=== PATIENT | male | born 1950 | race Caucasian/White ===

== ENCOUNTER → 2019-11-11 | Outpatient (CLI) | payer MEDICARE, OTHER ==
--- NOTE | 2019-11-11 09:53 | Diagnostic Imaging Report ---
INDICATION: Tobaccoism. EXAMINATION: PA and lateral chest. FINDINGS: The heart size and pulmonary vascularity are normal. There is a 2 cm ill-defined opacity in the left infrahilar area, suspicious for a mass. There are no infiltrates, effusions, or pneumothoraces. IMPRESSION: There is a 2 cm mass in the region of the lingular segment of the left upper lobe. This should be considered neoplasm until proven otherwise. Dictated by: Dictated on workstation # [id number]
== END ==
LOC: RAD 09:16
PROVIDERS: ATTEND Nurse Practitioner Family
DX: J98.4 Other disorders of lung (principal); R91.8 Other nonspecific abnormal finding of lung field; Z87.891 Personal history of nicotine dependence
CPT/HCPCS: 71046

== ENCOUNTER → 2019-11-12 | Outpatient (CLI) | payer MEDICARE, OTHER ==
--- NOTE | 2019-11-13 08:46 | Diagnostic Imaging Report ---
EXAMINATION: PET/CT. TECHNIQUE: PET/CT imaging was obtained from the base of the skull through the pelvis after the administration of 13.62 mCi of F-18 fluorodeoxyglucose injected into the left antecubital fossa. Limited CT imaging was utilized for localization and attenuation correction purposes. The low energy CT utilized for attenuation correction is not considered to be of high enough spatial resolution to allow in and of itself a separate anatomical analysis. Height: 6' 1" Weight: 206 Blood Glucose Level: 154 COMPARISON: There are no prior PET/CT examinations available for comparison. HISTORY: The CT chest exam performed at [facility] on 11/04/2019 did note a roughly 2 cm mass along the anterior aspect of the left upper lung. There was an adjacent linear density measuring approximately 1.7 cm as well. There also appeared to be lytic lesions involving the ribs and the thoracic vertebral bodies. In addition, there were areas of diminished density throughout the liver including a 5 cm area of diminished density in the inferior portion of the right lobe of the liver. FINDINGS: On this study, the mass involving the left lung is hypermetabolic with a maximum SUV of 6.5. The linear area adjacent to this mass is also somewhat hypermetabolic with a maximum SUV of 3.6. Furthermore, there is hypermetabolic activity in the left hilum with nodes reaching a maximum SUV of 5.0. There are also innumerable osseous metastatic lesions identified. There are areas of hypermetabolic activity involving the humeri (particularly the right humerus); ribs; cervical, thoracic, and lumbar vertebra; bony pelvis; and both femurs. This includes a sizable area of hypermetabolic activity in the left sacrum. The maximum SUV in this area is 5.7. The CT images through this area do show significant bony destruction of the left sacrum. The area of diminished density in the right lobe of the liver seen on the previous exam is also intensely hypermetabolic with a maximum SUV of 8.2. There are at least two other areas of hypermetabolic activity within the liver. These have maximum SUVs in the 4.[address] images failed to show any sign of an acute abnormality. IMPRESSION: 1. The mass in the left upper lung seen on the previous study is hypermetabolic and should be considered neoplastic until proven otherwise. There is also extensive osseous metastatic disease and there are several lesions involving the liver including a 5 cm mass in the inferior portion of the right lobe. 2. There is no acute abnormality identified. Dictated by: Dictated on workstation # [id number]
== END ==
LOC: RAD 11:38 → EDUNIT# 12:00
PROVIDERS: ATTEND Nurse Practitioner Family
DX: J98.4 Other disorders of lung (principal); M54.9 Dorsalgia, unspecified; R91.8 Other nonspecific abnormal finding of lung field; Z87.891 Personal history of nicotine dependence

== ENCOUNTER → 2019-11-15 | Outpatient (CLI) | payer MEDICARE, OTHER ==
[~2019-11-15] MED LIST: RT-ALBUTEROL SULF 2.5 MG/3 ML PRE-MIX VIAL INH ONE
== END ==
LOC: RT 13:21 → EDUNIT# 13:40
PROVIDERS: ATTEND Nurse Practitioner Family
DX: J98.4 Other disorders of lung (principal); J98.8 Other specified respiratory disorders; R06.00 Dyspnea, unspecified; F17.210 Nicotine dependence, cigarettes, uncomplicated
CPT/HCPCS: 94060; 94726; 94729

== ENCOUNTER 2019-11-21 08:00 | Outpatient (CLI) | payer MEDICARE, OTHER ==
[~2019-11-21] VITALS: Ht 185.4 cm; Wt 93.2 kg
[2019-11-21] VITALS (14 sets, daily range): BP systolic 165–189; BP diastolic 71–95
[2019-11-21 08:32] LABS: HEMOGLOBIN 10.5 G/DL (13.3-17.7); MEAN PLATELET VOLUME 9.9 FL (7.4-10.4); RED CELL DISTRIBUTION WIDTH 13.9 % (10.0-14.5); WHITE BLOOD COUNT 11.5 10^3/uL (4.3-11.0)
[2019-11-21] MEDS ORDERED: NS IV 1000 ML 1,000 ML IV STA (08:33)
[2019-11-21] MEDS ORDERED: LIDOCAINE 1% INJ 20 ML 20 ML VIAL INJ ONE (08:45)
[2019-11-21] MEDS ORDERED: fentaNYL INJECTION 100 MCG/2 ML AMP IVP ONE ×2 (08:45→11:15)
[2019-11-21] MEDS ORDERED: MIDAZOLAM 2 MG/2 ML (VERSED) VIAL IVP ONE (08:45)
[2019-11-21 08:52] LABS: PROTHROMBIN TIME PATIENT 13.9 SEC (12.2-14.7)
--- NOTE | 2019-11-21 10:55 | NUR ---
DR HANNAH NOTIFIED THAT PT CONT HYPERTENSIVE. NEW SOA. BREATH SOUNDS DIMINISHED WITH UPPER LOBE WHEEZES BILATERALLY. PT C/O DIFFICULTY BREATHING. ORDERS REC'D
[2019-11-21] MEDS ORDERED: HYDROcodone/APAP 5 MG/325 MG (LORTAB) TAB PO PRN (11:00)
--- NOTE | 2019-11-21 11:11 | Diagnostic Imaging Report ---
INDICATION: Liver mass. Patient presents for CT-guided biopsy. TECHNIQUE: All CT scans use one or more of the following dose optimizing techniques: automated exposure control, MA and/or KvP adjustment based on a patient size and exam type, or iterative reconstruction. DETAILS OF PROCEDURE: Patient was brought to the CT suite, placed on the table in the left side down decubitus position. Axial imaging through abdomen was performed to evaluate appropriate entry site. Procedure was performed utilizing conscious sedation with radiology nursing and constant patient monitoring. Patient was administered 50 mcg of fentanyl intravenously and 1 mg of Versed intravenously. Total procedure time is 9 minutes. The right abdomen was prepped and draped in usual sterile fashion. Small amount of 1% lidocaine was utilized for local anesthesia. A coaxial 18-gauge Temno needle was advanced and placed with its tip in the dominant mass in the inferior right lobe of the liver. Multiple core biopsies were obtained. Needle was then repositioned and additional cores were obtained. Needle was withdrawn during injection of a blood patch. Follow-up imaging shows no complicating features. IMPRESSION: Successful CT-guided core biopsy of the dominant mass in the inferior right lobe of the liver, utilizing conscious sedation. Pathology results are currently pending. Dictated by: Dictated on workstation # [id number]
[2019-11-21] MEDS ORDERED: RT-ALBUTEROL/IPRATROPIUM 3 ML (DUONEB) VIAL INH ONE (11:15)
--- NOTE | 2019-11-21 11:17 | NUR ---
RT TO ROOM. BREATHING TREATMENT GIVEN. PT REPORTS HE FEELS MUCH LESS SOA AFTER TREATMENT. FENTANYL GIVEN FOR C/O PAIN AT PROCEDURE SITE. DRESSING D/I. NO SX/SX BLEEDING NOTED. PT VERY COMPLIANT WITH LAYING FLAT ON RIGHT SIDE.
--- NOTE | 2019-11-21 12:20 | NUR ---
PT RESTING QUIETLY. RESPS EVEN ET UNLAB. FAMILY AT BEDSIDE. NO C/O OR REQUESTS.
--- NOTE | 2019-11-21 15:48 | Pre-Op Note & Conscious Sedat ---
Pre-Operative Progress Note H&P Reviewed The H&P was reviewed, patient examined and no changes noted. Date H&P Reviewed: Nov 21, 2019 Time H&P Reviewed: 09:00 Pre-Op Diagnosis: Liver mass Conscious Sedation Pre-Proced Time 09:00 ASA Score 2 For ASA 3 and 4: Consider anesthesia and medical clearance. Also, for patients with a history of failed moderate sedation consider anesthesia. Airway Lungs Heart ASA score ASA 1: a normal healthy patient ASA 2: a patient with a mild systemic disease (mid diabetes, controlled hypertension, obesity ASA 3: a patient with a severe systemic disease that limits activity (angina, COPD, prior Myocardial infarction) ASA 4: a patient with an incapacitating disease that is a constant threat to life (CHF, renal failure) ASA 5: a moribund patient not expected to survive 24 hrs. (ruptured aneurysm) ASA 6: a declared brain- patient whose organs are being harvested. For emergent operations, add the letter E after the classification Mallampati Classification Grade 2 Sedation Plan Analgesia, Amnesia, Plan communicated to team members, Discussed options with patient/fam, Discussed risks with patient/fam The patient is an appropriate candidate to undergo the planned procedure, sedation, and anesthesia. The patient immediately re-assessed prior to indication. ILEANA OTT MD Nov 21, 2019 15:48
== END 2019-11-21 13:30 | disposition home or self-care (01) ==
LOC: SDC 08:00
PROVIDERS: ATTEND Nurse Practitioner Family
DX: J98.4 Other disorders of lung (principal); M89.9 Disorder of bone, unspecified; K76.9 Liver disease, unspecified; J44.9 Chronic obstructive pulmonary disease, unspecified; C80.1 Malignant (primary) neoplasm, unspecified; Z79.51 Long term (current) use of inhaled steroids; R91.8 Other nonspecific abnormal finding of lung field; Z87.891 Personal history of nicotine dependence; Z72.0 Tobacco use
CPT/HCPCS: 36415; 77012; 85027; 85610; 85730; 94640; 99156

== ENCOUNTER 2019-12-01 06:48 | Inpatient (IN) | payer MEDICARE, OTHER ==
[~2019-12-01] VITALS: Ht 184.5 cm; Wt 92.5 kg
--- NOTE | 2019-12-01 08:53 | NUR ---
REPORT RECEIVED FROM CHEYANNE DUGAN ED NURSE. PT TO ARRIVE TO FLOOR SHORTLY
--- NOTE | 2019-12-01 09:20 | NUR ---
PT DIRECT ADMIT FROM [place] [facility] TO ROOM 416 VIA [facility]. A/O X4. DENIES ANY PAIN AT THIS TIME. PT ORIENTED TO ROOM, CALL LIGHT IN REACH. PLAN OF CARE DISCUSSED WITH PT.
--- OUTSIDE RECORDS SUMMARY | 2019-12-01 09:25 | XMS REPORT | Continuity of Care Document ---
Author Organization Unknown Address Unknown Phone Unavailable Allergies Active Description Code Type Severity Reaction Onset Reported/Identified Relationship to Patient Clinical Status Yes NO KNOWN DRUG ALLERGIES UNKNOWN UNKNOWN Yes No Known Drug Allergies [id number] Drug Allergy Unknown N/A 11/15/2019 Medications Medication Packaging Start Date St op Date Route Dosage Sig NORMAL SALINE 1000CC IV BAG INJ 0.9 % (NS 1000CC IV BAG) ml 04/30/2019 04/30/2019 ONCE&1154 INSULIN REGULAR HUMAN INJ 10 0 UNITS/CC (HUMULIN R / NOVOLIN R INSULIN) UNITS 11/28/2019 11/28/2019 ONCE&121 8 NORMAL SALINE 1000CC IV BAG INJ 0.9 % (NS 1000CC IV BAG) ml 11/28/2019 11/28/2019 ONCE&1225 INSULIN REGULAR HUMAN INJ 10 0 UNITS/CC (HUMULIN R / NOVOLIN R INSULIN) UNITS 12/01/2019 12/01/2019 ONCE&060 8 NORMAL SALINE 1000CC IV BAG INJ 0.9 % (NS 1000CC IV BAG) ml 12/01/2019 12/16/2019 CONTINUOUSEVERY 0 Hour CEFTRIAXONE PREMIX IV BAG IV 1 GM/50CC (ROCEPHIN PREMIX IV BAG) GM 12/01/2019 12/01/2019 ONCE&0705 ASPIRIN TAB 325 MG (ROMERO) M G 12/01/2019 12/07/2019 Daily&0900 Problems Date Dx Coded Attending Type Code Diagnosis Diagnosed By 04/30/2019 W 433.10 OCC LUSION AND STENOSIS OF CAROTID ARTERY, WITHOUT MENTION OF CEREBRAL INFARCTION 04/30/2019 W I65.21 OCC LUSION AND STENOSIS OF RIGHT CAROTID ARTERY 04/30/2019 W R20.2 PARE STHESIA OF SKIN 04/30/2019 W R53.1 WEAKNESS 05/15/2019 UNLISTED, UNLISTED W 780. 79 OTHER MALAISE AND FATIGUE 05/15/2019 UNLISTED, UNLISTED W 782. 0 DISTURBANCE OF SKIN SENSATION 05/15/2019 UNLISTED, UNLISTED W R20. 2 PARESTHESIA OF SKIN 05/15/2019 UNLISTED, UNLISTED W R53. 1 WEAKNESS 05/15/2019 UNLISTED, UNLISTED W 780. 79 OTHER MALAISE AND FATIGUE 05/15/2019 UNLISTED, UNLISTED W 782. 0 DISTURBANCE OF SKIN SENSATION 05/15/2019 UNLISTED, UNLISTED W R20. 2 PARESTHESIA OF SKIN 05/15/2019 UNLISTED, UNLISTED W R53. 1 WEAKNESS 05/24/2019 UNLISTED, UNLISTED W 780. 79 OTHER MALAISE AND FATIGUE 05/24/2019 UNLISTED, UNLISTED W 782. 0 DISTURBANCE OF SKIN SENSATION 05/24/2019 UNLISTED, UNLISTED W I65. 21 OCCLUSION AND STENOSIS OF RIGHT CAROTID ARTERY 05/24/2019 UNLISTED, UNLISTED W R20. 2 PARESTHESIA OF SKIN 05/24/2019 UNLISTED, UNLISTED W R53. 1 WEAKNESS 08/02/2019 Nando York W 781.0 ABNORMAL INVOLUNTARY MOVEMENTS 08/02/2019 Nando York W I65.21 OCCLUSION AND STENOSIS OF RIGHT CAROTID ARTERY 08/02/2019 Nando York W M62.838 OTHER MUSCLE SPASM 08/02/2019 Nando York W R20.2 PARESTHESIA OF SKIN 08/02/2019 Nando York W R53.1 WEAKNESS 11/05/2019 W 724.1 PAIN IN THORACIC SPINE 11/05/2019 W M54.6 PAIN IN THORACIC SPINE 11/13/2019 CHELSEA ROMAN MANAGER OF FINANCIAL Ot 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 11/13/2019 CHELSEA ROMAN MANAGER OF FINANCIAL Ot R91.8 OTHER NONSPECIFIC ABNORMAL FINDING OF OSITO 11/13/2019 CHELSEA ROMAN E MANAGER OF FINANCIAL Ot Z87.891 PERSONAL HISTORY OF NICOTINE DEPENDENCE 11/13/2019 CHELSEA ROMAN MANAGER OF FINANCIAL Ot 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 11/13/2019 CHELSEA ROMAN MANAGER OF FINANCIAL Ot R91.8 OTHER NONSPECIFIC ABNORMAL FINDING OF OSITO 11/13/2019 CHELSEA ROMAN MANAGER OF FINANCIAL Ot Z87.891 PERSONAL HISTORY OF NICOTINE DEPENDENCE 11/14/2019 CHELSEA ROMAN MANAGER OF FINANCIAL Ot 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 11/14/2019 CHELSEA ROMAN E MANAGER OF FINANCIAL Ot M54.9 DORSALGIA, UNSPECIFIED 11/14/2019 JESSIE, CHELSEA E MANAGER OF FINANCIAL Ot R91.8 OTHER NONSPECIFIC ABNORMAL FINDING OF OSITO 11/14/2019 JESSIESHELLY BLANKINE E MANAGER OF FINANCIAL Ot Z87.891 PERSONAL HISTORY OF NICOTINE DEPENDENCE 11/14/2019 JESSIE, CHELSEA E MANAGER OF FINANCIAL Ot 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 11/14/2019 JESSIE, CHELSEA E MANAGER OF FINANCIAL Ot R91.8 OTHER NONSPECIFIC ABNORMAL FINDING OF OSITO 11/14/2019 JESSIE, CHELSEA E MANAGER OF FINANCIAL Ot Z87.891 PERSONAL HISTORY OF NICOTINE DEPENDENCE 11/15/2019 JESSIE, CHELSEA E MANAGER OF FINANCIAL Ot 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 11/15/2019 JESSIE, CHELSEA E MANAGER OF FINANCIAL Ot M54.9 DORSALGIA, UNSPECIFIED 11/15/2019 JESSIE, CHELSEA E MANAGER OF FINANCIAL Ot R91.8 OTHER NONSPECIFIC ABNORMAL FINDING OF OSITO 11/15/2019 JESSIESHELLY BLANKINE E MANAGER OF FINANCIAL Ot Z87.891 PERSONAL HISTORY OF NICOTINE DEPENDENCE 11/15/2019 JESSIE, CHELSEA E MANAGER OF FINANCIAL Ot 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 11/15/2019 JESSIE, CHELSEA E MANAGER OF FINANCIAL Ot R91.8 OTHER NONSPECIFIC ABNORMAL FINDING OF OSITO 11/15/2019 SHELLY ROMANINE E MANAGER OF FINANCIAL Ot Z87.891 PERSONAL HISTORY OF NICOTINE DEPENDENCE 11/18/2019 JESSIE, CHELSEA E MANAGER OF FINANCIAL Ot 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 11/18/2019 JESSIE, CHELSEA E MANAGER OF FINANCIAL Ot M54.9 DORSALGIA, UNSPECIFIED 11/18/2019 JESSIE, CHELSEA E MANAGER OF FINANCIAL Ot R91.8 OTHER NONSPECIFIC ABNORMAL FINDING OF OSITO 11/18/2019 JESSIESHELLY BLANKINE E MANAGER OF FINANCIAL Ot Z87.891 PERSONAL HISTORY OF NICOTINE DEPENDENCE 11/18/2019 JESSIE, CHELSEA E MANAGER OF FINANCIAL Ot 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 11/18/2019 JESSIE, CHELSEA E MANAGER OF FINANCIAL Ot R91.8 OTHER NONSPECIFIC ABNORMAL FINDING OF OSITO 11/18/2019 JESSIE CHELSEA E MANAGER OF FINANCIAL Ot Z87.891 PERSONAL HISTORY OF NICOTINE DEPENDENCE 11/20/2019 JESSIE, CHELSEA E MANAGER OF FINANCIAL Ot F17.210 NICOTINE DEPENDENCE, CIGARETTES, UNCOMPL 11/20/2019 JESSIE, CHELSEA E MANAGER OF FINANCIAL Ot 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 11/20/2019 JESSIE, CHELSEA E MANAGER OF FINANCIAL Ot J98.8 OTHER SPECIFIED RESPIRATORY DISORDERS 11/20/2019 JESSIE, CHELSEA E MANAGER OF FINANCIAL Ot R06.00 DYSPNEA, UNSPECIFIED 11/20/2019 JESSIE, CHELSEA E MANAGER OF FINANCIAL Ot 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 11/20/2019 JESSIE, CHELSEA E MANAGER OF FINANCIAL Ot M54.9 DORSALGIA, UNSPECIFIED 11/20/2019 JESSIE, CHELSEA E MANAGER OF FINANCIAL Ot R91.8 OTHER NONSPECIFIC ABNORMAL FINDING OF OSITO 11/20/2019 JESSIE, CHELSEA E MANAGER OF FINANCIAL Ot Z87.891 PERSONAL HISTORY OF NICOTINE DEPENDENCE 11/20/2019 JESSIE, CHELSEA E MANAGER OF FINANCIAL Ot F17.210 NICOTINE DEPENDENCE, CIGARETTES, UNCOMPL 11/20/2019 JESSIE, CHELSEA E MANAGER OF FINANCIAL Ot 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 11/20/2019 JESSIE, CHELSEA E MANAGER OF FINANCIAL Ot J98.8 OTHER SPECIFIED RESPIRATORY DISORDERS 11/20/2019 JESSIE, CHELSEA E MANAGER OF FINANCIAL Ot R06.00 DYSPNEA, UNSPECIFIED 11/20/2019 JESSIE, CHELSEA E MANAGER OF FINANCIAL Ot 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 11/20/2019 JESSIE, CHELSEA E MANAGER OF FINANCIAL Ot R91.8 OTHER NONSPECIFIC ABNORMAL FINDING OF OSITO 11/20/2019 JESSIE, CHELSEA E MANAGER OF FINANCIAL Ot Z87.891 PERSONAL HISTORY OF NICOTINE DEPENDENCE 11/21/2019 JESSIE, CHELSEA E MANAGER OF FINANCIAL Ot 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 11/21/2019 JESSIE, CHELSEA E MANAGER OF FINANCIAL Ot M54.9 DORSALGIA, UNSPECIFIED 11/21/2019 JESSIE, CHELSEA E MANAGER OF FINANCIAL Ot R91.8 OTHER NONSPECIFIC ABNORMAL FINDING OF OSITO 11/21/2019 JESSIE, CHELSEA E MANAGER OF FINANCIAL Ot Z87.891 PERSONAL HISTORY OF NICOTINE DEPENDENCE 11/21/2019 JESSIE, CHELSEA E MANAGER OF FINANCIAL Ot F17.210 NICOTINE DEPENDENCE, CIGARETTES, UNCOMPL 11/21/2019 JESSIE, CHELSEA E MANAGER OF FINANCIAL Ot 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 11/21/2019 JESSIE, CHELSEA E MANAGER OF FINANCIAL Ot J98.8 OTHER SPECIFIED RESPIRATORY DISORDERS 11/21/2019 JESSIE, CHELSEA E MANAGER OF FINANCIAL Ot R06.00 DYSPNEA, UNSPECIFIED 11/21/2019 JESSIE, CHELSEA E MANAGER OF FINANCIAL Ot 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 11/21/2019 JESSIE, CHELSEA E MANAGER OF FINANCIAL Ot R91.8 OTHER NONSPECIFIC ABNORMAL FINDING OF OSITO 11/21/2019 JESSIESHELLY BLANKEMELIA Wei MANAGER OF FINANCIAL Ot Z87.891 PERSONAL HISTORY OF NICOTINE DEPENDENCE 11/21/2019 CHELSEA ROMAN MANAGER OF FINANCIAL Ot R79.1 ABNORMAL COAGULATION PROFILE 11/21/2019 CHELSEA ROMAN MANAGER OF FINANCIAL Ot C80.1 MALIGNANT (PRIMARY) NEOPLASM, UNSPECIFIE 11/21/2019 CHELSEA ROMAN MANAGER OF FINANCIAL Ot J44.9 CHRONIC OBSTRUCTIVE PULMONARY DISEASE, U 11/21/2019 SHELLY ROMANINE Eriberto MANAGER OF FINANCIAL Ot 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 11/21/2019 CHELSEA ROMAN MANAGER OF FINANCIAL Ot K76.9 LIVER DISEASE, UNSPECIFIED 11/21/2019 CHELSEA ROMAN MANAGER OF FINANCIAL Ot M89.9 DISORDER OF BONE, UNSPECIFIED 11/21/2019 CHELSEA ROMAN MANAGER OF FINANCIAL Ot R91.8 OTHER NONSPECIFIC ABNORMAL FINDING OF OSITO 11/21/2019 CHELSAE ROMAN MANAGER OF FINANCIAL Ot Z72.0 TOBACCO USE 11/21/2019 CHELSEA ROMAN MANAGER OF FINANCIAL Ot Z79.51 FDC (CURRENT) USE OF 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 11/21/2019 CHELSEA ROMAN MANAGER OF FINANCIAL Ot Z87.891 PERSONAL HISTORY OF NICOTINE DEPENDENCE 11/21/2019 CHELSEA ROMAN MANAGER OF FINANCIAL Ot R79.1 ABNORMAL COAGULATION PROFILE 11/27/2019 CHELSEA ROMAN MANAGER OF FINANCIAL Ot 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 11/27/2019 CHELSEA ROMAN MANAGER OF FINANCIAL Ot M54.9 DORSALGIA, UNSPECIFIED 11/27/2019 CHELSEA ROMAN MANAGER OF FINANCIAL Ot R91.8 OTHER NONSPECIFIC ABNORMAL FINDING OF OSITO 11/27/2019 CHELSEA ROMAN MANAGER OF FINANCIAL Ot Z87.891 PERSONAL HISTORY OF NICOTINE DEPENDENCE 11/27/2019 SHELLY ROMANINE Eriberto MANAGER OF FINANCIAL Ot F17.210 NICOTINE DEPENDENCE, CIGARETTES, UNCOMPL 11/27/2019 CHELSEA ROMAN MANAGER OF FINANCIAL Ot 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 11/27/2019 CHELSEA ROMAN MANAGER OF FINANCIAL Ot J98.8 OTHER SPECIFIED RESPIRATORY DISORDERS 11/27/2019 CHELSEA ROMAN MANAGER OF FINANCIAL Ot R06.00 DYSPNEA, UNSPECIFIED 11/27/2019 SHELLY ROMANINE E MANAGER OF FINANCIAL Ot 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 11/27/2019 JESSIESHELLYCHELSEA E MANAGER OF FINANCIAL Ot R91.8 OTHER NONSPECIFIC ABNORMAL FINDING OF OSITO 11/27/2019 SHELLY ROMANINE E MANAGER OF FINANCIAL Ot Z87.891 PERSONAL HISTORY OF NICOTINE DEPENDENCE 11/27/2019 JESSIE, CHELSEA E MANAGER OF FINANCIAL Ot 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 11/27/2019 JESSIE, CHELSEA E MANAGER OF FINANCIAL Ot M54.9 DORSALGIA, UNSPECIFIED 11/27/2019 JESSIE, CHELSEA E MANAGER OF FINANCIAL Ot R91.8 OTHER NONSPECIFIC ABNORMAL FINDING OF OSITO 11/27/2019 SHELLY ROMANINE E MANAGER OF FINANCIAL Ot Z87.891 PERSONAL HISTORY OF NICOTINE DEPENDENCE 11/27/2019 JESSIE, CHELSEA E MANAGER OF FINANCIAL Ot F17.210 NICOTINE DEPENDENCE, CIGARETTES, UNCOMPL 11/27/2019 JESSIE, CHELSEA E MANAGER OF FINANCIAL Ot 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 11/27/2019 JESSIE, CHELSEA E MANAGER OF FINANCIAL Ot J98.8 OTHER SPECIFIED RESPIRATORY DISORDERS 11/27/2019 JESSIE, CHELSEA E MANAGER OF FINANCIAL Ot R06.00 DYSPNEA, UNSPECIFIED 11/27/2019 JESSIE, CHELSEA E MANAGER OF FINANCIAL Ot 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 11/27/2019 JESSIE, CHELSEA E MANAGER OF FINANCIAL Ot R91.8 OTHER NONSPECIFIC ABNORMAL FINDING OF OSITO 11/27/2019 SHELLY ROMANINE E MANAGER OF FINANCIAL Ot Z87.891 PERSONAL HISTORY OF NICOTINE DEPENDENCE 11/27/2019 JESSIE, CHELSEA E MANAGER OF FINANCIAL Ot 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 11/27/2019 JESSIE, CHELSEA E MANAGER OF FINANCIAL Ot M54.9 DORSALGIA, UNSPECIFIED 11/27/2019 JESSIE, CHELSEA E MANAGER OF FINANCIAL Ot R91.8 OTHER NONSPECIFIC ABNORMAL FINDING OF OSITO 11/27/2019 SHELLY ROMANINE E MANAGER OF FINANCIAL Ot Z87.891 PERSONAL HISTORY OF NICOTINE DEPENDENCE 11/27/2019 JESSIE, CHELSEA E MANAGER OF FINANCIAL Ot F17.210 NICOTINE DEPENDENCE, CIGARETTES, UNCOMPL 11/27/2019 JESSIE, CHELSEA E MANAGER OF FINANCIAL Ot 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 11/27/2019 JESSIE, CHELSEA E MANAGER OF FINANCIAL Ot J98.8 OTHER SPECIFIED RESPIRATORY DISORDERS 11/27/2019 JESSIE, CHELSEA E MANAGER OF FINANCIAL Ot R06.00 DYSPNEA, UNSPECIFIED 11/27/2019 JESSIE, CHELSEA E MANAGER OF FINANCIAL Ot 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 11/27/2019 JESSIESHELLY BLANKINE Eriberto MANAGER OF FINANCIAL Ot R91.8 OTHER NONSPECIFIC ABNORMAL FINDING OF OSITO 11/27/2019 JESSIESHELLY BLANKINE Eriberto MANAGER OF FINANCIAL Ot Z87.891 PERSONAL HISTORY OF NICOTINE DEPENDENCE 11/27/2019 JESSIESHELLY BLANKINE Eriberto MANAGER OF FINANCIAL Ot 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 11/27/2019 JESSIE, CHELSEA Eriberto MANAGER OF FINANCIAL Ot M54.9 DORSALGIA, UNSPECIFIED 11/27/2019 SHELLY ROMANINE E MANAGER OF FINANCIAL Ot R91.8 OTHER NONSPECIFIC ABNORMAL FINDING OF OSITO 11/27/2019 JESSIESHELLY BLANKINE Eriberto MANAGER OF FINANCIAL Ot Z87.891 PERSONAL HISTORY OF NICOTINE DEPENDENCE 11/27/2019 SHELLY ROMANINE Eriberto MANAGER OF FINANCIAL Ot F17.210 NICOTINE DEPENDENCE, CIGARETTES, UNCOMPL 11/27/2019 SHELLY ROMANINE E MANAGER OF FINANCIAL Ot 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 11/27/2019 SHELLY ROMANINE Eriberto MANAGER OF FINANCIAL Ot J98.8 OTHER SPECIFIED RESPIRATORY DISORDERS 11/27/2019 CHELSEA ROMAN MANAGER OF FINANCIAL Ot R06.00 DYSPNEA, UNSPECIFIED 11/27/2019 SHELLY ROMANINE Eriberto MANAGER OF FINANCIAL Ot 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 11/27/2019 JESSIE CHELSEA Wei MANAGER OF FINANCIAL Ot R91.8 OTHER NONSPECIFIC ABNORMAL FINDING OF OSITO 11/27/2019 JESSIESHELLY BLANKEMELIA Wei MANAGER OF FINANCIAL Ot Z87.891 PERSONAL HISTORY OF NICOTINE DEPENDENCE 11/28/2019 CHELSEA ROMAN MANAGER OF FINANCIAL Ot C80.1 MALIGNANT (PRIMARY) NEOPLASM, UNSPECIFIE 11/28/2019 SHELLY ROMANINE Eriberto MANAGER OF FINANCIAL Ot J44.9 CHRONIC OBSTRUCTIVE PULMONARY DISEASE, U 11/28/2019 SHELLY ROMANINE E MANAGER OF FINANCIAL Ot 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 11/28/2019 SHELLY ROMANINE Eriberto MANAGER OF FINANCIAL Ot K76.9 LIVER DISEASE, UNSPECIFIED 11/28/2019 SHELLY ROMANINE E MANAGER OF FINANCIAL Ot M89.9 DISORDER OF BONE, UNSPECIFIED 11/28/2019 SHELLY ROMANINE E MANAGER OF FINANCIAL Ot R91.8 OTHER NONSPECIFIC ABNORMAL FINDING OF OSITO 11/28/2019 CHELSEA ROMAN MANAGER OF FINANCIAL Ot Z72.0 TOBACCO USE 11/28/2019 CHELSEA ROMAN E MANAGER OF FINANCIAL Ot Z79.51 MASSAGE COORDINATOR (CURRENT) USE OF 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 11/28/2019 JESSIE CHELSEA E MANAGER OF FINANCIAL Ot Z87.891 PERSONAL HISTORY OF NICOTINE DEPENDENCE 11/28/2019 JESSIE, CHELSEA E MANAGER OF FINANCIAL Ot C80.1 MALIGNANT (PRIMARY) NEOPLASM, UNSPECIFIE 11/28/2019 JESSIE CHELSEA E MANAGER OF FINANCIAL Ot J44.9 CHRONIC OBSTRUCTIVE PULMONARY DISEASE, U 11/28/2019 JESSIE, CHELSEA E MANAGER OF FINANCIAL Ot 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 11/28/2019 JESSIE, CHELSEA E MANAGER OF FINANCIAL Ot K76.9 LIVER DISEASE, UNSPECIFIED 11/28/2019 JESSIE, CHELSEA E MANAGER OF FINANCIAL Ot M89.9 DISORDER OF BONE, UNSPECIFIED 11/28/2019 JESSIE, CHELSEA E MANAGER OF FINANCIAL Ot R91.8 OTHER NONSPECIFIC ABNORMAL FINDING OF OSITO 11/28/2019 JESSIE CHELSEA E MANAGER OF FINANCIAL Ot Z72.0 TOBACCO USE 11/28/2019 JESSIE, CHELSEA E MANAGER OF FINANCIAL Ot Z79.51 FDC (CURRENT) USE OF 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 11/28/2019 JESSIE, CHELSEA E MANAGER OF FINANCIAL Ot Z87.891 PERSONAL HISTORY OF NICOTINE DEPENDENCE 11/28/2019 JESSIE CHELSEA E MANAGER OF FINANCIAL Ot C80.1 MALIGNANT (PRIMARY) NEOPLASM, UNSPECIFIE 11/28/2019 JESSIE CHELSEA E MANAGER OF FINANCIAL Ot J44.9 CHRONIC OBSTRUCTIVE PULMONARY DISEASE, U 11/28/2019 JESSIE, CHELSEA E MANAGER OF FINANCIAL Ot 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 11/28/2019 JESSIE CHELSEA E MANAGER OF FINANCIAL Ot K76.9 LIVER DISEASE, UNSPECIFIED 11/28/2019 JESSIE CHELSEA E MANAGER OF FINANCIAL Ot M89.9 DISORDER OF BONE, UNSPECIFIED 11/28/2019 JESSIE, CHELSEA E MANAGER OF FINANCIAL Ot R91.8 OTHER NONSPECIFIC ABNORMAL FINDING OF OSITO 11/28/2019 JESSIE CHELSEA E MANAGER OF FINANCIAL Ot Z72.0 TOBACCO USE 11/28/2019 JESSIE, CHELSEA E MANAGER OF FINANCIAL Ot Z79.51 FDC (CURRENT) USE OF 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 11/28/2019 JESSIE, CHELSEA E MANAGER OF FINANCIAL Ot Z87.891 PERSONAL HISTORY OF NICOTINE DEPENDENCE Procedures There is no data. Results Test Result Range Urinalysis - 04/30/19 11:02 Icotest N/A Negative Urine Volume Urine Volume Sufficient (10mL) Urine-Appearance Clear Clear Urine-Bacteria Negative Urine-Bilirubin Negative Negative Urine-Blood Trace-lysed Negative Urine-Color Yellow Colorless-[place] ow Urine-Epithelial Cells 0-5/HPF Urine-Glucose Negative Negative Urine-Ketones Negative Negative Urine-Leukocytes Negative Negative Urine-Nitrite Negative Negative Urine-Other Urine Saved if Culture Need ed (48hrs from time of collection) Urine-pH 5.5 5-8.5 Urine-Protein 2+ Negative Urine-RBC Negative Urine-Specific [place] 1.025 1.000-1 .030 Urine-WBC Negative Urobilinogen 0.2 E.U./dL 0.2-1.0 Thyroid Stimulating Hormone - 06/27/19 1 4:57 TSH 1.70 mIU/mL 0.32-5.00 PSA Yearly Screen - 09/24/19 10:23 PSA TOTAL 1.2 ng/mL 0.0-4.0 Hemoglobin A1C - 10/28/19 10:27 Automated blood complete blood count (he mogram) panel - 11/21/19 08:20 Blood leukocytes automated count (number/volume) 11.5 10*3/uL 4.3-11.0 Blood erythrocytes automated count (number/volume) 3.64 10*6/uL 4.35-5.85 Venous blood hemoglobin measurement (mass/volume) 10.5 g/dL 13.3-17.7 Blood hematocrit (volume fraction) 32 % 40-54 Automated erythrocyte mean corpuscular volume 88 [ foz_us] 80-99 Automated erythrocyte mean corpuscular h emoglobin (mass per erythrocyte) 29 pg 25-34 Automated erythrocyte mean corpuscular h emoglobin concentration measurement (mass/volume) 33 g/dL 32-36 Automated erythrocyte distribution width ratio 13. 9 % 10.0- 14.5 Automated blood platelet count (count/volume) 193 10*3/uL 130-400 Automated blood platelet mean volume measurement 9.9 [foz_us] 7.4-10.4 PT panel in platelet poor plasma by coag ulation assay - 11/21/19 08:20 Prothrombin time (PT) in platelet poor plasma by coagu lation assay 13.9 s 12.2-14.7 INR in platelet poor plasma or blood by coagulation as say 1.0 0.8-1.4 Activated partial thromboplastin time (a PTT) in platelet poor plasma bycoagulation assay - 11/21/19 08:20 Activated partial thromboplastin time (a PTT) in platelet poor plasma bycoagulation assay 30 s 24-35 Hemoglobin A1C - 11/27/19 13:03 % A1C 9.10 % 5.40-6.60 AvGlu 247 mg/dL 70-110 Cardiac Panel - 11/28/19 11:22 CK 131 U/L 26-174 CK-MB 2.8 ng/ml 0.0-9.2 Myoglobin 116.8 ng/ml 1.6-154.9 Troponin 0.080 ng/mL 0.000-0.400 Sputum Culture - 11/28/19 11:22 PRELIM CULTURE RESULTS Abundant Normal Becca [id number] Group B Streptococci, ANN/Further ID to Follow Sensi - 11/28/19 11:22 FINAL CULTURE RESULTS Streptococcus dysgalac tiae group (Isolate 1) Ampicillin/Sulbactam N/R Ampicillin N/R Amoxicillin/K Clavulanate N/R Ceftriaxone N/R Clindamycin N/R Cefoxitin Screen N/R Ciprofloxacin N/R Daptomycin N/R Erythromycin N/R Nitrofurantoin N/R Gentamicin N/R Gentamicin Synergy Screen N/R Inducible Clindamycin N/R Levofloxacin N/R Linezolid N/R Moxifloxacin N/R Oxacillin N/R Penicillin N/R Rifampin N/R Streptomycin Synergy N/R Synercid N/R Trimethoprim/ Sulfamethoxazole N/R Tetracycline N/R Vancomycin N/R Cardiac Panel - 11/28/19 14:30 CK 133 U/L 26-174 CK-MB 2.7 ng/ml 0.0-9.2 Myoglobin 151.5 ng/ml 1.6-154.9 Troponin 0.083 ng/mL 0.000-0.400 BNP - 12/01/19 05:30 BNP 272.20 pg/ml 0.00-100.00 Lactic Acid - 12/01/19 07:06 Lactic Acid 15.6 mg/dL 4.5-19.8 Encounters ACCT No. Visit Date/Time Discharge Status Pt. Type Provider Facility Loc./Unit Complaint [id number] 11/28/2019 11:00:00 11/28/2019 17:15 :00 [facility] [id number] 11/27/2019 12:54:00 11/27/2019 23:59 :00 DIS Outpatient RIGO DUNCAN [id number] 11/04/2019 08:28:00 11/04/2019 23:59 :00 DIS Outpatient Paoni, Fernando [id number] 10/28/2019 10:23:00 10/28/2019 23:59 :00 DIS Outpatient WHITEDARRYN [id number] 10/25/2019 11:08:00 10/25/2019 23:59 :00 DIS Outpatient Brokob, Debbie [id number] 10/25/2019 10:00:00 10/25/2019 23:59 :00 DIS Outpatient Brokob, Debbie [id number] 09/24/2019 11:28:00 09/24/2019 23:59 :00 DIS Outpatient PaoniFernando [id number] 09/24/2019 10:09:00 09/24/2019 23:59 :00 DIS Outpatient PaFernando dukes [id number] 08/02/2019 13:42:00 08/02/2019 14:36: 00 DIS Outpatient Howbryson, [facility] ER [id number] 07/16/2019 09:36:00 07/16/2019 23:59: 00 DIS Outpatient RIGO DUNCAN [id number] 07/04/2019 13:24:00 07/04/2019 23:59: 00 DIS Outpatient PaFernando dukes [id number] 06/27/2019 14:47:00 06/27/2019 23:59: 00 DIS Outpatient PaoniFernando [id number] 06/27/2019 09:22:00 06/27/2019 23:59: 00 DIS Outpatient Paoni, Fernando [id number] 05/07/2019 08:55:00 05/24/2019 10:15: 00 DIS Outpatient UNLISTED, ANNALEE [id number] 05/21/2019 10:05:00 05/21/2019 23:59: 00 DIS Outpatient PaoniFernando [id number] 05/08/2019 09:30:00 05/08/2019 23:59: 00 DIS Outpatient PaFernando dukes [id number] 04/24/2019 10:16:00 04/24/2019 23:59: 00 DIS Outpatient Paoni, Fernando [id number] 12/01/2019 05:13:00 Document Registration [id number] 10/30/2019 08:44:14 Document Registration [id number] 04/30/2019 11:56:52 Document Registration [id number] 04/30/2019 10:17:00 Document Registration [id number] 11/27/2019 11:05:00 23:59:59 CLS Outpatient NICO ARAUJO MD [facility] ONC [id number] 11/21/2019 08:00:00 13:30:00 DIS Outpatient CHELSEA ROMAN APRN [facility] SDC DYSPNEA,HX OF SMOKING,DISORDERS OF LUNG [id number] 11/15/2019 13:21:00 23:59:59 CLS Outpatient CHELSEA ROMAN APRN [facility] RT DYSPNEA,HX OF SMOKING,DISORDERS OF LUNG [id number] 11/12/2019 11:38:00 23:59:59 CLS Outpatient CHELSEA ROMAN APRN [facility] RAD DYSPNEA,HX OF SMOKING,DISORDERS OF LUNG [id number] 11/11/2019 09:16:00 23:59:59 CLS Outpatient CHELSEA ROMAN APRN [facility] RAD R91.8,J98.4,Z87 .891,R06.00 [id number] 12/04/2019 09:30:00 P EN Preadmit NICO ARAUJO MD [facility] RAD LUNG CANCER METASTATIC TO MARIKA NE
--- NOTE | 2019-12-01 09:45 | NUR ---
FS BLOOD SUGAR 503. DR ALEJANDRA NOTIFIED.
[2019-12-01] MEDS ORDERED: polyethylene glycoL POWDER 17 GM (MIRALAX) PACK PO PRN (10:00)
[2019-12-01] MEDS ORDERED: diphenhydrAMINE 25 MG TAB (BENADRYL) PO PRN (10:00)
[2019-12-01] MEDS ORDERED: AZITHROMYCIN INJECTION 500 MG in NS (IVPB) 250 ML IV ONE (10:00)
[2019-12-01] MEDS ORDERED: ANTACID SUSP 30 ML UDC (MYLANTA) PO PRN (10:00)
[2019-12-01] MEDS ORDERED: ONDANSETRON 4 MG (ZOFRAN) ORAL DISSOLVE TAB PO PRN (10:00)
[2019-12-01] MEDS ORDERED: BISACODYL 10 MG SUPP (DULCOLAX) PR PRN (10:00)
[2019-12-01] MEDS ORDERED: ACETAMINOPHEN 325 MG TABLET PO PRN (10:00)
[2019-12-01] MEDS ORDERED: cefTRIAXone FOR IV USE 1,000 MG in WATER (STERILE) FOR INJECTION 10 ML IV SCH (10:00)
[2019-12-01] MEDS ORDERED: ENOXAPARIN 40 MG/0.4 ML (LOVENOX) SYR SC SCH (10:00)
[2019-12-01] MEDS ORDERED: ONDANSETRON 4 MG/2 ML (SDV) Z0FRAN IV PRN (10:00)
[2019-12-01] MEDS: DOCUSATE SODIUM 100 MG (COLACE) CAP PO SCH ×2 (10:43→20:59)
[2019-12-01 10:50] VITALS: BP 178/74
[2019-12-01] MEDS: SENNOSIDES 8.6 MG (SENOKOT) TAB PO SCH ×2 (10:58→20:59)
[2019-12-01] MEDS ORDERED: inSUlin ASPART (NovoLOG) 1 UNIT/0.01 ML (CHARGE PER UNIT) SC SCH (11:00)
[2019-12-01] MEDS ORDERED: FUROSEMIDE 40 MG/4 ML INJ (LASIX) IVP ONE (11:30)
[2019-12-01] MEDS ORDERED: ASPIRIN 81 MG CHEW (CHILDREN'S ASA) PO ONE (11:30)
[2019-12-01] MEDS ORDERED: ENOXAPARIN 100 MG/1 ML (LOVENOX) SYR SC SCH (11:30)
[2019-12-01] MEDS ORDERED: ENOXAPARIN 60 MG/0.6 ML (LOVENOX) SYR SC NR (11:35)
[2019-12-01 11:38] LABS: BASOPHILS % (AUTO) 0 % (0-10); EOSINOPHILS % (AUTO) 0 % (0-10); HEMATOCRIT 28 % (40-54); HEMOGLOBIN 8.9 G/DL (13.3-17.7); LYMPHOCYTES # (AUTO) 0.6 X 10^3 (1.0-4.0); LYMPHOCYTES % (AUTO) 8 % (12-44); MEAN CORPUSCULAR HEMOGLOBIN 28 PG (25-34); MEAN CORPUSCULAR HGB CONC 32 G/DL (32-36); MEAN CORPUSCULAR VOLUME 88 FL (80-99); MEAN PLATELET VOLUME 10.3 FL (7.4-10.4); MONOCYTES # (AUTO) 0.7 X 10^3 (0.0-1.0); MONOCYTES % (AUTO) 9 % (0-12); NEUTROPHILS # (AUTO) 6.7 X 10^3 (1.8-7.8); NEUTROPHILS % (AUTO) 83 % (42-75); PLATELET COUNT 140 10^3/uL (130-400); RED CELL DISTRIBUTION WIDTH 14.3 % (10.0-14.5); WHITE BLOOD COUNT 8.1 10^3/uL (4.3-11.0)
[2019-12-01 11:45] LABS: INR 1.1 (0.8-1.4); PROTHROMBIN TIME PATIENT 14.2 SEC (12.2-14.7)
[2019-12-01] MEDS ORDERED: hydrALAZINE (APESOLINE) 20 MG/ML VIAL IV PRN (11:45)
--- NOTE | 2019-12-01 11:45 | History & Physical-Hospitalist ---
History of Present Illness HPI/Chief Complaint Ab Soliman is a 69-year-old male with recently diagnosed metastatic lung cancer to the liver and bone not yet on chemotherapy who presented with shortness of breath. He reports that he became short of breath with minimal activity. He reports that he has had a cough with sputum production. He denies any fevers or chills. He reports chest pressure in the center of his chest. He denies any radiation to the neck, jaw, or arm. He denies any diaphoresis. He denies any nausea or vomiting. He denies any abdominal pain. He denies any diarrhea. He has been constipated but had a bowel movement this morning. He reports leg swelling. He is unsure of what medications he takes every day and what his other chronic medical conditions are. Source: patient Exam Limitations: no limitations Date Seen 12/01/19 Time Seen by a Provider: 09:50 Attending Physician Ramiro Alejandra MD PCP Fernando Lord DO Referring Physician Date of Admission Dec 01, 2019 at 09:22 Home Medications & Allergies Home Medications Reviewed patient Home Medication Reconciliation performed by pharmacy medication reconciliations cartography technician and/or nursing. Patients Allergies have been reviewed. Allergies Allergies Coded Allergies No Known Drug Allergies (Unverified11/15/19) Past Cxhdtfs-Wjyyhw-Odqewy Hx Past Med/Social Hx: Reviewed Nursing Past Med/Soc Hx Patient Social History Recent Foreign Travel: No Contact w/other who traveled: No Recent Infectious Disease Expo: No Review of Systems Constitutional: no symptoms reported EENTM: no symptoms reported Respiratory: cough, dyspnea on exertion, short of breath Cardiovascular: chest pain, edema Gastrointestinal: no symptoms reported Genitourinary: no symptoms reported Musculoskeletal: no symptoms reported Skin: no symptoms reported Psychiatric/Neurological: No Symptoms Reported Physical Exam Physical Exam Vital Signs Vital Signs - First Documented 12/01/19 10:50 Temp 37.2 Pulse 100 Resp 20 B/P (MAP) 178/74 Pulse Ox 93 O2 Delivery Nasal Cannula O2 Flow Rate 5.00 Capillary Refill : Height, Weight, BMI Height: '" Weight: lbs. oz. kg; 27.20 BMI Method: General Appearance: No Apparent Distress, WD/WN HEENT: PERRL/EOMI, Pharynx Normal, Other (poor dentition) Neck: Normal Inspection, Supple Respiratory: Lungs Clear, Normal Breath Sounds, No Respiratory Distress Cardiovascular: Regular Rate, Rhythm, No Murmur Gastrointestinal: Normal Bowel Sounds, Non Tender, Soft Extremity: Normal Inspection, Non Tender, Pedal Edema (2+, wearing compression stockings) Neurologic/Psychiatric: Alert, Oriented x3, No Motor/Sensory Deficits, Normal Mood/Affect Skin: Normal Color, Warm/Dry Results Results/Procedures Labs Patient resulted labs reviewed. Assessment/Plan Admission Diagnosis acute on chronic respiratory failure with hypoxia Admission Status: Inpatient Order (span 2 midnights) Reason for Inpatient Admission: respiratory failure requiring further evaluation and treatment Assessment and Plan acute on chronic respiratory failure with hypoxia community-acquired pneumonia NSTEMI wears 3 L at baseline Presented to [facility] Chest x-ray reportedly showed a left lower lobe pneumonia blood cultures obtained in [place] Started on Rocephin, add azithromycin Check procalcitonin level Repeat chest x-ray MAT protocol BNP elevated, check echocardiogram begin Lasix troponin reportedly elevated at 1 in [place], repeat on admission 2.39 Obtain EKG Consult cardiology, appreciate assistance give aspirin loading dose then continue low-dose aspirin daily Begin therapeutic Lovenox T2DM with hyperglycemia newly diagnosed diabetes Check hemoglobin A1c begin Levemir Sliding scale insulin metastatic lung cancer Follows with Dr. Ledesma Not yet started on treatment Scheduled to have port placement this week DVT prophylaxis: Already receiving therapeutic anticoagulation Diagnosis/Problems Diagnosis/Problems (1) Acute on chronic respiratory failure with hypoxia Status: Acute (2) NSTEMI (non-ST elevation myocardial infarction) Status: Acute (3) CAP (community acquired pneumonia) Status: Acute (4) T2DM (type 2 diabetes mellitus) Status: Acute Qualifiers: Diabetes mellitus nursing home insulin use: without regional intermodal truck driver use Diabetes mellitus complication status: with hyperglycemia Qualified Codes: E11.65 - Type 2 diabetes mellitus with hyperglycemia (5) Metastatic lung cancer (metastasis from lung to other site) Status: Chronic Qualifiers: Laterality: unspecified laterality Qualified Codes: C34.90 - Malignant neoplasm of unspecified part of unspecified bronchus or lung RAMIRO ALEJANDRA MD Dec 01, 2019 11:45
--- NOTE | 2019-12-01 11:45 | Diagnostic Imaging Report ---
INDICATION: Shortness of breath. Comparison made with prior examination of 11/11/2019. FINDINGS: The heart size is stable. There are some mild venous congestion. There is an unchanged mass in the left perihilar region. There are patchy bibasilar infiltrates. There is a left pleural effusion. No pneumothorax. Mediastinum is unremarkable. IMPRESSION: Unchanged mass in the left lung base. Patchy bibasilar infiltrates and small left pleural effusion. Mild central pulmonary venous congestion. Dictated by: Dictated on workstation # [id number]
[2019-12-01 11:52] LABS: CALCIUM 8.9 MG/DL (8.5-10.1); CREATININE SERUM 2.22 MG/DL (0.60-1.30); POTASSIUM 3.9 MMOL/L (3.6-5.0)
[2019-12-01 11:58] LABS: BAND NEUTROPHILS 11 %; LYMPHOCYTES % (MANUAL) 7 %; MONOCYTES % (MANUAL) 11 %; NEUTROPHILS % (MANUAL) 71 %; RBC MORPH NORMAL; TOXIC GRANULATION/VACUOLAZATIO 1+
[2019-12-01 12:00] VITALS: BP 140/79
--- NOTE | 2019-12-01 12:15 | NUR ---
FS BLOOD SUGAR 433. NOTIFIED DR ALEJANDRA, NEW ORDERS PLACED IN EMAR FOR Q4 ACCU CHECKS WITH SLIDING SCALE C. NO ORDERS TO GIVE INSULIN AT THIS TIME.
--- NOTE | 2019-12-01 12:40 | Consultation-Cardiology ---
HPI-Cardiology Cardiology Consultation: Date of Consultation 12/01/19 Time Seen by a Provider: 12:10 Date of Admission Attending Physician Norma Tabares MD Admitting Physician Fernando Lord DO Consulting Physician SILVANO HURLEY MD, MA, FACP, FACC, [facility] [place], [place], CCDS Physician requesting Cardiology consult: Dr Tabares HPI: Chief Complaint: Reason for consultation: Elevated troponin HPI 69-year-old male with recently diagnosed metastatic lung cancer who presents with shortness of breath that has been progressive for several days and was worst today. He reports that he became short of breath with minimal activity. He reports that he has had a cough with sputum production. He denies any fevers or chills. He reports chest pressure in the center of his chest, that has been persistent continuously for several day and is worse with coughing. He denies any radiation to the neck, jaw, or arm. He denies any diaphoresis. He note mild to mod, bilateral leg swelling. Review of Systems-Cardiology Review of Systems Constitutional: malaise, tiredness; No weight loss, No weight gain Eyes: No vision change Ears/Nose/Throat: No ear discharge, No nasal drainage, No recent hearing loss Respiratory: As described under HPI Cardiovascular: As described under HPI Gastrointestinal: No diarrhea, No nausea, No vomiting Genitourinary: No dysuria, No hematuria Musculoskeletal: No back pain Skin: No rash, No ulcerations Psychiatric/Neurological: No seizure, No focal weakness, No syncope Hematologic: No bleeding abnormalities KAD-Ssebln-Nkdngl Hx Patient Social History Recent Foreign Travel: No Recent Infectious Disease Expo: No Past Medical History PMH As described under Assessment. Family Medical History Family Medical History: Does not report fam h/o early CAD or SCD Allergies and Home Medications Allergies Coded Allergies: No Known Drug Allergies (Unverified , 11/15/19) Home Medications No Active Prescriptions or Reported Meds Patient Home Medication List Home Medication List Reviewed: Yes Physical Exam-Cardiology Physical Exam Vital Signs/I&O 12/01/19 12/01/19 12/01/19 10:50 12:00 12:23 Temp 37.2 36.4 Pulse 100 124 97 Resp 20 20 B/P (MAP) 178/74 140/79 (99) Pulse Ox 93 95 O2 Delivery Nasal Cannula Nasal Cannula O2 Flow Rate 5.00 Capillary Refill : Constitutional: AAO x 3, well-developed, well-nourished HEENT: PERRL, EOMI, hearing is well preserved; No xanthelasmas are seen Neck: carotid pulses are 2 + bilaterally, with good upstrokes Respiratory: No accessory muscle use; other (Scattered rhonchi and coarse crackles that are more prominent over L lung field) Cardiovascular: regular rate-rhythm, S1 and S2, systolic murmur (soft COLE at card base) Gastrointestinal: No tender; soft; No guarding, No rebound; audible bowel sounds Extremities: swelling (mild to mod, bilateral pitting edema of the legs); No clubbing, No cyanosis Neurologic/Psychiatric: oriented x 3, other (moves all limbs equally) Skin: No rash on exposed areas, No ulcerations on exposed areas Data Review Labs Laboratory Tests 12/01/19 09:44: Glucometer 503*H 12/01/19 10:36: White Blood Count 8.1, Red Blood Count 3.13L, Hemoglobin 8.9L, Hematocrit 28L, Mean Corpuscular Volume 88, Mean Corpuscular Hemoglobin 28, Mean Corpuscular Hemoglobin Concent 32, Red Cell Distribution Width 14.3, Platelet Count 140, Mean Platelet Volume 10.3, Neutrophils (%) (Auto) 83H, Lymphocytes (%) (Auto) 8L , Monocytes (%) (Auto) 9, Eosinophils (%) (Auto) 0, Basophils (%) (Auto) 0, Neutrophils # (Auto) 6.7, Lymphocytes # (Auto) 0.6L, Monocytes # (Auto) 0.7, Eosinophils # (Auto) 0.0, Basophils # (Auto) 0.0, Neutrophils % (Manual) 71, Lymphocytes % (Manual) 7, Monocytes % (Manual) 11, Band Neutrophils 11, Toxic Granulation 1+, Blood Morphology Comment NORMAL, Prothrombin Time 14.2, INR Comment 1.1, Sodium Level 137, Potassium Level 3.9, Chloride Level 101, Carbon Dioxide Level 22, Anion Gap 14, Blood Urea Nitrogen 39H, Creatinine 2.22H, Amanda mat Glomerular Filtration Rate 30, BUN/Creatinine Ratio 18, Glucose Level 462*H, Lactic Acid Level 1.41, Calcium Level 8.9, Troponin I 2.398*H, B-Type Natriuretic Peptide 589.0H, Procalcitonin 0.80H 12/01/19 12:02: Glucometer 433*H A/P-Cardiology Assessment/Admission Diagnosis Laboratory Tests 12/01/19 10:36 Ac resp failure and hypoxia, multifactorial (see below) Lung CA metastatic to liver and bone Comm acq pneumonia Moderate anemia of undetermined etiology Probable acute diastolic CHF (HFpEF) Echo of 12/01/19: LVEF 50-55%, no regional wall motion abnormality, mild MR, mild , RVSP 34 mmHg Elevated troponin, likely type-2 NE, likely due to hypoxia DM II, uncontrolled Discussion and Recomendations * NE is likely type-2, but cannot definitively exclude a small type-1 NE at this time. Therefore, treat with ASA and bb * Diuretics as needed and as tolerated for CHF * Tele * Monitor labs * Med Svce managing pneumonia and DM II and met CA and resp failure and anemia * I discussed his CV issues with Mr Soliman and answered his questions * I discussed his case with Dr Tabares on the phone earlier today SILVANO HURLEY MD FACP FAC CCDS Dec 01, 2019 12:40
--- NOTE | 2019-12-01 13:00 | NUR ---
PT TRANSFERRED TO CARDIAC STEP DOWN, REPORT GIVEN TO RYLIE GHOSH. ALL BELONGINGS SENT WITH PT. RT WAS NOTIFIED OF ROOM CHANGE.
[2019-12-01] MEDS ORDERED: meTOproloL SUCCINATE 50 MG (TOPROL XL) TAB PO NR (13:15)
--- NOTE | 2019-12-01 13:34 | Progress Note ---
Standard Progress Note Progress Notes/Assess & Plan Date Seen by a Provider: Dec 01, 2019 Time Seen by a Provider: 13:29 Progress/Assessment & Plan Saw the patient today in an unofficial capacity. PET scan on 11/12/19 does not show sufficient pulmonary tumor burden to contribute to his acute illness today. There could be some mild extrinsic compression of the distal left main stem, but it appears generally patent. No intervention from the oncology perspective. Thank you for assistance on the inpatient side. We will see him back in clinic when he is more stable. Focused Exam Lactate Level 12/01/19 10:36: Lactic Acid Level 1.41 Lactic Acid Level Laboratory Tests Test 12/01/19 10:36 Lactic Acid Level 1.41 MMOL/L (0.50-2.00) NICO ARAUJO MD Dec 01, 2019 13:34
[2019-12-01 13:36] VITALS: BP 140/79
[2019-12-01] MEDS ORDERED: RT-ALBUTEROL/IPRATROPIUM 3 ML (DUONEB) VIAL INH PRN (14:00)
[2019-12-01] MEDS: inSUlin ASPART (NovoLOG) 1 UNIT/0.01 ML (CHARGE PER UNIT) SC SCH ×2 (14:37→21:50)
[2019-12-01] MEDS: RT-ALBUTEROL/IPRATROPIUM 3 ML (DUONEB) VIAL INH SCH ×2 (14:49→18:39)
[2019-12-01] MEDS ORDERED: inSUlin (REGULAR) HUMAN 1 UNIT/0.01 ML (CHARGE PER UNIT) IV ONE (16:30)
[2019-12-01] MEDS ORDERED: inSUlin REGULAR TPN/DRIP ONLY 250 UNITS in NORMAL SALINE 250 ML IV SCH (16:30)
[2019-12-01] MEDS ORDERED: DEXTROSE 50% 50 ML (IMS) SYR IV PRN ×2 (16:30)
[2019-12-01 17:00] VITALS: BP 167/68
[2019-12-01] MEDS ORDERED: CLOPIDOGREL 75 MG (PLAVIX) TABLET PO ONE (17:15)
[2019-12-01] MEDS: NS IV 1000 ML 1,000 ML IV SCH (17:27)
[2019-12-01] MEDS: ENOXAPARIN 100 MG/1 ML (LOVENOX) SYR SC SCH (20:59)
[2019-12-01 21:58] VITALS: BP 160/64
[2019-12-02] MEDS: NS IV 1000 ML 1,000 ML IV SCH ×3 (00:36→16:26)
[2019-12-02 03:38] LABS: BASOPHILS % (AUTO) 0 % (0-10); EOSINOPHILS % (AUTO) 0 % (0-10); HEMATOCRIT 25 % (40-54); HEMOGLOBIN 7.9 G/DL (13.3-17.7); LYMPHOCYTES # (AUTO) 0.8 X 10^3 (1.0-4.0); LYMPHOCYTES % (AUTO) 11 % (12-44); MEAN CORPUSCULAR HEMOGLOBIN 28 PG (25-34); MEAN CORPUSCULAR HGB CONC 32 G/DL (32-36); MEAN CORPUSCULAR VOLUME 88 FL (80-99); MEAN PLATELET VOLUME 10.3 FL (7.4-10.4); MONOCYTES # (AUTO) 0.5 X 10^3 (0.0-1.0); MONOCYTES % (AUTO) 7 % (0-12); NEUTROPHILS # (AUTO) 5.8 X 10^3 (1.8-7.8); NEUTROPHILS % (AUTO) 82 % (42-75); PLATELET COUNT 126 10^3/uL (130-400); RED CELL DISTRIBUTION WIDTH 14.5 % (10.0-14.5); WHITE BLOOD COUNT 7.1 10^3/uL (4.3-11.0)
[2019-12-02 03:53] LABS: CALCIUM 8.9 MG/DL (8.5-10.1); CREATININE SERUM 2.1 MG/DL (0.60-1.30); POTASSIUM 3.1 MMOL/L (3.6-5.0)
[2019-12-02 04:00] VITALS: BP 161/82
[2019-12-02] MEDS ORDERED: inSUlin ASPART (NovoLOG) 1 UNIT/0.01 ML (CHARGE PER UNIT) SC SCH ×2 (06:00)
--- NOTE | 2019-12-02 06:59 | Occ Therapy Progress Note ---
Therapy Progress Note Due to change in medical status, discharge OT services. Will need new orders. JEFF NASSAR Dec 02, 2019 06:58
--- NOTE | 2019-12-02 07:02 | Diagnostic Imaging Report ---
INDICATION: Pneumonia COMPARISON: 12/01/2019 TECHNIQUE: Single radiograph chest dated 12/02/2019. FINDINGS: The cardiac silhouette is within normal limits in size. No significant pulmonary vascular congestion. Previously noted mass lesion within the left lung base is again identified, appearing similar. Small left basilar pleural-parenchymal opacity, slightly increased since the prior examination. The right lung is stable. No significant right pleural effusion. No pneumothorax. No acute osseous abnormality. IMPRESSION: Slightly worsening small left basilar pleural-parenchymal opacity, related to a combination of pleural fluid with adjacent atelectasis and/or infiltrate. Stable left basilar lung mass. Recommend correlation with recent biopsy. Additional stable findings as above. Dictated by: Dictated on workstation # [id number]
[2019-12-02 07:08] VITALS: BP 152/79
[2019-12-02] MEDS ORDERED: WATER (STERILE) FOR INJECTION 10 ML ONE (08:09)
[2019-12-02] MEDS ORDERED: cefTRIAXone 1,000 MG IV (ROCEPHIN) VIAL ONE (08:09)
[2019-12-02] MEDS: AZITHROMYCIN 250 MG TAB (ZITHROMAX) PO SCH (08:20)
[2019-12-02] MEDS: DOCUSATE SODIUM 100 MG (COLACE) CAP PO SCH ×2 (08:20→20:05)
[2019-12-02] MEDS: CLOPIDOGREL 75 MG (PLAVIX) TABLET PO SCH (08:20)
[2019-12-02] MEDS: cefTRIAXone FOR IV USE 1,000 MG in WATER (STERILE) FOR INJECTION 10 ML IV SCH (08:21)
[2019-12-02] MEDS: meTOproloL SUCCINATE 50 MG (TOPROL XL) TAB PO SCH (08:21)
[2019-12-02] MEDS: ASPIRIN 81 MG CHEW (CHILDREN'S ASA) PO SCH (08:21)
[2019-12-02] MEDS: SENNOSIDES 8.6 MG (SENOKOT) TAB PO SCH ×2 (08:21→20:05)
[2019-12-02] MEDS: ENOXAPARIN 100 MG/1 ML (LOVENOX) SYR SC SCH (08:46)
[2019-12-02] MEDS: POTASSIUM CL 10MEQ/50ML IVPB 50 ML IV SCH ×2 (08:46→09:53)
[2019-12-02] MEDS: RT-ALBUTEROL/IPRATROPIUM 3 ML (DUONEB) VIAL INH SCH ×5 (08:55→21:59)
--- NOTE | 2019-12-02 09:18 | Progress Note - Hospitalist ---
Subjective HPI/CC On Admission Date Seen by Provider: Dec 02, 2019 Time Seen by Provider: 09:11 Ab Soliman is a 69-year-old male with recently diagnosed metastatic lung cancer to the liver and bone not yet on chemotherapy who presented with shortness of breath. He reports that he became short of breath with minimal activity. He reports that he has had a cough with sputum production. He denies any fevers or chills. He reports chest pressure in the center of his chest. He denies any radiation to the neck, jaw, or arm. He denies any diaphoresis. He denies any nausea or vomiting. He denies any abdominal pain. He denies any diarrhea. He has been constipated but had a bowel movement this morning. He reports leg swelling. He is unsure of what medications he takes every day and what his other chronic medical conditions are. Subjective/Events-last exam Pt reports doing better today. No complaints. Breathing better. Focused Exam Lactate Level 12/01/19 10:36: Lactic Acid Level 1.41 Objective Exam Vital Signs Vital Signs Date Time Temp Pulse Resp B/P (MAP) Pulse Ox O2 Delivery O2 Flow Rate FiO2 12/02/19 08:59 92 Nasal Cannula 5.00 12/02/19 07:08 36.8 98 20 152/79 (103) Capillary Refill : Less Than 3 Seconds General Appearance: No Apparent Distress, WD/WN Respiratory: Lungs Clear Cardiovascular: Regular Rate, Rhythm, No Murmur Gastrointestinal: Normal Bowel Sounds, Non Tender, Soft Neurologic/Psychiatric: Alert, Oriented x3 Results/Procedures Lab Laboratory Tests 12/01/19 10:36 12/02/19 03:03 Patient resulted labs reviewed. Assessment/Plan Assessment and Plan Assess & Plan/Chief Complaint acute on chronic respiratory failure with hypoxia community-acquired pneumonia NSTEMI wears 3 L at baseline, attempt to wean to baseline Presented to [facility] Chest x-ray reportedly showed a left lower lobe pneumonia blood cultures pending from [facility] [place] Cont on Rocephin and azithromycin Repeat chest x-ray MAT protocol Echo with EF of 55% and grade 1 diastolic dysfunction Cont Lasix troponin trended up ,discussed with Dr Bond who recommended medical management Consult cardiology, appreciate assistance Continue ASA/Plavix T2DM with hyperglycemia newly diagnosed diabetes Pending hemoglobin A1c begin Levemir Sliding scale insulin metastatic lung cancer Follows with Dr. Ledesma Not yet started on treatment Scheduled to have port placement this week DVT prophylaxis: Already receiving therapeutic anticoagulation Clinical Quality Measures DVT/VTE Risk/Contraindication: Risk Factor Score Per Nursin RFS Level Per Nursing on Admit: 4+=Very High BREANN BERTRAND MD Dec 02, 2019 09:18
--- NOTE | 2019-12-02 10:26 | Physical Therapy Evaluation ---
PT Evaluation-General Medical Diagnosis Admission Date Dec 01, 2019 at 09:22 Medical Diagnosis: pneumonia Onset Date: Dec 02, 2019 Therapy Diagnosis Therapy Diagnosis: weakness; abn gait Precautions Precautions/Isolations: Fall Prevention, Standard Precautions Weight Bear Status Right Lower Extremity: Right Weight Bearing/Tolerated Left Lower Extremity: Left Weight Bearing/Tolerated Referral Physician: Raysa Reason for Referral: Evaluation/Treatment Medical History Pertinent Medical History: [place], Renal Insufficiency Additional Medical History Lung CA with mets to liver; pt reports mets to bone as well. Current History Pt admitted with pneumonia. Reviewed History: Yes Social History Home: Single Level Current Living Status: Significant Other Entry Into Home: Stairs With Railing Prior Prior Level of Function SCALE: Activities may be completed with or without assistive devices. 3-Ryjzlnvhfg-yvaygbw completes the activity by him/herself with no assistance from a helper. 5-Set-up or Clean-up Assistance-helper sets up or cleans up; patient completes activity. Lutz assists only prior to or following the activity. 4-Supervision or Touching Assistance-helper provides verbal cues and/or touching/steadying and/or contact guard assistance as patient completes activity. Assistance may be provided throughout the activity or intermittently. 3-Partial/Moderate Assistance-helper does LESS THAN HALF the effort. Lutz lifts, holds or supports trunk or limbs, but provides less than half the effort. 2-Substantial/Maximal Assistance-helper does MORE THAN HALF the effort. Lutz lifts or holds trunk or limbs and provides more than half the effort. 0-Rburdnlce-waesbv does ALL the effort. Patient does none of the effort to complete the activity. Or, the assistance of 2 or more helpers is required for the patient to complete the activity. If activity was not attempted, code reason: 7-Patient Refused. 9-Not Applicable-not attempted and the patient did not perform the activity before the current illness, exacerbation or injury. 10-Not Attempted due to Environmental Limitations-(lack of equipment, weather restraints, etc.). 88-Not Attempted due to Medical Conditions or Safety Concerns. Bed Mobility: 6 Transfers (B,C,W/C): 6 Gait: 6 Stairs: 6 Indoor Mobility (Ambulation): Independent Stairs: Independent Prior Devices Use: Walker Pt able to walk community distances with walker. Vision impairment due to glaucoma and CVA PT Evaluation-Current Subjective Pt agreeable to PT. Reports he is feeling much better. Tearful when talking about his dx and his SO also has breast CA. Wants to get up in the chair. Pain Numeric Pain Scale: 3 Location: Posterior Location Body Site: Back Pain Description: Ache Pt/Family Goals Return home when able. Objective Patient Orientation: Person, Place, Time, Situation Attachments: IV ROM/Strength ROM Lower Extremities WNL Strength Lower Extremities grossly 4/5 Integumentary/Posture Integumentary intact Posture normal and symmetrical Neuromuscular (Tone, Coordination, Reflexes) intact Sensory Vision: Blind Legally Hearing: Functional Hand Dominance: Right Sensation Right Lower Extremit: Intact Sensation Left Lower Extremity: Intact Transfers Lying to Sitting/Side of Bed(Q: 4 Sit to Stand (QC): 4 Chair/Erw-ge-Dqyuc Xfer(QC): 4 CGA with sit to stand to transfer to the chair. Pt up in chair post treatment with needs met. Gait Does the Patient Walk?: Yes Balance Sitting Static: Normal Sitting Dynamic: Normal Standing Static: Normal Standing Dynamic: Normal Treatment Pt out of bed to the chair. Legs elevated. Needs met. Assessment/Needs Admitted with pneumonia. Pt presents with funcitonal weakness and impaired activity tolerance. He will benefit from skilled PT to address functional mobility to allow him to return home as before. 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 Goals PT Residential Goals Time Frame: Dec 09, 2019 Sit to Lying (QC): 6 Lying-Sitting on Side/Bed(QC): 6 Sit to Stand (QC): 6 Walk 150 ft (QC): 6 PT Plan Problem List Problem List: Activity Tolerance, Functional Strength, Safety, Balance, Gait, Transfer, Bed Mobility Treatment/Plan Treatment Plan: Continue Plan of Care Treatment Plan: Bed Mobility, Education, Functional Activity Kathleen, Functional Strength, Gait, Safety, Therapeutic Exercise, Transfers Treatment Duration: Dec 09, 2019 Frequency: 6 times per week Estimated Hrs Per Day: .25 hour per day Patient and/or Family Agrees t: Yes Safety Risks/Education Patient Education: Safety Issues Teaching Recipient: Patient Teaching Methods: Demonstration, Discussion Response to Teaching: Reinforcement Needed Time/GCodes Time In: 910 Time Out: 930 Total Billed Treatment Time: 20 Total Billed Treatment visit EVM 20 JEFF SOLOMON PT Dec 02, 2019 10:26
[2019-12-02 11:29] VITALS: BP 159/72
[2019-12-02 12:00] VITALS: BP 171/74
[2019-12-02] MEDS ORDERED: RT-ALBUTEROL/IPRATROPIUM 3 ML (DUONEB) VIAL INH PRN (12:00)
[2019-12-02] MEDS ORDERED: CYCL10TA9 PO (14:34)
[2019-12-02] MEDS ORDERED: LATA2.5D5 OU (14:34)
[2019-12-02] MEDS ORDERED: EMPA10TA PO (14:34)
[2019-12-02] MEDS ORDERED: HYDR-4196 PO (14:34)
[2019-12-02] MEDS ORDERED: PRIM50TA33 PO (14:34)
--- NOTE | 2019-12-02 15:30 | NUR ---
PT TRANSFERRED TO ROOM 416 VIA W/C ACCOMPANIED BY THIS RN, ALL PERSONAL ITEMS TRANSFERRED WITH PT (CELL PHONE, CORD, AND T-SHIRT) REPORT GIVEN PRIOR TO TRANSFER TO Emy HOLLEY RN.
[2019-12-02] MEDS ORDERED: CLON-316 PO (15:35)
[2019-12-02] MEDS ORDERED: AMLO5TAB9 PO (15:35)
[2019-12-02] MEDS ORDERED: LISI-552 PO (15:35)
--- NOTE | 2019-12-02 15:35 | NUR ---
NEW ORDERS RECEIVED VIA TELEPHONE FROM DR HURLEY, ALL ORDERS READ BACK, SEE ORDER HX. Emy HOLLEY RN NOTIFIED OF NEW ORDERS.
--- NOTE | 2019-12-02 15:41 | Progress Note - Cardiology ---
Cardiology SOAP Progress Note Subjective: Feels better than yesterday, but not back to baseline Less short of breath No cp No palp or syncope Malaise and gen weakness present No focal weakness Objective: I&O/Vital Signs 12/02/19 12/02/19 12/02/19 12/02/19 04:00 06:56 07:08 08:15 Temp 37.0 36.8 Pulse 84 94 98 Resp 21 20 B/P (MAP) 161/82 (108) 152/79 (103) Pulse Ox 95 96 94 O2 Delivery Nasal Cannula Nasal Cannula Nasal Cannula O2 Flow Rate 5.00 5.00 12/02/19 12/02/19 12/02/19 12/02/19 08:58 08:59 11:10 11:29 Temp 36.8 Pulse 89 Pulse Ox 92 92 92 93 O2 Delivery Nasal Cannula Nasal Cannula Nasal Cannula O2 Flow Rate 5.00 5.00 5.00 FiO2 40 12/02/19 12/02/19 12:00 14:22 Temp 37.0 Pulse 94 Resp 19 B/P (MAP) 171/74 (106) Pulse Ox 99 92 O2 Delivery Nasal Cannula O2 Flow Rate 5.00 12/02/19 00:00 Intake Total 950 ml Output Total 2100 ml Balance -1150 ml Constitutional: AAO x 3, well-developed, well-nourished Respiratory: No accessory muscle use; other (Scattered rhonchi and coarse crackles that are more prominent over L lung field) Cardiovascular: regular rate-rhythm, S1 and S2, systolic murmur (soft COLE at card base) Gastrointestional: No tender; soft; No guarding, No rebound; audible bowel sounds Extremities: swelling (mild to mod, bilateral pitting edema of the legs); No clubbing, No cyanosis Neurologic/Psychiatric: oriented x 3, other (moves all limbs equally) Skin: No rash on exposed areas, No ulcerations on exposed areas Results/Procedures: Labs Laboratory Tests 12/01/19 16:13: Glucometer 357H 12/01/19 16:25: Troponin I 12.254*H 12/01/19 18:18: Glucometer 331H 12/01/19 18:58: Glucometer 323H 12/01/19 20:00: Glucometer 263H 12/01/19 20:55: Glucometer 221H 12/01/19 22:00: Glucometer 166H 12/01/19 23:05: Glucometer 148H 12/02/19 00:06: Glucometer 106 12/02/19 01:03: Glucometer 102 12/02/19 01:57: Glucometer 115H 12/02/19 02:52: Glucometer 131H 12/02/19 03:03: White Blood Count 7.1, Red Blood Count 2.83L, Hemoglobin 7.9L, Hematocrit 25L, Mean Corpuscular Volume 88, Mean Corpuscular Hemoglobin 28, Mean Corpuscular Hemoglobin Concent 32, Red Cell Distribution Width 14.5, Platelet Count 126L, Mean Platelet Volume 10.3, Neutrophils (%) (Auto) 82H, Lymphocytes (%) (Auto) 11L, Monocytes (%) (Auto) 7, Eosinophils (%) (Auto) 0, Basophils (%) (Auto) 0, Neutrophils # (Auto) 5.8, Lymphocytes # (Auto) 0.8L, Monocytes # (Auto) 0.5, E osinophils # (Auto) 0.0, Basophils # (Auto) 0.0, Sodium Level 143, Potassium Level 3.1L, Chloride Level 104, Carbon Dioxide Level 25, Anion Gap 14, Blood Urea Nitrogen 41H, Creatinine 2.10H, Estimat Glomerular Filtration Rate 31, BUN/Creatinine Ratio 20, Glucose Level 118H, Calcium Level 8.9 12/02/19 05:02: Glucometer 85 12/02/19 11:52: Glucometer 230H Laboratory Tests 12/01/19 10:36 12/02/19 03:03 Laboratory Tests 12/01/19 10:36 12/02/19 03:03 A/P: Assessment: Ac resp failure and hypoxia, multifactorial (see below) 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 Echo of 12/01/19: LVEF 50-55%, no regional wall motion abnormality, mild MR, mild , RVSP 34 mmHg Elevated troponin, likely type-2 [place], likely due to hypoxia, but cannot exclude Type I NSTEMI Renal failure/insufficiency of undetermined age DM II, uncontrolled Plan: * This is a complex management problem due to multiple comorbidities that are outlined above * Cannot exclude Type I NSTEMI. Definitive diagnosis would require card cath, but, given all of his concomitant medical issues, conservative therapy appears reasonable. I did discuss this issue and treatment options with him. He, too, wishes to pursue conservative therapy * Continue DAPT * Change enoxaparin to once daily, given eGFR of only 30 * Diuretics as needed and as tolerated for CHF * Monitor labs * Med Svce managing pneumonia and DM II and met CA and resp failure and anemia * I discussed his with Dr Mckinley of the Hospitalist Svce today SILVANO HURLEY MD FACP FAC CCDS Dec 02, 2019 15:41
--- NOTE | 2019-12-02 15:41 | NUR ---
SPOKE WITH THE PT, MARILOU CHAUHAN AND DR. GARCIA FAX A COPY OF MED LIST TO COMPLETE THE MED REC THE PT DOES NOT KNOW ABOUT HIS MEDICATIONS AND SAYS A FAMILY MEMBER HAS HELPED HIM IN THE PAST. I TRIED TO CALL HIS COUSINS [facility] TO GET SOME INFORMATION BUT THERE WAS AN ANSWER. THE MED LIST FROM THE DR HAS OUTDATED INFORMATION- HE WAS SEEN RECENTLY BY SANDRA BARON AND CHANGED SOME OF HIS MEDS. THE MEDS LIST FROM [facility] SHOWS LIPITOR 80MG- HOWEVER THE PHARMACY HAS NOT FILLED IT SINCE 09-18-2019 #30- DUE TO THE PAST DUE FILL I DID NOT INCLUDE IT IN THE MED REC THE FOLLOWING ARE FILL DATES: 11-20-2019 LATANOPROST #1/25DS 11-20-2019 PRIMIDONE 50MG #30/30DS 11-25-2019 NORCO 5/3285MG #60/10DS 11-25-2019 CYCLOBENZAPRINE 10MG #30/30DS 11-28-2019 AMLODIPINE 5MG #30/30DS 11-28-2019 LISINOPRIL 20MG #30/30DS 11-28-2019 JARDIANCE 10MG #30/30DS
[2019-12-02] MEDS ORDERED: KCL 20 MEQ TAB (K-DUR) PO ONE (15:45)
[2019-12-02 16:00] VITALS: BP 197/74
[2019-12-02] MEDS: FUROSEMIDE 40 MG/4 ML INJ (LASIX) IVP SCH (16:26)
[2019-12-02] MEDS: inSUlin ASPART (NovoLOG) 1 UNIT/0.01 ML (CHARGE PER UNIT) SC SCH ×2 (16:59→21:59)
[2019-12-02 19:09] VITALS: BP 138/70
[2019-12-02] MEDS: CYCLOBENZAPRINE 10 MG (FLEXERIL) TAB PO PRN (21:48)
[2019-12-02] MEDS: PRIMIDONE 50 MG TAB (MYSOLINE) PO SCH (21:48)
[2019-12-02] MEDS: MELATONIN 3 MG TABLET PO PRN (21:48)
[2019-12-02] MEDS: LATANOPROST 0.005% (XALATAN) OPHTH SOLN 2.5 ML OU SCH (21:48)
[2019-12-03] VITALS (9 sets, daily range): BP systolic 127–173; BP diastolic 61–75
[2019-12-03] MEDS: RT-ALBUTEROL/IPRATROPIUM 3 ML (DUONEB) VIAL INH SCH ×5 (01:52→21:17)
[2019-12-03] MEDS: inSUlin ASPART (NovoLOG) 1 UNIT/0.01 ML (CHARGE PER UNIT) SC SCH ×4 (05:46→20:38)
[2019-12-03] MEDS: KCL 10 MEQ TAB (MICRO K) PO SCH (06:19)
[2019-12-03 06:47] LABS: BASOPHILS % (AUTO) 0 % (0-10); EOSINOPHILS % (AUTO) 0 % (0-10); HEMATOCRIT 21 % (40-54); LYMPHOCYTES # (AUTO) 0.7 X 10^3 (1.0-4.0); LYMPHOCYTES % (AUTO) 12 % (12-44); MEAN CORPUSCULAR HEMOGLOBIN 28 PG (25-34); MEAN CORPUSCULAR HGB CONC 32 G/DL (32-36); MEAN CORPUSCULAR VOLUME 90 FL (80-99); MEAN PLATELET VOLUME 10.5 FL (7.4-10.4); MONOCYTES # (AUTO) 0.6 X 10^3 (0.0-1.0); MONOCYTES % (AUTO) 10 % (0-12); NEUTROPHILS # (AUTO) 4.8 X 10^3 (1.8-7.8); NEUTROPHILS % (AUTO) 78 % (42-75); PLATELET COUNT 118 10^3/uL (130-400); RED CELL DISTRIBUTION WIDTH 14.6 % (10.0-14.5); WHITE BLOOD COUNT 6.1 10^3/uL (4.3-11.0)
[2019-12-03 06:49] LABS: HEMOGLOBIN 6.7 G/DL (13.3-17.7)
[2019-12-03 06:54] LABS: CALCIUM 8.5 MG/DL (8.5-10.1); CREATININE SERUM 1.9 MG/DL (0.60-1.30); POTASSIUM 2.8 MMOL/L (3.6-5.0)
[2019-12-03] MEDS ORDERED: NS IV 500 ML 500 ML IV SCH ×2 (07:18→07:30)
--- NOTE | 2019-12-03 07:18 | NUR ---
DR. BERTRAND NOTIFIED OF CRITICAL HGB OF 6.7. NEW ORDERS RECEIVE TO GIVE 1 UNIT OF PACK RED BLOOD CELLS NOW.
[2019-12-03] MEDS ORDERED: KCL 20 MEQ TAB (K-DUR) PO NR (08:00)
[2019-12-03] MEDS ORDERED: cefTRIAXone 1,000 MG IV (ROCEPHIN) VIAL ONE (08:06)
[2019-12-03] MEDS ORDERED: WATER (STERILE) FOR INJECTION 10 ML ONE (08:06)
[2019-12-03] MEDS: FUROSEMIDE 40 MG/4 ML INJ (LASIX) IVP SCH (08:19)
[2019-12-03] MEDS: cefTRIAXone FOR IV USE 1,000 MG in WATER (STERILE) FOR INJECTION 10 ML IV SCH (08:19)
[2019-12-03] MEDS: DOCUSATE SODIUM 100 MG (COLACE) CAP PO SCH ×2 (08:20→20:37)
[2019-12-03] MEDS: ASPIRIN 81 MG CHEW (CHILDREN'S ASA) PO SCH (08:20)
[2019-12-03] MEDS: CLOPIDOGREL 75 MG (PLAVIX) TABLET PO SCH (08:20)
[2019-12-03] MEDS: AZITHROMYCIN 250 MG TAB (ZITHROMAX) PO SCH (08:20)
[2019-12-03] MEDS: amLODIPine 5 MG (NORVASC) TAB PO SCH (08:20)
[2019-12-03] MEDS: SENNOSIDES 8.6 MG (SENOKOT) TAB PO SCH ×2 (08:20→20:37)
[2019-12-03] MEDS: meTOproloL SUCCINATE 50 MG (TOPROL XL) TAB PO SCH (08:20)
[2019-12-03] MEDS ORDERED: ENOXAPARIN 40 MG/0.4 ML (LOVENOX) SYR SC SCH (09:00)
--- NOTE | 2019-12-03 10:04 | Progress Note - Hospitalist ---
Subjective HPI/CC On Admission Date Seen by Provider: Dec 03, 2019 Time Seen by Provider: 09:59 Ab Soliman is a 69-year-old male with recently diagnosed metastatic lung cancer to the liver and bone not yet on chemotherapy who presented with shortness of breath. He reports that he became short of breath with minimal activity. He reports that he has had a cough with sputum production. He denies any fevers or chills. He reports chest pressure in the center of his chest. He denies any radiation to the neck, jaw, or arm. He denies any diaphoresis. He denies any nausea or vomiting. He denies any abdominal pain. He denies any diarrhea. He has been constipated but had a bowel movement this morning. He reports leg swelling. He is unsure of what medications he takes every day and what his other chronic medical conditions are. Subjective/Events-last exam Pt reports feeling weaker today. No other complaints. Hgb dropped this AM. Denies any dark or bloody stool but is also unsure because he has poor vision. Focused Exam Lactate Level 12/01/19 10:36: Lactic Acid Level 1.41 Objective Exam Vital Signs Vital Signs Date Time Temp Pulse Resp B/P (MAP) Pulse Ox O2 Delivery O2 Flow Rate FiO2 12/03/19 11:00 37.0 89 163/72 12/03/19 10:56 96 Nasal Cannula 4.00 12/03/19 08:52 18 12/02/19 11:29 40 Capillary Refill : NONE General Appearance: No Apparent Distress, WD/WN Respiratory: Lungs Clear, No Respiratory Distress Cardiovascular: Regular Rate, Rhythm, No Murmur Gastrointestinal: Normal Bowel Sounds, Non Tender, Soft Neurologic/Psychiatric: Alert, Oriented x3 Results/Procedures Lab Laboratory Tests 12/03/19 05:25 Patient resulted labs reviewed. Assessment/Plan Assessment and Plan Assess & Plan/Chief Complaint acute on chronic respiratory failure with hypoxia community-acquired pneumonia NSTEMI wears 3 L at baseline, attempt to wean to baseline Presented to [facility] Chest x-ray reportedly showed a left lower lobe pneumonia blood cultures pending from [facility] Cont on Rocephin and azithromycin Repeat chest x-ray MAT protocol Echo with EF of 55% and grade 1 diastolic dysfunction Cont Lasix troponin trended up ,discussed with Dr Bond who recommended segundo castro Consult cardiology, appreciate assistance Hold ASA/Plavix for anemia Normocytic Anemia - Hgb 6.7 today - transfused 1 unit pRBCs - Trend - FOBT - Iron studies T2DM with hyperglycemia newly diagnosed diabetes hemoglobin A1c 8.9 Levemir Sliding scale insulin metastatic lung cancer Follows with Dr. Ledesma Not yet started on treatment Scheduled to have port placement this week DVT prophylaxis: held for anemia Diagnosis/Problems Diagnosis/Problems (1) Metastatic lung cancer (metastasis from lung to other site) Status: Chronic Qualifiers: Laterality: unspecified laterality Qualified Codes: C34.90 - Malignant neoplasm of unspecified part of unspecified bronchus or lung (2) NSTEMI (non-ST elevation myocardial infarction) Status: Acute (3) Pneumonia (4) T2DM (type 2 diabetes mellitus) Status: Acute Qualifiers: Diabetes mellitus fdc insulin use: without dedicated intermodal truck driver use Diabetes mellitus complication status: with hyperglycemia Qualified Codes: E11.65 - Type 2 diabetes mellitus with hyperglycemia (5) Acute on chronic respiratory failure with hypoxia Status: Acute Clinical Quality Measures DVT/VTE Risk/Contraindication: Risk Factor Score Per Nursin RFS Level Per Nursing on Admit: 4+=Very High RBEANN BERTRAND MD Dec 03, 2019 10:04
--- NOTE | 2019-12-03 10:10 | Physical Therapy Progress Note ---
Therapy Progress Note Pt. up in chair upon arrival, nursing states he is able to receive a blood transfusion. Will check patient status this PM. 0822 DENIS BEAL PT Dec 03, 2019 10:10
--- NOTE | 2019-12-03 12:26 | Consultation - Surgery ---
History of Present Illness History of Present Illness Patient Consulted On(jerri/time) 12/03/19 12:19 Time Seen by Provider: 11:58 History of Present Illness Surgery asked to consult regarding Metastatic Lung CA, Venous insufficiency and Anemia. HPI per IM: Ab Soliman is a 69-year-old male with recently diagnosed metastatic lung cancer to the liver and bone not yet on chemotherapy who presented with shortness of breath. He reports that he became short of breath with minimal activity. He reports that he has had a cough with sputum production. He denies any fevers or chills. He reports chest pressure in the center of his chest. He denies any radiation to the neck, jaw, or arm. He denies any diaphoresis. He denies any nausea or vomiting. He denies any abdominal pain. He denies any diarrhea. He has been constipated but had a bowel movement this morning. He reports leg swelling. He is unsure of what medications he takes every day and what his other chronic medical conditions are. When I spoke to pt today his main complaint was of feeling weak. He thinks he was scheduled to have Yanick-cath placed this week; possibly by me. He states he has never had low blood level before and also denies ever having a colonoscopy or EGD. He states he is having some abdominal pain but thinks it is due to the medications he is taking now. Pain is minimal and mostly lower abdomen, not radiating anywhere. Allergies and Home Medications Allergies Coded Allergies: No Known Drug Allergies (Unverified , 11/15/19) Home Medications Amlodipine Besylate 5 Mg Tablet, 5 MG PO DAILY, (Reported) Clonidine HCl 0.1 Mg Tab.er.12h, 0.1 MG PO TID, (Reported) Cyclobenzaprine HCl 10 Mg Tablet, 5-10 MG PO TID PRN for MUSCLE SPASMS, (Reported) Empagliflozin 10 Mg Tablet, 10 MG PO DAILY, (Reported) Hydrocodone/Acetaminophen 1 Each Tablet, 1 EA PO Q4 -6H PRN for PAIN-MODERATE (5-7), (Reported) Latanoprost 2.5 Ml Drops, 1 DROP OU HS, (Reported) Lisinopril 20 Mg Tablet, 20 MG PO DAILY, (Reported) Primidone 50 Mg Tablet, 50 MG PO HS, (Reported) Patient Home Medication List Home Medication List Reviewed: Yes Past Aedubyn-Lmpogh-Qjzecp Hx Patient Social History Alcohol Use: Denies Use Recreational Drug Use: No Recent Foreign Travel: No Contact w/Someone Who Travel: No Recent Infectious Disease Expo: No Physical Abuse Screen: No Sexual Abuse: No Immunizations Up To Date Date of Influenza Vaccine: Aug 02, 2019 Seasonal Allergies Seasonal Allergies: No Surgeries History of Surgeries: No Respiratory History of Respiratory Disorde: Yes (states breathing troubles started about 4 weeks ago and he is on home O2) Respiratory Disorders: COPD Cardiovascular History of Cardiac Disorders: Yes Cardiac Disorders: Heart Attack (NSTEMI on admission, prior to that never had any heart problems) Neurological History of Neurological Disord: Yes Neurological Disorders: TIA (no residual weakness) Reproductive System Hx Reproductive Disorders: No Sexually Transmitted Disease: No HIV/AIDS: No Genitourinary History of Genitourinary Disor: No Gastrointestinal History of Gastrointestinal Di: No Musculoskeletal History of Musculoskeletal Dis: Yes Musculoskeletal Disorders: Arthritis Endocrine History of Endocrine Disorders: Yes (diagnosed appx 4 weeks ago) Endocrine Disorders: Diabetes, Non-Insulin dep HEENT History of HEENT Disorders: Yes HEENT Disorders: Glaucoma Loss of Vision: Bilateral Hearing Impairment: Denies Cancer History of Cancer: Yes Cancer: Bone (metastatic), Lung Psychosocial History of Psychiatric Problem: No Integumentary History of Skin or Integumenta: No Blood Transfusions History of Blood Disorders: No Adverse Reaction to a Blood Tr: No Family Medical History Significant Family History: Stroke (mother) Review of Systems-General Constitutional: dizziness, malaise, weakness EENTM: blurred vision; No mouth pain, No mouth swelling, No epistaxis, No throat swelling Respiratory: dyspnea on exertion; No hemoptysis; short of breath Cardiovascular: chest pain, edema; No palpitations Gastrointestinal: abdominal pain; No nausea, No vomiting Genitourinary: No dysuria, No frequency, No hematuria Musculoskeletal: joint pain, joint swelling, muscle stiffness Skin: No change in color, No change in hair/nails Psychiatric/Neurological: Denies Anxiety, Denies Depressed, Denies Pre-Existing Deficit, Denies Seizure Other pt denies any hx of abnormal bleeding or bruising Physical Exam-General Problems Physical Exam Vital Signs Vital Signs - First Documented 12/01/19 12/01/19 12/02/19 09:45 10:50 11:29 Temp 37.2 Pulse 100 Resp 20 B/P (MAP) 178/74 Pulse Ox 95 O2 Delivery Nasal Cannula O2 Flow Rate 5.00 FiO2 40 Capillary Refill : NONE General Appearance: WD/WN, mild distress Eyes: Bilateral Eye PERRL, Bilateral Eye EOMI HEENT: pharynx normal; No scleral icterus (R), No scleral icterus (L) Neck: non-tender, full range of motion Respiratory: no respiratory distress, no accessory muscle use, decreased breath sounds, crackles Cardiovascular: regular rate, rhythm, no murmur Gastrointestinal: normal bowel sounds, soft, no organomegaly, no pulsatile mass Back: CVA tenderness (L), vertebral tenderness Extremities: no pedal edema, no calf tenderness Neurologic/Psychiatric: manager cleaning II-XII nml as tested, alert, normal mood/affect, oriented x 3 Skin: normal color, warm/dry Lymphatic: no adenopathy (supraclavicular or inguinal) Data Review Labs Laboratory Tests 12/02/19 16:39: Glucometer 377H 12/02/19 21:51: Glucometer 309H 12/03/19 05:25: White Blood Count 6.1, Red Blood Count 2.38L, Hemoglobin 6.7*L, Hematocrit 21L, Mean Corpuscular Volume 90, Mean Corpuscular Hemoglobin 28, Mean Corpuscular Hemoglobin Concent 32, Red Cell Distribution Width 14.6H, Platelet Count 118L, Mean Platelet Volume 10.5H, Neutrophils (%) (Auto) 78H, Lymphocytes (%) (Auto) 12, Monocytes (%) (Auto) 10, Eosinophils (%) (Auto) 0, Basophils (%) (Auto) 0, Neutrophils # (Auto) 4.8, Lymphocytes # (Auto) 0.7L, Monocytes # (Auto) 0.6, Eosinophils # (Auto) 0.0, Basophils # (Auto) 0.0, Sodium Level 143, Potassium Level 2.8L, Chloride Level 105, Carbon Dioxide Level 26, Anion Gap 12, Blood Urea Nitrogen 42H, Creatinine 1.90H, Estimat Glomerular Filtration Rate 35, BUN/Creatinine Ratio 22, Glucose Level 145H, Calcium Level 8.5 12/03/19 05:44: Glucometer 175H 12/03/19 11:16: Glucometer 274H Assessment/Plan Assessment/Plan Assessment/Plan Lung CA with Metastasis (Spine and bone) Venous Insufficiency DMII - uncontrolled NSTEMI Anemia Pt has multiple co-morbidities making treatments decisions more difficult. He needs a Yanick-cath placed so that he can start getting chemotherapy for his Lung CA; we discussed this procedure in detail and went over risks and complications not limited to pain, bleeding, infection, scar, damage to vessels and pneumothorax. He is weak secondary to Anemia and Pneumonia; I am having Anesthesiology assess his ability to undergo surgery. In addition, he will need an upper and lower endoscopy to determine cause of Anemia. The anemia may just be due to chronic disease; DM and Lung CA. I spoke with Cardiology and we will stop the Enoxaparin dose; which is exacerbating his anemia. Unfortunately, this may put him at risk of Cardiac complications and even DVT. We will monitor his H/H and may be able to get him on at least a VTE prophylaxis dose in the next couple of days. In the meantime, he is being treated for Pneumonia and needs to try and get his blood sugar under control. Clinical Quality Measures DVT/VTE Risk/Contraindication: Risk Factor Score Per Nursin RFS Level Per Nursing on Admit: 4+=Very High EDUARDA DUDLEY DO Dec 03, 2019 12:26
[2019-12-03] MEDS: NS IV 1000 ML 1,000 ML IV SCH (15:17)
--- NOTE | 2019-12-03 15:49 | Physical Therapy Progress Note ---
Therapy Progress Note Pt. asleep in chair but awakens easily. Pt. pleasantly declines PT states "I just haven't had any rest." We will check patient status 12/04/19. 1420 DENIS BEAL PT Dec 03, 2019 15:49
--- NOTE | 2019-12-03 15:54 | Progress Note - Cardiology ---
Cardiology SOAP Progress Note Subjective: Shortness of breath has improved No cp or palp or syncope Gen weakness and malaise are present No n/v/d Objective: I&O/Vital Signs 12/03/19 12/03/19 12/03/19 12/03/19 04:22 06:39 07:17 08:00 Temp 37.4 36.0 Pulse 84 89 96 Resp 20 20 B/P (MAP) 173/61 (98) 170/71 (104) Pulse Ox 96 91 96 O2 Delivery OxyMask Nasal Cannula OxyMask O2 Flow Rate 6.00 4.00 6.00 12/03/19 12/03/19 12/03/19 12/03/19 08:00 08:52 09:06 10:56 Temp 37.4 37.4 Pulse 95 104 Resp 18 B/P (MAP) 172/75 148/72 Pulse Ox 97 97 96 O2 Delivery Nasal Cannula Nasal Cannula Nasal Cannula O2 Flow Rate 4.00 4.00 4.00 12/03/19 12/03/19 12/03/19 12/03/19 11:00 12:00 12:41 15:27 Temp 37.0 36.9 37.1 Pulse 89 81 85 85 Resp 18 20 B/P (MAP) 163/72 127/75 (92) 163/67 (99) Pulse Ox 98 96 O2 Delivery OxyMask Nasal Cannula O2 Flow Rate 3.00 3.00 12/03/19 00:00 Intake Total 1610 ml Output Total 1800 ml Balance -190 ml Constitutional: AAO x 3, well-developed, well-nourished Respiratory: No accessory muscle use; other (Scattered rhonchi and coarse crackles that are more prominent over L lung field) Cardiovascular: regular rate-rhythm, S1 and S2, systolic murmur (soft COLE at card base) Gastrointestional: No tender; soft; No guarding, No rebound; audible bowel sounds Extremities: swelling (mild to mod, bilateral pitting edema of the legs); No clubbing, No cyanosis Neurologic/Psychiatric: oriented x 3, other (moves all limbs equally) Skin: No rash on exposed areas, No ulcerations on exposed areas Results/Procedures: Labs Laboratory Tests 12/02/19 16:39: Glucometer 377H 12/02/19 21:51: Glucometer 309H 12/03/19 05:25: White Blood Count 6.1, Red Blood Count 2.38L, Hemoglobin 6.7*L, Hematocrit 21L, Mean Corpuscular Volume 90, Mean Corpuscular Hemoglobin 28, Mean Corpuscular Hemoglobin Concent 32, Red Cell Distribution Width 14.6H, Platelet Count 118L, Mean Platelet Volume 10.5H, Neutrophils (%) (Auto) 78H, Lymphocytes (%) (Auto) 12, Monocytes (%) (Auto) 10, Eosinophils (%) (Auto) 0, Basophils (%) (Auto) 0, Neutrophils # (Auto) 4.8, Lymphocytes # (Auto) 0.7L, Monocytes # (Auto) 0.6, Eosinophils # (Auto) 0.0, Basophils # (Auto) 0.0, Sodium Level 143, Potassium Level 2.8L, Chloride Level 105, Carbon Dioxide Level 26, Anion Gap 12, Blood Urea Nitrogen 42H, Creatinine 1.90H, Estimat Glomerular Filtration Rate 35, BUN/Creatinine Ratio 22, Glucose Level 145H, Calcium Level 8.5, Iron Level 35L, Total Iron Binding Capacity 194L, Unsaturated Iron Binding Capacity 159, Transferrin % Saturation 18 12/03/19 05:44: Glucometer 175H 12/03/19 11:16: Glucometer 274H Laboratory Tests 12/02/19 03:03 12/03/19 05:25 A/P: Assessment: Ac resp failure and hypoxia, multifactorial (see below) 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 Echo of 12/01/19: LVEF 50-55%, no regional wall motion abnormality, mild MR, mild , RVSP 34 mmHg Elevated troponin, likely type-2 [place], likely due to hypoxia, but cannot exclude Type I NSTEMI. Conservative therapy Worsening anemia of undetermined etiology Renal failure/insufficiency of undetermined age Elec abn, likely due to diuretic therapy DM II, uncontrolled Plan: * This is a complex management problem due to multiple comorbidities that are outlined above * I discussed his case with Dr Bales on the phone today. Due to worsening anemia and suspected occult bleed, it appears reasonable to d/c enoxaparin * Continue DAPT * Diuretics as needed and as tolerated for CHF * Replenish K * Monitor labs SILVANO HURLEY MD FACP FAC CCDS Dec 03, 2019 15:54
[2019-12-03] MEDS: MELATONIN 3 MG TABLET PO PRN (20:37)
[2019-12-03] MEDS: PRIMIDONE 50 MG TAB (MYSOLINE) PO SCH (20:37)
[2019-12-03] MEDS: LATANOPROST 0.005% (XALATAN) OPHTH SOLN 2.5 ML OU SCH (20:38)
[2019-12-03] MEDS: CYCLOBENZAPRINE 10 MG (FLEXERIL) TAB PO PRN (20:40)
[2019-12-04] VITALS (13 sets, daily range): BP systolic 133–173; BP diastolic 59–78
[2019-12-04] MEDS: RT-ALBUTEROL/IPRATROPIUM 3 ML (DUONEB) VIAL INH SCH ×5 (01:50→21:31)
[2019-12-04 05:32] LABS: BASOPHILS % (AUTO) 0 % (0-10); EOSINOPHILS % (AUTO) 0 % (0-10); HEMATOCRIT 24 % (40-54); HEMOGLOBIN 7.6 G/DL (13.3-17.7); LYMPHOCYTES # (AUTO) 0.9 X 10^3 (1.0-4.0); LYMPHOCYTES % (AUTO) 12 % (12-44); MEAN CORPUSCULAR HEMOGLOBIN 27 PG (25-34); MEAN CORPUSCULAR HGB CONC 31 G/DL (32-36); MEAN CORPUSCULAR VOLUME 88 FL (80-99); MEAN PLATELET VOLUME 10.1 FL (7.4-10.4); MONOCYTES # (AUTO) 0.6 X 10^3 (0.0-1.0); MONOCYTES % (AUTO) 8 % (0-12); NEUTROPHILS # (AUTO) 5.5 X 10^3 (1.8-7.8); NEUTROPHILS % (AUTO) 79 % (42-75); PLATELET COUNT 124 10^3/uL (130-400); RED CELL DISTRIBUTION WIDTH 15.7 % (10.0-14.5)
[2019-12-04 05:51] LABS: CALCIUM 8.8 MG/DL (8.5-10.1); CREATININE SERUM 1.73 MG/DL (0.60-1.30); POTASSIUM 2.9 MMOL/L (3.6-5.0)
[2019-12-04] MEDS: inSUlin ASPART (NovoLOG) 1 UNIT/0.01 ML (CHARGE PER UNIT) SC SCH ×4 (05:53→20:53)
[2019-12-04] MEDS: KCL 10 MEQ TAB (MICRO K) PO SCH (06:12)
[2019-12-04] MEDS: cefTRIAXone FOR IV USE 1,000 MG in WATER (STERILE) FOR INJECTION 10 ML IV SCH (08:43)
[2019-12-04] MEDS: meTOproloL SUCCINATE 50 MG (TOPROL XL) TAB PO SCH (08:43)
[2019-12-04] MEDS: FUROSEMIDE 40 MG/4 ML INJ (LASIX) IVP SCH (08:43)
--- NOTE | 2019-12-04 08:59 | NUR ---
Pt lives alone in his own home in [place]. He states he has several cousins who live nearby who assist him on a regualr basis. Prior to hospitaliztion he states he was independent in all activities but does have home oxygen Will follow for any continued care needs.l
--- NOTE | 2019-12-04 09:21 | Physical Therapy Daily Note ---
PT Daily Note-Current Subjective Pt. up in chair, expecting to have surgical procedure at 9:30 AM today per nurse. Pt. agrees to therapy. Mental Status Patient Orientation: Person, Place, Time, Situation Attachments: Oxygen (3L), IV Transfers SCALE: Activities may be completed with or without assistive devices. 6-Jgcuvptqel-ouwonor completes the activity by him/herself with no assistance from a helper. 5-Set-up or Clean-up Assistance-helper sets up or cleans up; patient completes activity. [place] assists only prior to or following the activity. 4-Supervision or Touching Assistance-helper provides verbal cues and/or touching/steadying and/or contact guard assistance as patient completes activity. Assistance may be provided throughout the activity or intermittently. 3-Partial/Moderate Assistance-helper does LESS THAN HALF the effort. [place] lifts, holds or supports trunk or limbs, but provides less than half the effort. 2-Substantial/Maximal Assistance-helper does MORE THAN HALF the effort. [place] lifts or holds trunk or limbs and provides more than half the effort. 1-Jelrvgjtn-vcbmfq does ALL the effort. Patient does none of the effort to complete the activity. Or, the assistance of 2 or more helpers is required for the patient to complete the activity. If activity was not attempted, code reason: 7-Patient Refused. 9-Not Applicable-not attempted and the patient did not perform the activity before the current illness, exacerbation or injury. 10-Not Attempted due to Environmental Limitations-(lack of equipment, weather restraints, etc.). 88-Not Attempted due to Medical Conditions or Safety Concerns. Sit to Stand (QC): 6 Weight Bearing Right Lower Extremity: Right Weight Bearing/Tolerated Left Lower Extremity: Left Weight Bearing/Tolerated Gait Training Does the Patient Walk?: Yes Distance: 350 ft Walk 150 ft (QC): 4 Gait Persons Needed: 1 Gait Assistive Device: FWW pt. needed 1 brief standing rest period due to discomfort in LE's. Treatments gait Assessment Current Status: Good Progress Pt. did very well with ambulation. He was mildly SOB post ambulation and did report discomfort in LE's during ambulation. Pt. instructed in seated LE exercises: APs, LAQ to help reduce LE swelling and maintain flexibility. Pt. returned in bedside chair post session with call light and all needs met, O2 in situ. PT New Grad Rn Goals Usp Goals PT New Grad Rn Goals Time Frame: Dec 09, 2019 Sit to Lying (QC): 6 Lying-Sitting on Side/Bed(QC): 6 Sit to Stand (QC): 6 Walk 150 ft (QC): 6 PT Plan Treatment/Plan Treatment Plan: Continue Plan of Care Treatment Plan: Bed Mobility, Education, Functional Activity Kathleen, Functional Strength, Gait, Safety, Therapeutic Exercise, Transfers Treatment Duration: Dec 09, 2019 Frequency: 6 times per week Estimated Hrs Per Day: .25 hour per day Patient and/or Family Agrees t: Yes Time/GCodes Time In: 845 Time Out: 900 Total Billed Treatment Time: 15 Total Billed Treatment 1, GT 15' DENIS BEAL PT Dec 04, 2019 09:21
[2019-12-04] MEDS: CLOPIDOGREL 75 MG (PLAVIX) TABLET PO SCH (09:43)
[2019-12-04] MEDS: DOCUSATE SODIUM 100 MG (COLACE) CAP PO SCH ×3 (09:43→20:52)
[2019-12-04] MEDS: ASPIRIN 81 MG CHEW (CHILDREN'S ASA) PO SCH (09:44)
[2019-12-04] MEDS: amLODIPine 5 MG (NORVASC) TAB PO SCH (09:44)
[2019-12-04] MEDS: SENNOSIDES 8.6 MG (SENOKOT) TAB PO SCH ×3 (09:44→20:53)
[2019-12-04] MEDS: AZITHROMYCIN 250 MG TAB (ZITHROMAX) PO SCH ×2 (09:45→12:51)
[2019-12-04] MEDS ORDERED: BUP/EPI 0.5% 1:200,000 (SENSORCAINE) 30 ML VIAL ONE (09:48)
[2019-12-04] MEDS ORDERED: HEParin (CENTRAL IV FLUSH) 500 UNIT/5 ML SYR ONE ×2 (09:48→10:46)
[2019-12-04] MEDS ORDERED: 0.9% SODIUM CHLORIDE PF INJ 20 ML VIAL ONE (09:48)
[2019-12-04] MEDS ORDERED: KETAMINE/NaCl 50 MG/5 ML SYRINGE (ED ONLY) ONE (09:56)
[2019-12-04] MEDS ORDERED: proPOfol 200 MG/20 ML (DIPRIVAN) VIAL IV ONE (09:56)
[2019-12-04] MEDS ORDERED: MIDAZOLAM 2 MG/2 ML (VERSED) VIAL ONE (09:56)
[2019-12-04] MEDS ORDERED: LIDOCAINE PF 2% 5 ML (XYLOCAINE) VIAL ONE (09:56)
--- NOTE | 2019-12-04 10:05 | NUR ---
TO SURGERY PER BED, VERBALIZED UNDERSTANDING
[2019-12-04] MEDS ORDERED: LACTATED RINGERS 1,000 ML IV PRN (10:30)
[2019-12-04] MEDS ORDERED: ESMOLOL 100 MG/10 ML (BREVIBLOC) VIAL ONE (10:33)
--- NOTE | 2019-12-04 11:09 | Progress Note-Post Operative ---
Post-Operative Progess Note Surgeon (s)/Email Marketing Processor (s) Surgeon EDUARDA DUDLYE DO Email Marketing Processor: NONE Pre-Operative Diagnosis Lung CA with mets, Venous Insufficiency Post-Operative Diagnosis Same Procedure & Operative Findings Date of Procedure 12/04/19 Procedure Performed/Findings PROCEDURE: [Right] Subclavian port placement. COMPLICATIONS: None. INDICATIONS: The patient is a 69 year old male []. Patient understands the risks and benefits of port placement and wished to proceed with the procedure. Consent was signed on the chart. PROCEDURE: The patient was taken to the operating suite, was prepped and draped in the sterile fashion. A surgical pause was performed. Using negative inspiration with pt. [place] an 18gauge finder needle was advanced under the clavicle. Just priot to this had used located anesthetic to infiltrate towards the clavicle and over the right anterior chest wall where the port was to be placed. Dark nonpulsatile blood was withdrawn. The wire was inserted down the needle using the Seldinger technique and then fluoroscopy assured proper placement. The needle was removed. The wire was then secured. Local anesthetic had already been placed for tunneling down to the right chest. A [#11] blade scalpel was used to make a stab incision at guidewire and to make an incision over the [right anterior] chest. Cautery was used to dissect down to the pectoral fascia. A pocket was created with blunt dissection. The dilator sheath was then advanced over the wire under fluoroscopy and the dilator and wire were removed. The Groshong catheter was inserted through the sheath and the sheath was then removed. The Groshong wire was removed. The catheter was then tunneled to the right chest pocket. Fluoroscopy was used to cut to length and this was then attached to the port which was then placed within the pocket. The port was then accessed without difficulty. The port was tacked down to the chest wall with a 3-0 Prolene. The port was then flushed with saline and then heparin. The subcutaneous tissues were then reapproximated using 3-0 Vicryl. 4-0 Monocryl was then used to close the incision, 3 subcuticular simple stitches. The areas were then washed and dried. Skin Affix was placed over incision. The insertion point of the initial access point had Skin Affix placed over the incision. The patient tolerated the procedure well without complication and was taken to recovery room in stable condition. Anesthesia Type IV sedation by Anesthesia Estimated Blood Loss Estimated blood loss (mL): less than 5ml Specimens/Packing Specimens Removed none EDUARDA DUDLEY DO Dec 04, 2019 11:09
--- NOTE | 2019-12-04 11:21 | Anesthesia-General Post-Op ---
MAC Patient Condition Mental Status/LOC: Same as Preop Cardiovascular: Satisfactory Nausea/Vomiting: Absent Respiratory: Satisfactory Pain: Controlled Complications: Absent Post Op Complications Complications None Follow Up Care/Instructions Patient Instructions None needed. Anesthesiology Discharge Order Discharge Order Patient is doing well, no complaints, stable vital signs, no apparent adverse anesthesia problems. DACIA NEGRON DO Dec 04, 2019 11:21
--- NOTE | 2019-12-04 11:29 | Progress Note - Hospitalist ---
Subjective HPI/CC On Admission Date Seen by Provider: Dec 04, 2019 Time Seen by Provider: 09:00 Ab Soliman is a 69-year-old male with recently diagnosed metastatic lung cancer to the liver and bone not yet on chemotherapy who presented with shortness of breath. He reports that he became short of breath with minimal activity. He reports that he has had a cough with sputum production. He denies any fevers or chills. He reports chest pressure in the center of his chest. He denies any radiation to the neck, jaw, or arm. He denies any diaphoresis. He denies any nausea or vomiting. He denies any abdominal pain. He denies any diarrhea. He has been constipated but had a bowel movement this morning. He reports leg swelling. He is unsure of what medications he takes every day and what his other chronic medical conditions are. Subjective/Events-last exam Pt reports doing well. Feels better today. Plan is for port placement later today. Objective Exam Vital Signs Vital Signs Date Time Temp Pulse Resp B/P (MAP) Pulse Ox O2 Delivery O2 Flow Rate FiO2 12/04/19 08:00 Nasal Cannula 3.00 12/04/19 08:00 37.3 98 20 158/78 (104) 96 12/02/19 11:29 40 Capillary Refill : NONE General Appearance: No Apparent Distress, Chronically ill Respiratory: Lungs Clear, No Respiratory Distress Cardiovascular: Regular Rate, Rhythm, No Murmur Gastrointestinal: Normal Bowel Sounds, Soft Neurologic/Psychiatric: Alert, Oriented x3, Normal Mood/Affect Results/Procedures Lab Laboratory Tests 12/04/19 05:05 Patient resulted labs reviewed. Assessment/Plan Assessment and Plan Assess & Plan/Chief Complaint acute on chronic respiratory failure with hypoxia community-acquired pneumonia NSTEMI back to baseline oxygen requirement Cont on Rocephin and azithromycin MAT protocol Echo with EF of 55% and grade 1 diastolic dysfunction Cont Lasix troponin trended up ,discussed with Dr Bond who recommended medical management Consult cardiology, appreciate assistance Hold ASA/Plavix for port placement Normocytic Anemia - Hgb 7.6, up appropriately today - transfused 1 unit pRBCs 12/02 - FOBT pending - Iron studies- will mild iron deficiency T2DM with hyperglycemia newly diagnosed diabetes hemoglobin A1c 8.9 Levemir Sliding scale insulin metastatic lung cancer Follows with Dr. Ledesma Not yet started on treatment Port placement today DVT prophylaxis: held for anemia/port Diagnosis/Problems Diagnosis/Problems (1) Metastatic lung cancer (metastasis from lung to other site) Status: Chronic Qualifiers: Laterality: unspecified laterality Qualified Codes: C34.90 - Malignant neoplasm of unspecified part of unspecified bronchus or lung (2) NSTEMI (non-ST elevation myocardial infarction) Status: Acute (3) Pneumonia (4) T2DM (type 2 diabetes mellitus) Status: Acute Qualifiers: Diabetes mellitus ocean transportation intermediary insulin use: without retirement use Diabetes mellitus complication status: with hyperglycemia Qualified Codes: E11.65 - Type 2 diabetes mellitus with hyperglycemia (5) Acute on chronic respiratory failure with hypoxia Status: Acute Clinical Quality Measures DVT/VTE Risk/Contraindication: Risk Factor Score Per Nursin RFS Level Per Nursing on Admit: 4+=Very High BERANN BERTRAND MD Dec 04, 2019 11:29
[2019-12-04] MEDS ORDERED: morphine INJ 10 MG/ML 1ML (SYR OR VIAL) IVP ONE (11:30)
[2019-12-04] MEDS ORDERED: ONDANSETRON 4 MG/2 ML (SDV) Z0FRAN IVP PRN (11:30)
--- NOTE | 2019-12-04 11:31 | Diagnostic Imaging Report ---
INDICATION: Fluoroscopy during port placement. Fluoroscopy was provided in the OR during a port placement. 6 seconds of fluoroscopic time was utilized. A single image was obtained demonstrating a right-sided port. Tip appears to be overlying the SVC. IMPRESSION: Fluoroscopy for port placement. Dictated by: Dictated on workstation # [id number]
--- NOTE | 2019-12-04 11:35 | NUR ---
RETURNED FROM SURGERY, DRESSING DRY AND INTACT TO RIGHT SIDE OF CHEST, DENIES PAIN, O2 ON PER NC AT 3 LITERS, DENIES SOB. CALL LIGHT WITHIN REACH, ICE PACK TO CHEST.
--- NOTE | 2019-12-04 12:22 | Progress Note - Surgery ---
Subjective Time Seen by a Provider: 12:10 Subjective/Events-last exam Pt seen and examined, he is hungry and wants to eat. He still has not had a BM, so no hemoccult has been done. He feels a little bit stronger today and his Hg came up after the transfusion yesterday. Review of Systems General: No Night Sweats; Fatigue Pulmonary: Dyspnea, Cough Cardiovascular: No: Chest Pain, Palpitations Gastrointestinal: No: Nausea, Vomiting, Abdominal Pain Objective Exam Vital Signs Date Time Temp Pulse Resp B/P (MAP) Pulse Ox O2 Delivery O2 Flow Rate FiO2 12/04/19 11:35 36.8 18 152/68 (96) 96 Nasal Cannula 4 12/04/19 11:35 Nasal Cannula 4 12/04/19 11:30 18 148/65 (92) 93 Nasal Cannula 2 12/04/19 11:20 18 151/66 (94) 93 Nasal Cannula 4 12/04/19 11:20 Nasal Cannula 4 12/04/19 11:10 18 133/61 (85) 93 OxyMask 4 12/04/19 11:07 OxyMask 4 12/04/19 11:07 37.2 16 139/59 (85) 92 OxyMask 4 12/04/19 08:00 Nasal Cannula 3.00 12/04/19 08:00 37.3 98 20 158/78 (104) 96 Nasal Cannula 3.00 12/04/19 07:14 95 3.00 12/04/19 06:43 79 12/04/19 04:40 37.2 80 20 173/72 (105) 95 Nasal Cannula 3.00 12/04/19 01:51 92 Nasal Cannula 3.00 12/04/19 01:00 88 12/04/19 00:15 37.3 85 20 150/65 (93) 96 Nasal Cannula 4.00 12/03/19 21:17 98 Nasal Cannula 3.00 12/03/19 20:53 37.6 88 20 135/65 (88) 90 Nasal Cannula 3.00 12/03/19 19:47 Nasal Cannula 4.00 12/03/19 19:00 83 12/03/19 18:33 97 Nasal Cannula 3.00 12/03/19 15:27 37.1 85 20 163/67 (99) 96 Nasal Cannula 3.00 3/24/20 12:41 85 I & O 12/04/19 07:00 Intake Total 3010 ml Balance 3010 ml Capillary Refill : NONE General Appearance: No Apparent Distress, Chronically ill HEENT: PERRL/EOMI, Moist Mucous Membranes, Other (poor dentition) Neck: Normal Inspection, Supple Respiratory: Lungs Clear, No Respiratory Distress Cardiovascular: Regular Rate, Rhythm, No Murmur Gastrointestinal: normal bowel sounds, soft, no organomegaly, no pulsatile mass Extremity: Normal Inspection, Non Tender, Pedal Edema (2+, wearing compression stockings) Neurologic/Psychiatric: Alert, Oriented x3, Normal Mood/Affect Skin: Normal Color, Warm/Dry Results Lab Laboratory Tests 12/03/19 15:26: Glucometer 247H 12/03/19 20:37: Glucometer 168H 12/04/19 05:05: White Blood Count 7.0, Red Blood Count 2.77L, Hemoglobin 7.6L, Hematocrit 24L, Mean Corpuscular Volume 88, Mean Corpuscular Hemoglobin 27, Mean Corpuscular Hemoglobin Concent 31L, Red Cell Distribution Width 15.7H, Platelet Count 124L, Mean Platelet Volume 10.1, Neutrophils (%) (Auto) 79H, Lymphocytes (%) (Auto) 12, Monocytes (%) (Auto) 8, Eosinophils (%) (Auto) 0, Basophils (%) (Auto) 0, Neutrophils # (Auto) 5.5, Lymphocytes # (Auto) 0.9L, Monocytes # (Auto) 0.6, Eosinophils # (Auto) 0.0, Basophils # (Auto) 0.0, Sodium Level 146H, Potassium Level 2.9L, Chloride Level 107, Carbon Dioxide Level 27, Anion Gap 12, Blood Urea Nitrogen 38H, Creatinine 1.73H, Estimat Glomerular Filtration Rate 39, BUN/Creatinine Ratio 22, Glucose Level 124H, Calcium Level 8.8 Assessment/Plan Assessment/Plan Assessment/Plan Anemia Pneumonia Lung CA with Metastasis (Spine and bone) Venous Insufficiency DMII - uncontrolled NSTEMI Pt had a Yanick-cath placed so that he can start getting chemotherapy for his Lung CA. His anemia is stable and we are still waiting on hemoccult; therefore, timing of an upper and lower endoscopy to determine cause of Anemia is up in the air. The anemia may just be due to chronic disease; DM and Lung CA. Will cotinue to hold the Enoxaparin dose; which still may put him at risk of Cardiac complications and even DVT. Plan to continue to monitor his H/H and will make a decision on VTE prophylaxis dose in the next couple of days. In the meantime, he is being treated for Pneumonia and needs to try and get his blood sugar under control. Clinical Quality Measures DVT/VTE Risk/Contraindication: Risk Factor Score Per Nursin RFS Level Per Nursing on Admit: 4+=Very High EDUARDA DUDLEY DO Dec 04, 2019 12:21
[2019-12-04] MEDS: NS IV 1000 ML 1,000 ML IV SCH ×2 (12:49→16:30)
--- NOTE | 2019-12-04 13:15 | NUR ---
PATIENT HAD BM, SPECIMEN SENT TO LAB, POSITIVE FOR OB, DR DUDLEY NOTIFIED AND ORDER GIVEN FOR REG DIET.
--- NOTE | 2019-12-04 13:29 | Cardiology Progress Note ---
Cardiology SOAP Progress Note Subjective: No cardiac complaints. Objective: I&O/Vital Signs 12/04/19 12/04/19 12/04/19 12/04/19 01:51 04:40 06:43 07:14 Temp 37.2 Pulse 80 79 Resp 20 B/P (MAP) 173/72 (105) Pulse Ox 92 95 95 O2 Delivery Nasal Cannula Nasal Cannula O2 Flow Rate 3.00 3.00 3.00 12/04/19 12/04/19 12/04/19 12/04/19 08:00 08:00 11:07 11:07 Temp 37.3 37.2 Pulse 98 Resp 20 16 B/P (MAP) 158/78 (104) 139/59 (85) Pulse Ox 96 92 O2 Delivery Nasal Cannula Nasal Cannula OxyMask OxyMask O2 Flow Rate 3.00 3.00 4 4 12/04/19 12/04/19 12/04/19 12/04/19 11:10 11:20 11:20 11:30 Resp 18 18 18 B/P (MAP) 133/61 (85) 151/66 (94) 148/65 (92) Pulse Ox 93 93 93 O2 Delivery OxyMask Nasal Cannula Nasal Cannula Nasal Cannula O2 Flow Rate 4 4 4 2 12/04/19 12/04/19 12/04/19 12/04/19 11:35 11:35 12:00 12:48 Temp 36.8 37.0 Pulse 88 104 Resp 18 18 B/P (MAP) 152/68 (96) 161/71 (101) Pulse Ox 96 93 O2 Delivery Nasal Cannula Nasal Cannula Nasal Cannula O2 Flow Rate 4 4 4.00 12/04/19 00:00 Intake Total 2000 ml Balance 2000 ml Constitutional: AAO x 3, well-developed, well-nourished Respiratory: No accessory muscle use; other (Scattered rhonchi and coarse crackles that are more prominent over L lung field) Cardiovascular: regular rate-rhythm, S1 and S2, systolic murmur (soft COLE at card base) Gastrointestional: No tender; soft; No guarding, No rebound; audible bowel sounds Extremities: swelling (mild to mod, bilateral pitting edema of the legs); No clubbing, No cyanosis Neurologic/Psychiatric: oriented x 3, other (moves all limbs equally) Skin: No rash on exposed areas, No ulcerations on exposed areas Results/Procedures: Labs Laboratory Tests 12/03/19 15:26: Glucometer 247H 12/03/19 20:37: Glucometer 168H 12/04/19 05:05: White Blood Count 7.0, Red Blood Count 2.77L, Hemoglobin 7.6L, Hematocrit 24L, Mean Corpuscular Volume 88, Mean Corpuscular Hemoglobin 27, Mean Corpuscular Hemoglobin Concent 31L, Red Cell Distribution Width 15.7H, Platelet Count 124L, Mean Platelet Volume 10.1, Neutrophils (%) (Auto) 79H, Lymphocytes (%) (Auto) 12, Monocytes (%) (Auto) 8, Eosinophils (%) (Auto) 0, Basophils (%) (Auto) 0, Neutrophils # (Auto) 5.5, Lymphocytes # (Auto) 0.9L, Monocytes # (Auto) 0.6, Eosinophils # (Auto) 0.0, Basophils # (Auto) 0.0, Sodium Level 146H, Potassium Level 2.9L, Chloride Level 107, Carbon Dioxide Level 27, Anion Gap 12, Blood Ur ea Nitrogen 38H, Creatinine 1.73H, Estimat Glomerular Filtration Rate 39, BUN/Creatinine Ratio 22, Glucose Level 124H, Calcium Level 8.8 12/04/19 12:25: Glucometer 198H 12/04/19 12:50: Stool Occult Blood Immunoassay POSITIVEH A/P: Assessment/Dx: Ac resp failure and hypoxia, multifactorial (see below) 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 Echo of 12/01/19: LVEF 50-55%, no regional wall motion abnormality, mild MR, mild , RVSP 34 mmHg Elevated troponin, likely type-2 SC, likely due to hypoxia, but cannot exclude Type I NSTEMI. Conservative therapy Worsening anemia of undetermined etiology Renal failure/insufficiency of undetermined age Elec abn, likely due to diuretic therapy DM II, uncontrolled Plan: Plan: * This is a complex management problem due to multiple comorbidities that are outlined above * I discussed his case with Dr Bales on the phone today. Due to worsening a nemia and suspected occult bleed, it appears reasonable to d/c enoxaparin * Continue DAPT * Diuretics as needed and as tolerated for CHF * Replenish K * Monitor labs Thank you for your consultation. Please call me if you have any questions. David Crandall MD, FACP, FACC, FSCAI, FHRS, CCDS Interventional Cardiology Cardiac Electrophysiology Vascular Medicine and Endovascular Interventions Julian CRANDALL MD Dec 04, 2019 13:29
--- NOTE | 2019-12-04 16:09 | NUR ---
Met with Mr. 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 He is concerned about how he will set up his medications and what assistance could be available. Explained Home Health Care which he thinks would be helpful and private caregiving agencies and individuals. He is also interested in [facility] and have a call in for possible referral. Pt states that he would like his friend Mr. Chance visit tomorrow as he feels that he can count on him to assist him. Will provide pt a a list of local home Health agencies as well as private in-home care agencies.
[2019-12-04] MEDS: CYCLOBENZAPRINE 10 MG (FLEXERIL) TAB PO PRN (17:36)
[2019-12-04] MEDS: PRIMIDONE 50 MG TAB (MYSOLINE) PO SCH (20:52)
[2019-12-04] MEDS: LATANOPROST 0.005% (XALATAN) OPHTH SOLN 2.5 ML OU SCH (20:53)
[2019-12-04] MEDS: MELATONIN 3 MG TABLET PO PRN (20:53)
[2019-12-05] MEDS: NS IV 1000 ML 1,000 ML IV SCH ×2 (02:21→22:23)
[2019-12-05] MEDS: RT-ALBUTEROL/IPRATROPIUM 3 ML (DUONEB) VIAL INH SCH ×4 (03:01→22:59)
[2019-12-05 03:45] VITALS: BP 159/69
[2019-12-05] MEDS: CYCLOBENZAPRINE 10 MG (FLEXERIL) TAB PO PRN (04:01)
[2019-12-05 06:00] LABS: BASOPHILS % (AUTO) 0 % (0-10); EOSINOPHILS % (AUTO) 0 % (0-10); HEMATOCRIT 24 % (40-54); HEMOGLOBIN 7.6 G/DL (13.3-17.7); LYMPHOCYTES # (AUTO) 0.7 X 10^3 (1.0-4.0); LYMPHOCYTES % (AUTO) 10 % (12-44); MEAN CORPUSCULAR HEMOGLOBIN 28 PG (25-34); MEAN CORPUSCULAR HGB CONC 31 G/DL (32-36); MEAN CORPUSCULAR VOLUME 89 FL (80-99); MEAN PLATELET VOLUME 10.8 FL (7.4-10.4); MONOCYTES # (AUTO) 0.6 X 10^3 (0.0-1.0); MONOCYTES % (AUTO) 9 % (0-12); NEUTROPHILS # (AUTO) 5.8 X 10^3 (1.8-7.8); NEUTROPHILS % (AUTO) 81 % (42-75); PLATELET COUNT 116 10^3/uL (130-400); RED CELL DISTRIBUTION WIDTH 15.4 % (10.0-14.5); WHITE BLOOD COUNT 7.2 10^3/uL (4.3-11.0)
[2019-12-05 06:21] LABS: CALCIUM 8.5 MG/DL (8.5-10.1); CREATININE SERUM 1.76 MG/DL (0.60-1.30); POTASSIUM 2.7 MMOL/L (3.6-5.0)
[2019-12-05] MEDS: KCL 10 MEQ TAB (MICRO K) PO SCH (06:45)
[2019-12-05] MEDS: inSUlin ASPART (NovoLOG) 1 UNIT/0.01 ML (CHARGE PER UNIT) SC SCH ×4 (06:46→21:29)
[2019-12-05 08:00] VITALS: BP 164/71
[2019-12-05] MEDS: AZITHROMYCIN 250 MG TAB (ZITHROMAX) PO SCH (08:37)
[2019-12-05] MEDS: meTOproloL SUCCINATE 50 MG (TOPROL XL) TAB PO SCH (08:37)
[2019-12-05] MEDS: ASPIRIN 81 MG CHEW (CHILDREN'S ASA) PO SCH (08:38)
[2019-12-05] MEDS: amLODIPine 5 MG (NORVASC) TAB PO SCH (08:38)
[2019-12-05] MEDS: FUROSEMIDE 40 MG/4 ML INJ (LASIX) IVP SCH (08:38)
[2019-12-05] MEDS: DOCUSATE SODIUM 100 MG (COLACE) CAP PO SCH ×2 (08:38→21:29)
[2019-12-05] MEDS: cefTRIAXone FOR IV USE 1,000 MG in WATER (STERILE) FOR INJECTION 10 ML IV SCH (08:38)
[2019-12-05] MEDS: SENNOSIDES 8.6 MG (SENOKOT) TAB PO SCH ×2 (08:38→21:29)
[2019-12-05] MEDS: CLOPIDOGREL 75 MG (PLAVIX) TABLET PO SCH (08:38)
--- NOTE | 2019-12-05 09:12 | Physical Therapy Daily Note ---
PT Daily Note-Current Subjective Pt. up in chair and states "this is the best I have felt since I've been here." Mental Status Patient Orientation: Person, Place, Time, Situation Attachments: Oxygen (5L), IV Transfers SCALE: Activities may be completed with or without assistive devices. 7-[id number]-[id number] completes the activity by him/herself with no assistance from a helper. 5-Set-up or Clean-up Assistance-helper sets up or cleans up; patient completes activity. [place] assists only prior to or following the activity. 4-Supervision or Touching Assistance-helper provides verbal cues and/or touching/steadying and/or contact guard assistance as patient completes activity. Assistance may be provided throughout the activity or intermittently. 3-Partial/Moderate Assistance-helper does LESS THAN HALF the effort. [place] lifts, holds or supports trunk or limbs, but provides less than half the effort. 2-Substantial/Maximal Assistance-helper does MORE THAN HALF the effort. [place] lifts or holds trunk or limbs and provides more than half the effort. 8-Mvslxbmxw-vuthjl does ALL the effort. Patient does none of the effort to complete the activity. Or, the assistance of 2 or more helpers is required for the patient to complete the activity. If activity was not attempted, code reason: 7-Patient Refused. 9-Not Applicable-not attempted and the patient did not perform the activity before the current illness, exacerbation or injury. 10-Not Attempted due to Environmental Limitations-(lack of equipment, weather restraints, etc.). 88-Not Attempted due to Medical Conditions or Safety Concerns. Sit to Stand (QC): 4 Weight Bearing Right Lower Extremity: Right Weight Bearing/Tolerated Left Lower Extremity: Left Weight Bearing/Tolerated Gait Training Does the Patient Walk?: Yes Distance: 550 ft Walk 150 ft (QC): 4 Gait Persons Needed: 1 Gait Assistive Device: FWW Exercises Seated Therapy Exercises: Ankle pumps, Shoulder Flex, Long arc quads, Hip flexion, Hip abd/add, Glut set Seated Reps: 20 Treatments ambulation, seated exercises Assessment Current Status: Good Progress Able to increase ambulation distance today. Pt. needed 1 brief standing rest period. He was SBA throughout ambulation, leans on walker. Pt. was SOB post ambulation but recovered after a few minutes. He did well with seated exercises for general ROM and strengthening of upper and lower extremities. Pt. up in chair post session with call light and all needs met. PT Administrative Personal Assistant Goals Administrative Personal Assistant Goals PT Administrative Personal Assistant Goals Time Frame: Dec 09, 2019 Sit to Lying (QC): 6 Lying-Sitting on Side/Bed(QC): 6 Sit to Stand (QC): 6 Walk 150 ft (QC): 6 PT Plan Treatment/Plan Treatment Plan: Continue Plan of Care Treatment Plan: Bed Mobility, Education, Functional Activity Kathleen, Functional Strength, Gait, Safety, Therapeutic Exercise, Transfers Treatment Duration: Dec 09, 2019 Frequency: 6 times per week Estimated Hrs Per Day: .25 hour per day Patient and/or Family Agrees t: Yes Time/GCodes Time In: 820 Time Out: 845 Total Billed Treatment Time: 25 Total Billed Treatment 1, GT 15', Ex 10' DENIS BEAL PT Dec 05, 2019 09:12
--- NOTE | 2019-12-05 10:03 | Progress Note - Hospitalist ---
Subjective HPI/CC On Admission Date Seen by Provider: Dec 05, 2019 Time Seen by Provider: 09:52 Ab Soliman is a 69-year-old male with recently diagnosed metastatic lung cancer to the liver and bone not yet on chemotherapy who presented with shortness of breath. He reports that he became short of breath with minimal activity. He reports that he has had a cough with sputum production. He denies any fevers or chills. He reports chest pressure in the center of his chest. He denies any radiation to the neck, jaw, or arm. He denies any diaphoresis. He denies any nausea or vomiting. He denies any abdominal pain. He denies any diarrhea. He has been constipated but had a bowel movement this morning. He reports leg swelling. He is unsure of what medications he takes every day and what his other chronic medical conditions are. Subjective/Events-last exam Pt reports feeling better today. Did well with therapy this morning. Discussed case with Dr Bales and patient. 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 Given history and plans to start chemo decision to do EGD/colonoscopy is deemed urgent. Objective Exam Vital Signs Vital Signs Date Time Temp Pulse Resp B/P (MAP) Pulse Ox O2 Delivery O2 Flow Rate FiO2 12/05/19 08:00 95 Nasal Cannula 3.00 12/05/19 08:00 35.3 90 20 164/71 (102) 12/04/19 18:09 32 Capillary Refill : Less Than 3 SecondsLess Than 3 Seconds General Appearance: No Apparent Distress, Chronically ill Respiratory: Lungs Clear, No Respiratory Distress Cardiovascular: Regular Rate, Rhythm, No Murmur Gastrointestinal: Normal Bowel Sounds, Soft Neurologic/Psychiatric: Alert, Oriented x3 Results/Procedures Lab Laboratory Tests 12/05/19 05:22 Patient resulted labs reviewed. Assessment/Plan Assessment and Plan Assess & Plan/Chief Complaint acute on chronic respiratory failure with hypoxia community-acquired pneumonia NSTEMI back to baseline oxygen requirement Cont on Rocephin and azithromycin MAT protocol Echo with EF of 55% and grade 1 diastolic dysfunction Cont Lasix Cardiology recommended medical management Consult cardiology, appreciate assistance Hold ASA/Plavix for EGD/colonoscopy Normocytic Anemia - Hgb 7.6 again stable today - transfused 1 unit pRBCs 12/02 - FOBT positive - Iron studies- will mild iron deficiency T2DM with hyperglycemia newly diagnosed diabetes hemoglobin A1c 8.9 Levemir Sliding scale insulin metastatic lung cancer Follows with Dr. Ledesma Not yet started on treatment Port placement 12/03 DVT prophylaxis: held for anemia Diagnosis/Problems Diagnosis/Problems (1) Metastatic lung cancer (metastasis from lung to other site) Status: Chronic Qualifiers: Laterality: unspecified laterality Qualified Codes: C34.90 - Malignant neoplasm of unspecified part of unspecified bronchus or lung (2) NSTEMI (non-ST elevation myocardial infarction) Status: Acute (3) Pneumonia (4) T2DM (type 2 diabetes mellitus) Status: Acute Qualifiers: Diabetes mellitus fci insulin use: without superintendent container terminal use Diabetes mellitus complication status: with hyperglycemia Qualified Codes: E11.65 - Type 2 diabetes mellitus with hyperglycemia (5) Acute on chronic respiratory failure with hypoxia Status: Acute Clinical Quality Measures DVT/VTE Risk/Contraindication: Risk Factor Score Per Nursin RFS Level Per Nursing on Admit: 4+=Very High BREANN BERTRAND MD Dec 05, 2019 10:03
[2019-12-05] MEDS: POTASSIUM CL 10MEQ/50ML IVPB 50 ML IV SCH ×4 (10:31→13:34)
--- NOTE | 2019-12-05 11:12 | Progress Note - Surgery ---
Subjective Time Seen by a Provider: 10:04 Subjective/Events-last exam Pt seen and examined, he had + hemoccult and is very anemic; stable at this time. Pt denies abdominal pain and does not feel as weak. Review of Systems General: No Chills, No Night Sweats Pulmonary: No Dyspnea, No Cough Cardiovascular: No: Chest Pain, Palpitations Gastrointestinal: No: Nausea, Vomiting, Abdominal Pain Objective Exam Vital Signs Date Time Temp Pulse Resp B/P (MAP) Pulse Ox O2 Delivery O2 Flow Rate FiO2 12/05/19 08:00 95 Nasal Cannula 3.00 12/05/19 08:00 35.3 90 20 164/71 (102) 95 Nasal Cannula 3.00 12/05/19 07:29 92 Room Air 12/05/19 07:00 90 12/05/19 03:45 37.0 83 20 159/69 (99) 91 Nasal Cannula 5.00 12/05/19 03:01 92 Nasal Cannula 4.00 12/05/19 01:00 119 12/04/19 23:10 37.0 83 20 160/71 (100) 91 Nasal Cannula 5.00 12/04/19 21:31 98 OxyMask 5.00 12/04/19 20:50 Nasal Cannula 3.00 12/04/19 20:05 37.4 85 20 154/66 (95) 97 Nasal Cannula 4.00 12/04/19 19:00 82 12/04/19 18:09 37.5 91 99 32 12/04/19 15:58 37.5 91 20 165/67 (99) 99 Nasal Cannula 4.00 12/04/19 14:36 93 3.00 12/04/19 12:48 104 12/04/19 12:00 37.0 88 18 161/71 (101) 93 Nasal Cannula 4.00 12/04/19 11:35 36.8 18 152/68 (96) 96 Nasal Cannula 4 12/04/19 11:35 Nasal Cannula 4 12/04/19 11:30 18 148/65 (92) 93 Nasal Cannula 2 12/04/19 11:20 18 151/66 (94) 93 Nasal Cannula 4 12/04/19 11:20 Nasal Cannula 4 12/04/19 11:10 18 133/61 (85) 93 OxyMask 4 I & O 12/05/19 07:00 Intake Total 5542 ml Output Total 300 ml Balance 5242 ml Capillary Refill : Less Than 3 SecondsLess Than 3 Seconds General Appearance: No Apparent Distress, Chronically ill HEENT: PERRL/EOMI, Moist Mucous Membranes, Other (poor dentition) Neck: Normal Inspection, Supple Respiratory: Lungs Clear, No Respiratory Distress Cardiovascular: Regular Rate, Rhythm, No Murmur Gastrointestinal: normal bowel sounds, soft, no organomegaly, no pulsatile mass Extremity: Non Tender, No Calf Tenderness, Pedal Edema (2+, wearing compression stockings) Neurologic/Psychiatric: Alert, Oriented x3 Results Lab Laboratory Tests 12/04/19 12:25: Glucometer 198H 12/04/19 12:50: Stool Occult Blood Immunoassay POSITIVEH 12/04/19 15:20: Glucometer 321H 12/04/19 20:41: Glucometer 264H 12/05/19 05:22: White Blood Count 7.2, Red Blood Count 2.75L, Hemoglobin 7.6L, Hematocrit 24L, Mean Corpuscular Volume 89, Mean Corpuscular Hemoglobin 28, Mean Corpuscular Hemoglobin Concent 31L, Red Cell Distribution Width 15.4H, Platelet Count 116L, Mean Platelet Volume 10.8H, Neutrophils (%) (Auto) 81H, Lymphocytes (%) (Auto) 10L, Monocytes (%) (Auto) 9, Eosinophils (%) (Auto) 0, Basophils (%) (Auto) 0, Neutrophils # (Auto) 5.8, Lymphocytes # (Auto) 0.7L, Monocytes # (Auto) 0.6, Eosinophils # (Auto) 0.0, Basophils # (Auto) 0.0, Sodium Level 142, Potassium Level 2.7L, Chloride Level 103, Carbon Dioxide Level 25, Anion Gap 14, Blood Urea Nitrogen 35H, Creatinine 1.76H, Estimat Glomerular Filtration Rate 39, BUN/Creatinine Ratio 20, Glucose Level 229H, Calcium Level 8.5, Magnesium Level 1.8 12/05/19 11:06: Lab Scanned Report Transfusion Reaction Form Microbiology 12/03/19 MRSA Screen - Final, Complete MRSA not isolated Assessment/Plan Assessment/Plan Assessment/Plan Anemia Pneumonia Lung CA with Metastasis (Spine and bone) Venous Insufficiency DMII - uncontrolled NSTEMI Pt's anemia is stable; however his hemoccult was positive and he is not sure how he can set up endoscopies. Therefore, will order upper and lower endoscopy to determine cause of Anemia; start prep today and do tomorrow. Will cotinue to hold the Enoxaparin dose; which still may put him at risk of Cardiac complications and even DVT. Plan to continue to monitor his H/H and will make a decision on VTE prophylaxis tomorrow after endoscopies. We discussed risks and complications of EGD and colonoscopy with pt; not limited to pain, bleeding, esophageal perforation or intestinal perforation. Clinical Quality Measures DVT/VTE Risk/Contraindication: Risk Factor Score Per Nursin RFS Level Per Nursing on Admit: 4+=Very High EDUARDA DUDLEY DO Dec 05, 2019 11:12
--- NOTE | 2019-12-05 11:20 | NUR ---
Pastoral care visit.
[2019-12-05 11:32] VITALS: BP 164/71
--- NOTE | 2019-12-05 11:54 | Cardiology Progress Note ---
Cardiology SOAP Progress Note Subjective: Shortness of breath is better. Objective: I&O/Vital Signs 12/05/19 12/05/19 12/05/19 12/05/19 01:00 03:01 03:45 07:00 Temp 37.0 Pulse 119 83 90 Resp 20 B/P (MAP) 159/69 (99) Pulse Ox 92 91 O2 Delivery Nasal Cannula Nasal Cannula O2 Flow Rate 4.00 5.00 12/05/19 12/05/19 12/05/19 12/05/19 07:29 08:00 08:00 11:21 Temp 35.3 Pulse 90 Resp 20 B/P (MAP) 164/71 (102) Pulse Ox 92 95 95 95 O2 Delivery Room Air Nasal Cannula Nasal Cannula Nasal Cannula O2 Flow Rate 3.00 3.00 5.00 12/05/19 00:00 Intake Total 3020 ml Balance 3020 ml Constitutional: AAO x 3, well-developed, well-nourished Respiratory: No accessory muscle use; other (Scattered rhonchi and coarse crackles that are more prominent over L lung field) Cardiovascular: regular rate-rhythm, S1 and S2, systolic murmur (soft COLE at card base) Gastrointestional: No tender; soft; No guarding, No rebound; audible bowel sounds Extremities: swelling (mild to mod, bilateral pitting edema of the legs); No clubbing, No cyanosis Neurologic/Psychiatric: oriented x 3, other (moves all limbs equally) Skin: No rash on exposed areas, No ulcerations on exposed areas Results/Procedures: Labs Laboratory Tests 12/04/19 12:25: Glucometer 198H 12/04/19 12:50: Stool Occult Blood Immunoassay POSITIVEH 12/04/19 15:20: Glucometer 321H 12/04/19 20:41: Glucometer 264H 12/05/19 05:22: White Blood Count 7.2, Red Blood Count 2.75L, Hemoglobin 7.6L, Hematocrit 24L, Mean Corpuscular Volume 89, Mean Corpuscular Hemoglobin 28, Mean Corpuscular Hemoglobin Concent 31L, Red Cell Distribution Width 15.4H, Platelet Count 116L, Mean Platelet Volume 10.8H, Neutrophils (%) (Auto) 81H, Lymphocytes (%) (Auto) 10L, Monocytes (%) (Auto) 9, Eosinophils (%) (Auto) 0, Basophils (%) (Auto) 0, Neutrophils # (Auto) 5.8, Lymphocytes # (Auto) 0.7L, Monocytes # (Auto) 0.6, Eosinophils # (Auto) 0.0, Basophils # (Auto) 0.0, Sodium Level 142, Potassium Level 2.7L, Chloride Level 103, Carbon Dioxide Level 25, Anion Gap 14, Blood U margi Nitrogen 35H, Creatinine 1.76H, Estimat Glomerular Filtration Rate 39, BUN/Creatinine Ratio 20, Glucose Level 229H, Calcium Level 8.5, Magnesium Level 1.8 12/05/19 11:06: Lab Scanned Report Transfusion Reaction Form 12/05/19 11:43: Glucometer 268H Microbiology 12/03/19 MRSA Screen - Final, Complete MRSA not isolated A/P: Assessment/Dx: Ac resp failure and hypoxia, multifactorial (see below) 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 Echo of 12/01/19: LVEF 50-55%, no regional wall motion abnormality, mild MR, mild , RVSP 34 mmHg Elevated troponin, likely type-2 NV, likely due to hypoxia, but cannot exclude Type I NSTEMI. Conservative therapy Worsening anemia of undetermined etiology Renal failure/insufficiency of undetermined age Elec abn, likely due to diuretic therapy DM II, uncontrolled Plan: Plan: * This is a complex management problem due to multiple comorbidities that are outlined above * Dr. Bond discussed with Dr. Bales previously. Due to worsening anemia and suspected occult bleed, it appears reasonable to d/c enoxaparin * Continue DAPT as conservative treatment for possible non-STEMI area did * Diuretics as needed and as tolerated for CHF * Replenish K * Monitor labs Thank you for your consultation. Please call me if you have any questions. David Crandall MD, FACP, FACC, FSCAI, FHRS, CCDS Interventional Cardiology Cardiac Electrophysiology Vascular Medicine and Endovascular Interventions Julian CRANDALL MD Dec 05, 2019 11:54
[2019-12-05 12:00] VITALS: BP 165/71
[2019-12-05] MEDS ORDERED: BISACODYL 5 MG (DULCOLAX) TABLET PO NR (12:00)
[2019-12-05] MEDS ORDERED: BISACODYL 5 MG (DULCOLAX) TABLET PO SCH (15:00)
--- NOTE | 2019-12-05 15:12 | NUR ---
PT STATES THE HE IS IN TOO MUCH PAIN TO DO BREATHING TX Addendum: 12/05/19 at 1512 by SARTHAK GARCIA RT Amended: Links added.
[2019-12-05 16:18] VITALS: BP 165/64
--- NOTE | 2019-12-05 16:32 | NUR ---
Pt's DPOA states pt should not be discharged home alone. Pt agreeable to custodial home placement and chose [facility]. They have accepted him when discharged and are planning on discharge to their facility tomorrow.
[2019-12-05] MEDS ORDERED: polyethylene glycoL Bowel Prep(MIRALAX) 238 GM PO SCH (18:00)
[2019-12-05 19:53] VITALS: BP 186/88
[2019-12-05] MEDS: LATANOPROST 0.005% (XALATAN) OPHTH SOLN 2.5 ML OU SCH (21:29)
[2019-12-05] MEDS: PRIMIDONE 50 MG TAB (MYSOLINE) PO SCH (21:29)
[2019-12-05] MEDS ORDERED: guaiFENesin/CODEINE (ROBITUSSIN AC) 10ML UDC ONE (21:39)
[2019-12-06] VITALS (8 sets, daily range): BP systolic 118–174; BP diastolic 56–75
[2019-12-06] MEDS: RT-ALBUTEROL/IPRATROPIUM 3 ML (DUONEB) VIAL INH SCH ×3 (02:47→15:29)
[2019-12-06 05:29] LABS: BASOPHILS % (AUTO) 0 % (0-10); EOSINOPHILS % (AUTO) 0 % (0-10); HEMATOCRIT 25 % (40-54); LYMPHOCYTES # (AUTO) 0.8 X 10^3 (1.0-4.0); LYMPHOCYTES % (AUTO) 9 % (12-44); MEAN CORPUSCULAR HEMOGLOBIN 28 PG (25-34); MEAN CORPUSCULAR HGB CONC 32 G/DL (32-36); MEAN CORPUSCULAR VOLUME 88 FL (80-99); MEAN PLATELET VOLUME 9.2 FL (7.4-10.4); MONOCYTES # (AUTO) 0.7 X 10^3 (0.0-1.0); MONOCYTES % (AUTO) 9 % (0-12); NEUTROPHILS % (AUTO) 82 % (42-75); PLATELET COUNT 129 10^3/uL (130-400); RED CELL DISTRIBUTION WIDTH 15.5 % (10.0-14.5); WHITE BLOOD COUNT 8.6 10^3/uL (4.3-11.0)
[2019-12-06] MEDS: inSUlin ASPART (NovoLOG) 1 UNIT/0.01 ML (CHARGE PER UNIT) SC SCH ×3 (05:40→15:45)
[2019-12-06 05:51] LABS: CALCIUM 8.7 MG/DL (8.5-10.1); CREATININE SERUM 1.73 MG/DL (0.60-1.30)
[2019-12-06 05:52] LABS: POTASSIUM 2.3 MMOL/L (3.6-5.0)
[2019-12-06] MEDS: POTASSIUM CL 10MEQ/50ML IVPB 50 ML IV SCH ×3 (06:29→09:19)
[2019-12-06] MEDS: KCL 10 MEQ TAB (MICRO K) PO SCH (06:30)
[2019-12-06] MEDS: cefTRIAXone FOR IV USE 1,000 MG in WATER (STERILE) FOR INJECTION 10 ML IV SCH (08:05)
[2019-12-06] MEDS: FUROSEMIDE 40 MG/4 ML INJ (LASIX) IVP SCH (08:05)
--- NOTE | 2019-12-06 09:11 | Physical Therapy Daily Note ---
PT Daily Note-Current Subjective Patient in restroom pre tx, agrees to PT but doesn't want to ambulate because he says he is very tired. Patient ambulates to his recliner from the restroom with SBA using a rolling walker for about 10'. Patient has 3/10 pain in his left side. Appearance Patient in recliner post tx with nurse call, phone, tray, all needs met. Mental Status Patient Orientation: Normal For Age Attachments: IV Transfers SCALE: Activities may be completed with or without assistive devices. 2-Unckpyvqds-quqyzfa completes the activity by him/herself with no assistance from a helper. 5-Set-up or Clean-up Assistance-helper sets up or cleans up; patient completes activity. [place] assists only prior to or following the activity. 4-Supervision or Touching Assistance-helper provides verbal cues and/or touching/steadying and/or contact guard assistance as patient completes activity. Assistance may be provided throughout the activity or intermittently. 3-Partial/Moderate Assistance-helper does LESS THAN HALF the effort. [place] lifts, holds or supports trunk or limbs, but provides less than half the effort. 2-Substantial/Maximal Assistance-helper does MORE THAN HALF the effort. [place] lifts or holds trunk or limbs and provides more than half the effort. 8-Ovjvmgmad-akwxfh does ALL the effort. Patient does none of the effort to complete the activity. Or, the assistance of 2 or more helpers is required for the patient to complete the activity. If activity was not attempted, code reason: 7-Patient Refused. 9-Not Applicable-not attempted and the patient did not perform the activity before the current illness, exacerbation or injury. 10-Not Attempted due to Environmental Limitations-(lack of equipment, weather restraints, etc.). 88-Not Attempted due to Medical Conditions or Safety Concerns. Sit to Stand (QC): 4 Chair/Tpq-zh-Fwgvp Xfer(QC): 4 Weight Bearing Right Lower Extremity: Right Weight Bearing/Tolerated Left Lower Extremity: Left Weight Bearing/Tolerated Gait Training Distance: 10' Walk 10 feet (QC): 4 Gait Assistive Device: FWW Exercises Seated Therapy Exercises: Ankle pumps, Long arc quads, Hip flexion, Hip abd/add Seated Reps: 20 Treatments LE exercise, ambulation Assessment Current Status: Poor Progress Patient very tired, refuses to ambulate more than to his recliner from the bathroom. PT Warehouse Team Member Goals Warehouse Team Member Goals PT Group Home Goals Time Frame: Dec 09, 2019 Sit to Lying (QC): 6 Lying-Sitting on Side/Bed(QC): 6 Sit to Stand (QC): 6 Walk 150 ft (QC): 6 PT Plan Problem List Problem List: Activity Tolerance, Functional Strength, Safety, Balance, Gait, Transfer Treatment/Plan Treatment Plan: Continue Plan of Care Treatment Plan: Bed Mobility, Education, Functional Activity Kathleen, Functional Strength, Gait, Safety, Therapeutic Exercise, Transfers Treatment Duration: Dec 09, 2019 Frequency: 6 times per week Estimated Hrs Per Day: .25 hour per day Patient and/or Family Agrees t: Yes Safety Risks/Education Patient Education: Gait Training, Transfer Techniques, Correct Positioning, Safety Issues Teaching Recipient: Patient Teaching Methods: Demonstration, Discussion Response to Teaching: Reinforcement Needed Time/GCodes Time In: 0858 Time Out: 0908 Total Billed Treatment Time: 10 Total Billed Treatment 1 visit EX BIENVENIDO LEAL PT Dec 06, 2019 09:11
[2019-12-06] MEDS ORDERED: ASPI-999 PO (09:55)
[2019-12-06] MEDS ORDERED: INSU100V16 SC (09:55)
[2019-12-06] MEDS ORDERED: HYDR-4196 PO (09:55)
[2019-12-06] MEDS ORDERED: PRIM50TA33 PO (09:55)
[2019-12-06] MEDS ORDERED: POTA-51 PO (09:55)
[2019-12-06] MEDS ORDERED: INSU100V5 SQ (09:55)
[2019-12-06] MEDS ORDERED: CLOP75TA28 PO (09:55)
[2019-12-06] MEDS ORDERED: METO50TA7 PO (09:55)
--- NOTE | 2019-12-06 09:58 | Discharge Inst-Skilled Nursing ---
Discharge Inst-Skilled NF Chief Complaint Ab Soliman is a 69-year-old male with recently diagnosed metastatic lung cancer to the liver and bone not yet on chemotherapy who presented with shortness of breath. He reports that he became short of breath with minimal activity. He reports that he has had a cough with sputum production. He denies any fevers or chills. He reports chest pressure in the center of his chest. He denies any radiation to the neck, jaw, or arm. He denies any diaphoresis. He denies any nausea or vomiting. He denies any abdominal pain. He denies any diarrhea. He has been constipated but had a bowel movement this morning. He reports leg swelling. He is unsure of what medications he takes every day and what his other chronic medical conditions are. Consult/Follow Up/Orders Skilled NF Admit to: [facility] Certification (SNF) I certify that SNF services are required to be given on an inpatient basis because of the above named patient's need for snf care on a continuing basis for the conditions(s) for which he/she was receiving inpatient hospital services prior to his/her transfer to the SNF. Care Home Facility Order: Nursing Services, Turntable Worker-Evaluate & Treat, Physical Therapy-Evaluate & Treat Oxygen Delivery Method: Nasal Cannula (3lpm) Oxygen Flow Rate L/min (Range): 3 Discharge Diet: Cardiac Diet Daily Activity as Tolerated: Yes Resuscitation Status: Full Code New & Resume Previous Orders Other Instructions Please get a CBC and BMP next week on your lab draw day and call results to Dr Lord. (If labs available everyday then draw on Friday 12/08) Breann Mckinley Dec 06, 2019 09:56 Pneu Vac Indicated: Yes BREANN MCKINLEY MD Dec 06, 2019 09:58
--- NOTE | 2019-12-06 10:22 | Progress Note - Surgery ---
Subjective Time Seen by a Provider: 09:19 Subjective/Events-last exam Pt seen and examined, he is in good spirits and denies any pain. He is not sure if his BM's are clear (because he can't see) but nursing aid thinks they are still brown. Review of Systems General: No Chills, No Night Sweats Pulmonary: No Dyspnea, No Cough Cardiovascular: No: Chest Pain, Palpitations Gastrointestinal: No: Nausea, Vomiting, Abdominal Pain Objective Exam Vital Signs Date Time Temp Pulse Resp B/P (MAP) Pulse Ox O2 Delivery O2 Flow Rate FiO2 12/06/19 09:58 Nasal Cannula 12/06/19 09:28 92 Nasal Cannula 5.00 12/06/19 07:00 87 12/06/19 04:00 37.1 92 20 160/68 (98) 94 Nasal Cannula 4.00 12/06/19 02:48 96 Nasal Cannula 5.00 12/06/19 01:00 87 12/06/19 00:13 37.3 82 20 174/69 (104) 98 Nasal Cannula 4.00 12/05/19 20:00 Nasal Cannula 3.00 12/05/19 19:53 37.2 86 20 186/88 (120) 99 Nasal Cannula 5.00 12/05/19 19:00 87 12/05/19 16:18 37.2 72 20 165/64 (97) 98 Nasal Cannula 5.00 12/05/19 13:00 84 12/05/19 12:00 37.3 86 20 165/71 (102) 95 Nasal Cannula 5.00 12/05/19 11:32 35.3 87 91 40 12/05/19 11:21 95 Nasal Cannula 5.00 I & O 12/06/19 07:00 Intake Total 3554 ml Output Total 2450 ml Balance 1104 ml Capillary Refill : Less Than 3 SecondsNONE General Appearance: No Apparent Distress, Chronically ill HEENT: PERRL/EOMI, Moist Mucous Membranes, Other (poor dentition) Neck: Normal Inspection, Supple Respiratory: Lungs Clear, No Respiratory Distress Cardiovascular: Regular Rate, Rhythm, No Murmur Gastrointestinal: normal bowel sounds, soft, no organomegaly, no pulsatile mass Extremity: Non Tender, No Calf Tenderness, Pedal Edema (2+, wearing compression stockings) Neurologic/Psychiatric: Alert, Oriented x3 Results Lab Laboratory Tests 12/05/19 11:06: Lab Scanned Report Transfusion Reaction Form 12/05/19 11:43: Glucometer 268H 12/05/19 16:05: Glucometer 175H 12/05/19 20:35: Glucometer 207H 12/06/19 05:20: White Blood Count 8.6, Red Blood Count 2.89L, Hemoglobin 8.0L, Hematocrit 25L, Mean Corpuscular Volume 88, Mean Corpuscular Hemoglobin 28, Mean Corpuscular Hemoglobin Concent 32, Red Cell Distribution Width 15.5H, Platelet Count 129L, Mean Platelet Volume 9.2, Neutrophils (%) (Auto) 82H, Lymphocytes (%) (Auto) 9L, Monocytes (%) (Auto) 9, Eosinophils (%) (Auto) 0, Basophils (%) (Auto) 0, Neutrophils # (Auto) 7.0, Lymphocytes # (Auto) 0.8L, Monocytes # (Auto) 0.7, Eosinophils # (Auto) 0.0, Basophils # (Auto) 0.0, Sodium Level 141, Potassium Level 2.3*L, Chloride Level 102, Carbon Dioxide Level 24, Anion Gap 15H, Blood Urea Nitrogen 32H, Creatinine 1.73H, Estimat Glomerular Filtration Rate 39, BUN/Creatinine Ratio 18, Glucose Level 124H, Calcium Level 8.7 12/06/19 05:28: Glucometer 141H Microbiology 12/03/19 MRSA Screen - Final, Complete MRSA not isolated Assessment/Plan Assessment/Plan Assessment/Plan Anemia Pneumonia Lung CA with Metastasis (Spine and bone) Venous Insufficiency DMII - uncontrolled NSTEMI Hypokalemia Pt was prepped and will have EGD and Colonoscopy today to determine cause of Anemia; on hold until he gets Potassium replacmement. Will cotinue to hold the Enoxaparin dose; which still may put him at risk of Cardiac complications and even DVT. Plan to continue to monitor his H/H and will make a decision on VTE prophylaxis after endoscopies. We discussed risks and complications of EGD and colonoscopy with pt; not limited to pain, bleeding, esophageal perforation or intestinal perforation. Clinical Quality Measures DVT/VTE Risk/Contraindication: Risk Factor Score Per Nursin RFS Level Per Nursing on Admit: 4+=Very High EDUARDA DUDLEY DO Dec 06, 2019 10:22
[2019-12-06] MEDS ORDERED: POTASSIUM CHLORIDE INJ 40 MEQ in D5 NS 1000 ML IV SOLUTION 1,000 ML IV SCH (10:30)
[2019-12-06] MEDS ORDERED: D5 NS W/KCL 40 MEQ/L 1,000 ML IV SCH (10:45)
[2019-12-06] MEDS ORDERED: LACTATED RINGERS 1,000 ML IV ONE (11:14)
[2019-12-06] MEDS ORDERED: LACTATED RINGERS 1,000 ML IV SCH (11:15)
[2019-12-06] MEDS ORDERED: PROPOFOL INJECTION 50 ML IV ONE (11:17)
--- NOTE | 2019-12-06 12:15 | Progress Note-Post Operative ---
Post-Operative Progess Note Surgeon (s)/Route Service Manager (s) Surgeon EDUARDA DUDLEY DO Route Service Manager: NONE Pre-Operative Diagnosis Anemia, Hemoccult + Post-Operative Diagnosis Gastric Ulcers Hiatal Hernia Gastritis Colon polyps Diverticula Internal Hemorrhoids Poor prep Procedure & Operative Findings Date of Procedure 12/06/19 Procedure Performed/Findings EGD with bx Colon with snare Anesthesia Type IV sedation by BALE PILER Estimated Blood Loss Estimated blood loss (mL): scant Specimens/Packing Specimens Removed antral bx Body of stomach bx of ulcer transverse colon polyp rectal polyp EDUARDA DUDLEY DO Dec 06, 2019 12:15
[2019-12-06] MEDS: SENNOSIDES 8.6 MG (SENOKOT) TAB PO SCH (12:59)
[2019-12-06] MEDS: AZITHROMYCIN 250 MG TAB (ZITHROMAX) PO SCH (12:59)
[2019-12-06] MEDS: DOCUSATE SODIUM 100 MG (COLACE) CAP PO SCH (12:59)
[2019-12-06] MEDS: CLOPIDOGREL 75 MG (PLAVIX) TABLET PO SCH (12:59)
[2019-12-06] MEDS: ASPIRIN 81 MG CHEW (CHILDREN'S ASA) PO SCH (13:00)
[2019-12-06] MEDS: meTOproloL SUCCINATE 50 MG (TOPROL XL) TAB PO SCH (13:00)
[2019-12-06] MEDS: amLODIPine 5 MG (NORVASC) TAB PO SCH (13:00)
[2019-12-06] MEDS ORDERED: HURRICAINE EXT TUBE (BENZOCAINE) XX ONE (13:15)
[2019-12-06] MEDS ORDERED: PANT40TA2 PO (14:17)
--- NOTE | 2019-12-06 14:24 | Discharge Summary ---
Diagnosis/Chief Complaint Date of Admission Dec 01, 2019 at 09:22 Date of Discharge Discharge Date: Dec 06, 2019 Admission Diagnosis acute on chronic respiratory failure with hypoxia Primary Care Fernando Lord DO Discharge Diagnosis (1) Metastatic lung cancer (metastasis from lung to other site) Status: Chronic (2) NSTEMI (non-ST elevation myocardial infarction) Status: Acute (3) Pneumonia (4) T2DM (type 2 diabetes mellitus) Status: Acute (5) Acute on chronic respiratory failure with hypoxia Status: Acute Discharge Summary Discharge Physical Exam Allergies: Coded Allergies: No Known Drug Allergies (Unverified , 11/15/19) Vitals & I&Os Vital Signs Date Time Temp Pulse Resp B/P (MAP) Pulse Ox O2 Delivery O2 Flow Rate FiO2 12/06/19 12:58 102 12/06/19 12:20 20 89 OxyMask 10 12/06/19 12:00 37.2 131/62 (85) 12/05/19 11:32 40 Hospital Course Labs (last 24 hrs) Laboratory Tests 12/05/19 16:05: Glucometer 175H 12/05/19 20:35: Glucometer 207H 12/06/19 05:20: White Blood Count 8.6, Red Blood Count 2.89L, Hemoglobin 8.0L, Hematocrit 25L, Mean Corpuscular Volume 88, Mean Corpuscular Hemoglobin 28, Mean Corpuscular Hemoglobin Concent 32, Red Cell Distribution Width 15.5H, Platelet Count 129L, Mean Platelet Volume 9.2, Neutrophils (%) (Auto) 82H, Lymphocytes (%) (Auto) 9L, Monocytes (%) (Auto) 9, Eosinophils (%) (Auto) 0, Basophils (%) (Auto) 0, Neutro phils # (Auto) 7.0, Lymphocytes # (Auto) 0.8L, Monocytes # (Auto) 0.7, Eosinophils # (Auto) 0.0, Basophils # (Auto) 0.0, Sodium Level 141, Potassium Level 2.3*L, Chloride Level 102, Carbon Dioxide Level 24, Anion Gap 15H, Blood Urea Nitrogen 32H, Creatinine 1.73H, Estimat Glomerular Filtration Rate 39, BUN/Creatinine Ratio 18, Glucose Level 124H, Calcium Level 8.7 12/06/19 05:28: Glucometer 141H 3/27/20 11:00: Glucometer 210H Microbiology 12/03/19 MRSA Screen - Final, Complete MRSA not isolated Patient resulted labs reviewed. Pending Labs Laboratory Tests 12/06/19 11:00: Glucometer 210 Discharge Home Medications: Active Scripts Active Protonix (Pantoprazole Sodium) 40 Mg Tablet.dr 40 Mg PO BID Potassium Chloride 20 Meq Tablet.er 20 Meq PO DAILY Novolog (Insulin Aspart) 100 Unit/1 Ml Susp 0 Unit SC ACHS Levemir (Insulin Determir) 1,000 Units/10 Ml Soln 20 Unit SQ DAILY Aspirin 81 Mg Tab.chew 81 Mg PO DAILY Metoprolol Succinate 50 Mg Tab.er.24h 50 Mg PO DAILY Clopidogrel (Clopidogrel Bisulfate) 75 Mg Tablet 75 Mg PO DAILY Mysoline (Primidone) 50 Mg Tablet 50 Mg PO HS [place] 10-325 Tablet (Hydrocodone/Acetaminophen) 1 Each Tablet 1 Ea PO Q4 -6H PRN Reported Kapvay (Clonidine HCl) 0.1 Mg Tab.er.12h 0.1 Mg PO TID Amlodipine Besylate 5 Mg Tablet 5 Mg PO DAILY Lisinopril 20 Mg Tablet 20 Mg PO DAILY Jardiance (Empagliflozin) 10 Mg Tablet 10 Mg PO DAILY Latanoprost 2.5 Ml Drops 1 Drop OU HS Cyclobenzaprine HCl 10 Mg Tablet 5-10 Mg PO TID PRN Instructions to patient/family Please see electronic discharge instructions given to patient. Clinical Quality Measures DVT/VTE Risk/Contraindication: Risk Factor Score Per Nursin RFS Level Per Nursing on Admit: 4+=Very High Problem Qualifiers (1) Metastatic lung cancer (metastasis from lung to other site): Laterality: unspecified laterality Qualified Codes: C34.90 - Malignant neoplasm of unspecified part of unspecified bronchus or lung (2) T2DM (type 2 diabetes mellitus): Diabetes mellitus longterm insulin use: without longterm use Diabetes mellitus complication status: with hyperglycemia Qualified Codes: E11.65 - Type 2 diabetes mellitus with hyperglycemia BREANN BERTRAND MD Dec 06, 2019 14:24
--- NOTE | 2019-12-06 14:25 | OPERATIVE REPORT ---
DATE OF SERVICE: PREOPERATIVE DIAGNOSES: Anemia, hemoccult positive. POSTOPERATIVE DIAGNOSES: 1. Gastric ulcers, gastritis, hiatal hernia, mild esophagitis. 2. Colon polyps. 3. Diverticula. 4. Internal hemorrhoids. 5. Poor prep. PROCEDURES: 1. EGD with biopsy. 2. Colonoscopy with snare polypectomy. SURGEON: Stephen Bales DO [employer]: None. ANESTHESIA: IV sedation by PRACTICAL NURSING TEACHER. SPECIMEN: Biopsy from the antrum, biopsy of body of stomach, biopsy of an ulcer and then transverse colon polyp and rectal polyp. BLOOD LOSS: Scant. FLUIDS: Per anesthesia. POSTOPERATIVE CONDITION: Stable. INDICATION FOR PROCEDURE: The patient is a 69-year-old male who has some profound anemia, had a Hemoccult positive, needed a workup. FINDINGS: The patient had what looked like some old blood in the stomach and then found ulcers all over the stomach actually up in the cardia, in the body of stomach. He had some mild gastritis. He had a large hiatal hernia. In the colon, he had multiple polyps, one in the transverse colon, one in the rectum, may have but he had very poor prep, so unable to see them all, but did not think there is any bleeding from the colon. Also saw diverticula and internal hemorrhoids. PROCEDURE NOTE: After informed consent was obtained, the patient was brought to the endoscopy suite, placed in bed in left lateral decubitus position. He was administered IV sedation by the PRACTICAL NURSING TEACHER who then monitored his vitals the entire time, heart rate, blood pressure and pulse ox and the scope was inserted, started with the EGD, placing scope down the mouth through the esophagus into the stomach. Upon entering the stomach, noted some areas of what looked like old blood, took a picture of this and then pushed down into the antrum and took a picture and then pushing the duodenum. Duodenum looked okay. Pulled back and did a biopsy of the antrum and then did a biopsy of body of stomach, had what looked like a flat possible ulcerated area, some multiple ulcers in the gastric area. Elected to do a biopsy of one of these. Retroflexed the scope, saw hiatal hernia and then up in where the cardia should be saw an opening, almost looked like a diverticula and in this was another large gastric ulcer that looked like it had been bleeding. No of bleeding at this time. Suctioned the air out of stomach and then pulled the scope up the esophagus and out the mouth. Switched camera, switched gloves, went down below to start the colonoscopy. Unfortunately, had a very poor prep. Pushed in, feel like I got all the way to the cecum, but could not suction up all the liquid, fecal material, because there was large chunks of vegetable matter in it. In the transverse colon, saw a polyp, did snare polypectomy of this and then once past this to where I thought was a cecum, slowly withdrew the scope insufflating to look circumferentially at the weston looking at the ascending colon up to the hepatic flexure, transverse colon to the splenic flexure, then into the descending colon. Again, throughout here, saw a lot of liquid fecal material and vegetable matter. In the sigmoid colon and descending colon, saw some diverticula, took picture of this and then in the rectum, saw another polyp, did a snare polypectomy of this. Retroflexed the scope in the rectal vault and saw some minimal internal hemorrhoids, took a picture of this and then removed the scope. The patient tolerated the procedure. He will need a repeat colonoscopy in a year and may need a repeat EGD in 6 to 8 weeks depending on what the pathology shows. Job ID: [id number] DocumentID: [id number] Dictated Date: 12/06/2019 12:26:00 Riveter Hand Date: 12/06/2019 14:24:36 Dictated By: STEPHEN BALES DO
--- NOTE | 2019-12-06 14:32 | NUR ---
IMM 2nd copy was presented, reviewed, signed,and charted .Pt voiced no intention to appeal discharge,denied any needs or had further questions at this time.
--- NOTE | 2019-12-06 14:49 | Cardiology Progress Note ---
Cardiology SOAP Progress Note Subjective: Mild shortness of breath. Objective: I&O/Vital Signs 12/06/19 12/06/19 12/06/19 12/06/19 04:00 07:00 08:00 08:00 Temp 37.1 37.6 Pulse 92 87 93 Resp 20 20 B/P (MAP) 160/68 (98) 158/75 (102) Pulse Ox 94 95 O2 Delivery Nasal Cannula Nasal Cannula Nasal Cannula O2 Flow Rate 4.00 3.00 5.00 12/06/19 12/06/19 12/06/19 12/06/19 09:28 09:58 12:00 12:10 Temp 37.2 Pulse 99 87 Resp 20 20 B/P (MAP) 131/62 (85) Pulse Ox 92 96 90 O2 Delivery Nasal Cannula Nasal Cannula Nasal Cannula OxyMask O2 Flow Rate 5.00 5.00 10 12/06/19 12/06/19 12/06/19 12:15 12:20 12:58 Pulse 66 46 102 Resp 20 20 Pulse Ox 90 89 O2 Delivery OxyMask OxyMask O2 Flow Rate 10 10 12/06/19 00:00 Intake Total 3504 ml Output Total 2450 ml Balance 1054 ml Constitutional: AAO x 3, well-developed, well-nourished Respiratory: No accessory muscle use; other (Scattered rhonchi and coarse crackles that are more prominent over L lung field) Cardiovascular: regular rate-rhythm, S1 and S2, systolic murmur (soft COLE at card base) Gastrointestional: No tender; soft; No guarding, No rebound; audible bowel sounds Extremities: swelling (mild to mod, bilateral pitting edema of the legs); No clubbing, No cyanosis Neurologic/Psychiatric: oriented x 3, other (moves all limbs equally) Skin: No rash on exposed areas, No ulcerations on exposed areas Results/Procedures: Labs Laboratory Tests 12/05/19 16:05: Glucometer 175H 12/05/19 20:35: Glucometer 207H 12/06/19 05:20: White Blood Count 8.6, Red Blood Count 2.89L, Hemoglobin 8.0L, Hematocrit 25L, Mean Corpuscular Volume 88, Mean Corpuscular Hemoglobin 28, Mean Corpuscular Hemoglobin Concent 32, Red Cell Distribution Width 15.5H, Platelet Count 129L, Mean Platelet Volume 9.2, Neutrophils (%) (Auto) 82H, Lymphocytes (%) (Auto) 9L, Monocytes (%) (Auto) 9, Eosinophils (%) (Auto) 0, Basophils (%) (Auto) 0, Neutrophils # (Auto) 7.0, Lymphocytes # (Auto) 0.8L, Monocytes # (Auto) 0.7, Eosinophils # (Auto) 0.0, Basophils # (Auto) 0.0, Sodium Level 141, Potassium Level 2.3*L, Chloride Level 102, Carbon Dioxide Level 24, Anion Gap 15H, Blood Urea Nitrogen 32H, Creatinine 1.73H, Estimat Glomerular Filtration Rate 39, BUN/Creatinine Ratio 18, Glucose Level 124H, Calcium Level 8.7 12/06/19 05:28: Glucometer 141H 12/06/19 11:00: Glucometer 210H Microbiology 12/03/19 MRSA Screen - Final, Complete MRSA not isolated A/P: Assessment/Dx: Ac resp failure and hypoxia, multifactorial (see below) 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 Echo of 12/01/19: LVEF 50-55%, no regional wall motion abnormality, mild MR, mild , RVSP 34 mmHg Elevated troponin, likely type-2 FL, likely due to hypoxia, but cannot exclude Type I NSTEMI. Conservative therapy Worsening anemia of undetermined etiology Renal failure/insufficiency of undetermined age Elec abn, likely due to diuretic therapy DM II, uncontrolled Plan: Plan: * This is a complex management problem due to multiple comorbidities that are outlined above * Dr. Bond discussed with Dr. Bales previously. Due to worsening anemia and suspected occult bleed, it appears reasonable to d/c enoxaparin * Continue DAPT as conservative treatment for possible non-STEMI area did * Diuretics as needed and as tolerated for CHF * Replenish K * Monitor labs Thank you for your consultation. Please call me if you have any questions. David Crandall MD, FACP, FACC, FSCAI, FHRS, CCDS Interventional Cardiology Cardiac Electrophysiology Vascular Medicine and Endovascular Interventions Julian CRANDALL MD Dec 06, 2019 14:49
--- NOTE | 2019-12-06 16:00 | NUR ---
REPORT CALLED TO [facility]
--- NOTE | 2019-12-06 16:31 | NUR ---
Arrangements completed for pt. discharge to [facility] for Skilled care. Pt provided clothing for transfer and physician orders given to [facility] staff as well as two scripts from Dr. Mckinley. [facility] with [facility]y on MondayDecember 15 at 10:30 for chemotherapy teaching and will also be seen by Dr. Ledesma. Mr. Chance was also notified of transfer and was agreeable.
== END 2019-12-06 16:15 | DRG 981 ==
LOC: 4TH 09:22 → ICU 12:51 → 4TH 12-02 15:40
PROVIDERS: ADMIT Internal Medicine; ATTEND Internal Medicine
PROC: 02HV33Z Insertion of Infusion Device into Superior Vena Cava, Percutaneous Approach (ICD-10-PCS; 2019-12-04)
PROC: 0JH60WZ Insertion of Totally Implantable Vascular Access Device into Chest Subcutaneous Tissue and Fascia, Open Approach (ICD-10-PCS; principal; 2019-12-04 10:40)
PROC: 0DB68ZX Excision of Stomach, Via Natural or Artificial Opening Endoscopic, Diagnostic (ICD-10-PCS; 2019-12-06)
PROC: 0DB78ZX Excision of Stomach, Pylorus, Via Natural or Artificial Opening Endoscopic, Diagnostic (ICD-10-PCS; 2019-12-06)
PROC: 0DBP8ZZ Excision of Rectum, Via Natural or Artificial Opening Endoscopic (ICD-10-PCS; 2019-12-06)
PROC: 0DBL8ZZ Excision of Transverse Colon, Via Natural or Artificial Opening Endoscopic (ICD-10-PCS; 2019-12-06)
DX: J96.21 Acute and chronic respiratory failure with hypoxia (principal); J18.9 Pneumonia, unspecified organism; I21.A1 Myocardial infarction type 2; I50.31 Acute diastolic (congestive) heart failure; K25.4 Chronic or unspecified gastric ulcer with hemorrhage; C34.92 Malignant neoplasm of unspecified part of left bronchus or lung; C78.7 Secondary malignant neoplasm of liver and intrahepatic bile duct; C79.51 Secondary malignant neoplasm of bone; I11.0 Hypertensive heart disease with heart failure; I08.0 Rheumatic disorders of both mitral and aortic valves; E11.65 Type 2 diabetes mellitus with hyperglycemia; D64.9 Anemia, unspecified; E87.8 Other disorders of electrolyte and fluid balance, not elsewhere classified; T50.1X5A Adverse effect of loop [high-ceiling] diuretics, initial encounter; H40.9 Unspecified glaucoma; M19.90 Unspecified osteoarthritis, unspecified site; H54.3 Unqualified visual loss, both eyes; K29.70 Gastritis, unspecified, without bleeding; K44.9 Diaphragmatic hernia without obstruction or gangrene; K20.9 Esophagitis, unspecified; K64.8 Other hemorrhoids; K57.30 Diverticulosis of large intestine without perforation or abscess without bleeding; K63.5 Polyp of colon; K62.1 Rectal polyp; Z87.891 Personal history of nicotine dependence
CPT/HCPCS: 36415; 71045; 80048; 82274; 82728; 82962; 83036; 83540; 83605; 83735; 83880; 84145; 84484; 85007; 85025; 85027; 85610; 86850; 86900; 86901; 86920; 87081; 93005; 93306; 94640; 94760

== ENCOUNTER → 2019-12-16 | Outpatient (CLI) | payer MEDICARE, OTHER ==
[~2019-12-16] MED LIST changes: +AMLO5TAB9 PO; +ASPI-999 PO; +CLON-316 PO; +CLOP75TA28 PO; +CYCL10TA9 PO; +EMPA10TA PO; +HYDR-4196 PO; +INSU100V16 SC; +INSU100V5 SQ; +LATA2.5D5 OU; +LISI-552 PO; +METO50TA7 PO; +PANT40TA2 PO; +POTA-51 PO; +PRIM50TA33 PO; -RT-ALBUTEROL SULF 2.5 MG/3 ML PRE-MIX VIAL INH ONE
--- NOTE | 2019-12-16 15:42 | Diagnostic Imaging Report ---
PROCEDURE: CT head without contrast. TECHNIQUE: Multiple contiguous axial images were obtained through the brain without the use of intravenous contrast. Auto Exposure Controls were utilized during the CT exam to meet ALARA standards for radiation dose reduction. INDICATION: Small cell lung carcinoma. COMPARISON: No prior studies are available for comparison. FINDINGS: The ventricles and sulci are prominent, consistent with cerebral atrophy. There is an area of low density in the right occipital lobe, consistent with encephalomalacia, likely from prior infarct. No sulcal effacement or midline shift is identified. No acute intra-axial or extra-axial hemorrhage is detected. The cisterns are patent. The visualized paranasal sinuses are clear. IMPRESSION: Chronic changes. No acute intracranial process is detected. Dictated by: Dictated on workstation # [id number]
== END ==
LOC: RAD 11:49
PROVIDERS: ATTEND Internal Medicine Hematology & Oncology
DX: C34.90 Malignant neoplasm of unspecified part of unspecified bronchus or lung (principal); C79.9 Secondary malignant neoplasm of unspecified site
CPT/HCPCS: 70450

== ENCOUNTER 2019-12-18 13:27 | Outpatient (RCR) | payer MEDICARE, OTHER ==
[2019-12-16 12:52] LABS: BASOPHILS % (AUTO) 0 % (0-10); EOSINOPHILS % (AUTO) 0 % (0-10); HEMATOCRIT 26 % (40-54); HEMOGLOBIN 8.1 G/DL (13.3-17.7); LYMPHOCYTES # (AUTO) 0.8 X 10^3 (1.0-4.0); LYMPHOCYTES % (AUTO) 8 % (12-44); MEAN CORPUSCULAR HEMOGLOBIN 27 PG (25-34); MEAN CORPUSCULAR HGB CONC 31 G/DL (32-36); MEAN CORPUSCULAR VOLUME 89 FL (80-99); MONOCYTES # (AUTO) 0.8 X 10^3 (0.0-1.0); MONOCYTES % (AUTO) 7 % (0-12); NEUTROPHILS # (AUTO) 8.8 X 10^3 (1.8-7.8); NEUTROPHILS % (AUTO) 85 % (42-75); PLATELET COUNT 103 10^3/uL (130-400); RED CELL DISTRIBUTION WIDTH 16.8 % (10.0-14.5); WHITE BLOOD COUNT 10.4 10^3/uL (4.3-11.0)
[2019-12-16 13:09] LABS: ALBUMIN 2.9 GM/DL (3.2-4.5); BILIRUBIN,TOTAL 0.7 MG/DL (0.1-1.0); CREATININE SERUM 2.02 MG/DL (0.60-1.30); POTASSIUM 2.6 MMOL/L (3.6-5.0); TOTAL PROTEIN 5.5 GM/DL (6.4-8.2)
[~2019-12-18] VITALS: Ht 185.4 cm; Wt 96.6 kg
[~2019-12-18 13:27] MED LIST changes: +ATEZOLIZUMAB 1,200 MG in NS (IVPB) CANCER CENTER 250 ML IV SCH; +ETOPOSIDE 170 MG in NORMAL SALINE (CANCER CENTER) 500 ML IV SCH; +ETOPOSIDE IV SCH; +FOSAPREPITANT (CANCER CENTER) 150 MG in NS (IVPB) CANCER CENTER ONLY 150 ML IV SCH; +FUROSEMIDE 40 MG/4 ML INJ (CANCER CTR) ONE; +KCL 20 MEQ TAB (K-DUR) PO ONE; +MAGNESIUM SULFATE (CANCER CTR) 2 GM in NS (IVPB) CANCER CENTER 100 ML IV ONE; +NORMAL SALINE IV SCH; +NS IV 500 ML (CANCER CENTER) IV SCH; +ONDANSETRON MDV (CANCER CENTER 16 MG, DEXAMETHASONE INJECTION 10 MG in NS (IVPB) CANCER... IV SCH; +PALONOSETRON HCL 0.25 MG, DEXAMETHASONE INJECTION 10 MG in NS (IVPB) CANCER CENTER 50 ML IV SCH
[2019-12-24] MEDS ORDERED: METO50TA7 PO (13:10)
[2019-12-24] MEDS ORDERED: INSU100I29 SC (13:10)
[2019-12-24] MEDS ORDERED: PRIM50TA33 PO (13:10)
[2019-12-24] MEDS ORDERED: HYDR-83 PO (13:10)
[2019-12-24] MEDS ORDERED: INSU100I14 SQ ×2 (13:10)
[2019-12-24] MEDS ORDERED: BUME2TAB7 PO (13:10)
[2019-12-24] MEDS ORDERED: ASPI-999 PO (13:10)
[2019-12-24] MEDS ORDERED: CHOL500049 PO (13:10)
[2019-12-24] MEDS ORDERED: PANT40TA3 PO (13:10)
[2019-12-24] MEDS ORDERED: POTA-51 PO (13:10)
[2019-12-24] MEDS ORDERED: CLOP75TA69 PO (13:10)
[2019-12-24] MEDS ORDERED: ZOLP5TAB PO (13:10)
[2019-12-24] MEDS ORDERED: ONDA8TAB6 PO (13:10)
== END 2019-12-27 | disposition home or self-care (01) ==
LOC: ONC 13:27
PROVIDERS: ATTEND Internal Medicine Hematology & Oncology
DX: Z51.11 Encounter for antineoplastic chemotherapy (principal); C34.12 Malignant neoplasm of upper lobe, left bronchus or lung; C78.7 Secondary malignant neoplasm of liver and intrahepatic bile duct; C79.51 Secondary malignant neoplasm of bone; I10 Essential (primary) hypertension; E78.5 Hyperlipidemia, unspecified; J44.9 Chronic obstructive pulmonary disease, unspecified; Z95.828 Presence of other vascular implants and grafts; Z79.899 Other long term (current) drug therapy; Z86.73 Personal history of transient ischemic attack (TIA), and cerebral infarction without residual deficits; Z72.0 Tobacco use
CPT/HCPCS: 36591; 80053; 83735; 85025; 96367; 96368; 96375; 96413; 96417; 99214

== ENCOUNTER 2019-12-22 11:21 | Inpatient (IN) | payer MEDICARE, OTHER ==
[~2019-12-22] VITALS: Ht 180 cm; Wt 98.0 kg
[2019-12-22] VITALS (8 sets, daily range): BP systolic 105–181; BP diastolic 55–95
[~2019-12-22 11:21] MED LIST changes: -ATEZOLIZUMAB 1,200 MG in NS (IVPB) CANCER CENTER 250 ML IV SCH; -ETOPOSIDE 170 MG in NORMAL SALINE (CANCER CENTER) 500 ML IV SCH; -ETOPOSIDE IV SCH; -FOSAPREPITANT (CANCER CENTER) 150 MG in NS (IVPB) CANCER CENTER ONLY 150 ML IV SCH; -FUROSEMIDE 40 MG/4 ML INJ (CANCER CTR) ONE; -KCL 20 MEQ TAB (K-DUR) PO ONE; -MAGNESIUM SULFATE (CANCER CTR) 2 GM in NS (IVPB) CANCER CENTER 100 ML IV ONE; -NORMAL SALINE IV SCH; -NS IV 500 ML (CANCER CENTER) IV SCH; -ONDANSETRON MDV (CANCER CENTER 16 MG, DEXAMETHASONE INJECTION 10 MG in NS (IVPB) CANCER... IV SCH; -PALONOSETRON HCL 0.25 MG, DEXAMETHASONE INJECTION 10 MG in NS (IVPB) CANCER CENTER 50 ML IV SCH
[2019-12-22] MEDS ORDERED: ACETAMINOPHEN 325 MG TABLET PO PRN (13:00)
[2019-12-22] MEDS ORDERED: ANTACID SUSP 30 ML UDC (MYLANTA) PO PRN (13:00)
[2019-12-22] MEDS ORDERED: MILK OF MAGNESIA 400 MG/5 ML 30 ML UDC PO PRN (13:00)
[2019-12-22] MEDS ORDERED: BENZONATATE 100 MG (TESSALON) CAPSULE PO PRN (13:00)
[2019-12-22] MEDS ORDERED: ONDANSETRON 4 MG/2 ML (SDV) Z0FRAN IV PRN (13:00)
[2019-12-22] MEDS ORDERED: MELATONIN 3 MG TABLET PO PRN (13:00)
[2019-12-22] MEDS ORDERED: PIPERACILLIN/TAZOBACTAM (BULK) 4.5 GM in NS (IVPB) 100 ML IV NR (13:36)
--- OUTSIDE RECORDS SUMMARY | 2019-12-22 13:37 | XMS REPORT | Continuity of Care Document ---
Author Organization Unknown Address Unknown Phone Unavailable Allergies Active Description Code Type Severity Reaction Onset Reported/Identified Relationship to Patient Clinical Status Yes NO KNOWN DRUG ALLERGIES UNKNOWN UNKNOWN Yes No Known Drug Allergies [id number] Drug Allergy Unknown N/A 11/15/2019 Medications Medication [...] MG (ROMERO) M G 12/01/2019 12/07/2019 Daily&0900 DEXTROSE 50% SYRINGE IV Inj ml 12/22/2019 12/22/2019 PRN ONCE NORMAL SALINE 1000CC IV BAG INJ 0.9 % (NS 1000CC IV BAG) ml 12/22/2019 12/22/2019 ONCE&0900 Piperacillin-tazobactam 3.37 5 Gm IV recon soln (Zosyn) GM 12/22/2019 12/22/2019 ONCE&0920 Vancomycin IV recon vial 1.25 Gm GM 12/22/2019 12/22/2019 ONCE&1111 ALBUTEROL INHALER MDI 8 GM (VENTOLIN HFA) PUFF(S) 12/22/2019 12/22/2019 PRN ONCE MORPHINE SYRINGE INJ 2 MG/CC MG 12/22/2019 12/22/2019 PRN ONCE NORMAL SALINE 1000CC IV BAG INJ 0.9 % (NS 1000CC IV BAG) ml 12/22/2019 12/22/2019 ONCE&1215 Problems Date Dx Coded Attending Type Code [...] SKIN 08/02/2019 Nando York W R53.1 WEAKNESS 09/23/2019 SANDRA BARON APRN W S23.41XA SPRAIN OF RIBS, INITIAL ENCOUNTER 09/23/2019 SANDRA BARON APRN W S23.41XA SPRAIN OF RIBS, INITIAL ENCOUNTER 10/24/2019 LORAINE ROACHNSANDRA W J20 .9 ACUTE BRONCHITIS, UNSPECIFIED 10/24/2019 SANDRA BARON APRN W J20 .9 ACUTE BRONCHITIS, UNSPECIFIED 11/05/2019 BrochadbKingya W 724.1 PAIN IN THORACIC SPINE 11/05/2019 ShantelbKingya W M54.6 PAIN IN THORACIC SPINE 11/13/2019 JESSIE, CHELSEA E COUPON COLLECTION CLERK Ot 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 11/13/2019 JESSIE, CHELSEA E COUPON COLLECTION CLERK Ot R91.8 OTHER NONSPECIFIC ABNORMAL FINDING OF OSITO 11/13/2019 JESSIE, CHELSEA E COUPON COLLECTION CLERK Ot Z87.891 PERSONAL HISTORY OF NICOTINE DEPENDENCE 11/13/2019 JESSIE, CHELSEA E COUPON COLLECTION CLERK Ot 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 11/13/2019 JESSIE, CHELSEA E COUPON COLLECTION CLERK Ot R91.8 OTHER NONSPECIFIC ABNORMAL FINDING OF [place] 11/13/2019 JESSIE, CHELSEA E COUPON COLLECTION CLERK Ot Z87.891 PERSONAL HISTORY OF NICOTINE DEPENDENCE 11/14/2019 JESSIE, CHELSEA E COUPON COLLECTION CLERK Ot 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 11/14/2019 JESSIE, CHELSEA E COUPON COLLECTION CLERK Ot M54.9 DORSALGIA, UNSPECIFIED 11/14/2019 JESSIE, CHELSEA E COUPON COLLECTION CLERK Ot R91.8 OTHER NONSPECIFIC ABNORMAL FINDING OF [place] 11/14/2019 JESSIE, CHELSEA E COUPON COLLECTION CLERK Ot Z87.891 PERSONAL HISTORY OF NICOTINE DEPENDENCE 11/14/2019 JESSIE, CHELSEA E COUPON COLLECTION CLERK Ot 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 11/14/2019 JESSIE, CHELSEA E COUPON COLLECTION CLERK Ot R91.8 OTHER NONSPECIFIC ABNORMAL FINDING OF OS[place] 11/14/2019 JESSIE, CHELSEA E COUPON COLLECTION CLERK Ot Z87.891 PERSONAL HISTORY OF NICOTINE DEPENDENCE 11/15/2019 JESSIE, CHELSEA E COUPON COLLECTION CLERK Ot 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 11/15/2019 JESSIE, CHELSEA E COUPON COLLECTION CLERK Ot M54.9 DORSALGIA, UNSPECIFIED 11/15/2019 JESSIE, CHELSEA E COUPON COLLECTION CLERK Ot R91.8 OTHER NONSPECIFIC ABNORMAL FINDING OF OSITO 11/15/2019 JESSIE, CHELSEA E COUPON COLLECTION CLERK Ot Z87.891 PERSONAL HISTORY OF NICOTINE DEPENDENCE 11/15/2019 JESSIE, CHELSEA E COUPON COLLECTION CLERK Ot 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 11/15/2019 JESSIE, CHELSEA E COUPON COLLECTION CLERK Ot R91.8 OTHER NONSPECIFIC ABNORMAL FINDING OF OSIT[place] 11/15/2019 SHELLY ROMANINE E COUPON COLLECTION CLERK Ot Z87.891 PERSONAL HISTORY OF NICOTINE DEPENDENCE 11/18/2019 JESSIE CHELSEA E COUPON COLLECTION CLERK Ot 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 11/18/2019 JESSIE, CHELSEA E COUPON COLLECTION CLERK Ot M54.9 DORSALGIA, UNSPECIFIED 11/18/2019 JESSIE, CHELSEA E COUPON COLLECTION CLERK Ot R91.8 OTHER NONSPECIFIC ABNORMAL FINDING OF OS[place] 11/18/2019 JESSIESHELLY BLANKINE E COUPON COLLECTION CLERK Ot Z87.891 PERSONAL HISTORY OF NICOTINE DEPENDENCE 11/18/2019 JESSIE, CHELSEA E COUPON COLLECTION CLERK Ot 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 11/18/2019 JESSIE, CHELSEA E COUPON COLLECTION CLERK Ot R91.8 OTHER NONSPECIFIC ABNORMAL FINDING OF OSIT[place] 11/18/2019 JESSIESHELLY BLANKINE E COUPON COLLECTION CLERK Ot Z87.891 PERSONAL HISTORY OF NICOTINE DEPENDENCE 11/20/2019 JESSIE CHELSEA E COUPON COLLECTION CLERK Ot F17.210 NICOTINE DEPENDENCE, CIGARETTES, UNCOMPL 11/20/2019 JESSIESHELLY BLANKINE E COUPON COLLECTION CLERK Ot 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 11/20/2019 JESSIE, CHELSEA E COUPON COLLECTION CLERK Ot J98.8 OTHER SPECIFIED RESPIRATORY DISORDERS 11/20/2019 JESSIE CHELSEA E COUPON COLLECTION CLERK Ot R06.00 DYSPNEA, UNSPECIFIED 11/20/2019 JESSIE, CHELSEA E COUPON COLLECTION CLERK Ot 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 11/20/2019 JESSIE, CHELSEA E COUPON COLLECTION CLERK Ot M54.9 DORSALGIA, UNSPECIFIED 11/20/2019 JESSIE, CHELSEA E COUPON COLLECTION CLERK Ot R91.8 OTHER NONSPECIFIC ABNORMAL FINDING OF OSITO 11/20/2019 JESSIESHELLY BLANKINE E COUPON COLLECTION CLERK Ot Z87.891 PERSONAL HISTORY OF NICOTINE DEPENDENCE 11/20/2019 JESSIE, CHELSEA E COUPON COLLECTION CLERK Ot F17.210 NICOTINE DEPENDENCE, CIGARETTES, UNCOMPL 11/20/2019 JESSIE, CHELSEA E COUPON COLLECTION CLERK Ot 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 11/20/2019 JESSIE, CHELSEA E COUPON COLLECTION CLERK Ot J98.8 OTHER SPECIFIED RESPIRATORY DISORDERS 11/20/2019 SHELLY ROMANINE E COUPON COLLECTION CLERK Ot R06.00 DYSPNEA, UNSPECIFIED 11/20/2019 JESSIE, CHELSEA E COUPON COLLECTION CLERK Ot 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 11/20/2019 JESSIE, CHELSEA E COUPON COLLECTION CLERK Ot R91.8 OTHER NONSPECIFIC ABNORMAL FINDING OF OS[place] 11/20/2019 SHELLY ROMANINE E COUPON COLLECTION CLERK Ot Z87.891 PERSONAL HISTORY OF NICOTINE DEPENDENCE 11/21/2019 JESSIE, CHELSEA E COUPON COLLECTION CLERK Ot 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 11/21/2019 JESSIE, CHELSEA E COUPON COLLECTION CLERK Ot M54.9 DORSALGIA, UNSPECIFIED 11/21/2019 JESSIE, CHELSEA E COUPON COLLECTION CLERK Ot R91.8 OTHER NONSPECIFIC ABNORMAL FINDING OF [place] 11/21/2019 SHELLY ROMANINE E COUPON COLLECTION CLERK Ot Z87.891 PERSONAL HISTORY OF NICOTINE DEPENDENCE 11/21/2019 JESSIE, CHELSEA E COUPON COLLECTION CLERK Ot F17.210 NICOTINE DEPENDENCE, CIGARETTES, UNCOMPL 11/21/2019 JESSIESHELLY BLANKINE E COUPON COLLECTION CLERK Ot 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 11/21/2019 JESSIE, CHELSEA E COUPON COLLECTION CLERK Ot J98.8 OTHER SPECIFIED RESPIRATORY DISORDERS 11/21/2019 SHELLY ROMANINE E COUPON COLLECTION CLERK Ot R06.00 DYSPNEA, UNSPECIFIED 11/21/2019 JESSIESHELLY BLANKINE E COUPON COLLECTION CLERK Ot 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 11/21/2019 JESSIE, CHELSEA E COUPON COLLECTION CLERK Ot R91.8 OTHER NONSPECIFIC ABNORMAL FINDING OF [place] 11/21/2019 SHELLY ROMANINE E COUPON COLLECTION CLERK Ot Z87.891 PERSONAL HISTORY OF NICOTINE DEPENDENCE 11/21/2019 JESSIESHELLY BLANKINE E COUPON COLLECTION CLERK Ot R79.1 ABNORMAL COAGULATION PROFILE 11/21/2019 JESSIE, CHELSEA E COUPON COLLECTION CLERK Ot C80.1 MALIGNANT (PRIMARY) NEOPLASM, UNSPECIFIE 11/21/2019 JESSIE, CHELSEA E COUPON COLLECTION CLERK Ot J44.9 CHRONIC OBSTRUCTIVE PULMONARY DISEASE, U 11/21/2019 JESSIE, CHELSEA E COUPON COLLECTION CLERK Ot 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 11/21/2019 JESSIE, CHELSEA E COUPON COLLECTION CLERK Ot K76.9 LIVER DISEASE, UNSPECIFIED 11/21/2019 JESSIE, CHELSEA E COUPON COLLECTION CLERK Ot M89.9 DISORDER OF BONE, UNSPECIFIED 11/21/2019 JESSIE, CHELSEA E COUPON COLLECTION CLERK Ot R91.8 OTHER NONSPECIFIC ABNORMAL FINDING OF OSITO 11/21/2019 SHELLY ROMANINE Eriberto COUPON COLLECTION CLERK Ot Z72.0 TOBACCO USE 11/21/2019 JESSIE, CHELSEA Eriberto COUPON COLLECTION CLERK Ot 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 11/21/2019 JESSIESHELLY BLANKINE E COUPON COLLECTION CLERK Ot Z87.891 PERSONAL HISTORY OF NICOTINE DEPENDENCE 11/21/2019 JESSIESHELLY BLANKINE Eriberto COUPON COLLECTION CLERK Ot R79.1 ABNORMAL COAGULATION PROFILE 11/27/2019 JESSIE CHELSEA E COUPON COLLECTION CLERK Ot 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 11/27/2019 JESSIESHELLY BLANKINE Eriberto COUPON COLLECTION CLERK Ot M54.9 DORSALGIA, UNSPECIFIED 11/27/2019 JESSIE CHELSEA E COUPON COLLECTION CLERK Ot R91.8 OTHER NONSPECIFIC ABNORMAL FINDING OF OS[place] 11/27/2019 JESSIECHELSEA BLANK COUPON COLLECTION CLERK Ot Z87.891 PERSONAL HISTORY OF NICOTINE DEPENDENCE 11/27/2019 JESSIE CHELSEA E COUPON COLLECTION CLERK Ot F17.210 NICOTINE DEPENDENCE, CIGARETTES, UNCOMPL 11/27/2019 JESSIE CHELSEA E COUPON COLLECTION CLERK Ot 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 11/27/2019 JESSIE CHELSEA E COUPON COLLECTION CLERK Ot J98.8 OTHER SPECIFIED RESPIRATORY DISORDERS 11/27/2019 JESSIE CHELSEA E COUPON COLLECTION CLERK Ot R06.00 DYSPNEA, UNSPECIFIED 11/27/2019 JESSIE CHELSEA E COUPON COLLECTION CLERK Ot 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 11/27/2019 JESSIE CHELSEA Eriberto COUPON COLLECTION CLERK Ot R91.8 OTHER NONSPECIFIC ABNORMAL FINDING OF OSITO 11/27/2019 JESSIECHELSEA BLNAK COUPON COLLECTION CLERK Ot Z87.891 PERSONAL HISTORY OF NICOTINE DEPENDENCE 11/27/2019 JESSIE CHELSEA E COUPON COLLECTION CLERK Ot 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 11/27/2019 JESSIESHELLY BLANKINE Eriberto COUPON COLLECTION CLERK Ot M54.9 DORSALGIA, UNSPECIFIED 11/27/2019 JESSIE CHELSEA E COUPON COLLECTION CLERK Ot R91.8 OTHER NONSPECIFIC ABNORMAL FINDING OF OSIT[place] 11/27/2019 JESSIESHELLY BLANKINE Eriberto COUPON COLLECTION CLERK Ot Z87.891 PERSONAL HISTORY OF NICOTINE DEPENDENCE 11/27/2019 JESSIE, CHELSEA E COUPON COLLECTION CLERK Ot F17.210 NICOTINE DEPENDENCE, CIGARETTES, UNCOMPL 11/27/2019 JESSIE CHELSEA E COUPON COLLECTION CLERK Ot 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 11/27/2019 JESSIE, CHELSEA E COUPON COLLECTION CLERK Ot J98.8 OTHER SPECIFIED RESPIRATORY DISORDERS 11/27/2019 JESSIE, CHELSEA E COUPON COLLECTION CLERK Ot R06.00 DYSPNEA, UNSPECIFIED 11/27/2019 JESSIE, CHELSEA E COUPON COLLECTION CLERK Ot 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 11/27/2019 JESSIE, CHELSEA E COUPON COLLECTION CLERK Ot R91.8 OTHER NONSPECIFIC ABNORMAL FINDING OF OSIT[place] 11/27/2019 EJSSIE CHELSEA E COUPON COLLECTION CLERK Ot Z87.891 PERSONAL HISTORY OF NICOTINE DEPENDENCE 11/27/2019 JESSIE, CHELSEA E COUPON COLLECTION CLERK Ot 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 11/27/2019 JESSIE, CHELSEA E COUPON COLLECTION CLERK Ot M54.9 DORSALGIA, UNSPECIFIED 11/27/2019 JESSIE, CHELSEA E COUPON COLLECTION CLERK Ot R91.8 OTHER NONSPECIFIC ABNORMAL FINDING OF OSIT[place] 11/27/2019 SHELLY ROMANINE E COUPON COLLECTION CLERK Ot Z87.891 PERSONAL HISTORY OF NICOTINE DEPENDENCE 11/27/2019 JESSIE, CHELSEA E COUPON COLLECTION CLERK Ot F17.210 NICOTINE DEPENDENCE, CIGARETTES, UNCOMPL 11/27/2019 JESSIE, CHELSEA E COUPON COLLECTION CLERK Ot 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 11/27/2019 JESSIE, CHELSEA E COUPON COLLECTION CLERK Ot J98.8 OTHER SPECIFIED RESPIRATORY DISORDERS 11/27/2019 JESSIE, CHELSEA E COUPON COLLECTION CLERK Ot R06.00 DYSPNEA, UNSPECIFIED 11/27/2019 JESSIE, CHELSEA E COUPON COLLECTION CLERK Ot 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 11/27/2019 JESSIE, CHELSEA E COUPON COLLECTION CLERK Ot R91.8 OTHER NONSPECIFIC ABNORMAL FINDING OF OSITO 11/27/2019 SHELLY ROMANINE E COUPON COLLECTION CLERK Ot Z87.891 PERSONAL HISTORY OF NICOTINE DEPENDENCE 11/27/2019 JESSIE, CHELSEA E COUPON COLLECTION CLERK Ot 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 11/27/2019 JESSIE, CHELSEA E COUPON COLLECTION CLERK Ot M54.9 DORSALGIA, UNSPECIFIED 11/27/2019 JESSIE, CHELSEA E COUPON COLLECTION CLERK Ot R91.8 OTHER NONSPECIFIC ABNORMAL FINDING OF OS[place] 11/27/2019 JESSIE, CHELSEA E COUPON COLLECTION CLERK Ot Z87.891 PERSONAL HISTORY OF NICOTINE DEPENDENCE 11/27/2019 JESSIE, CHLESEA E COUPON COLLECTION CLERK Ot F17.210 NICOTINE DEPENDENCE, CIGARETTES, UNCOMPL 11/27/2019 JESSIE, CHELSEA E COUPON COLLECTION CLERK Ot 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 11/27/2019 JESSIESHELLY BLANKEMELIA Wei COUPON COLLECTION CLERK Ot J98.8 OTHER SPECIFIED RESPIRATORY DISORDERS 11/27/2019 CHELSEA ROMAN COUPON COLLECTION CLERK Ot R06.00 DYSPNEA, UNSPECIFIED 11/27/2019 SHELLY ROMANINE E COUPON COLLECTION CLERK Ot 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 11/27/2019 JESSIESHELLYCHELSEA E COUPON COLLECTION CLERK Ot R91.8 OTHER NONSPECIFIC ABNORMAL FINDING OF OS[place] 11/27/2019 CHELSEA ROMAN COUPON COLLECTION CLERK Ot Z87.891 PERSONAL HISTORY OF NICOTINE DEPENDENCE 11/28/2019 SHELLY ROMANINE E COUPON COLLECTION CLERK Ot C80.1 MALIGNANT (PRIMARY) NEOPLASM, UNSPECIFIE 11/28/2019 CHELSEA ROMAN COUPON COLLECTION CLERK Ot J44.9 CHRONIC OBSTRUCTIVE PULMONARY DISEASE, U 11/28/2019 JESSIE CHELSEA Wei COUPON COLLECTION CLERK Ot 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 11/28/2019 CHELSEA ROMAN COUPON COLLECTION CLERK Ot K76.9 LIVER DISEASE, UNSPECIFIED 11/28/2019 CHELSEA ROMAN COUPON COLLECTION CLERK Ot M89.9 DISORDER OF BONE, UNSPECIFIED 11/28/2019 CHELSEA ROMAN COUPON COLLECTION CLERK Ot R91.8 OTHER NONSPECIFIC ABNORMAL FINDING OF OS[place] 11/28/2019 CHELSEA ROMAN COUPON COLLECTION CLERK Ot Z72.0 TOBACCO USE 11/28/2019 CHELSEA ROMAN COUPON COLLECTION CLERK Ot 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 11/28/2019 CHELSEA ROMAN COUPON COLLECTION CLERK Ot Z87.891 PERSONAL HISTORY OF NICOTINE DEPENDENCE 11/28/2019 CHELSEA ROMAN COUPON COLLECTION CLERK Ot C80.1 MALIGNANT (PRIMARY) NEOPLASM, UNSPECIFIE 11/28/2019 CHELSEA ROMAN COUPON COLLECTION CLERK Ot J44.9 CHRONIC OBSTRUCTIVE PULMONARY DISEASE, U 11/28/2019 SHELLY ROMANINE Eriberto COUPON COLLECTION CLERK Ot 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 11/28/2019 CHELSEA ROMAN COUPON COLLECTION CLERK Ot K76.9 LIVER DISEASE, UNSPECIFIED 11/28/2019 SHELLY ROMANINE E COUPON COLLECTION CLERK Ot M89.9 DISORDER OF BONE, UNSPECIFIED 11/28/2019 SHELLY ROMANINE E COUPON COLLECTION CLERK Ot R91.8 OTHER NONSPECIFIC ABNORMAL FINDING OF OS[place] 11/28/2019 CHELSEA ROMAN COUPON COLLECTION CLERK Ot Z72.0 TOBACCO USE 11/28/2019 CHELSEA ROMAN COUPON COLLECTION CLERK Ot 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 11/28/2019 CHELSEA ROMAN COUPON COLLECTION CLERK Ot Z87.891 PERSONAL HISTORY OF NICOTINE DEPENDENCE 11/28/2019 CHELSEA ROMAN COUPON COLLECTION CLERK Ot C80.1 MALIGNANT (PRIMARY) NEOPLASM, UNSPECIFIE 11/28/2019 CHELSEA ROMAN COUPON COLLECTION CLERK Ot J44.9 CHRONIC OBSTRUCTIVE PULMONARY DISEASE, U 11/28/2019 CHELSEA ROMAN COUPON COLLECTION CLERK Ot 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 11/28/2019 CHELSEA ROMAN COUPON COLLECTION CLERK Ot K76.9 LIVER DISEASE, UNSPECIFIED 11/28/2019 CHELSEA ROMAN COUPON COLLECTION CLERK Ot M89.9 DISORDER OF BONE, UNSPECIFIED 11/28/2019 CHELSEA ROMAN COUPON COLLECTION CLERK Ot R91.8 OTHER NONSPECIFIC ABNORMAL FINDING OF [place] 11/28/2019 CHELSEA ROMAN COUPON COLLECTION CLERK Ot Z72.0 TOBACCO USE 11/28/2019 CHELSEA ROMAN COUPON COLLECTION CLERK Ot Z79.51 CARE HOME (CURRENT) USE OF 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 11/28/2019 CHELSEA ROMAN COUPON COLLECTION CLERK Ot Z87.891 PERSONAL HISTORY OF NICOTINE DEPENDENCE 11/28/2019 SANDRA BARON APRN W 250 .80 DIABETES MELLITUS WITH OTHER SPECIFIED MANIFESTATIONS, TYPE II OR UNSPECIFIED TYPE, NOT STATED UNCONTROLLED 11/28/2019 SANDRA BARON APRN W E11 .65 TYPE 2 DIABETES MELLITUS WITH HYPERGLYCEMIA 11/28/2019 SANDRA BARON APRN W I65 .21 OCCLUSION AND STENOSIS OF RIGHT CAROTID ARTERY 11/28/2019 SANDRA BARON APRN W M54 .6 PAIN IN THORACIC SPINE 11/28/2019 SANDRA BARON APRN W R20 .2 PARESTHESIA OF SKIN 11/28/2019 SANDRA BARON APRN W R53 .1 WEAKNESS 11/30/2019 Debbie Swan W 724.1 PAIN IN THORACIC SPINE 11/30/2019 Debbie Swan W M54.6 PAIN IN THORACIC SPINE 12/01/2019 CHELSEA ROMAN COUPON COLLECTION CLERK Ot 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 12/01/2019 CHELSEA ROMAN COUPON COLLECTION CLERK Ot M54.9 DORSALGIA, UNSPECIFIED 12/01/2019 CHELSEA ROMAN COUPON COLLECTION CLERK Ot R91.8 OTHER NONSPECIFIC ABNORMAL FINDING OF [place] 12/01/2019 SHELLY ROMANINE Eriberto COUPON COLLECTION CLERK Ot Z87.891 PERSONAL HISTORY OF NICOTINE DEPENDENCE 12/01/2019 CHELSEA ROMAN COUPON COLLECTION CLERK Ot F17.210 NICOTINE DEPENDENCE, CIGARETTES, UNCOMPL 12/01/2019 SHELLY ROMANINE E COUPON COLLECTION CLERK Ot 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 12/01/2019 SHELLY ROMANINE Eriberto COUPON COLLECTION CLERK Ot J98.8 OTHER SPECIFIED RESPIRATORY DISORDERS 12/01/2019 SHELLY ROMANINE E COUPON COLLECTION CLERK Ot R06.00 DYSPNEA, UNSPECIFIED 12/01/2019 SHELLY ROMANINE Eriberto COUPON COLLECTION CLERK Ot 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 12/01/2019 SHELLY ROMANINE Eriberto COUPON COLLECTION CLERK Ot R91.8 OTHER NONSPECIFIC ABNORMAL FINDING OF [place] 12/01/2019 CHELSEA ROMAN COUPON COLLECTION CLERK Ot Z87.891 PERSONAL HISTORY OF NICOTINE DEPENDENCE 12/01/2019 LORAINE COUPON COLLECTION CLERK, STORMY W 401 .0 MALIGNANT ESSENTIAL HYPERTENSION 12/01/2019 LORAINE COUPON COLLECTION CLERK, STORMY W 486 PNEUMONIA, ORGANISM UNSPECIFIED 12/01/2019 LORAINE COUPON COLLECTION CLERK, STORMY W 584 .9 ACUTE KIDNEY FAILURE, UNSPECIFIED 12/01/2019 LORAINE COUPON COLLECTION CLERK, STORMY W 585 .9 CHRONIC KIDNEY DISEASE, UNSPECIFIED 12/01/2019 LORAINE COUPON COLLECTION CLERK, STORMY W I10 ESSENTIAL (PRIMARY) HYPERTENSION 12/01/2019 LORAINE COUPON COLLECTION CLERK, STORMY W I65 .21 OCCLUSION AND STENOSIS OF RIGHT CAROTID ARTERY 12/01/2019 LORAINE COUPON COLLECTION CLERK, STORMY W J18 .9 PNEUMONIA, UNSPECIFIED ORGANISM 12/01/2019 LORAINE COUPON COLLECTION CLERK, STORMY W M54 .6 PAIN IN THORACIC SPINE 12/01/2019 LORAINE COUPON COLLECTION CLERK, STORMY W N17 .9 ACUTE KIDNEY FAILURE, UNSPECIFIED 12/01/2019 LORAINE COUPON COLLECTION CLERK, STORMY W N18 .9 CHRONIC KIDNEY DISEASE, UNSPECIFIED 12/01/2019 LORAINE COUPON COLLECTION CLERK, STORMY W R20 .2 PARESTHESIA OF SKIN 12/01/2019 LORAINE COUPON COLLECTION CLERK, STORMY W R53 .1 WEAKNESS 12/01/2019 SHELLY ROMANINE Eriberto COUPON COLLECTION CLERK Ot 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 12/01/2019 SHELLY ROMANINE Eriberto COUPON COLLECTION CLERK Ot M54.9 DORSALGIA, UNSPECIFIED 12/01/2019 JESSIE CHELSEA E COUPON COLLECTION CLERK Ot R91.8 OTHER NONSPECIFIC ABNORMAL FINDING OF [place]ITO 12/01/2019 JESSIE CHELSEA E COUPON COLLECTION CLERK Ot Z87.891 PERSONAL HISTORY OF NICOTINE DEPENDENCE 12/01/2019 JESSIE, CHELSEA E COUPON COLLECTION CLERK Ot F17.210 NICOTINE DEPENDENCE, CIGARETTES, UNCOMPL 12/01/2019 JESSIE, CHELSEA E COUPON COLLECTION CLERK Ot 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 12/01/2019 JESSIE, CHELSEA E COUPON COLLECTION CLERK Ot J98.8 OTHER SPECIFIED RESPIRATORY DISORDERS 12/01/2019 JESSIE, CHELSEA E COUPON COLLECTION CLERK Ot R06.00 DYSPNEA, UNSPECIFIED 12/01/2019 JESSIE, CHELSEA E COUPON COLLECTION CLERK Ot 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 12/01/2019 JESSIE, CHELSEA E COUPON COLLECTION CLERK Ot R91.8 OTHER NONSPECIFIC ABNORMAL FINDING OF [place] 12/01/2019 JESSIESHELLY BLANKINE E COUPON COLLECTION CLERK Ot Z87.891 PERSONAL HISTORY OF NICOTINE DEPENDENCE 12/01/2019 JESSIE, CHELSEA E COUPON COLLECTION CLERK Ot 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 12/01/2019 JESSIE, CHELSEA E COUPON COLLECTION CLERK Ot M54.9 DORSALGIA, UNSPECIFIED 12/01/2019 JESSIE, CHELSEA E COUPON COLLECTION CLERK Ot R91.8 OTHER NONSPECIFIC ABNORMAL FINDING OF [place] 12/01/2019 JESSIE, CHELSEA E COUPON COLLECTION CLERK Ot Z87.891 PERSONAL HISTORY OF NICOTINE DEPENDENCE 12/01/2019 JESSIE, CHELSEA E COUPON COLLECTION CLERK Ot F17.210 NICOTINE DEPENDENCE, CIGARETTES, UNCOMPL 12/01/2019 JESSIESHELLY BLANKINE E COUPON COLLECTION CLERK Ot 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 12/01/2019 JESSIE, CHELSEA E COUPON COLLECTION CLERK Ot J98.8 OTHER SPECIFIED RESPIRATORY DISORDERS 12/01/2019 JESSIE, CHELSEA E COUPON COLLECTION CLERK Ot R06.00 DYSPNEA, UNSPECIFIED 12/01/2019 JESSIE, CHELSEA E COUPON COLLECTION CLERK Ot 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 12/01/2019 JESSIE, CHELSEA E COUPON COLLECTION CLERK Ot R91.8 OTHER NONSPECIFIC ABNORMAL FINDING OF OSITO 12/01/2019 JESSIE, CHELSEA E COUPON COLLECTION CLERK Ot Z87.891 PERSONAL HISTORY OF NICOTINE DEPENDENCE 12/02/2019 JESSIE, CHELSEA E COUPON COLLECTION CLERK Ot 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 12/02/2019 JESSIE, CHELSEA E COUPON COLLECTION CLERK Ot M54.9 DORSALGIA, UNSPECIFIED 12/02/2019 CHELSEA ROMAN COUPON COLLECTION CLERK Ot R91.8 OTHER NONSPECIFIC ABNORMAL FINDING OF [place]ITO 12/02/2019 CHELSEA ROMAN COUPON COLLECTION CLERK Ot Z87.891 PERSONAL HISTORY OF NICOTINE DEPENDENCE 12/02/2019 CHELSEA ROMAN COUPON COLLECTION CLERK Ot F17.210 NICOTINE DEPENDENCE, CIGARETTES, UNCOMPL 12/02/2019 CHELSEA ROMAN COUPON COLLECTION CLERK Ot 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 12/02/2019 CHELSEA ROMAN COUPON COLLECTION CLERK Ot J98.8 OTHER SPECIFIED RESPIRATORY DISORDERS 12/02/2019 CHELSEA ROMAN COUPON COLLECTION CLERK Ot R06.00 DYSPNEA, UNSPECIFIED 12/02/2019 CHELSEA ROMAN COUPON COLLECTION CLERK Ot 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 12/02/2019 CHELSEA ROMAN COUPON COLLECTION CLERK Ot R91.8 OTHER NONSPECIFIC ABNORMAL FINDING OF OSITO 12/02/2019 CHELSEA ROMAN COUPON COLLECTION CLERK Ot Z87.891 PERSONAL HISTORY OF NICOTINE DEPENDENCE 12/02/2019 RAMIRO ALEJANDRA MD Ot C34. 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 9 ANEMIA, UNSPECIFIED 12/02/2019 RAMIRO ALEJANDRA MD Ot E11. 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 0 HYPERTENSIVE HEART DISEASE WITH HEART FA 12/02/2019 RAMIRO ALEJANDRA MD Ot I21. 4 NON-ST ELEVATION (NSTEMI) MYOCARDIAL INF 12/02/2019 RAMIRO ALEJANDRA MD Ot I21. A1 MYOCARDIAL INFARCTION TYPE 2 12/02/2019 RAMIRO ALEJANDRA MD Ot I50. 31 ACUTE DIASTOLIC (CONGESTIVE) HEART FAILU 12/02/2019 RAMIRO ALEJANDRA MD Ot J18. 9 PNEUMONIA, UNSPECIFIED ORGANISM 12/02/2019 RAMIRO ALEJANDRA MD Ot J96. 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 9 ANEMIA, UNSPECIFIED 12/02/2019 RAMIRO ALEJANDRA MD Ot E11. 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 0 HYPERTENSIVE HEART DISEASE WITH HEART FA 12/02/2019 RAMIRO ALEJANDRA MD, Ot I21. 4 NON-ST ELEVATION (NSTEMI) MYOCARDIAL INF 12/02/2019 RAMIRO ALEJANDRA MD, Ot I21. A1 MYOCARDIAL INFARCTION TYPE 2 12/02/2019 RAMIRO ALEJANDRA MD, Ot I50. 31 ACUTE DIASTOLIC (CONGESTIVE) HEART FAILU 12/02/2019 RAMIRO ALEJANDRA MD, Ot J18. 9 PNEUMONIA, UNSPECIFIED ORGANISM 12/02/2019 RAMIRO ALEJANDRA MD, Ot J96. 21 ACUTE AND CHRONIC RESPIRATORY FAILURE [place] 12/03/2019 CHELSEA ROMAN APRN Ot C80.1 MALIGNANT (PRIMARY) NEOPLASM, UNSPECIFIE 12/03/2019 CHELSEA ROMAN APRN Ot J44.9 CHRONIC OBSTRUCTIVE PULMONARY DISEASE, U 12/03/2019 CHELSEA ROMAN APRN Ot 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 12/03/2019 CHELSEA ROMAN APRN Ot K76.9 LIVER DISEASE, UNSPECIFIED 12/03/2019 CHELSEA ROMAN APRN Ot M89.9 DISORDER OF BONE, UNSPECIFIED 12/03/2019 CHELSEA ROMAN APRN Ot R91.8 OTHER NONSPECIFIC ABNORMAL FINDING OF [place] 12/03/2019 CHELSEA ROMAN APRN Ot Z72.0 TOBACCO USE 12/03/2019 CHELSEA ROMAN APRN Ot Z79.51 CARE HOME (CURRENT) USE OF 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 12/03/2019 CHELSEA ROMAN APRN Ot Z87.891 PERSONAL HISTORY OF NICOTINE DEPENDENCE 12/03/2019 CHELSEA ROMAN COUPON COLLECTION CLERK Ot 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 12/03/2019 CHELSEA ROMAN COUPON COLLECTION CLERK Ot M54.9 DORSALGIA, UNSPECIFIED 12/03/2019 CHELSEA ROAMN COUPON COLLECTION CLERK Ot R91.8 OTHER NONSPECIFIC ABNORMAL FINDING OF [place] 12/03/2019 CHELSEA ROMAN COUPON COLLECTION CLERK Ot Z87.891 PERSONAL HISTORY OF NICOTINE DEPENDENCE 12/03/2019 CHELSEA ROMAN COUPON COLLECTION CLERK Ot F17.210 NICOTINE DEPENDENCE, CIGARETTES, UNCOMPL 12/03/2019 SHELLY ROMANINE E COUPON COLLECTION CLERK Ot 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 12/03/2019 CHELSEA ROMAN COUPON COLLECTION CLERK Ot J98.8 OTHER SPECIFIED RESPIRATORY DISORDERS 12/03/2019 CHELSEA ROMAN COUPON COLLECTION CLERK Ot R06.00 DYSPNEA, UNSPECIFIED 12/03/2019 CHELSEA ROMAN COUPON COLLECTION CLERK Ot 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 12/03/2019 CHELSEA ROMAN COUPON COLLECTION CLERK Ot R91.8 OTHER NONSPECIFIC ABNORMAL FINDING OF [place] 12/03/2019 CHELSEA ROMAN COUPON COLLECTION CLERK Ot Z87.891 PERSONAL HISTORY OF NICOTINE DEPENDENCE 12/03/2019 RAMIRO ALEJANDRA MD Ot C34. 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 9 ANEMIA, UNSPECIFIED 12/03/2019 RAMIRO ALEJANDRA MD Ot E11. 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 0 HYPERTENSIVE HEART DISEASE WITH HEART FA 12/03/2019 RAMIRO ALEJANDRA MD Ot I21. 4 NON-ST ELEVATION (NSTEMI) MYOCARDIAL INF 12/03/2019 RAMIRO ALEJANDRA MD, Ot I21. A1 MYOCARDIAL INFARCTION TYPE 2 12/03/2019 RAMIRO ALEJANDRA MD Ot I50. 31 ACUTE DIASTOLIC (CONGESTIVE) HEART FAILU 12/03/2019 JUSTYN MD, RAMIRO M Ot J18. 9 PNEUMONIA, UNSPECIFIED ORGANISM 12/03/2019 RAMIRO ALEJANDRA MD Ot J96. 21 ACUTE AND CHRONIC RESPIRATORY FAILURE [place] 12/03/2019 RAMIRO ALEJANDRA MD Ot C34. 92 MALIGNANT NEOPLASM OF UNSP PART OF LEFT 12/03/2019 RAMIRO ALEJANDRA MD, Ot C78. 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 9 ANEMIA, UNSPECIFIED 12/03/2019 RAMIRO ALEJANDRA MD Ot E11. 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 0 HYPERTENSIVE HEART DISEASE WITH HEART FA 12/03/2019 RAMIRO ALEJANDRA MD Ot I21. 4 NON-ST ELEVATION (NSTEMI) MYOCARDIAL INF 12/03/2019 RAMIRO ALEJANDRA MD Ot I21. A1 MYOCARDIAL INFARCTION TYPE 2 12/03/2019 RAMIRO ALEJANDRA MD Ot I50. 31 ACUTE DIASTOLIC (CONGESTIVE) HEART FAILU 12/03/2019 RAMIRO ALEJANDRA MD, Ot J18. 9 PNEUMONIA, UNSPECIFIED ORGANISM 12/03/2019 RAMIRO ALEJANDRA MD Ot J96. 21 ACUTE AND CHRONIC RESPIRATORY FAILURE [place] 12/03/2019 CHELSEA ROMAN APRN Ot 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 12/03/2019 CHELSEA ROMAN COUPON COLLECTION CLERK Ot M54.9 DORSALGIA, UNSPECIFIED 12/03/2019 CHELSEA ROMAN COUPON COLLECTION CLERK Ot R91.8 OTHER NONSPECIFIC ABNORMAL FINDING OF [place] 12/03/2019 CHELSEA ROMAN COUPON COLLECTION CLERK Ot Z87.891 PERSONAL HISTORY OF NICOTINE DEPENDENCE 12/03/2019 CHELSEA ROMAN COUPON COLLECTION CLERK Ot F17.210 NICOTINE DEPENDENCE, CIGARETTES, UNCOMPL 12/03/2019 CHELSEA ROMAN COUPON COLLECTION CLERK Ot 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 12/03/2019 CHELSEA ROMAN COUPON COLLECTION CLERK Ot J98.8 OTHER SPECIFIED RESPIRATORY DISORDERS 12/03/2019 CHELSEA ROMAN COUPON COLLECTION CLERK Ot R06.00 DYSPNEA, UNSPECIFIED 12/03/2019 CHELSEA ROMAN COUPON COLLECTION CLERK Ot 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 12/03/2019 CHELSEA ROMAN COUPON COLLECTION CLERK Ot R91.8 OTHER NONSPECIFIC ABNORMAL FINDING OF [place] 12/03/2019 CHELSEA ROMAN COUPON COLLECTION CLERK Ot Z87.891 PERSONAL HISTORY OF NICOTINE DEPENDENCE 12/03/2019 RAMIRO ALEJANDRA MD Ot C34. 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 9 ANEMIA, UNSPECIFIED 12/03/2019 RAMIRO ALEJANDRA MD Ot E11. 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 0 HYPERTENSIVE HEART DISEASE WITH HEART FA 12/03/2019 RAMIRO ALEJANDRA MD Ot I21. 4 NON-ST ELEVATION (NSTEMI) MYOCARDIAL INF 12/03/2019 RAMIRO ALEJANDRA MD Ot I21. A1 MYOCARDIAL INFARCTION TYPE 2 12/03/2019 RAMIRO ALEJANDRA MD Ot I50. 31 ACUTE DIASTOLIC (CONGESTIVE) HEART FAILU 12/03/2019 RAMIRO ALEJANDRA MD Ot J18. 9 PNEUMONIA, UNSPECIFIED ORGANISM 12/03/2019 RAMIRO ALEJANDRA MD Ot J96. 21 ACUTE AND CHRONIC RESPIRATORY FAILURE [place] 12/03/2019 RAMIRO ALEJANDRA MD Ot C34. 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 9 ANEMIA, UNSPECIFIED 12/03/2019 RAMIRO ALEJANDRA MD Ot E11. 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 0 HYPERTENSIVE HEART DISEASE WITH HEART FA 12/03/2019 RAMIRO ALEJANDRA MD Ot I21. 4 NON-ST ELEVATION (NSTEMI) MYOCARDIAL INF 12/03/2019 RAMIRO ALEJANDRA MD Ot I21. A1 MYOCARDIAL INFARCTION TYPE 2 12/03/2019 RAMIRO ALEJANDRA MD Ot I50. 31 ACUTE DIASTOLIC (CONGESTIVE) HEART FAILU 12/03/2019 RAMIRO ALEJANDRA MD Ot J18. 9 PNEUMONIA, UNSPECIFIED ORGANISM 12/03/2019 RAMIRO ALEJANDRA MD Ot J96. 21 ACUTE AND CHRONIC RESPIRATORY FAILURE [place] 12/03/2019 RAMIRO ALEJANDRA MD Ot C34. 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 9 ANEMIA, UNSPECIFIED 12/03/2019 RAMIRO ALEJANDRA MD Ot E11. 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 0 HYPERTENSIVE HEART DISEASE WITH HEART FA 12/03/2019 RAMIRO ALEJANDRA MD, Ot I21. 4 NON-ST ELEVATION (NSTEMI) MYOCARDIAL INF 12/03/2019 RAMIRO ALEJANDRA MD, Ot I21. A1 MYOCARDIAL INFARCTION TYPE 2 12/03/2019 RAMIRO ALEJANDRA MD Ot I50. 31 ACUTE DIASTOLIC (CONGESTIVE) HEART FAILU 12/03/2019 RAMIRO ALEJANDRA MD, Ot J18. 9 PNEUMONIA, UNSPECIFIED ORGANISM 12/03/2019 RAMIRO ALEJANDRA MD Ot J96. 21 ACUTE AND CHRONIC RESPIRATORY FAILURE [place] 12/04/2019 RAMIRO ALEJANDRA MD Ot C34. 92 MALIGNANT NEOPLASM OF UNSP PART OF LEFT 12/04/2019 RAMIRO ALEJANDRA MD Ot C78. 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 9 ANEMIA, UNSPECIFIED 12/04/2019 RAMIRO ALEJANDRA MD Ot E11. 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 0 HYPERTENSIVE HEART DISEASE WITH HEART FA 12/04/2019 RAMIRO ALEJANDRA MD Ot I21. 4 NON-ST ELEVATION (NSTEMI) MYOCARDIAL INF 12/04/2019 RAMIRO ALEJANDRA MD Ot I21. A1 MYOCARDIAL INFARCTION TYPE 2 12/04/2019 RAMIRO ALEJANDRA MD Ot I50. 31 ACUTE DIASTOLIC (CONGESTIVE) HEART FAILU 12/04/2019 RAMIRO ALEJANDRA MD, Ot J18. 9 PNEUMONIA, UNSPECIFIED ORGANISM 12/04/2019 RAMIRO ALEJANDRA MD Ot J96. 21 ACUTE AND CHRONIC RESPIRATORY FAILURE [place] 12/05/2019 RAMIRO ALEJANDRA MD Ot C34. 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 9 ANEMIA, UNSPECIFIED 12/05/2019 RAMIRO ALEJANDRA MD Ot E11. 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 0 HYPERTENSIVE HEART DISEASE WITH HEART FA 12/05/2019 RAMIRO ALEJANDRA MD Ot I21. 4 NON-ST ELEVATION (NSTEMI) MYOCARDIAL INF 12/05/2019 RAMIRO ALEJANDRA MD Ot I21. A1 MYOCARDIAL INFARCTION TYPE 2 12/05/2019 RAMIRO ALEJANDRA MD Ot I50. 31 ACUTE DIASTOLIC (CONGESTIVE) HEART FAILU 12/05/2019 RAMIRO ALEJANDRA MD Ot J18. 9 PNEUMONIA, UNSPECIFIED ORGANISM 12/05/2019 RAMIRO ALEJANDRA MD Ot J96. 21 ACUTE AND CHRONIC RESPIRATORY FAILURE [place] 12/05/2019 CHELSEA ROMAN APRN Ot 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 12/05/2019 CHELSEA ROMAN COUPON COLLECTION CLERK Ot R91.8 OTHER NONSPECIFIC ABNORMAL FINDING OF [place] 12/05/2019 CHELSEA ROMAN COUPON COLLECTION CLERK Ot Z87.891 PERSONAL HISTORY OF NICOTINE DEPENDENCE 12/05/2019 CHELSEA ROMAN COUPON COLLECTION CLERK Ot 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 12/05/2019 CHELSEA ROMAN COUPON COLLECTION CLERK Ot M54.9 DORSALGIA, UNSPECIFIED 12/05/2019 CHELSEA ROMAN COUPON COLLECTION CLERK Ot R91.8 OTHER NONSPECIFIC ABNORMAL FINDING OF [place] 12/05/2019 CHELSEA ROMAN APRN Ot Z87.891 PERSONAL HISTORY OF NICOTINE DEPENDENCE 12/05/2019 RAMIRO ALEJANDRA MD Ot C34. 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 9 ANEMIA, UNSPECIFIED 12/05/2019 RAMIRO ALEJANDRA MD Ot E11. 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 0 HYPERTENSIVE HEART DISEASE WITH HEART FA 12/05/2019 RAMIRO ALEJANDRA MD Ot I21. 4 NON-ST ELEVATION (NSTEMI) MYOCARDIAL INF 12/05/2019 RAMIRO ALEJANDRA MD Ot I21. A1 MYOCARDIAL INFARCTION TYPE 2 12/05/2019 RAMIRO ALEJANDRA MD Ot I50. 31 ACUTE DIASTOLIC (CONGESTIVE) HEART FAILU 12/05/2019 RAMIRO ALEJANDRA MD Ot J18. 9 PNEUMONIA, UNSPECIFIED ORGANISM 12/05/2019 RAMIRO ALEJANDRA MD Ot J96. 21 ACUTE AND CHRONIC RESPIRATORY FAILURE [place] 12/05/2019 CHELSEA ROMAN APRN Ot 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 12/05/2019 CHELSEA ROMAN COUPON COLLECTION CLERK Ot M54.9 DORSALGIA, UNSPECIFIED 12/05/2019 CHELSEA ROMAN COUPON COLLECTION CLERK Ot R91.8 OTHER NONSPECIFIC ABNORMAL FINDING OF [place] 12/05/2019 CHELSEA ROMAN APRN Ot Z87.891 PERSONAL HISTORY OF NICOTINE DEPENDENCE 12/05/2019 CHELSEA ROMAN APRN Ot F17.210 NICOTINE DEPENDENCE, CIGARETTES, UNCOMPL 12/05/2019 CHELSEA ROMAN COUPON COLLECTION CLERK Ot 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 12/05/2019 CHELSEA ROMAN COUPON COLLECTION CLERK Ot J98.8 OTHER SPECIFIED RESPIRATORY DISORDERS 12/05/2019 CHELSEA ROMAN APRN Ot R06.00 DYSPNEA, UNSPECIFIED 12/05/2019 CHELSEA ROMAN COUPON COLLECTION CLERK Ot 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 12/05/2019 CHELSEA ROMAN APRN Ot R91.8 OTHER NONSPECIFIC ABNORMAL FINDING OF [place] 12/05/2019 CHELSEA ROMAN APRN Ot Z87.891 PERSONAL HISTORY OF NICOTINE DEPENDENCE 12/05/2019 RAMIRO ALEJANDRA MD Ot C34. 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 9 ANEMIA, UNSPECIFIED 12/05/2019 RAMIRO ALEJANDRA MD Ot E11. 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 0 HYPERTENSIVE HEART DISEASE WITH HEART FA 12/05/2019 RAMIRO ALEJANDRA MD Ot I21. 4 NON-ST ELEVATION (NSTEMI) MYOCARDIAL INF 12/05/2019 RAMIRO ALEJANDRA MD Ot I21. A1 MYOCARDIAL INFARCTION TYPE 2 12/05/2019 RAMIRO ALEJANDRA MD Ot I50. 31 ACUTE DIASTOLIC (CONGESTIVE) HEART FAILU 12/05/2019 RAMIRO ALEJANDRA MD Ot J18. 9 PNEUMONIA, UNSPECIFIED ORGANISM 12/05/2019 RAMIRO ALEJANDRA MD Ot J96. 21 ACUTE AND CHRONIC RESPIRATORY FAILURE [place] 12/05/2019 CHELSEA ROMAN APRN Ot F17.210 NICOTINE DEPENDENCE, CIGARETTES, UNCOMPL 12/05/2019 CHELSEA ROMAN APRN Ot 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 12/05/2019 CHELSEA ROMAN COUPON COLLECTION CLERK Ot J98.8 OTHER SPECIFIED RESPIRATORY DISORDERS 12/05/2019 CHELSEA ROMAN COUPON COLLECTION CLERK Ot R06.00 DYSPNEA, UNSPECIFIED 12/06/2019 RAMIRO ALEJANDRA MD, Ot C34. 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 9 ANEMIA, UNSPECIFIED 12/06/2019 RAMIRO ALEJANDRA MD Ot E11. 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 0 HYPERTENSIVE HEART DISEASE WITH HEART FA 12/06/2019 RAMIRO ALEJANDRA MD Ot I21. 4 NON-ST ELEVATION (NSTEMI) MYOCARDIAL INF 12/06/2019 RAMIRO ALEJANDRA MD Ot I21. A1 MYOCARDIAL INFARCTION TYPE 2 12/06/2019 RAMIRO ALEJANDRA MD Ot I50. 31 ACUTE DIASTOLIC (CONGESTIVE) HEART FAILU 12/06/2019 RAMIRO ALEJANDRA MD Ot J18. 9 PNEUMONIA, UNSPECIFIED ORGANISM 12/06/2019 RAMIRO ALEJANDRA MD Ot J96. 21 ACUTE AND CHRONIC RESPIRATORY FAILURE [place] 12/06/2019 RAMIRO ALEJANDRA MD Ot C34. 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 9 ANEMIA, UNSPECIFIED 12/06/2019 RAMIRO ALEJANDRA MD Ot E11. 65 TYPE 2 DIABETES MELLITUS WITH HYPERGLYCE 12/06/2019 RAMIRO ALEJANDRA MD Ot E87. 8 OTH DISORDERS OF ELECTROLYTE AND FLUID B 12/06/2019 RAMIRO ALEJANDRA MD Ot H40. 9 UNSPECIFIED GLAUCOMA 12/06/2019 RAMIRO ALEJADNRA MD Ot H54. 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 0 HYPERTENSIVE HEART DISEASE WITH HEART FA 12/06/2019 RAMIRO ALEJANDRA MD Ot I21. A1 MYOCARDIAL INFARCTION TYPE 2 12/06/2019 RAMIRO ALEJANDRA MD Ot I50. 31 ACUTE DIASTOLIC (CONGESTIVE) HEART FAILU 12/06/2019 RAMIRO ALEJANDRA MD Ot J18. 9 PNEUMONIA, UNSPECIFIED ORGANISM 12/06/2019 RAMIRO ALEJANDRA MD Ot J96. 21 ACUTE AND CHRONIC RESPIRATORY FAILURE [place] 12/06/2019 RAMIRO ALEJANDRA MD Ot K20. 9 ESOPHAGITIS, UNSPECIFIED 12/06/2019 RAMIRO ALEJANDRA MD Ot K25. 4 CHRONIC OR UNSPECIFIED GASTRIC ULCER WIT 12/06/2019 RAMIRO ALEJANDRA MD Ot K29. 70 GASTRITIS, UNSPECIFIED, WITHOUT BLEEDING 12/06/2019 RAMIRO ALEJANDRA MD Ot K44. 9 DIAPHRAGMATIC HERNIA WITHOUT OBSTRUCTION 12/06/2019 RAMIRO ALEJANDRA MD Ot K57. 30 DVRTCLOS OF LG INT W/O PERFORATION OR AB 12/06/2019 RAMIRO ALEJANDRA MD Ot K62. 1 RECTAL POLYP 12/06/2019 RAMIRO ALEJANDRA MD Ot K63. 5 POLYP OF COLON 12/06/2019 RAMIRO ALEJANDRA MD Ot K64. 8 OTHER HEMORRHOIDS 12/06/2019 RAMIRO ALEJANDRA MD Ot M19. 90 UNSPECIFIED OSTEOARTHRITIS, UNSPECIFIED 12/06/2019 RAMIRO ALEJANDRA MD Ot T50.1X5A ADVERSE EFFECT OF LOOP DIURETICS, INITIA 12/06/2019 RAMIRO ALEJANDRA MD Ot Z87.891 PERSONAL HISTORY OF NICOTINE DEPENDENCE 12/09/2019 CHELSEA ROMAN APRN Ot C80.1 MALIGNANT (PRIMARY) NEOPLASM, UNSPECIFIE 12/09/2019 CHELSEA ROMAN APRN Ot J44.9 CHRONIC OBSTRUCTIVE PULMONARY DISEASE, U 12/09/2019 CHELSEA ROMAN APRN Ot 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 12/09/2019 JESSIE, CHELSEA E COUPON COLLECTION CLERK Ot K76.9 LIVER DISEASE, UNSPECIFIED 12/09/2019 SHELLY ROMANINE E COUPON COLLECTION CLERK Ot M89.9 DISORDER OF BONE, UNSPECIFIED 12/09/2019 JESSIESHELLY BLANKINE E COUPON COLLECTION CLERK Ot R91.8 OTHER NONSPECIFIC ABNORMAL FINDING OF [place] 12/09/2019 CHELSEA ROMAN COUPON COLLECTION CLERK Ot Z72.0 TOBACCO USE 12/09/2019 JESSIESHELLY BLANKINE E COUPON COLLECTION CLERK Ot Z79.51 CARE HOME (CURRENT) USE OF 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 12/09/2019 JESSIESHELLY BLANKINE E COUPON COLLECTION CLERK Ot Z87.891 PERSONAL HISTORY OF NICOTINE DEPENDENCE 12/10/2019 SHELLY ROMANINE Eriberto COUPON COLLECTION CLERK Ot 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 12/10/2019 JESSIECHELSEA BLANK COUPON COLLECTION CLERK Ot M54.9 DORSALGIA, UNSPECIFIED 12/10/2019 SHELLY ROMANINE E COUPON COLLECTION CLERK Ot R91.8 OTHER NONSPECIFIC ABNORMAL FINDING OF [place] 12/10/2019 JESSIECHELSEA BLANK COUPON COLLECTION CLERK Ot Z87.891 PERSONAL HISTORY OF NICOTINE DEPENDENCE 12/10/2019 JESSIESHELLY BLANKINE E COUPON COLLECTION CLERK Ot F17.210 NICOTINE DEPENDENCE, CIGARETTES, UNCOMPL 12/10/2019 SHELLY ROMANINE Eriberto COUPON COLLECTION CLERK Ot 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 12/10/2019 JESSIESHELLY BLANKINE E COUPON COLLECTION CLERK Ot J98.8 OTHER SPECIFIED RESPIRATORY DISORDERS 12/10/2019 JESSIESHELLY BLANKINE E COUPON COLLECTION CLERK Ot R06.00 DYSPNEA, UNSPECIFIED 12/10/2019 JESSIESHELLY BLANKINE E COUPON COLLECTION CLERK Ot 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 12/10/2019 JESSIESHELLY BLANKINE Eriberto COUPON COLLECTION CLERK Ot R91.8 OTHER NONSPECIFIC ABNORMAL FINDING OF [place] 12/10/2019 SHELLY ROMANINE Eriberto COUPON COLLECTION CLERK Ot Z87.891 PERSONAL HISTORY OF NICOTINE DEPENDENCE 12/16/2019 JESSIESHELLY BLANKINE E COUPON COLLECTION CLERK Ot 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 12/16/2019 JESSIESHELLY BLANKINE Eriberto COUPON COLLECTION CLERK Ot M54.9 DORSALGIA, UNSPECIFIED 12/16/2019 JESSIESHELLY BLANKINE E COUPON COLLECTION CLERK Ot R91.8 OTHER NONSPECIFIC ABNORMAL FINDING OF [place] 12/16/2019 JESSIESHELLY BLANKINE Eriberto COUPON COLLECTION CLERK Ot Z87.891 PERSONAL HISTORY OF NICOTINE DEPENDENCE 12/16/2019 JESSIE CHELSEA E COUPON COLLECTION CLERK Ot F17.210 NICOTINE DEPENDENCE, CIGARETTES, UNCOMPL 12/16/2019 CHELSEA ROMAN COUPON COLLECTION CLERK Ot 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 12/16/2019 CHELSEA ROMAN COUPON COLLECTION CLERK Ot J98.8 OTHER SPECIFIED RESPIRATORY DISORDERS 12/16/2019 CHELSEA ROMAN APRN Ot R06.00 DYSPNEA, UNSPECIFIED 12/16/2019 CHELSEA ROMAN COUPON COLLECTION CLERK Ot 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 12/16/2019 CHELSEA ROMAN COUPON COLLECTION CLERK Ot R91.8 OTHER NONSPECIFIC ABNORMAL FINDING OF [place] 12/16/2019 CHELSEA ROMAN COUPON COLLECTION CLERK Ot Z87.891 PERSONAL HISTORY OF NICOTINE DEPENDENCE 12/17/2019 NICO ARAUJO MD Ot C34.90 MALIGNANT NEOPLASM OF UNSP PART OF UNSP 12/17/2019 NICO ARAUJO MD Ot C79.9 SECONDARY MALIGNANT NEOPLASM OF UNSPECIF 12/22/2019 W 251.2 HYPO GLYCEMIA, UNSPECIFIED 12/22/2019 W E16.1 OTHE R HYPOGLYCEMIA 12/22/2019 W 251.2 HYPO GLYCEMIA, UNSPECIFIED 12/22/2019 W E16.1 OTHE R HYPOGLYCEMIA 12/22/2019 W 251.2 HYPO GLYCEMIA, UNSPECIFIED 12/22/2019 W E16.1 OTHE R HYPOGLYCEMIA 12/22/2019 W T68.XXXD H YPOTHERMIA, SUBSEQUENT ENCOUNTER 12/22/2019 W V58.89 ENC OUNTER FOR OTHER SPECIFIED AFTERCARE 12/22/2019 W 251.2 HYPO GLYCEMIA, UNSPECIFIED 12/22/2019 W E16.1 OTHE R HYPOGLYCEMIA 12/22/2019 W T68.XXXD H YPOTHERMIA, SUBSEQUENT ENCOUNTER 12/22/2019 W V58.89 ENC OUNTER FOR OTHER SPECIFIED AFTERCARE 12/22/2019 W 038 SEPTICEMIA 12/22/2019 W 251.2 HYPO GLYCEMIA, UNSPECIFIED 12/22/2019 W A41.9 SEPS IS, UNSPECIFIED ORGANISM 12/22/2019 W E16.1 OTHE R HYPOGLYCEMIA 12/22/2019 W T68.XXXD H YPOTHERMIA, SUBSEQUENT ENCOUNTER 12/22/2019 W V58.89 ENC OUNTER FOR OTHER SPECIFIED AFTERCARE 12/22/2019 W 038 SEPTICEMIA 12/22/2019 W 251.2 HYPO GLYCEMIA, UNSPECIFIED 12/22/2019 W A41.9 SEPS IS, UNSPECIFIED ORGANISM 12/22/2019 W E16.1 OTHE R HYPOGLYCEMIA 12/22/2019 W T68.XXXD H YPOTHERMIA, SUBSEQUENT ENCOUNTER 12/22/2019 W V58.89 ENC OUNTER FOR OTHER SPECIFIED AFTERCARE 12/22/2019 W 038 SEPTICEMIA 12/22/2019 W 251.2 HYPO GLYCEMIA, UNSPECIFIED 12/22/2019 W 486 PNEUMO GARETT, ORGANISM UNSPECIFIED 12/22/2019 W A41.9 SEPS IS, UNSPECIFIED ORGANISM 12/22/2019 W E16.1 OTHE R HYPOGLYCEMIA 12/22/2019 W J18.9 PNEU MONIA, UNSPECIFIED ORGANISM 12/22/2019 W T68.XXXD H YPOTHERMIA, SUBSEQUENT ENCOUNTER 12/22/2019 W V58.89 ENC OUNTER FOR OTHER SPECIFIED AFTERCARE 12/22/2019 W 038 SEPTICEMIA 12/22/2019 W 251.2 HYPO GLYCEMIA, UNSPECIFIED 12/22/2019 W 486 PNEUMO GARETT, ORGANISM UNSPECIFIED 12/22/2019 W A41.9 SEPS IS, UNSPECIFIED ORGANISM 12/22/2019 W E16.1 OTHE R HYPOGLYCEMIA 12/22/2019 W J18.9 PNEU MONIA, UNSPECIFIED ORGANISM 12/22/2019 W T68.XXXD H YPOTHERMIA, SUBSEQUENT ENCOUNTER 12/22/2019 W V58.89 ENC OUNTER FOR OTHER SPECIFIED AFTERCARE Procedures Code Description Performed By Per formed On 57PI49S IN SERTION OF INFUSION DEV INTO SUP VENA 12/04/2019 [id number] IN SERTION OF TIVAD INTO CHEST SUBCU/FASC 12/04/2019 [id number] EX CISION OF STOMACH, ENDO, DIAGN 12/06/2019 [id number] EX CISION OF STOMACH, PYLORUS, ENDO, DIAG 12/06/2019 [id number] EX CISION OF TRANSVERSE COLON, ENDO 12/06/2019 [id number] EX CISION OF RECTUM, ENDO 12/06/2019 Results Test Result Range Urinalysis - 04/30/19 11:02 Icotest N/A Negative Urine Volume Urine Volume Sufficient (10mL) Urine-Appearance Clear Clear Urine-Bacteria Negative Urine-Bilirubin Negative Negative Urine-Blood Trace-lysed Negative Urine-Color Yellow Colorless-[place] ow Urine-Epithelial Cells 0-5/HPF Urine-Glucose Negative Negative Urine-Ketones Negative Negative Urine-Leukocytes Negative Negative Urine-Nitrite Negative Negative Urine-Other Urine Saved if Culture Need ed (48hrs from time of collection) Urine-pH 5.5 5-8.5 Urine-Protein 2+ Negative Urine-RBC Negative Urine-Specific [place] 1.025 1.000-1 .030 Urine-WBC Negative Urobilinogen 0.2 [...] 11:22 PRELIM CULTURE RESULTS Abundant Normal Becca [id number] Group B Streptococci, ANN/Further ID to Follow [...] 12/01/19 07:06 Lactic Acid 15.6 mg/dL 4.5-19.8 Blood Culture - 12/01/19 07:06 PRELIM CULTURE RESULTS Blood Culture Negativ e, No Growth Day 1 FINAL CULTURE RESULTS Blood Culture Negative , No Growth Day 5 MEDIA PLATED Setup at 07:21 on 12/01/2019 A 15 CULTURE SOURCE Left Arm Blood Culture - 12/01/19 07:15 PRELIM CULTURE RESULTS Blood Culture Negativ e, No Growth Day 1 FINAL CULTURE RESULTS Blood Culture Negative , No Growth Day 5 MEDIA PLATED Setup at 07:22 on 12/01/2019 C 41 CULTURE SOURCE Rt. arm Sputum Culture - 12/01/19 07:45 PRELIM CULTURE RESULTS Moderate Normal Becca [id number] Possible Fastidious. Specimen is being sent to [facility] for further testing. FINAL CULTURE RESULTS Moderate Normal FloraX [id number] Possible Fastidious, Specimen has been sent to [facility] for further testing. Please refer to [facility] reports for any further info. MEDIA PLATED Setup at 08:04 on 12/01/2019 Aerobe ID + Suscept - 12/01/19 07:45 AEROBE ID + SUSCEPT FINAL REPORT RESULT 1 MORAXELLA (BRANHAMELLA) CATARRHALIS ANTIMICROBIAL SUSCEPTIBILITY S = [place] SCEPTIBLE; I = INTERMEDIATE; R = RESISTANT .br P = POSITIVE; N = NEGATIVE.br MICS ARE EXPRESSED IN MICROGRAMS PER ML.br ANTIBIOTIC RSLT#1 RSLT#2 RSLT#3 RSLT#4.brCEFOTAXIME S.brCEFUROXIME S.brCIPROFLOXACIN S.brLEVOFLOXACIN S Capillary blood glucose measurement by g lucometer (mass/volume) - 12/01/19 09:44 Capillary blood glucose measurement by glucometer (mas s/volume) 503 mg/dL 70-110 Blood lactic acid measurement (moles/vol ume) - 12/01/19 10:36 Blood lactic acid measurement (moles/volume) 1.41 mmol/L 0.50-2.00 Serum or plasma lithium measurement (mol es/volume) - 12/01/19 10:36 BNP PT 589.0 pg/mL <100.0 PROCALCITONIN (PCT) - 12/01/19 10:36 PROCALCITONIN (PCT) 0.80 ng/mL <0.10 Complete blood count (CBC) with automate d white blood cell (WBC) differential - 12/01/19 10:36 Blood leukocytes automated count (number/volume) 8.1 10*3/uL 4.3-11.0 Blood erythrocytes automated count (number/volume) 3.13 10*6/uL 4.35-5.85 Venous blood hemoglobin measurement (mass/volume) 8.9 g/dL 13.3-17.7 Blood hematocrit (volume fraction) 28 % 40-54 Automated erythrocyte mean corpuscular volume 88 [ foz_us] 80-99 Automated erythrocyte mean corpuscular h emoglobin (mass per erythrocyte) 28 pg 25-34 Automated erythrocyte mean corpuscular h emoglobin concentration measurement (mass/volume) 32 g/dL 32-36 Automated erythrocyte distribution width ratio 14. 3 % 10.0- 14.5 Automated blood platelet count (count/volume) 140 10*3/uL 130-400 Automated blood platelet mean volume measurement 10.3 [foz_us] 7.4-10.4 Automated blood neutrophils/100 leukocytes 83 % 42-75 Automated blood lymphocytes/100 leukocytes 8 % 12-44 Blood monocytes/100 leukocytes 9 % 0-12 Automated blood eosinophils/100 leukocytes 0 % 0-10 Automated blood basophils/100 leukocytes 0 % 0-10 Blood neutrophils automated count (number/volume) 6.7 10*3 1.8-7.8 Blood lymphocytes automated count (number/volume) 0.6 10*3 1.0-4.0 Blood monocytes automated count (number/volume) 0. 7 10*3 0.0-1.0 Automated eosinophil count 0.0 10*3/uL 0 .0-0.3 Automated blood basophil count (count/volume) 0.0 10*3/uL 0.0-0.1 PT panel in platelet poor plasma by coag ulation assay - 12/01/19 10:36 Prothrombin time (PT) in platelet poor plasma by coagu lation assay 14.2 s 12.2-14.7 INR in platelet poor plasma or blood by coagulation as say 1.1 0.8-1.4 Serum or plasma troponin i.cardiac measu rement (mass/volume) - 12/01/19 10:36 Serum or plasma troponin i.cardiac measurement (mass/v olume) 2.398 ng/mL <0.028 Whole blood basic metabolic panel - 11/10 10/31 10:36 Serum or plasma sodium measurement (moles/volume) 137 mmol/L 135-145 Serum or plasma potassium measurement (moles/volume) 3.9 mmol/L 3.6-5.0 Serum or plasma chloride measurement (moles/volume) 101 mmol/L 98-107 Carbon dioxide 22 mmol/L 21-32 Serum or plasma anion gap determination (moles/volume) 14 mmol/L 5-14 Serum or plasma urea nitrogen measurement (mass/volume ) 39 mg/dL 7-18 Serum or plasma creatinine measurement (mass/volume) 2.22 mg/dL 0.60-1.30 Serum or plasma urea nitrogen/creatinine mass ratio 18 NRG Serum or plasma creatinine measurement w ith calculation of estimated glomerular filtration rate 30 NRG Serum or plasma glucose measurement (mass/volume) 462 mg/dL 70-105 Serum or plasma calcium measurement (mass/volume) 8.9 mg/dL 8.5-10.1 Manual absolute plasma cell count - 11/10 10/31 10:36 Blood monocytes/100 leukocytes 11 % NRG Manual blood segmented neutrophils/100 leukocytes 71 % NRG Blood band neutrophils/100 leukocytes 11 % NRG Manual blood lymphocytes/100 leukocytes 7 % NRG Blood erythrocyte morphology finding identification NORMAL NRG Blood toxic granules detection by light microscopy 1+ NRG Hemoglobin A1c measurement - 12/01/19 10 :36 Blood hemoglobin A1C measurement (mass/volume) 8.9 % 4.0-5.6 MEAN BLOOD GLUCOSE 209 % <=126 Capillary blood glucose measurement by g lucometer (mass/volume) - 12/01/19 12:02 Capillary blood glucose measurement by glucometer (mas s/volume) 433 mg/dL 70-110 Capillary blood glucose measurement by g lucometer (mass/volume) - 12/01/19 14:33 Capillary blood glucose measurement by glucometer (mas s/volume) 364 mg/dL 70-110 Capillary blood glucose measurement by g lucometer (mass/volume) - 12/01/19 16:13 Capillary blood glucose measurement by glucometer (mas s/volume) 357 mg/dL 70-110 Serum or plasma troponin i.cardiac measu rement (mass/volume) - 12/01/19 16:25 Serum or plasma troponin i.cardiac measurement (mass/v olume) 12.254 ng/mL <0.028 Capillary blood glucose measurement by g lucometer (mass/volume) - 12/01/19 18:18 Capillary blood glucose measurement by glucometer (mas s/volume) 331 mg/dL 70-110 Capillary blood glucose measurement by g lucometer (mass/volume) - 12/01/19 18:58 Capillary blood glucose measurement by glucometer (mas s/volume) 323 mg/dL 70-110 Capillary blood glucose measurement by g lucometer (mass/volume) - 12/01/19 20:00 Capillary blood glucose measurement by glucometer (mas s/volume) 263 mg/dL 70-110 Capillary blood glucose measurement by g lucometer (mass/volume) - 12/01/19 20:55 Capillary blood glucose measurement by glucometer (mas s/volume) 221 mg/dL 70-110 Capillary blood glucose measurement by g lucometer (mass/volume) - 12/01/19 22:00 Capillary blood glucose measurement by glucometer (mas s/volume) 166 mg/dL 70-110 Capillary blood glucose measurement by g lucometer (mass/volume) - 12/01/19 23:05 Capillary blood glucose measurement by glucometer (mas s/volume) 148 mg/dL 70-110 Capillary blood glucose measurement by g lucometer (mass/volume) - 12/02/19 00:06 Capillary blood glucose measurement by glucometer (mas s/volume) 106 mg/dL 70-110 Capillary blood glucose measurement by g lucometer (mass/volume) - 12/02/19 01:03 Capillary blood glucose measurement by glucometer (mas s/volume) 102 mg/dL 70-110 Capillary blood glucose measurement by g lucometer (mass/volume) - 12/02/19 01:57 Capillary blood glucose measurement by glucometer (mas s/volume) 115 mg/dL 70-110 Capillary blood glucose measurement by g lucometer (mass/volume) - 12/02/19 02:52 Capillary blood glucose measurement by glucometer (mas s/volume) 131 mg/dL 70-110 Complete blood count (CBC) with automate d white blood cell (WBC) differential - 12/02/19 03:03 Blood leukocytes automated count (number/volume) 7.1 10*3/uL 4.3-11.0 Blood erythrocytes automated count (number/volume) 2.83 10*6/uL 4.35-5.85 Venous blood hemoglobin measurement (mass/volume) 7.9 g/dL 13.3-17.7 Blood hematocrit (volume fraction) 25 % 40-54 Automated erythrocyte mean corpuscular volume 88 [ foz_us] 80-99 Automated erythrocyte mean corpuscular h emoglobin (mass per erythrocyte) 28 pg 25-34 Automated erythrocyte mean corpuscular h emoglobin concentration measurement (mass/volume) 32 g/dL 32-36 Automated erythrocyte distribution width ratio 14. 5 % 10.0- 14.5 Automated blood platelet count (count/volume) 126 10*3/uL 130-400 Automated blood platelet mean volume measurement 10.3 [foz_us] 7.4-10.4 Automated blood neutrophils/100 leukocytes 82 % 42-75 Automated blood lymphocytes/100 leukocytes 11 % 12-44 Blood monocytes/100 leukocytes 7 % 0-12 Automated blood eosinophils/100 leukocytes 0 % 0-10 Automated blood basophils/100 leukocytes 0 % 0-10 Blood neutrophils automated count (number/volume) 5.8 10*3 1.8-7.8 Blood lymphocytes automated count (number/volume) 0.8 10*3 1.0-4.0 Blood monocytes automated count (number/volume) 0. 5 10*3 0.0-1.0 Automated eosinophil count 0.0 10*3/uL 0 .0-0.3 Automated blood basophil count (count/volume) 0.0 10*3/uL 0.0-0.1 Whole blood basic metabolic panel - 11/10 11/28 03:03 Serum or plasma sodium measurement (moles/volume) 143 mmol/L 135-145 Serum or plasma potassium measurement (moles/volume) 3.1 mmol/L 3.6-5.0 Serum or plasma chloride measurement (moles/volume) 104 mmol/L 98-107 Carbon dioxide 25 mmol/L 21-32 Serum or plasma anion gap determination (moles/volume) 14 mmol/L 5-14 Serum or plasma urea nitrogen measurement (mass/volume ) 41 mg/dL 7-18 Serum or plasma creatinine measurement (mass/volume) 2.10 mg/dL 0.60-1.30 Serum or plasma urea nitrogen/creatinine mass ratio 20 NRG Serum or plasma creatinine measurement w ith calculation of estimated glomerular filtration rate 31 NRG Serum or plasma glucose measurement (mass/volume) 118 mg/dL 70-105 Serum or plasma calcium measurement (mass/volume) 8.9 mg/dL 8.5-10.1 Capillary blood glucose measurement by g lucometer (mass/volume) - 12/02/19 05:02 Capillary blood glucose measurement by glucometer (mas s/volume) 85 mg/dL 70-110 Capillary blood glucose measurement by g lucometer (mass/volume) - 12/02/19 11:52 Capillary blood glucose measurement by glucometer (mas s/volume) 230 mg/dL 70-110 Capillary blood glucose measurement by g lucometer (mass/volume) - 12/02/19 16:39 Capillary blood glucose measurement by glucometer (mas s/volume) 377 mg/dL 70-110 Capillary blood glucose measurement by g lucometer (mass/volume) - 12/02/19 21:51 Capillary blood glucose measurement by glucometer (mas s/volume) 309 mg/dL 70-110 Complete blood count (CBC) with automate d white blood cell (WBC) differential - 12/03/19 05:25 Blood leukocytes automated count (number/volume) 6.1 10*3/uL 4.3-11.0 Blood erythrocytes automated count (number/volume) 2.38 10*6/uL 4.35-5.85 Venous blood hemoglobin measurement (mass/volume) 6.7 g/dL 13.3-17.7 Blood hematocrit (volume fraction) 21 % 40-54 Automated erythrocyte mean corpuscular volume 90 [ foz_us] 80-99 Automated erythrocyte mean corpuscular h emoglobin (mass per erythrocyte) 28 pg 25-34 Automated erythrocyte mean corpuscular h emoglobin concentration measurement (mass/volume) 32 g/dL 32-36 Automated erythrocyte distribution width ratio 14. 6 % 10.0- 14.5 Automated blood platelet count (count/volume) 118 10*3/uL 130-400 Automated blood platelet mean volume measurement 10.5 [foz_us] 7.4-10.4 Automated blood neutrophils/100 leukocytes 78 % 42-75 Automated blood lymphocytes/100 leukocytes 12 % 12-44 Blood monocytes/100 leukocytes 10 % 0-12 Automated blood eosinophils/100 leukocytes 0 % 0-10 Automated blood basophils/100 leukocytes 0 % 0-10 Blood neutrophils automated count (number/volume) 4.8 10*3 1.8-7.8 Blood lymphocytes automated count (number/volume) 0.7 10*3 1.0-4.0 Blood monocytes automated count (number/volume) 0. 6 10*3 0.0-1.0 Automated eosinophil count 0.0 10*3/uL 0 .0-0.3 Automated blood basophil count (count/volume) 0.0 10*3/uL 0.0-0.1 Whole blood basic metabolic panel - 11/10 12/29 05:25 Serum or plasma sodium measurement (moles/volume) 143 mmol/L 135-145 Serum or plasma potassium measurement (moles/volume) 2.8 mmol/L 3.6-5.0 Serum or plasma chloride measurement (moles/volume) 105 mmol/L 98-107 Carbon dioxide 26 mmol/L 21-32 Serum or plasma anion gap determination (moles/volume) 12 mmol/L 5-14 Serum or plasma urea nitrogen measurement (mass/volume ) 42 mg/dL 7-18 Serum or plasma creatinine measurement (mass/volume) 1.90 mg/dL 0.60-1.30 Serum or plasma urea nitrogen/creatinine mass ratio 22 NRG Serum or plasma creatinine measurement w ith calculation of estimated glomerular filtration rate 35 NRG Serum or plasma glucose measurement (mass/volume) 145 mg/dL 70-105 Serum or plasma calcium measurement (mass/volume) 8.5 mg/dL 8.5-10.1 Serum iron and total iron binding capaci ty panel - 12/03/19 05:25 TIBC 194 % 280-380 UIBC 159 % 55-450 Serum or plasma iron measurement (mass/volume) 35 % 40-180 Total iron binding capacity and transferrin saturation measurement 18 % 15-50 Serum or plasma ferritin measurement (mass/volume) 3190.6 % 32.0-356.0 Capillary blood glucose measurement by g lucometer (mass/volume) - 12/03/19 05:44 Capillary blood glucose measurement by glucometer (mas s/volume) 175 mg/dL 70-110 RED CELLS LEUKO REDUCED AS1 - 12/03/19 0 7:40 RED CELLS LEUKO REDUCED AS1 T RANSFUSED 12/03/19 0842 NRG Blood type T Indirect antibody screen pa alejandra - 12/03/19 07:40 WRISTBAND NUMBER [id number] NRG ABO+Rh group OP NRG Blood group antibody screen NEGATIVE NR G Capillary blood glucose measurement by g lucometer (mass/volume) - 12/03/19 11:16 Capillary blood glucose measurement by glucometer (mas s/volume) 274 mg/dL 70-110 Methicillin resistant Staphylococcus aur eus (MRSA) screening culture - 12/03/19 14:55 Methicillin resistant Staphylococcus aureus (MRSA) scr eening culture NEG NRG Capillary blood glucose measurement by g lucometer (mass/volume) - 12/03/19 15:26 Capillary blood glucose measurement by glucometer (mas s/volume) 247 mg/dL 70-110 Capillary blood glucose measurement by g lucometer (mass/volume) - 12/03/19 20:37 Capillary blood glucose measurement by glucometer (mas s/volume) 168 mg/dL 70-110 Complete blood count (CBC) with automate d white blood cell (WBC) differential - 12/04/19 05:05 Blood leukocytes automated count (number/volume) 7.0 10*3/uL 4.3-11.0 Blood erythrocytes automated count (number/volume) 2.77 10*6/uL 4.35-5.85 Venous blood hemoglobin measurement (mass/volume) 7.6 g/dL 13.3-17.7 Blood hematocrit (volume fraction) 24 % 40-54 Automated erythrocyte mean corpuscular volume 88 [ foz_us] 80-99 Automated erythrocyte mean corpuscular h emoglobin (mass per erythrocyte) 27 pg 25-34 Automated erythrocyte mean corpuscular h emoglobin concentration measurement (mass/volume) 31 g/dL 32-36 Automated erythrocyte distribution width ratio 15. 7 % 10.0- 14.5 Automated blood platelet count (count/volume) 124 10*3/uL 130-400 Automated blood platelet mean volume measurement 10.1 [foz_us] 7.4-10.4 Automated blood neutrophils/100 leukocytes 79 % 42-75 Automated blood lymphocytes/100 leukocytes 12 % 12-44 Blood monocytes/100 leukocytes 8 % 0-12 Automated blood eosinophils/100 leukocytes 0 % 0-10 Automated blood basophils/100 leukocytes 0 % 0-10 Blood neutrophils automated count (number/volume) 5.5 10*3 1.8-7.8 Blood lymphocytes automated count (number/volume) 0.9 10*3 1.0-4.0 Blood monocytes automated count (number/volume) 0. 6 10*3 0.0-1.0 Automated eosinophil count 0.0 10*3/uL 0 .0-0.3 Automated blood basophil count (count/volume) 0.0 10*3/uL 0.0-0.1 Whole blood basic metabolic panel - 11/10 01/28 05:05 Serum or plasma sodium measurement (moles/volume) 146 mmol/L 135-145 Serum or plasma potassium measurement (moles/volume) 2.9 mmol/L 3.6-5.0 Serum or plasma chloride measurement (moles/volume) 107 mmol/L 98-107 Carbon dioxide 27 mmol/L 21-32 Serum or plasma anion gap determination (moles/volume) 12 mmol/L 5-14 Serum or plasma urea nitrogen measurement (mass/volume ) 38 mg/dL 7-18 Serum or plasma creatinine measurement (mass/volume) 1.73 mg/dL 0.60-1.30 Serum or plasma urea nitrogen/creatinine mass ratio 22 NRG Serum or plasma creatinine measurement w ith calculation of estimated glomerular filtration rate 39 NRG Serum or plasma glucose measurement (mass/volume) 124 mg/dL 70-105 Serum or plasma calcium measurement (mass/volume) 8.8 mg/dL 8.5-10.1 Capillary blood glucose measurement by g lucometer (mass/volume) - 12/04/19 12:25 Capillary blood glucose measurement by glucometer (mas s/volume) 198 mg/dL 70-110 OCCULT BLOOD STOOL - 12/04/19 12:50 Stool gastrointestinal hemoglobin detection POSITI VE NEGATIVE Capillary blood glucose measurement by g lucometer (mass/volume) - 12/04/19 15:20 Capillary blood glucose measurement by glucometer (mas s/volume) 321 mg/dL 70-110 Capillary blood glucose measurement by g lucometer (mass/volume) - 12/04/19 20:41 Capillary blood glucose measurement by glucometer (mas s/volume) 264 mg/dL 70-110 Complete blood count (CBC) with automate d white blood cell (WBC) differential - 12/05/19 05:22 Blood leukocytes automated count (number/volume) 7.2 10*3/uL 4.3-11.0 Blood erythrocytes automated count (number/volume) 2.75 10*6/uL 4.35-5.85 Venous blood hemoglobin measurement (mass/volume) 7.6 g/dL 13.3-17.7 Blood hematocrit (volume fraction) 24 % 40-54 Automated erythrocyte mean corpuscular volume 89 [ foz_us] 80-99 Automated erythrocyte mean corpuscular h emoglobin (mass per erythrocyte) 28 pg 25-34 Automated erythrocyte mean corpuscular h emoglobin concentration measurement (mass/volume) 31 g/dL 32-36 Automated erythrocyte distribution width ratio 15. 4 % 10.0- 14.5 Automated blood platelet count (count/volume) 116 10*3/uL 130-400 Automated blood platelet mean volume measurement 10.8 [foz_us] 7.4-10.4 Automated blood neutrophils/100 leukocytes 81 % 42-75 Automated blood lymphocytes/100 leukocytes 10 % 12-44 Blood monocytes/100 leukocytes 9 % 0-12 Automated blood eosinophils/100 leukocytes 0 % 0-10 Automated blood basophils/100 leukocytes 0 % 0-10 Blood neutrophils automated count (number/volume) 5.8 10*3 1.8-7.8 Blood lymphocytes automated count (number/volume) 0.7 10*3 1.0-4.0 Blood monocytes automated count (number/volume) 0. 6 10*3 0.0-1.0 Automated eosinophil count 0.0 10*3/uL 0 .0-0.3 Automated blood basophil count (count/volume) 0.0 10*3/uL 0.0-0.1 Whole blood basic metabolic panel - 11/10 02/28 05:22 Serum or plasma sodium measurement (moles/volume) 142 mmol/L 135-145 Serum or plasma potassium measurement (moles/volume) 2.7 mmol/L 3.6-5.0 Serum or plasma chloride measurement (moles/volume) 103 mmol/L 98-107 Carbon dioxide 25 mmol/L 21-32 Serum or plasma anion gap determination (moles/volume) 14 mmol/L 5-14 Serum or plasma urea nitrogen measurement (mass/volume ) 35 mg/dL 7-18 Serum or plasma creatinine measurement (mass/volume) 1.76 mg/dL 0.60-1.30 Serum or plasma urea nitrogen/creatinine mass ratio 20 NRG Serum or plasma creatinine measurement w ith calculation of estimated glomerular filtration rate 39 NRG Serum or plasma glucose measurement (mass/volume) 229 mg/dL 70-105 Serum or plasma calcium measurement (mass/volume) 8.5 mg/dL 8.5-10.1 Magnesium - 12/05/19 05:22 Magnesium 1.8 mg/dL 1.6-2.4 Capillary blood glucose measurement by g lucometer (mass/volume) - 12/05/19 11:43 Capillary blood glucose measurement by glucometer (mas s/volume) 268 mg/dL 70-110 Capillary blood glucose measurement by g lucometer (mass/volume) - 12/05/19 16:05 Capillary blood glucose measurement by glucometer (mas s/volume) 175 mg/dL 70-110 Capillary blood glucose measurement by g lucometer (mass/volume) - 12/05/19 20:35 Capillary blood glucose measurement by glucometer (mas s/volume) 207 mg/dL 70-110 Complete blood count (CBC) with automate d white blood cell (WBC) differential - 12/06/19 05:20 Blood leukocytes automated count (number/volume) 8.6 10*3/uL 4.3-11.0 Blood erythrocytes automated count (number/volume) 2.89 10*6/uL 4.35-5.85 Venous blood hemoglobin measurement (mass/volume) 8.0 g/dL 13.3-17.7 Blood hematocrit (volume fraction) 25 % 40-54 Automated erythrocyte mean corpuscular volume 88 [ foz_us] 80-99 Automated erythrocyte mean corpuscular h emoglobin (mass per erythrocyte) 28 pg 25-34 Automated erythrocyte mean corpuscular h emoglobin concentration measurement (mass/volume) 32 g/dL 32-36 Automated erythrocyte distribution width ratio 15. 5 % 10.0- 14.5 Automated blood platelet count (count/volume) 129 10*3/uL 130-400 Automated blood platelet mean volume measurement 9.2 [foz_us] 7.4-10.4 Automated blood neutrophils/100 leukocytes 82 % 42-75 Automated blood lymphocytes/100 leukocytes 9 % 12-44 Blood monocytes/100 leukocytes 9 % 0-12 Automated blood eosinophils/100 leukocytes 0 % 0-10 Automated blood basophils/100 leukocytes 0 % 0-10 Blood neutrophils automated count (number/volume) 7.0 10*3 1.8-7.8 Blood lymphocytes automated count (number/volume) 0.8 10*3 1.0-4.0 Blood monocytes automated count (number/volume) 0. 7 10*3 0.0-1.0 Automated eosinophil count 0.0 10*3/uL 0 .0-0.3 Automated blood basophil count (count/volume) 0.0 10*3/uL 0.0-0.1 Whole blood basic metabolic panel - 11/10 03/30 05:20 Serum or plasma sodium measurement (moles/volume) 141 mmol/L 135-145 Serum or plasma potassium measurement (moles/volume) 2.3 mmol/L 3.6-5.0 Serum or plasma chloride measurement (moles/volume) 102 mmol/L 98-107 Carbon dioxide 24 mmol/L 21-32 Serum or plasma anion gap determination (moles/volume) 15 mmol/L 5-14 Serum or plasma urea nitrogen measurement (mass/volume ) 32 mg/dL 7-18 Serum or plasma creatinine measurement (mass/volume) 1.73 mg/dL 0.60-1.30 Serum or plasma urea nitrogen/creatinine mass ratio 18 NRG Serum or plasma creatinine measurement w ith calculation of estimated glomerular filtration rate 39 NRG Serum or plasma glucose measurement (mass/volume) 124 mg/dL 70-105 Serum or plasma calcium measurement (mass/volume) 8.7 mg/dL 8.5-10.1 Capillary blood glucose measurement by g lucometer (mass/volume) - 12/06/19 05:28 Capillary blood glucose measurement by glucometer (mas s/volume) 141 mg/dL 70-110 Capillary blood glucose measurement by g lucometer (mass/volume) - 12/06/19 11:00 Capillary blood glucose measurement by glucometer (mas s/volume) 210 mg/dL 70-110 Capillary blood glucose measurement by g lucometer (mass/volume) - 12/06/19 15:41 Capillary blood glucose measurement by glucometer (mas s/volume) 309 mg/dL 70-110 BNP - 12/13/19 15:04 BNP 485.80 pg/ml 0.00-100.00 Renal Panel - 12/16/19 06:36 Albumin 2.8 g/dL 3.6-5.1 BUN 54 mg/dL 5-25 Calcium 8.9 mg/dL 8.3-10.4 Chloride 95 mmol/L 95-114 CO2 36 mEq/L 22-33 Creat 2.03 mg/dL 0.50-1.50 eGFR 33 mL/min/1.73m2 >59 Glucose 70 mg/dL 70-110 Phosphorus 4.0 mg/dL 2.5-4.8 Potassium 2.3 mmol/L 3.5-5.3 Sodium 144 mmol/L 134-148 Protime - 12/22/19 09:21 INR 1.0 1.0-4.0 Protime 11.8 Sec 9.9-12.8 Ferritin - 12/22/19 09:21 Ferritin >2000.00 ng/mL 21.81-274.66 Influenza - 12/22/19 09:27 Influenza NEGATIVE FOR A and B 0.00-0.0 0 Lactic Acid - 12/22/19 09:27 Lactic Acid 19.1 mg/dL 4.5-19.8 BNP - 12/22/19 09:27 BNP 193.70 pg/ml 0.00-100.00 Mycoplasma - 12/22/19 09:27 Mycoplasma Negative Negative C-Reactive Protein - 12/22/19 09:27 C-Reactive Protein 0.10 mg/dL 0.00-0.50 Quik Strep - 12/22/19 09:34 Quik Strep Negative - confirmation culture set. Negative Urinalysis - 12/22/19 09:34 Icotest N/A Negative Urine Volume Urine Volume Sufficient (10mL) Urine-Appearance Clear Clear Urine-Bacteria Trace Urine-Bilirubin Negative Negative Urine-Blood 1+ Negative Urine-Color Yellow Colorless-[place] ow Urine-Epithelial Cells 0-5/HPF Urine-Glucose Negative Negative Urine-Ketones Negative Negative Urine-Leukocytes Negative Negative Urine-Nitrite Negative Negative Urine-pH 5.5 5-8.5 Urine-Protein 1+ Negative Urine-RBC 2-5/HPF Urine-Specific [place] 1.015 1.000-1 .030 Urine-WBC Negative Urobilinogen 0.2 E.U./dL 0.2-1.0 Arterial Blood Gas - 12/22/19 12:12 Base 5.00 mmol/L 1.80-4.20 HCO3 28 mmol/L 20-31 O2 Sat 97 2L % 95-100 pCO2 31 mm/Hg 35-45 pH 7.55 7.35-7.45 PO2 82 mm/Hg 80-95 Encounters ACCT No. Visit Date/Time Discharge Status Pt. Type Provider Facility Loc./Unit Complaint [id number] 12/16/2019 06:34:00 12/16/2019 23:59 :00 DIS Outpatient RANDELL DIGGS [id number] 12/13/2019 14:38:00 12/13/2019 23:59 :00 DIS Outpatient Fernando Lord [id number] 12/01/2019 05:13:00 12/01/2019 08:35 :00 DIS Outpatient LORAINE COUPON COLLECTION CLERKSANDRA [facility] ER [id number] 10/30/2019 08:43:00 11/30/2019 09:40 :00 DIS Outpatient JoselitokoDebbie smith [id number] 11/28/2019 11:00:00 11/28/2019 17:15 :00 DIS Outpatient LORAINE COUPON COLLECTION CLERKSANDRA [facility] ER [id number] 11/27/2019 12:54:00 11/27/2019 23:59 :00 DIS Outpatient DINAHALIRIGO Saenz [id number] 11/04/2019 08:28:00 11/04/2019 23:59 :00 DIS Outpatient PaoniFernando [id number] 10/28/2019 10:23:00 10/28/2019 23:59 :00 DIS Outpatient WHITEDARRYN [id number] 10/25/2019 11:08:00 10/25/2019 23:59 :00 DIS Outpatient BrokobDebbie [id number] 10/25/2019 10:00:00 10/25/2019 23:59 :00 DIS Outpatient BrokobDebbie [id number] 09/24/2019 11:28:00 09/24/2019 23:59 :00 DIS Outpatient PaoniFernando [id number] 09/24/2019 10:09:00 09/24/2019 23:59 :00 DIS Outpatient PaoniFernando [id number] 08/02/2019 13:42:00 08/02/2019 14:36: 00 DIS Outpatient Howayek, [facility] ER [id number] 07/16/2019 09:36:00 07/16/2019 23:59: 00 DIS Outpatient RIGO DUNCAN [id number] 07/04/2019 13:24:00 07/04/2019 23:59: 00 DIS Outpatient Fernando Lord [id number] 06/27/2019 14:47:00 06/27/2019 23:59: 00 DIS Outpatient PaFernando dukes [id number] 06/27/2019 09:22:00 06/27/2019 23:59: 00 DIS Outpatient PaoniFernando [id number] 05/07/2019 08:55:00 05/24/2019 10:15: 00 DIS Outpatient UNLISTED, ANNALEE [id number] 05/21/2019 10:05:00 05/21/2019 23:59: 00 DIS Outpatient Paoni, Fernando [id number] 05/08/2019 09:30:00 05/08/2019 23:59: 00 DIS Outpatient Fernando Lord [id number] 04/24/2019 10:16:00 04/24/2019 23:59: 00 DIS Outpatient Fernando Lord [id number] 12/22/2019 08:44:00 Document Registration [id number] 04/30/2019 11:56:52 Document Registration [id number] 04/30/2019 10:17:00 Document Registration [id number] 12/18/2019 13:27:00 23:59:59 CLS Outpatient NICO ARAUJO MD, [facility] ONC [id number] 12/16/2019 11:49:00 23:59:59 CLS Outpatient NICO ARAUJO MD, [facility] 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 [id number] 12/01/2019 09:22:00 16:15:00 DIS Inpatient JUSTYN WAYNE, RAMIRO Jordan [facility] 4TH LLL PNEUMONIA, ACUTE RE NAL FAILURE [id number] 11/21/2019 08:00:00 13:30:00 DIS Outpatient CHELSEA ROMAN APRN [facility] SDC DYSPNEA,HX OF SMOKING,DISORDERS OF LUNG [id number] 11/15/2019 13:21:00 23:59:59 CLS Outpatient CHELSEA ROMAN APRN [facility] RT DYSPNEA,HX OF SMOKING,DISORDERS OF LUNG [id number] 11/12/2019 11:38:00 23:59:59 CLS Outpatient CHELSEA ROMAN APRN [facility] RAD DYSPNEA,HX OF SMOKING,DISORDERS OF LUNG [id number] 11/11/2019 09:16:00 23:59:59 CLS Outpatient CHELSEA ROMAN APRN [facility] RAD R91.8,J98.4,Z87 .891,R06.00
--- NOTE | 2019-12-22 14:00 | History & Physical-Hospitalist ---
History of Present Illness HPI/Chief Complaint Pt is a 69yoCM with a PMH metastatic lung cancer, CAD, IDDMI who presented to an outside ER due to hypoglycemia and altered mental status. He was given increased insulin dose for hyperglycemia at his senior care last night. In the morning he was found to be altered by the staff at the senior care and his blood sugar was check and read as Low. Despite oral glucose x2 at the [facility] and D50 by EMS hisblood sugar still read at low at the OSH ER. He was started on continuous D10 and blood sugar was stabilized in the 100s. He was also found to be hypothermic with a temperature of 90.6 but responded to external warming with bairhugger and warmed fluids. His temperature improved as did his mentation. CXR revealed bilateral pneumonia. COVID19 testing was done at OSH. He reports feeling much better now and his mentation is improved but he is drowsy. He is on minimal oxygen now. He was found to be quite anemic and had just received chemo (3rd round) on 12/17. Source: patient Exam Limitations: clinical condition Date Seen 12/22/19 Time Seen by a Provider: 13:55 Attending Physician Becky Mckinley MD PCP Fernando Lord DO Referring Physician Date of Admission Dec 22, 2019 at 13:20 Home Medications & Allergies Home Medications Reviewed patient Home Medication Reconciliation performed by pharmacy medication reconciliations centrifugal chiller technician and/or nursing. Patients Allergies have been reviewed. Allergies Allergies Coded Allergies No Known Drug Allergies (Unverified11/15/19) Past Xgoxqvv-Aajcyf-Gqnyps Hx Past Med/Social Hx: Reviewed Nursing Past Med/Soc Hx Patient Social History Employed/Student: retired Smoking Status: Former Smoker Immunizations Up To Date Date of Influenza Vaccine: Aug 02, 2019 Seasonal Allergies Seasonal Allergies: No Past Medical History Cardiac: Heart Attack Neurological: TIA Reproductive: No Sexually Transmitted Disease: No HIV/AIDS: No Musculoskeletal: Arthritis Endocrine: Diabetes, Insulin dep HEENT: Glaucoma Loss of Vision: Bilateral Hearing Impairment: Denies Cancer: Bone, Lung History of Blood Disorders: No Adverse Reaction to Blood Healy: No Family History Reviewed Nursing Family Hx No Pertinent Family Hx, Stroke Review of Systems ROS-Unable to Obtain: limited by mental status Constitutional: No chills, No fever Respiratory: cough Cardiovascular: No chest pain; edema; No palpitations Gastrointestinal: no symptoms reported Genitourinary: no symptoms reported Musculoskeletal: no symptoms reported Skin: no symptoms reported Psychiatric/Neurological: No Symptoms Reported Physical Exam Physical Exam Vital Signs Vital Signs - First Documented 12/22/19 12/22/19 13:28 13:39 Pulse 90 O2 Delivery Nasal Cannula O2 Flow Rate 1.00 Capillary Refill : Height, Weight, BMI Height: '" Weight: lbs. oz. kg; 27.20 BMI Method: General Appearance: No Apparent Distress, WD/WN HEENT: PERRL/EOMI; No Scleral Icterus (L), No Scleral Icterus (R) Neck: Normal Inspection, Supple Respiratory: Lungs Clear, No Accessory Muscle Use, Other (on 3lpm) Cardiovascular: Regular Rate, Rhythm, No Murmur Gastrointestinal: Normal Bowel Sounds, Non Tender, Soft Extremity: Other (unna boots on both lower extremities) Neurologic/Psychiatric: Alert, Oriented x3 (but drowsy and short with answers) Skin: Normal Color, Warm/Dry Results Results/Procedures Labs Laboratory Tests 12/22/19 15:28 12/23/19 02:40 Patient resulted labs reviewed. Assessment/Plan Admission Diagnosis Sepsis Admission Status: Inpatient Order (span 2 midnights) Reason for Inpatient Admission: IV abx, await cultures, high risk for decompensation Assessment and Plan Sepsis HCAP Chronic Hypoxic Respiratory Failure Continue on Vanc and Zosyn Await cultures from OSH COVID pending Wean oxygen as able, was 97% on 1lpm while I was in room Hypothermia Likely due to hypoglycemia Hypoglycemia Was given extra insulin for hyperglycemia at the [facility] so likely iatrogenic Continue D51/2NS Metastatic Lung Cancer Pancytopenia Repeat CBC here Received chemo on 12/17, third round Dr Ledesma consulted, appreciate recs CAD Repeat troponin Reviewed labs from last month and troponin 12 then so anticipate persistent mild elevation CKD stage 3 At his baseline Continue fluids Discussed goals of care with patient and he would like to remain a full code and states he "has to keep fighting." He states he would be ok with both short term and ad terminal 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 Copy Copies To 1: FERNANDO LORD KATELYN M MD Dec 22, 2019 14:00
[2019-12-22] MEDS: D5 1/2 NS 1000 ML IV SOLUTION 1,000 ML IV SCH (14:40)
[2019-12-22 15:47] LABS: BASOPHILS % (AUTO) 0 % (0-10); EOSINOPHILS % (AUTO) 0 % (0-10); LYMPHOCYTES # (AUTO) 0.4 X 10^3 (1.0-4.0); LYMPHOCYTES % (AUTO) 19 % (12-44); MEAN CORPUSCULAR HEMOGLOBIN 28 PG (25-34); MEAN CORPUSCULAR HGB CONC 31 G/DL (32-36); MEAN CORPUSCULAR VOLUME 89 FL (80-99); MEAN PLATELET VOLUME 9.7 FL (7.4-10.4); MONOCYTES % (AUTO) 1 % (0-12); NEUTROPHILS # (AUTO) 1.8 X 10^3 (1.8-7.8); NEUTROPHILS % (AUTO) 79 % (42-75); PLATELET COUNT 49 10^3/uL (130-400); RED CELL DISTRIBUTION WIDTH 16.8 % (10.0-14.5); WHITE BLOOD COUNT 2.3 10^3/uL (4.3-11.0)
[2019-12-22 15:49] LABS: HEMATOCRIT 17 % (40-54); HEMOGLOBIN 5.3 G/DL (13.3-17.7)
[2019-12-22 16:01] LABS: ALBUMIN 2.6 GM/DL (3.2-4.5); POTASSIUM 4.3 MMOL/L (3.6-5.0)
--- NOTE | 2019-12-22 16:01 | Consultation ---
History of Present Illness History of Present Illness Patient Consulted On(jerri/time) 12/22/19 15:52 Date Seen by Provider: Dec 22, 2019 Time Seen by Provider: 15:57 History of Present Illness Mr. Soliman is a 69 yo male with DM, CAD s/p NSTEMI, CHF, gastric ulcers with recent bleed, and metastatic small cell lung cancer who is admitted today with bilateral pneumonia. It was intended that he receive chemotherapy in mid-November, but he was admitted to the hospital with pneumonia and CHF. The hospitalization was complicated by an NSTEMI and GI bleed, but he was finally [facility] to [facility] 12[facility]. He started cycle 1 chemotherapy with carboplatin and etoposide in clinic on 12/16/19, receiving last dose of etoposide on 12/18/19. Patient was significantly hyperglycemic at [facility] and was given extra insulin per protocol, but he did not eat much. He developed mental status changes at the nursing facility and had undetectable blood glucose, severe hypothermia (90.6 F), and anemia (hgb 6.3) at the outside ED. He improved significantly with fluids, IV glucose, and forced external warming. He is currently lethargic but responds to verbal stimulus. Allergies and Home Medications Allergies Coded Allergies: No Known Drug Allergies (Unverified , 11/15/19) Home Medications Amlodipine Besylate 5 Mg Tablet, 5 MG PO DAILY, (Reported) Aspirin 81 Mg Tab.chew, 81 MG PO DAILY Prescribed by: BREANN BERTRAND on 12/06/19 09 Clonidine HCl 0.1 Mg Tab.er.12h, 0.1 MG PO TID, (Reported) Clopidogrel Bisulfate 75 Mg Tablet, 75 MG PO DAILY Prescribed by: BREANN BERTRAND on 12/06/19 09 Cyclobenzaprine HCl 10 Mg Tablet, 5-10 MG PO TID PRN for MUSCLE SPASMS, (Reported) Empagliflozin 10 Mg Tablet, 10 MG PO DAILY, (Reported) Hydrocodone/Acetaminophen 1 Each Tablet, 1 EA PO Q4 -6H PRN for PAIN-MODERATE (5-7) Prescribed by: BREANN BERTRAND on 12/06/19 09 Insulin Aspart 100 Unit/1 Ml Susp, 0 UNIT SC ACHS Prescribed by: BREANN BERTRAND on 12/06/19 09 Insulin Determir 1,000 Units/10 Ml Soln, 20 UNIT SQ DAILY Prescribed by: BREANN BERTRAND on 12/06/19954 Latanoprost 2.5 Ml Drops, 1 DROP OU HS, (Reported) Lisinopril 20 Mg Tablet, 20 MG PO DAILY, (Reported) Metoprolol Succinate 50 Mg Tab.er.24h, 50 MG PO DAILY Prescribed by: BREANN BERTRAND on 12/06/19954 Pantoprazole Sodium 40 Mg Tablet.dr, 40 MG PO BID Prescribed by: BREANN BERTRAND on 12/06/19 141 Potassium Chloride 20 Meq Tablet.er, 20 MEQ PO DAILY Prescribed by: BREANN BERTRAND on 12/06/19954 Primidone 50 Mg Tablet, 50 MG PO HS Prescribed by: BREANN BERTRAND on 12/06/19954 Patient Home Medication List Home Medication List Reviewed: Yes Past Vettdxw-Bqfrqx-Bertiy Hx Immunizations Up To Date Date of Influenza Vaccine: Aug 02, 2019 Seasonal Allergies Seasonal Allergies: No Past Medical History Surgeries: No Respiratory: Yes (states breathing troubles started about 4 weeks ago and he is on home O2) COPD Cardiac: Yes Heart Attack Neurological: Yes TIA Reproductive Disorders: No Sexually Transmitted Disease: No HIV/AIDS: No Genitourinary: No Gastrointestinal: No Musculoskeletal: Yes Arthritis Endocrine: Yes (diagnosed appx 4 weeks ago) Diabetes, Non-Insulin dep HEENT: Yes Glaucoma Loss of Vision: Bilateral Hearing Impairment: Denies Cancer: Yes Bone, Lung Psychosocial: No Integumentary: No Blood Disorders: No Adverse Reaction/Blood Tranf: No Family Medical History Stroke Review of Systems-General ROS-Unable to Obtain: patient isolated due to COVID-19 rule out protocol Physical Exam-General Problems Physical Exam Vital Signs Vital Signs - First Documented 12/22/19 12/22/19 13:28 13:39 Pulse 90 O2 Delivery Nasal Cannula O2 Flow Rate 1.00 Capillary Refill : Comments unable to obtain exam; patient isolated due to COVID-19 rule out protocol Assessment/Plan Assessment/Plan Admission Diagnosis/Plan 69 yo male with DM, CAD, CHF, GI bleed, and SCLC with cycle 1 chemotherapy given 12/15 to 12/18/19 is admitted with severe hypoglycemia, hypothermia, and bilateral pneumonia. 1. Bilateral pneumonia. Was not able to review the outside facility's report or images in the transfer paperwork. Could be residual findings from prior hospitalization for pneumonia and CHF. Patient has a significant delay between diagnosis of cancer and treatment with chemotherapy, so it is possible patient could have developed enlarging lung lesions that led to post obstructive pneumonia. Last imaging was PET scan on 11/12/19, so it may be beneficial to have a CT chest done. 2. Pancytopenia. Presumably due to chemotherapy. Unsurprisingly, patient is not currently neutropenic in the first week of treatment; however, it is highly likely he will be neutropenic in the second week. Would treat him as a neutropenic patient until we know what his ANC trajectory is like. Transfuse to keep hgb>8.0 (because of cardiac history) and platelets>10 if no active bleeding, at least >30 if active bleeding. 3. Anemia. See #2 above. However, patient was recently diagnosed with bleeding gastric ulcers by EGD, so issue could be multifactorial. Even if no evidence of active bleeding, IV PPI likely warranted. 4. SCLC. Given his significant tumor burden and being treated with the first cycle of chemotherapy only in the last week, he has risk for tumor lysis syndrome. Please keep him on allopurinol, monitor uric acid. 5. Renal insufficiency, unclear of acuity. See #4 above. 6. Transaminitis. Presumably from liver tumors. ALT, AST and alk phos actually improved since last admission. Thank you for allowing me to participate in the care of Mr. Soliman. Dr. Sheehan will be covering for next week. NICO ARAUJO MD Dec 22, 2019 16:01
[2019-12-22 16:02] LABS: CALCIUM 7.8 MG/DL (8.5-10.1)
[2019-12-22 16:03] LABS: TOTAL PROTEIN 4.8 GM/DL (6.4-8.2)
[2019-12-22 16:05] LABS: BILIRUBIN,TOTAL 0.5 MG/DL (0.1-1.0)
[2019-12-22 16:07] LABS: CREATININE SERUM 2.11 MG/DL (0.60-1.30)
[2019-12-22] MEDS ORDERED: NS IV 500 ML 500 ML IV SCH (16:15)
--- NOTE | 2019-12-22 16:30 | NUR ---
this nurse notified on patients hgb and hct. order received to type and screen for 2 units PRBC but to only give 1 unit of PRBC.
[2019-12-22] MEDS ORDERED: PANTOPRAZOLE 40 MG (PROTONIX) VIAL IV ONE (16:45)
[2019-12-22] MEDS ORDERED: VANCOMYCIN 2000 MG/NS 500 ML IVPB IV NR ×2 (17:00)
[2019-12-22] MEDS: SUCRALFATE 1 GM (CARAFATE) TAB PO SCH ×2 (17:10→20:56)
[2019-12-22] MEDS ORDERED: inSUlin ASPART (NovoLOG) 1 UNIT/0.01 ML (CHARGE PER UNIT) SQ SCH (18:00)
[2019-12-22] MEDS ORDERED: NS IV 500 ML 500 ML ONE (20:13)
[2019-12-22] MEDS: ALLOPURINOL 100 MG (ZYLOPRIM) TAB PO SCH (20:55)
[2019-12-22] MEDS ORDERED: NS (IVPB) 100 ML ONE (23:06)
[2019-12-22] MEDS ORDERED: PIPERACILLIN/TAZO 4.5 GM VIAL (ZOSYN) IV ONE (23:07)
[2019-12-22] MEDS: PIPERACILLIN/TAZOBACTAM (BULK) 4.5 GM in NS (IVPB) 100 ML IV SCH (23:58)
[2019-12-23] VITALS (19 sets, daily range): BP systolic 112–160; BP diastolic 61–99
[2019-12-23] MEDS: D5 1/2 NS 1000 ML IV SOLUTION 1,000 ML IV SCH ×3 (00:01→20:36)
[2019-12-23 02:49] LABS: BASOPHILS % (AUTO) 0 % (0-10); EOSINOPHILS % (AUTO) 2 % (0-10); HEMATOCRIT 21 % (40-54); LYMPHOCYTES # (AUTO) 0.5 X 10^3 (1.0-4.0); LYMPHOCYTES % (AUTO) 25 % (12-44); MEAN CORPUSCULAR HEMOGLOBIN 28 PG (25-34); MEAN CORPUSCULAR HGB CONC 32 G/DL (32-36); MEAN CORPUSCULAR VOLUME 88 FL (80-99); MEAN PLATELET VOLUME 9.7 FL (7.4-10.4); MONOCYTES % (AUTO) 2 % (0-12); NEUTROPHILS # (AUTO) 1.3 X 10^3 (1.8-7.8); NEUTROPHILS % (AUTO) 71 % (42-75); PLATELET COUNT 52 10^3/uL (130-400); RED CELL DISTRIBUTION WIDTH 16.5 % (10.0-14.5); WHITE BLOOD COUNT 1.9 10^3/uL (4.3-11.0)
[2019-12-23 02:52] LABS: HEMOGLOBIN 6.7 G/DL (13.3-17.7)
[2019-12-23 03:01] LABS: ALBUMIN 2.6 GM/DL (3.2-4.5)
[2019-12-23 03:03] LABS: CALCIUM 8.1 MG/DL (8.5-10.1)
[2019-12-23 03:04] LABS: TOTAL PROTEIN 5.1 GM/DL (6.4-8.2)
[2019-12-23 03:06] LABS: BILIRUBIN,TOTAL 1.1 MG/DL (0.1-1.0)
[2019-12-23 03:08] LABS: CREATININE SERUM 2.35 MG/DL (0.60-1.30)
[2019-12-23] MEDS ORDERED: MAGNESIUM 1 GM/100 ML IVPB 100 ML IV SCH (06:00)
[2019-12-23] MEDS ORDERED: KCL 20 MEQ TAB (K-DUR) PO SCH (06:00)
[2019-12-23] MEDS ORDERED: POTASSIUM CL 10MEQ/50ML IVPB 50 ML IV SCH (06:00)
--- NOTE | 2019-12-23 06:24 | Pulmonary Consultation ---
History of Present Illness History of Present Illness Date Seen by Provider: Dec 23, 2019 Time Seen by Provider: 06:21 Date of Admission Allergies and Home Medications Allergies Coded Allergies: No Known Drug Allergies (Unverified , 11/15/19) Home Medications Amlodipine Besylate 5 Mg Tablet, 5 MG PO DAILY, (Reported) Aspirin 81 Mg Tab.chew, 81 MG PO DAILY Prescribed by: BREANN BERTRAND on 12/06/19954 Clonidine HCl 0.1 Mg Tab.er.12h, 0.1 MG PO TID, (Reported) Clopidogrel Bisulfate 75 Mg Tablet, 75 MG PO DAILY Prescribed by: BREANN BERTRAND on 12/06/19954 Cyclobenzaprine HCl 10 Mg Tablet, 5-10 MG PO TID PRN for MUSCLE SPASMS, (Reported) Empagliflozin 10 Mg Tablet, 10 MG PO DAILY, (Reported) Hydrocodone/Acetaminophen 1 Each Tablet, 1 EA PO Q4 -6H PRN for PAIN-MODERATE (5-7) Prescribed by: BREANN BERTRAND on 12/06/19954 Insulin Aspart 100 Unit/1 Ml Susp, 0 UNIT SC ACHS Prescribed by: BREANN BERTRAND on 12/06/19954 Insulin Determir 1,000 Units/10 Ml Soln, 20 UNIT SQ DAILY Prescribed by: BREANN BERTRAND on 12/06/19954 Latanoprost 2.5 Ml Drops, 1 DROP OU HS, (Reported) Lisinopril 20 Mg Tablet, 20 MG PO DAILY, (Reported) Metoprolol Succinate 50 Mg Tab.er.24h, 50 MG PO DAILY Prescribed by: BREANN BERTRAND on 12/06/19954 Pantoprazole Sodium 40 Mg Tablet.dr, 40 MG PO BID Prescribed by: BREANN BERTRAND on 12/06/19 1417 Potassium Chloride 20 Meq Tablet.er, 20 MEQ PO DAILY Prescribed by: BREANN BERTRAND on 12/06/19954 Primidone 50 Mg Tablet, 50 MG PO HS Prescribed by: BREANN BERTRAND on 12/06/19954 Past Txhfzhj-Izcgze-Qwjybm Hx Immunizations Up To Date Date of Influenza Vaccine: Aug 02, 2019 Seasonal Allergies Seasonal Allergies: No Past Medical History Surgeries: No Respiratory: Yes (states breathing troubles started about 4 weeks ago and he is on home O2) COPD Cardiac: Yes Heart Attack Neurological: Yes TIA Reproductive Disorders: No Sexually Transmitted Disease: No HIV/AIDS: No Genitourinary: No Gastrointestinal: No Musculoskeletal: Yes Arthritis Endocrine: Yes (diagnosed appx 4 weeks ago) Diabetes, Non-Insulin dep HEENT: Yes Glaucoma Loss of Vision: Bilateral Hearing Impairment: Denies Cancer: Yes Bone, Lung Psychosocial: No Integumentary: No Blood Disorders: No Adverse Reaction/Blood Tranf: No Family Medical History Stroke Review of Systems Time Seen by Provider: 06:24 Sepsis Event Evaluation Height, Weight, BMI Height: '" Weight: lbs. oz. kg; 29.19 BMI Method: Exam Exam Vital Signs Date Time Temp Pulse Resp B/P (MAP) Pulse Ox O2 Delivery O2 Flow Rate FiO2 12/23/19 06:00 36.9 120 25 121/99 (106) 93 Nasal Cannula 3.00 12/23/19 05:00 37.0 108 20 112/77 (89) 98 Nasal Cannula 3.00 12/23/19 04:00 Nasal Cannula 3.00 12/23/19 04:00 37.0 105 24 140/71 (94) 97 Nasal Cannula 3.00 12/23/19 03:00 37.0 105 24 157/83 (107) 91 Nasal Cannula 3.00 12/23/19 02:00 37.0 115 20 134/93 (107) 90 Nasal Cannula 3.00 12/23/19 01:00 36.9 108 22 133/75 (94) 92 Nasal Cannula 3.00 12/23/19 01:00 108 12/23/19 00:00 Nasal Cannula 3.00 12/23/19 00:00 36.9 107 22 160/77 (104) 92 Nasal Cannula 3.00 12/22/19 23:15 36.8 102 24 181/85 92 Nasal Cannula 3.00 12/22/19 23:00 36.7 102 21 151/80 (103) 93 Nasal Cannula 3.00 12/22/19 22:00 36.6 105 22 171/85 (113) 93 Nasal Cannula 3.00 12/22/19 21:05 36.6 100 20 105/95 92 Nasal Cannula 3.00 12/22/19 21:00 Nasal Cannula 3.00 12/22/19 21:00 36.6 105 27 171/85 (113) 93 Nasal Cannula 3.00 12/22/19 20:50 36.6 102 20 123/55 91 Nasal Cannula 3.00 12/22/19 20:00 36.8 102 19 132/95 (107) 92 12/22/19 20:00 Nasal Cannula 3.00 12/22/19 19:46 Nasal Cannula 4.00 12/22/19 19:00 103 12/22/19 19:00 36.4 103 21 170/85 (113) 93 Nasal Cannula 3.00 12/22/19 13:39 Nasal Cannula 1.00 12/22/19 13:28 90 I & O 12/23/19 07:00 Intake Total 550 ml Output Total 1000 ml Balance -450 ml Height & Weight Height: '" Weight: lbs. oz. kg; 29.19 BMI Method: Capillary Refill: Less Than 3 Seconds Results Lab Laboratory Tests 12/22/19 15:28 12/23/19 02:40 Assessment/Plan Assessment/Plan Sepsis -IVF -Pt is full code HCAP -Dowling cultures pending -Continue Abx Anemia s/p 1 unit of PRBC -Transfuse another unit of PRBC Chronic Hypoxic Respiratory Failure Continue on Vanc and Zosyn cultures pending COVID pending hypoglcyemia with Hypothermia- improved Likely due to hypoglycemia Continue D51/2NS Metastatic Lung Cancer -Hemeonc following Pancytopenia Last chemo was 12/17, third round RAMONA SORIANO DO Dec 23, 2019 06:24
--- NOTE | 2019-12-23 07:26 | Diagnostic Imaging Report ---
INDICATION: Shortness of breath. COMPARISON: 12/02/2019 FINDINGS: Single view of the chest demonstrates stable infiltrates in the left hilum. The previously described known lung mass is not well demonstrated on this series. There is stable small effusion of the left base. The right lung is clear. There is no pneumothorax. The heart size is stable. No overt pulmonary edema. IMPRESSION: 1. Stable left hilar infiltrates with small basilar effusion. 2. No pneumothorax. Followup recommended. Dictated by: Dictated on workstation # [id number]
[2019-12-23] MEDS ORDERED: NS IV 500 ML 500 ML IV SCH (07:30)
[2019-12-23] MEDS: PIPERACILLIN/TAZOBACTAM (BULK) 4.5 GM in NS (IVPB) 100 ML IV SCH ×3 (08:40→21:00)
[2019-12-23] MEDS: SUCRALFATE 1 GM (CARAFATE) TAB PO SCH ×4 (08:43→20:42)
[2019-12-23] MEDS: ALLOPURINOL 100 MG (ZYLOPRIM) TAB PO SCH ×3 (08:59→20:42)
[2019-12-23] MEDS ORDERED: PANTOPRAZOLE 40 MG (PROTONIX) VIAL IV SCH (09:00)
[2019-12-23] MEDS ORDERED: FUROSEMIDE 40 MG/4 ML INJ (LASIX) ONE (11:58)
[2019-12-23 12:00] LABS: ABG BASE EXCESS 5.1 MMOL/L (-2.5-2.5); ABG OXYGEN SATURATION 93 % (94-100); ABG PCO2 37 MMHG (35-45); ABG PO2 65 MMHG (79-93); ABG TCO2 29.6 MMOL/L (21.0-31.0)
[2019-12-23 12:01] LABS: ALLENS TEST YES-POS; INSPIRED O2 3 L; PATIENT TEMP 36.9; VENTILATOR NO
[2019-12-23] MEDS ORDERED: FUROSEMIDE 40 MG/4 ML INJ (LASIX) IVP ONE (12:15)
[2019-12-23] MEDS: RT-ALBUTEROL HFA (PROAIR HFA) 8.5 GM IH SCH ×2 (14:34→19:14)
--- NOTE | 2019-12-23 16:54 | Progress Note - Hospitalist ---
Subjective HPI/CC On Admission Date Seen by Provider: Dec 23, 2019 Time Seen by Provider: 11:55 Pt is a 69yoCM with a H metastatic lung cancer, CAD, IDDMI who presented to an outside ER due to hypoglycemia and altered mental status. He was given increased insulin dose for hyperglycemia at his [facility] last night. In the morning he was found to be altered by the staff at the [facility] and his blood sugar was check and read as Low. Despite oral glucose x2 at the MI and D50 by EMS hisblood sugar still read at low at the OSH ER. He was started on continuous D10 and blood sugar was stabilized in the 100s. He was also found to be hypothermic with a temperature of 90.6 but responded to external warming with bairhugger and warmed fluids. His temperature improved as did his mentation. CXR revealed bilateral pneumonia. COVID19 testing was done at OSH. He reports feeling much better now and his mentation is improved but he is drowsy. He is on minimal oxygen now. He was found to be quite anemic and had just received chemo (3rd round) on 12/17. Subjective/Events-last exam he is lying in bed this morning. He is been eating a Popsicle. He denies any fevers or chills. He denies any shortness of breath. He has a cough. He denies any abdominal pain. He denies any nausea or vomiting. Focused Exam Lactate Level 12/22/19 15:28: Lactic Acid Level 1.64 Objective Exam Vital Signs Vital Signs Date Time Temp Pulse Resp B/P (MAP) Pulse Ox O2 Delivery O2 Flow Rate FiO2 12/23/19 16:00 Nasal Cannula 3.00 12/23/19 16:00 37.1 103 17 127/61 (83) 90 Capillary Refill : Less Than 3 Seconds General Appearance: No Apparent Distress, Chronically ill Respiratory: No Respiratory Distress, Crackles, Decreased Breath Sounds Cardiovascular: No Murmur, Tachycardia Gastrointestinal: Normal Bowel Sounds, Non Tender, Soft Extremity: Non Tender, Swelling, Other (4+ pitting edema in bilateral upper and lower extremities) Neurologic/Psychiatric: Alert, No Motor/Sensory Deficits, Normal Mood/Affect Skin: Normal Color, Warm/Dry Results/Procedures Lab Laboratory Tests 12/23/19 02:40 Patient resulted labs reviewed. Imaging: Reviewed Imaging Report Assessment/Plan Assessment and Plan Assess & Plan/Chief Complaint Sepsis HCAP Chronic Hypoxic Respiratory Failure Continue on Vanc and Zosyn Await cultures from OSH COVID pending Wean oxygen as tolerated Metastatic Lung Cancer Pancytopenia hemoglobin 6.7, 2 units PRBC ordered Received chemo on 12/17, third round Dr Ledesma consulted, appreciate recs Recent bleeding gastric ulcers continue IV PPI Anasarca Lasix assess response for possible re-dosing tomorrow CAD troponin 0.1 on admission, trended down significantly from prior admission CKD stage 3 At his baseline Continue fluids T2DM sliding scale insulin DVT prophylaxis: held due to recent major bleeding Hypothermia, resolved Hypoglycemia, resolved Diagnosis/Problems Diagnosis/Problems (1) Sepsis (2) Acute on chronic respiratory failure with hypoxia Status: Acute (3) Metastatic lung cancer (metastasis from lung to other site) Status: Chronic (4) CAP (community acquired pneumonia) Status: Acute (5) T2DM (type 2 diabetes mellitus) Status: Acute Clinical Quality Measures DVT/VTE Risk/Contraindication: Risk Factor Score Per Nursin RFS Level Per Nursing on Admit: 4+=Very High RAMIRO ALEJANDRA MD Dec 23, 2019 16:54
[2019-12-23] MEDS ORDERED: VANCOMYCIN INJECTION 1,500 MG in NS IV 500 ML 500 ML IV SCH (17:00)
[2019-12-23] MEDS ORDERED: inSUlin ASPART (NovoLOG) 1 UNIT/0.01 ML (CHARGE PER UNIT) ONE (17:29)
[2019-12-23] MEDS: inSUlin ASPART (NovoLOG) 1 UNIT/0.01 ML (CHARGE PER UNIT) SC SCH ×2 (17:37→20:45)
[2019-12-23] MEDS: ADVAIR HFA 115/21 MCG INHALER 8 GM IH SCH (19:15)
[2019-12-24] VITALS (39 sets, daily range): BP systolic 79–169; BP diastolic 41–110
[2019-12-24 03:11] LABS: BASOPHILS % (AUTO) 0 % (0-10); EOSINOPHILS % (AUTO) 4 % (0-10); LYMPHOCYTES # (AUTO) 0.3 X 10^3 (1.0-4.0); LYMPHOCYTES % (AUTO) 58 % (12-44); MEAN CORPUSCULAR HEMOGLOBIN 29 PG (25-34); MEAN CORPUSCULAR HGB CONC 33 G/DL (32-36); MEAN CORPUSCULAR VOLUME 88 FL (80-99); MEAN PLATELET VOLUME 10.8 FL (7.4-10.4); MONOCYTES % (AUTO) 2 % (0-12); NEUTROPHILS # (AUTO) 0.2 X 10^3 (1.8-7.8); NEUTROPHILS % (AUTO) 35 % (42-75); RED CELL DISTRIBUTION WIDTH 16.2 % (10.0-14.5)
[2019-12-24 03:20] LABS: ALBUMIN 2.5 GM/DL (3.2-4.5); WHITE BLOOD COUNT 0.5 10^3/uL (4.3-11.0)
[2019-12-24 03:21] LABS: HEMATOCRIT 19 % (40-54); HEMOGLOBIN 6.2 G/DL (13.3-17.7); PLATELET COUNT 26 10^3/uL (130-400); POTASSIUM 4.4 MMOL/L (3.6-5.0)
[2019-12-24 03:22] LABS: CALCIUM 7.7 MG/DL (8.5-10.1)
[2019-12-24] MEDS ORDERED: NS IV 500 ML 500 ML ONE (03:22)
[2019-12-24 03:23] LABS: TOTAL PROTEIN 4.6 GM/DL (6.4-8.2)
[2019-12-24 03:25] LABS: BILIRUBIN,TOTAL 0.9 MG/DL (0.1-1.0)
[2019-12-24 03:27] LABS: CREATININE SERUM 2.6 MG/DL (0.60-1.30)
[2019-12-24] MEDS ORDERED: NS IV 500 ML 500 ML IV SCH (03:30)
[2019-12-24] MEDS: MAGNESIUM 1 GM/100 ML IVPB 100 ML IV SCH (03:55)
[2019-12-24] MEDS: KCL 20 MEQ TAB (K-DUR) PO SCH (03:55)
[2019-12-24] MEDS: POTASSIUM CL 10MEQ/50ML IVPB 50 ML IV SCH (03:55)
[2019-12-24 04:09] LABS: PHOSPHORUS 4.7 MG/DL (2.3-4.7)
[2019-12-24 04:10] LABS: MAGNESIUM 1.9 MG/DL (1.6-2.4)
--- NOTE | 2019-12-24 04:46 | NUR ---
0430 patient having respiratory distress with increased work of breathing, decreased oxygen saturation of 76%, increased resp rate, increased heart rate. Increased patient oxygen rate flush with oxy mask, ABG obtained. 0440 RT in the room and patient placed on BIPAP. 0445 Dr Michaels in the room, patient condition much improved at this time. 0445 patient oxygen level 97%, hr 105, rr 20.
[2019-12-24 04:50] LABS: ABG BASE EXCESS 2.2 MMOL/L (-2.5-2.5); ABG OXYGEN SATURATION 90 % (94-100); ABG PCO2 49 MMHG (35-45); ABG PH 7.36 (7.37-7.43); ABG PO2 63 MMHG (79-93); ABG TCO2 28.7 MMOL/L (21.0-31.0)
[2019-12-24 04:51] LABS: ALLENS TEST POSITIVE; INSPIRED O2 60; PATIENT TEMP 36.9; VENTILATOR NO
--- NOTE | 2019-12-24 05:30 | Pulmonary Progress Note ---
Subjective Time Seen by a Provider: 05:37 Subjective/Events-last exam Pt went into respiratory distress last night. Sepsis Event Evaluation Height, Weight, BMI Height: '" Weight: lbs. oz. kg; 29.19 BMI Method: Focused Exam Lactate Level 12/22/19 15:28: Lactic Acid Level 1.64 Exam Exam Vital Signs Date Time Temp Pulse Resp B/P (MAP) Pulse Ox O2 Delivery O2 Flow Rate FiO2 12/24/19 05:11 37.0 93 16 149/79 100 NIV Bilevel 50 12/24/19 05:00 36.9 99 17 160/78 (105) 99 NIV Bilevel 50.00 12/24/19 04:47 108 21 96 50.00 12/24/19 04:45 36.9 106 21 149/79 (102) 97 NIV Bilevel 50.00 12/24/19 04:45 NIV Bilevel 50.00 12/24/19 04:40 NIV Bilevel 60.00 12/24/19 04:00 36.9 105 18 148/75 93 Nasal Cannula 5.00 12/24/19 04:00 36.9 103 19 169/75 (106) 93 Nasal Cannula 5.00 12/24/19 03:45 36.9 101 22 126/79 94 Nasal Cannula 5.00 12/24/19 03:20 92 Nasal Cannula 5.00 12/24/19 03:04 37.0 103 19 90 Nasal Cannula 5.00 12/24/19 03:00 37.0 99 32 126/79 (95) 90 OxyMask 3.00 12/24/19 02:00 36.8 91 16 159/72 (101) 95 OxyMask 3.00 12/24/19 01:00 93 12/24/19 01:00 37.0 93 18 161/66 (97) 95 OxyMask 3.00 12/24/19 00:00 36.9 93 16 166/65 (98) 97 OxyMask 3.00 12/23/19 23:15 96 OxyMask 3.00 12/23/19 23:00 36.9 98 23 159/61 (93) 96 OxyMask 3.00 12/23/19 22:00 37.0 102 20 151/71 (97) 99 OxyMask 3.00 12/23/19 21:00 37.2 111 14 138/74 (95) OxyMask 3.00 12/23/19 20:15 37.2 100 19 153/68 (96) 96 OxyMask 3.00 12/23/19 20:00 94 OxyMask 3.00 12/23/19 19:45 37.2 104 20 160/68 (98) 94 OxyMask 3.00 12/23/19 19:15 94 OxyMask 3.00 12/23/19 19:14 94 OxyMask 3.00 12/23/19 19:00 37.2 112 23 148/77 (100) 96 Nasal Cannula 3.00 12/23/19 19:00 112 12/23/19 16:00 Nasal Cannula 3.00 12/23/19 16:00 37.1 103 17 127/61 (83) 90 Nasal Cannula 3.00 12/23/19 14:37 96 Nasal Cannula 3.00 12/23/19 13:00 102 12/23/19 12:00 Nasal Cannula 3.00 12/23/19 12:00 37.0 111 28 120/79 (93) 96 Nasal Cannula 3.00 12/23/19 11:15 36.9 101 21 120/79 98 12/23/19 09:04 36.8 107 17 135/74 98 Nasal Cannula 3.00 12/23/19 09:00 Nasal Cannula 3.00 12/23/19 08:49 36.8 100 20 124/76 100 Nasal Cannula 3.00 12/23/19 08:15 36.8 92 19 124/76 (92) 100 Nasal Cannula 3.00 12/23/19 08:00 Nasal Cannula 3.00 12/23/19 06:42 103 12/23/19 06:00 36.9 120 25 121/99 (106) 93 Nasal Cannula 3.00 I & O 12/24/19 07:00 Intake Total 3125 ml Output Total 2725 ml Balance 400 ml Height & Weight Height: '" Weight: lbs. oz. kg; 29.19 BMI Method: General Appearance: Anxious, Chronically ill, Mild Distress HEENT: PERRL/EOMI; No Scleral Icterus (L), No Scleral Icterus (R) Neck: Normal Inspection, Supple Respiratory: No Respiratory Distress, Crackles, Decreased Breath Sounds Cardiovascular: No Murmur, Tachycardia Capillary Refill: Less Than 3 Seconds Gastrointestinal: non tender, soft Extremity: Non Tender, Swelling, Other (4+ pitting edema in bilateral upper and lower extremities) Neurologic/Psychiatric: Alert, No Motor/Sensory Deficits, Normal Mood/Affect Skin: Normal Color, Warm/Dry Results Lab Laboratory Tests 12/22/19 15:28 12/23/19 02:40 12/24/19 03:00 Assessment/Plan Assessment/Plan Acute respiratory failure -CXR is pending -Currently on BiPAP -Obtain PICC line HCAP with sepsis -Dowling cultures pending -Continue Abx Vanc and Zosyn -COVID negative Anemia s/p 3 unit of PRBC with hx of bleeding ulcers -Increase protonix to BID -Check Coags -Transfuse another unit of PRBC -Secondary to active bleeding will transfuse platelets -Consult Dr. Bales Chronic Hypoxic Respiratory Failure Continue on cultures pending Metastatic Lung Cancer -Hemeonc following Acute renal failure -IVF Hyperkalemia -GIve insulin, bicarb, calcium gluconate, -Monitor Neutropenia -Isolation Pancytopenia Last chemo was 12/17, third round RAMONA SORIANO DO Dec 24, 2019 05:30
[2019-12-24] MEDS: PANTOPRAZOLE 40 MG (PROTONIX) VIAL IV SCH ×3 (05:40→20:51)
[2019-12-24] MEDS: inSUlin ASPART (NovoLOG) 1 UNIT/0.01 ML (CHARGE PER UNIT) SC SCH ×4 (05:44→20:51)
[2019-12-24] MEDS: SUCRALFATE 1 GM (CARAFATE) TAB PO SCH ×4 (05:44→20:51)
--- NOTE | 2019-12-24 06:18 | Diagnostic Imaging Report ---
INDICATION: Follow-up. Sepsis. COMPARISON: 12/23/2019 FINDINGS: Single frontal radiographic view of the chest was obtained and demonstrates stable [id number] left basilar effusion and associated infiltrate within the left mid and lower lung field. Mild alveolar opacity is also noted within the medial right lung base and is suspicious for infiltrate as well. There is no large effusion on the right. No pneumothorax seen on either side. Cardiac silhouette and pulmonary vasculature are stable. Right subclavian Port-A-Cath is in stable position. IMPRESSION: 1. Stable exam of the chest showing small left effusion and bibasilar infiltrate appearing opacities, left greater than right. Continued follow-up is advised. Dictated by: Dictated on workstation # [id number]
[2019-12-24 06:27] LABS: INR 1.2 (0.8-1.4); PROTHROMBIN TIME PATIENT 15.7 SEC (12.2-14.7)
[2019-12-24] MEDS: PIPERACILLIN/TAZOBACTAM (BULK) 4.5 GM in NS (IVPB) 100 ML IV SCH ×3 (06:28→21:02)
[2019-12-24] MEDS: RT-ALBUTEROL HFA (PROAIR HFA) 8.5 GM IH SCH ×4 (07:07→18:30)
[2019-12-24] MEDS: ADVAIR HFA 115/21 MCG INHALER 8 GM IH SCH ×2 (07:08→18:30)
[2019-12-24] MEDS: ALLOPURINOL 100 MG (ZYLOPRIM) TAB PO SCH ×3 (08:57→20:51)
--- NOTE | 2019-12-24 12:39 | Progress Note ---
Standard Progress Note Progress Notes/Assess & Plan Date Seen by a Provider: Dec 24, 2019 Time Seen by a Provider: 12:35 Progress/Assessment & Plan 69-year-old male with extensive stage small cell lung cancer who completed first course of chemotherapy with ouzinkie and etoposide last week. Admitted to the hospital with hypoglycemia and hypothermia. Patient has recent history of GI bleeding. Currently pancytopenic and received PRBCs and platelet transfusion today. ANC 0.2 today when compared to 1.3 yesterday. On broad-spectrum antibiotics because of sepsis syndrome. We will start the patient on Granix 480 g subcutaneous daily until ANC more than 10,000. Monitor CBC daily. Will follow patient with you. Focused Exam Lactate Level 12/22/19 15:28: Lactic Acid Level 1.64 MATTEO ELLER Dec 24, 2019 12:38
--- NOTE | 2019-12-24 12:46 | Progress Note - Hospitalist ---
Subjective HPI/CC On Admission Date Seen by Provider: Dec 24, 2019 Time Seen by Provider: 10:30 Pt is a 69yoCM with a H metastatic lung cancer, CAD, IDDMI who presented to an outside ER due to hypoglycemia and altered mental status. He was given increased insulin dose for hyperglycemia at his [facility] last night. In the morning he was found to be altered by the staff at the [facility] and his blood sugar was check and read as Low. Despite oral glucose x2 at the MI and D50 by EMS hisblood sugar still read at low at the OSH ER. He was started on continuous D10 and blood sugar was stabilized in the 100s. He was also found to be hypothermic with a temperature of 90.6 but responded to external warming with bairhugger and warmed fluids. His temperature improved as did his mentation. CXR revealed bilateral pneumonia. COVID19 testing was done at OSH. He reports feeling much better now and his mentation is improved but he is drowsy. He is on minimal oxygen now. He was found to be quite anemic and had just received chemo (3rd round) on 12/17. Subjective/Events-last exam he reports feeling okay this morning. He is wearing BiPAP. He denies feeling short of breath at this time. He denies having any fevers. He denies being in any pain. We discussed his CODE STATUS and he was in agreement that if his heart stops we should not perform any resuscitative measures. He will be transitioned to DO NOT RESUSCITATE. He like to think about whether or not he would like to be intubated if it comes to that. Focused Exam Lactate Level 12/22/19 15:28: Lactic Acid Level 1.64 Objective Exam Vital Signs Vital Signs Date Time Temp Pulse Resp B/P (MAP) Pulse Ox O2 Delivery O2 Flow Rate FiO2 12/24/19 12:00 89 15 137/100 (112) 100 NIV Bilevel 30.00 12/24/19 11:23 36.5 30 Capillary Refill : Less Than 3 Seconds General Appearance: No Apparent Distress, Obese, Other (wearing BiPAP) Respiratory: Lungs Clear, No Respiratory Distress, Other (wearing BiPAP) Cardiovascular: Regular Rate, Rhythm, No Murmur Gastrointestinal: Normal Bowel Sounds, Non Tender, Soft Extremity: Inflammation, Swelling (bilateral upper and lower extremities) Neurologic/Psychiatric: Alert, No Motor/Sensory Deficits, Normal Mood/Affect Skin: Normal Color, Other (bilateral lower extremity wounds) Results/Procedures Lab Laboratory Tests 12/24/19 03:00 Patient resulted labs reviewed. Imaging: Reviewed Imaging Report Assessment/Plan Assessment and Plan Assess & Plan/Chief Complaint Sepsis HCAP acute on chronic respiratory failure with hypoxia Started on BiPAP Continue Vanc and Zosyn Await cultures from OSH COVID negative Metastatic Lung Cancer Pancytopenia hemoglobin 6.2, platelets 26 Transfusions ordered Received chemo on 12/17, third round oncology consulted, appreciate recs Recent bleeding gastric ulcers continue IV PPI Anasarca holding off on further Lasix at this time Continue to reassess daily CAD troponin 0.1 on admission, trended down significantly from prior admission CKD stage 3 At baseline Continue fluids T2DM sliding scale insulin DVT prophylaxis: held due to recent major bleeding Hypothermia, resolved Hypoglycemia, resolved Diagnosis/Problems Diagnosis/Problems (1) Sepsis Status: Acute (2) Acute on chronic respiratory failure with hypoxia Status: Acute (3) Metastatic lung cancer (metastasis from lung to other site) Status: Chronic (4) CAP (community acquired pneumonia) Status: Acute (5) T2DM (type 2 diabetes mellitus) Status: Acute Clinical Quality Measures DVT/VTE Risk/Contraindication: Risk Factor Score Per Nursin RFS Level Per Nursing on Admit: 4+=Very High RAMIRO ALEJANDRA MD Dec 24, 2019 12:46
[2019-12-24 13:02] LABS: BASOPHILS % (AUTO) 0 % (0-10); EOSINOPHILS % (AUTO) 6 % (0-10); HEMATOCRIT 21 % (40-54); LYMPHOCYTES # (AUTO) 0.3 X 10^3 (1.0-4.0); LYMPHOCYTES % (AUTO) 71 % (12-44); MEAN CORPUSCULAR HEMOGLOBIN 29 PG (25-34); MEAN CORPUSCULAR HGB CONC 33 G/DL (32-36); MEAN CORPUSCULAR VOLUME 88 FL (80-99); MEAN PLATELET VOLUME 9.2 FL (7.4-10.4); MONOCYTES % (AUTO) 0 % (0-12); NEUTROPHILS # (AUTO) 0.1 X 10^3 (1.8-7.8); NEUTROPHILS % (AUTO) 23 % (42-75); RED CELL DISTRIBUTION WIDTH 15.7 % (10.0-14.5)
[2019-12-24 13:07] LABS: HEMOGLOBIN 6.9 G/DL (13.3-17.7); PLATELET COUNT 37 10^3/uL (130-400); WHITE BLOOD COUNT 0.4 10^3/uL (4.3-11.0)
[2019-12-24] MEDS ORDERED: POTA-51 PO (13:10)
[2019-12-24] MEDS ORDERED: ZOLP5TAB PO (13:10)
[2019-12-24] MEDS ORDERED: PANT40TA3 PO (13:10)
[2019-12-24] MEDS ORDERED: ASPI-999 PO (13:10)
[2019-12-24] MEDS ORDERED: HYDR-83 PO (13:10)
[2019-12-24] MEDS ORDERED: CLOP75TA69 PO (13:10)
[2019-12-24] MEDS ORDERED: METO50TA7 PO (13:10)
[2019-12-24] MEDS ORDERED: CHOL500049 PO (13:10)
[2019-12-24] MEDS ORDERED: INSU100I14 SQ ×2 (13:10)
[2019-12-24] MEDS ORDERED: BUME2TAB7 PO (13:10)
[2019-12-24] MEDS ORDERED: PRIM50TA33 PO (13:10)
[2019-12-24] MEDS ORDERED: ONDA8TAB6 PO (13:10)
[2019-12-24] MEDS ORDERED: INSU100I29 SC (13:10)
--- NOTE | 2019-12-24 13:15 | NUR ---
I ENTERED THE MED REC USING THE ORDER SUMMARY REPORT FROM [facility] IN [place]
[2019-12-24 13:32] LABS: BAND NEUTROPHILS 0 %; LYMPHOCYTES % (MANUAL) 80 %; NEUTROPHILS % (MANUAL) 16 %
[2019-12-24 13:33] LABS: ANISOCYTOSIS SLIGHT; BASOPHILS % (MANUAL) 0 %; EOSINOPHILS % (MANUAL) 4 %; MICROCYTOSIS SLIGHT; MONOCYTES % (MANUAL) 0 %
--- NOTE | 2019-12-24 13:37 | NUR ---
JOSE WITH WOUND CARE ASSESSED PATIENT COCCYX AT THIS TIME, WITH THIS NURSE. DRESSING CHANGED, CARLEEN ET BARRIER CREAM.
[2019-12-24] MEDS: TBO-FILGRASTIM 480 MCG/0.8 ML (GRANIX) SQ SCH (15:22)
--- NOTE | 2019-12-24 15:58 | Wound Care Assessment ---
Wound Care Assessment Date Seen by Provider: Dec 24, 2019 Time Seen by Provider: 15:49 Chief Complaint Bilateral leg swelling. HPI The patient is a 69 year old male with complicated recent clinical course, noted to have in place Unna Boot-like dressings on BLE, and a history of BLE swelling. The patient is currently in no distress. The dressings are removed and the legs examined. No venous ulcer present. There are a few, scattered small blisters, in various stages of healing. These are most likely secondary to his multiple co-morbidities and the resultant lymphedema related to fluid status, CHF, and renal function. These do not require any specific dressing. he has a history, according to nursing staff, of cyanosis of the toes. I would avoid compression in the future, especially in view of recent cardiovascular instability. I will sign off, and see again if there is a deterioration of the status of these wounds. Past Medical History: Admits Diabetes Type I, Admits Heart Disease, Admits M yocardial Infarction, Admits Cancer, Treaments (Metastatic small cell carcinoma of the lung, received Cycle 1 chemotherapy 12/16/19 - 12/18/19.) Smoking Status: Former Smoker Review of Systems Musculoskeletal: No: leg pain Exam Vital Signs Date Time Temp Pulse Resp B/P (MAP) Pulse Ox O2 Delivery O2 Flow Rate FiO2 12/24/19 14:00 36.5 87 23 125/78 (94) 100 NIV Bilevel 30.00 12/24/19 11:23 30 Capillary Refill : Less Than 3 Seconds General Appearance: no apparent distress Extremities: other (Scattered, small, healing, superficial blisters BLE. Both legs show stigmata of chronic venous insufficiency, without any apparent acute inflammation.) Results Laboratory Tests 12/23/19 17:31: Glucometer 348H 12/23/19 20:44: Glucometer 347H 12/24/19 03:00: White Blood Count 0.5*L, Red Blood Count 2.14L, Hemoglobin 6.2*L, Hematocrit 19*L, Mean Corpuscular Volume 88, Mean Corpuscular Hemoglobin 29, Mean Corpuscular Hemoglobin Concent 33, Red Cell Distribution Width 16.2H, Platelet Count 26*L, Mean Platelet Volume 10.8H, Neutrophils (%) (Auto) 35L, Lymphocytes (%) (Auto) 58H, Monocytes (%) (Auto) 2, Eosinophils (%) (Auto) 4, Basophils (%) (Auto) 0, Neutrophils # (Auto) 0.2L, Lymphocytes # (Auto) 0.3L, Monocytes # (Auto) 0.0, Eosinophils # (Auto) 0.0, Basophils # (Auto) 0.0, Sodium Level 144, Potassium Level 4.4, Chloride Level 106, Carbon Dioxide Level 26, Anion Gap 12, Blood Urea Nitrogen 71H, Creatinine 2.60H, Estimat Glomerular Filtration Rate 25, BUN/Creatinine Ratio 27, Glucose Level 297H, Calcium Level 7.7L, Corrected Calcium 8.9, Phosphorus Level 4.7, Magnesium Level 1.9, Total Bilirubin 0.9, Aspartate Amino Transf (AST/SGOT) 130H, Alanine Aminotransferase (ALT/SGPT) 124H , Alkaline Phosphatase 243H, Total Protein 4.6L, Albumin 2.5L 12/24/19 04:44: Blood Gas Puncture Site RIGHT RADIAL, Blood Gas Patient Temperature 36.9, Arter ial Blood pH 7.36L, Arterial Blood Partial Pressure CO2 49H, Arterial Blood Partial Pressure O2 63L, Arterial Blood HCO3 27, Arterial Blood Total CO2 28.7, Arterial Blood Oxygen Saturation 90L, Arterial Blood Base Excess 2.2, Martinez Test POSITIVE, Blood Gas Ventilator Setting NO, Blood Gas Inspired Oxygen 60 12/24/19 05:42: Glucometer 308H 12/24/19 06:00: Prothrombin Time 15.7H, INR Comment 1.2, Activated Partial Thromboplast Time 35 12/24/19 11:11: Lab Scanned Report Transfusion Reaction Form 12/24/19 11:30: Glucometer 253H 12/24/19 12:50: White Blood Count 0.4*L, Red Blood Count 2.38L, Hemoglobin 6.9*L, Hematocrit 21L , Mean Corpuscular Volume 88, Mean Corpuscular Hemoglobin 29, Mean Corpuscular Hemoglobin Concent 33, Red Cell Distribution Width 15.7H, Platelet Count 37*L, Mean Platelet Volume 9.2, Neutrophils (%) (Auto) 23L, Lymphocytes (%) (Auto) 71H , Monocytes (%) (Auto) 0, Eosinophils (%) (Auto) 6, Basophils (%) (Auto) 0, Neutrophils # (Auto) 0.1L, Lymphocytes # (Auto) 0.3L, Monocytes # (Auto) 0.0, Eosinophils # (Auto) 0.0, Basophils # (Auto) 0.0, Neutrophils % (Manual) 16, Lymphocytes % (Manual) 80, Monocytes % (Manual) 0, Eosinophils % (Manual) 4, Basophils % (Manual) 0, Band Neutrophils 0, Anisocytosis SLIGHT, Microcytosis SLIGHT Microbiology 12/22/19 MRSA Screen - Final, Complete MRSA not isolated Assessment/Plan/Dx 1. Healing superficial blisters bilateral lower extremities, not requiring specific dressings. 2. History of cyanosis of toes, would avoid leg compression. 3. History of BLE venous insufficiency, with no current inflammation. Plan: May dress with dry gauze as needed, elevate legs as tolerated, avoid compression BLE, will sign off. SUNNY JUÁREZ MD Dec 24, 2019 15:58
--- NOTE | 2019-12-24 16:42 | Consultation - Surgery ---
History of Present Illness History of Present Illness Patient Consulted On(jerri/time) 12/24/19 16:37 Time Seen by Provider: 12:53 History of Present Illness Surgery asked to consult regarding anemia. HPI per IM: Pt is a 69yoCM with a PMH metastatic lung cancer, CAD, IDDMI who presented to an outside ER due to hypoglycemia and altered mental status. He was given increased insulin dose for hyperglycemia at his sn[facility] last night. In the morning he was found to be altered by the staff at the snf and his blood sugar was check and read as Low. Despite oral glucose x2 at the ID and D50 by EMS hisblood sugar still read at low at the OSH ER. He was started on continuous D10 and blood sugar was stabilized in the 100s. He was also found to be hypothermic with a temperature of 90.6 but responded to external warming with bear hugger and warmed fluids. His temperature improved as did his mentation. CXR revealed bilateral pneumonia. COVID19 testing was done at OSH. He reports feeling much better now and his mentation is improved but he is drowsy. He is on minimal oxygen now. He was found to be quite anemic and had just received chemo (3rd round) on 12/17. When I spoke to pt this afternoon he was on CPAP and had just signed DNR and DNI orders. Pt is known to me; I did EGD and Colonoscopy during last visit for Anemia, Melena and Hemoccult + stool. I also placed a Yanick-cath for IV access during last admission. At that time I found multiple ulcers in his stomach; none actively bleeding but there was some old blood in the stomach. Unfortunately, he has metastatic Lung CA. He complains of weakness today and seemed to recognize me. Allergies and Home Medications Allergies Coded Allergies: No Known Drug Allergies (Unverified , 11/15/19) Home Medications Amlodipine Besylate 5 Mg Tablet, 5 MG PO DAILY, (Reported) HOLD FOR BP <100/50 OR PULSE <60 Aspirin 81 Mg Tab.chew, 81 MG PO DAILY, (Reported) Bumetanide 2 Mg Tablet, 2 MG PO BID, (Reported) Cholecalciferol (Vitamin D3) 1,250 Mcg Capsule, 1,250 MCG PO MONDAY, (Reported) Clonidine HCl 0.1 Mg Tab.er.12h, 0.1 MG PO TID, (Reported) HOLD FOR BP <100/50 OR PULSE <60 Clopidogrel Bisulfate 75 Mg Tablet, 75 MG PO DAILY, (Reported) Cyclobenzaprine HCl 10 Mg Tablet, 5 MG PO Q8H PRN for MUSCLE SPASMS, (Reported) TAKES OF A 10MG TAB Hydrocodone/Acetaminophen 1 Each Tablet, 1 EACH PO Q4H PRN for PAIN-MODERATE (5- 7), (Reported) Insulin Aspart 300 Units/3 Ml Solution, 10 UNITS SQ DAILY, (Reported) Insulin Aspart 300 Units/3 Ml Solution, UNITS SQ UD, (Reported) USE PER SLIDING SCALE Insulin Detemir 100 Unit/1 Ml Insuln.pen, 20 UNIT SC HS, (Reported) Latanoprost 2.5 Ml Drops, 1 DROP OU HS, (Reported) Lisinopril 20 Mg Tablet, 20 MG PO DAILY, (Reported) HOLD FOR BP <100/50 OR PULSE <60 Metoprolol Succinate 50 Mg Tab.er.24h, 50 MG PO DAILY, (Reported) HOLD IF BP <100/50 [place] PULSE <60 Ondansetron HCl 8 Mg Tablet, 8 MG PO Q8H PRN for NAUSEA/VOMITING-1ST LINE, (Reported) Pantoprazole Sodium 40 Mg Tablet.dr, 40 MG PO BID, (Reported) Potassium Chloride 20 Meq Tablet.er, 40 MEQ PO QID, (Reported) Primidone 50 Mg Tablet, 50 MG PO HS, (Reported) Zolpidem Tartrate 5 Mg Tablet, 5 MG PO HS, (Reported) Patient Home Medication List Home Medication List Reviewed: Yes Past Syvptbt-[id number]-Bjznwv Hx Patient Social History Alcohol Use: Past History Smoking Status: Former Smoker Immunizations Up To Date Date of Influenza Vaccine: Aug 02, 2019 Seasonal Allergies Seasonal Allergies: No Surgeries History of Surgeries: No Respiratory History of Respiratory Disorde: Yes (states breathing troubles started about 4 weeks ago and he is on home O2) Respiratory Disorders: COPD Cardiovascular History of Cardiac Disorders: Yes Cardiac Disorders: Heart Attack Neurological History of Neurological Disord: Yes Neurological Disorders: TIA Reproductive System Hx Reproductive Disorders: No Sexually Transmitted Disease: No HIV/AIDS: No Genitourinary History of Genitourinary Disor: No Gastrointestinal History of Gastrointestinal Di: No Musculoskeletal History of Musculoskeletal Dis: Yes Musculoskeletal Disorders: Arthritis Endocrine History of Endocrine Disorders: Yes (diagnosed appx 4 weeks ago) Endocrine Disorders: Diabetes, Insulin dep HEENT History of HEENT Disorders: Yes HEENT Disorders: Glaucoma Loss of Vision: Bilateral Hearing Impairment: Denies Cancer History of Cancer: Yes Cancer: Bone, Lung Psychosocial History of Psychiatric Problem: No Integumentary History of Skin or Integumenta: No Blood Transfusions History of Blood Disorders: No Adverse Reaction to a Blood Tr: No Family Medical History Significant Family History: Stroke (mother) Review of Systems-General Constitutional: dizziness, malaise, weakness EENTM: No blurred vision, No double vision, No mouth pain, No mouth swelling, No epistaxis Respiratory: cough, dyspnea on exertion; No hemoptysis; short of breath Cardiovascular: No chest pain; edema, Hx of Intervention Gastrointestinal: No abdominal pain, No jaundice, No melena, No nausea, No vomiting Genitourinary: No dysuria, No frequency, No hematuria Musculoskeletal: joint pain, joint swelling, muscle stiffness Skin: change in color, change in hair/nails, other (bruising in arms and hands) Psychiatric/Neurological: Denies Anxiety, Denies Depressed, Denies Seizure, Denies Tremors Physical Exam-General Problems Physical Exam Vital Signs Vital Signs - First Documented 12/22/19 12/22/19 12/24/19 13:28 13:39 05:11 Pulse 90 O2 Delivery Nasal Cannula O2 Flow Rate 1.00 FiO2 50 Capillary Refill : Less Than 3 Seconds General Appearance: moderate distress, other (chronically ill) Eyes: Bilateral Eye PERRL, Bilateral Eye EOMI HEENT: pharynx normal; No scleral icterus (R), No scleral icterus (L) Neck: supple; No thyromegaly Respiratory: decreased breath sounds, accessory muscle use, crackles, wheezing Cardiovascular: regular rate, rhythm, no murmur Gastrointestinal: soft, no organomegaly Extremities: no calf tenderness, normal capillary refill, pedal edema, other (+2-3 edema in hands) Skin: normal color, warm/dry Data Review Labs Laboratory Tests 12/23/19 17:31: Glucometer 348H 12/23/19 20:44: Glucometer 347H 12/24/19 03:00: White Blood Count 0.5*L, Red Blood Count 2.14L, Hemoglobin 6.2*L, Hematocrit 19*L, Mean Corpuscular Volume 88, Mean Corpuscular Hemoglobin 29, Mean Corpuscular Hemoglobin Concent 33, Red Cell Distribution Width 16.2H, Platelet Count 26*L, Mean Platelet Volume 10.8H, Neutrophils (%) (Auto) 35L, Lymphocytes (%) (Auto) 58H, Monocytes (%) (Auto) 2, Eosinophils (%) (Auto) 4, Basophils (%) (Auto) 0, Neutrophils # (Auto) 0.2L, Lymphocytes # (Auto) 0.3L, Monocytes # (Auto) 0.0, Eosinophils # (Auto) 0.0, Basophils # (Auto) 0.0, Sodium Level 144, Potassium Level 4.4, Chloride Level 106, Carbon Dioxide Level 26, Anion Gap 12, Blood Urea Nitrogen 71H, Creatinine 2.60H, Estimat Glomerular Filtration Rate 25, BUN/Creatinine Ratio 27, Glucose Level 297H, Calcium Level 7.7L, Corrected Calcium 8.9, Phosphorus Level 4.7, Magnesium Level 1.9, Total Bilirubin 0.9, Aspartate Amino Transf (AST/SGOT) 130H, Alanine Aminotransferase (ALT/SGPT) 124H , Alkaline Phosphatase 243H, Total Protein 4.6L, Albumin 2.5L 12/24/19 04:44: Blood Gas Puncture Site RIGHT RADIAL, Blood Gas Patient Temperature 36.9, Arterial Blood pH 7.36L, Arterial Blood Partial Pressure CO2 49H, Arterial Blood Partial Pressure O2 63L, Arterial Blood HCO3 27, Arterial Blood Total CO2 28.7, Arterial Blood Oxygen Saturation 90L, Arterial Blood Base Excess 2.2, Martinez Test POSITIVE, Blood Gas Ventilator Setting NO, Blood Gas Inspired Oxygen 60 12/24/19 05:42: Glucometer 308H 12/24/19 06:00: Prothrombin Time 15.7H, INR Comment 1.2, Activated Partial Thromboplast Time 35 12/24/19 11:11: Lab Scanned Report Transfusion Reaction Form 12/24/19 11:30: Glucometer 253H 12/24/19 12:50: White Blood Count 0.4*L, Red Blood Count 2.38L, Hemoglobin 6.9*L, Hematocrit 21L , Mean Corpuscular Volume 88, Mean Corpuscular Hemoglobin 29, Mean Corpuscular Hemoglobin Concent 33, Red Cell Distribution Width 15.7H, Platelet Count 37*L, Mean Platelet Volume 9.2, Neutrophils (%) (Auto) 23L, Lymphocytes (%) (Auto) 71H , Monocytes (%) (Auto) 0, Eosinophils (%) (Auto) 6, Basophils (%) (Auto) 0, Neutrophils # (Auto) 0.1L, Lymphocytes # (Auto) 0.3L, Monocytes # (Auto) 0.0, Eosinophils # (Auto) 0.0, Basophils # (Auto) 0.0, Neutrophils % (Manual) 16, Lymphocytes % (Manual) 80, Monocytes % (Manual) 0, Eosinophils % (Manual) 4, Basophils % (Manual) 0, Band Neutrophils 0, Anisocytosis SLIGHT, Microcytosis SLIGHT 12/24/19 16:04: Glucometer 290H Microbiology 12/22/19 MRSA Screen - Final, Complete MRSA not isolated Assessment/Plan Assessment/Plan Assessment/Plan Profound Anemia and Pancytopenia - most likely secondary to Chemo Metastatic Lung CA Bilateral pneumonia. Renal insufficiency Pt had multiple gastric ulcers but has not seen any melena recently. I spoke in length with pt regarding his options and his willingness to do major surgery. He does not want any major surgery and at this point only wants to treat the symptoms; does not even want an EGD. This is a reasonable course of action and of course completely up to him. If he changes his mind, I'd be happy to do whatever he wants; whether that is EGD or surgery. At this point, keeping him comfortable, IV PPI and blood transfusions are the prudent course. Clinical Quality Measures DVT/VTE Risk/Contraindication: Risk Factor Score Per Nursin RFS Level Per Nursing on Admit: 4+=Very High EDUARDA DUDLEY DO Dec 24, 2019 16:41
[2019-12-25] VITALS (30 sets, daily range): BP systolic 91–183; BP diastolic 35–125
[2019-12-25 03:33] LABS: BASOPHILS % (AUTO) 0 % (0-10); EOSINOPHILS % (AUTO) 5 % (0-10); LYMPHOCYTES # (AUTO) 0.3 X 10^3 (1.0-4.0); LYMPHOCYTES % (AUTO) 83 % (12-44); MEAN CORPUSCULAR HEMOGLOBIN 29 PG (25-34); MEAN CORPUSCULAR HGB CONC 33 G/DL (32-36); MEAN CORPUSCULAR VOLUME 88 FL (80-99); MEAN PLATELET VOLUME 10.1 FL (7.4-10.4); MONOCYTES % (AUTO) 5 % (0-12); NEUTROPHILS % (AUTO) 7 % (42-75); RED CELL DISTRIBUTION WIDTH 15.9 % (10.0-14.5)
[2019-12-25 03:35] LABS: HEMOGLOBIN 6.2 G/DL (13.3-17.7); WHITE BLOOD COUNT 0.4 10^3/uL (4.3-11.0)
[2019-12-25 03:36] LABS: HEMATOCRIT 19 % (40-54); PLATELET COUNT 27 10^3/uL (130-400)
[2019-12-25 03:40] LABS: ALBUMIN 2.3 GM/DL (3.2-4.5); POTASSIUM 3.5 MMOL/L (3.6-5.0)
[2019-12-25 03:41] LABS: CALCIUM 7.7 MG/DL (8.5-10.1)
[2019-12-25 03:43] LABS: TOTAL PROTEIN 4.5 GM/DL (6.4-8.2)
[2019-12-25 03:45] LABS: BILIRUBIN,TOTAL 0.8 MG/DL (0.1-1.0)
[2019-12-25 03:46] LABS: CREATININE SERUM 2.34 MG/DL (0.60-1.30); PHOSPHORUS 3.7 MG/DL (2.3-4.7)
[2019-12-25 03:49] LABS: MAGNESIUM 1.9 MG/DL (1.6-2.4)
[2019-12-25] MEDS: MAGNESIUM 1 GM/100 ML IVPB 100 ML IV SCH (03:49)
[2019-12-25] MEDS: POTASSIUM CL 10MEQ/50ML IVPB 50 ML IV SCH ×4 (03:49→11:14)
[2019-12-25] MEDS: KCL 20 MEQ TAB (K-DUR) PO SCH (03:50)
--- NOTE | 2019-12-25 04:00 | NUR ---
Critical lab reported to Dr Michaels via telephone. Order for 2 unit PLT and One unit PRBC.
[2019-12-25] MEDS ORDERED: NS IV 500 ML 500 ML IV SCH (04:30)
--- NOTE | 2019-12-25 05:44 | NUR ---
Dr Michaels aware of Creat of 2.34, order to give 40meq IV Potassium.
[2019-12-25] MEDS: SUCRALFATE 1 GM (CARAFATE) TAB PO SCH ×4 (05:50→21:00)
[2019-12-25] MEDS: inSUlin ASPART (NovoLOG) 1 UNIT/0.01 ML (CHARGE PER UNIT) SC SCH ×4 (05:50→21:01)
--- NOTE | 2019-12-25 06:31 | Pulmonary Progress Note ---
Sepsis Event Evaluation Height, Weight, BMI Height: '" Weight: lbs. oz. kg; 29.19 BMI Method: Focused Exam Lactate Level 12/22/19 15:28: Lactic Acid Level 1.64 Exam Exam Vital Signs Date Time Temp Pulse Resp B/P (MAP) Pulse Ox O2 Delivery O2 Flow Rate FiO2 12/25/19 06:24 OxyMask 6.00 12/25/19 05:44 36.9 81 16 162/83 100 NIV Bilevel 30 12/25/19 05:00 36.9 83 14 163/68 100 NIV Bilevel 30 12/25/19 05:00 36.9 83 14 163/68 100 NIV Bilevel 30 12/25/19 05:00 36.9 82 11 163/68 (99) 100 NIV Bilevel 30.00 12/25/19 04:45 36.9 92 12 160/69 100 NIV Bilevel 30 12/25/19 04:40 36.9 85 12 160/69 100 NIV Bilevel 30 12/25/19 04:40 36.9 82 15 160/69 (99) 100 NIV Bilevel 30.00 12/25/19 04:10 99 NIV Bilevel 30 12/25/19 04:00 36.8 81 16 166/68 (100) 100 NIV Bilevel 30.00 12/25/19 03:00 36.9 98 21 148/113 (125) 100 NIV Bilevel 30.00 12/25/19 02:00 36.9 80 15 129/65 (86) 99 NIV Bilevel 30.00 12/25/19 01:00 36.9 96 15 133/98 (110) 98 NIV Bilevel 30.00 12/25/19 01:00 95 12/25/19 00:00 37.0 92 15 124/64 (84) 99 NIV Bilevel 30.00 12/24/19 23:30 37.0 121/56 (77) NIV Bilevel 30.00 12/24/19 23:30 96 NIV Bilevel 30 12/24/19 23:00 37.0 85 15 128/110 (116) 96 NIV Bilevel 30.00 12/24/19 22:00 37.1 82 15 119/60 (79) 100 NIV Bilevel 30.00 12/24/19 21:00 37.0 96 21 120/41 (67) 99 NIV Bilevel 30.00 12/24/19 20:00 37.0 88 12 159/75 (103) 100 NIV Bilevel 30.00 12/24/19 19:50 99 NIV Bilevel 30 12/24/19 19:30 36.9 92 16 143/66 (91) 99 NIV Bilevel 30.00 12/24/19 19:00 95 12/24/19 19:00 36.9 95 16 164/71 (102) 100 NIV Bilevel 30.00 12/24/19 18:32 100 NIV Bilevel 30 12/24/19 18:30 98 18 100 30.00 12/24/19 18:00 36.7 106 22 124/56 (78) 100 NIV Bilevel 30.00 12/24/19 17:00 36.8 108 21 164/85 (111) 97 NIV Bilevel 30.00 12/24/19 16:00 36.7 100 19 148/78 (101) 97 NIV Bilevel 30.00 12/24/19 15:48 100 OxyMask 5.00 12/24/19 15:00 36.7 105 26 135/81 (99) 94 NIV Bilevel 30.00 12/24/19 14:00 36.5 87 23 125/78 (94) 100 NIV Bilevel 30.00 12/24/19 13:00 100 12/24/19 13:00 36.6 81 22 137/99 (112) 100 NIV Bilevel 30.00 12/24/19 12:00 89 15 137/100 (112) 100 NIV Bilevel 30.00 12/24/19 12:00 100 OxyMask 5.00 12/24/19 11:23 36.5 71 11 149/78 97 NIV Bilevel 30 12/24/19 11:00 81 17 79/68 (72) 95 NIV Bilevel 30.00 12/24/19 10:00 84 15 149/62 (91) 93 NIV Bilevel 30.00 12/24/19 09:25 96 NIV Bilevel 30 12/24/19 09:15 36.8 98 18 151/71 95 NIV Bilevel 30 12/24/19 09:00 136/82 (100) 12/24/19 09:00 73 15 93 NIV Bilevel 30.00 12/24/19 08:49 36.8 73 13 154/69 91 NIV Bilevel 30 12/24/19 08:25 36.8 93 20 145/70 95 NIV Bilevel 30 12/24/19 08:00 93 21 142/74 (96) 100 NIV Bilevel 30.00 12/24/19 07:09 78 16 96 30.00 12/24/19 07:00 77 19 98/67 (77) 100 NIV Bilevel 30.00 12/24/19 07:00 77 12/24/19 06:33 NIV Bilevel 30.00 12/24/19 06:32 37.0 90 14 132/66 99 NIV Bilevel 30 I & O 12/25/19 07:00 Intake Total 3241 ml Output Total 2325 ml Balance 916 ml Height & Weight Height: '" Weight: lbs. oz. kg; 29.19 BMI Method: General Appearance: No Apparent Distress, Obese, Other (wearing BiPAP) HEENT: PERRL/EOMI; No Scleral Icterus (L), No Scleral Icterus (R) Neck: Normal Inspection, Supple Respiratory: Lungs Clear, No Respiratory Distress, Other (wearing BiPAP) Cardiovascular: Regular Rate, Rhythm, No Murmur Capillary Refill: Less Than 3 Seconds Gastrointestinal: soft, no organomegaly Extremity: Inflammation, Swelling (bilateral upper and lower extremities) Neurologic/Psychiatric: Alert, No Motor/Sensory Deficits, Normal Mood/Affect Skin: Normal Color, Other (bilateral lower extremity wounds) Results Lab Laboratory Tests 12/24/19 03:00 12/24/19 12:50 12/25/19 03:25 Assessment/Plan Assessment/Plan Acute respiratory failure -CXR is pending -Currently on BiPAP -Obtain PICC line HCAP with sepsis -Dowling cultures pending -Continue Abx Vanc and Zosyn -COVID negative Anemia s/p 3 unit of PRBC with hx of bleeding ulcers -Increase protonix to BID -Check Coags -Transfuse another unit of PRBC -Secondary to active bleeding will transfuse platelets -Consult Dr. Bales Chronic Hypoxic Respiratory Failure Continue on cultures pending Metastatic Lung Cancer -Hemeonc following Acute renal failure -IVF Hyperkalemia -GIve insulin, bicarb, calcium gluconate, -Monitor Neutropenia -Isolation Pancytopenia Last chemo was 12/17, third round CAD RAMONA HANNAH DO Dec 25, 2019 06:31
[2019-12-25] MEDS: ADVAIR HFA 115/21 MCG INHALER 8 GM IH SCH ×2 (06:45→18:38)
[2019-12-25] MEDS: RT-ALBUTEROL HFA (PROAIR HFA) 8.5 GM IH SCH ×5 (06:45→22:00)
--- NOTE | 2019-12-25 07:24 | Diagnostic Imaging Report ---
EXAMINATION: Portable erect AP chest at 338h. INDICATION: Lung cancer The heart size is within normal limits and stable when compared to 12/24/2019. The abnormal density obscuring the left mid lung and left lung base noted on the prior study is again evident and not significantly changed. This finding may be secondary to pneumonia, atelectasis, fluid and/or neoplasm. The atelectasis/infiltrate in the right lung base is also stable. The upper lungs remain clear. The mediastinum is not widened. The osseous structures are intact. The central venous catheter on the right seems similar position to the prior exam. IMPRESSION: 1. Stable chest. There has been no adverse change since the prior exam. Dictated by: Dictated on workstation # [id number]
--- NOTE | 2019-12-25 09:20 | NUR ---
PT WAS RECEIVING PLTs AND BEGAN TO DESAT. 02 WAS DOWN TO 65%. PTS RHYTHM CHANGED TO ATRIAL FIBRILLATION WITH RATES HIGH 160. PT CONVERTED BACK TO SINUS TACH AND THIS RN WAS UNABLE TO GET AN EKG OF RHYTHM CHANGE. PT ALSO BEGAN TO SHAKE. PT PLACED BACK ON BIPAP WITH FIO2 AT 100%. PLTs STOPPED. RT CALLED. DR HANNAH NOTIFIED. ORDERS RECEIVED. DR ELLER NOTIFIED. ORDERS RECEIVED. PER DRS ORDERS PT RECEIVED THE REST OF HIS PLTs. DR HURLEY NOTIFED OF CONSULT ON PT.
[2019-12-25] MEDS: PANTOPRAZOLE 40 MG (PROTONIX) VIAL IV SCH ×2 (09:43→21:00)
[2019-12-25] MEDS: ALLOPURINOL 100 MG (ZYLOPRIM) TAB PO SCH ×3 (09:43→21:00)
[2019-12-25] MEDS: PIPERACILLIN/TAZOBACTAM (BULK) 4.5 GM in NS (IVPB) 100 ML IV SCH ×3 (09:44→21:51)
[2019-12-25] MEDS ORDERED: FUROSEMIDE 40 MG/4 ML INJ (LASIX) IVP ONE (09:45)
--- NOTE | 2019-12-25 10:32 | Consultation-Cardiology ---
HPI-Cardiology Cardiology Consultation: Date of Consultation 12/25/19 Time Seen by a Provider: 10:10 Date of Admission 12-22-2019 Attending Physician Becky Mckinley MD Admitting Physician Fernando Lord DO Consulting Physician Emmanuel Bond MD HPI: Chief Complaint: Sinus tachycardia Mr. Layton is a 69 year old male with lung cancer with mets to the bone. He was admitted on 12-22-2019 with AMS and anemia. He is COVID (-). He is currently on bi-pap. He has profound pancytopenia for which he has been receiving multiple transfusions of PRBC (5) and platelets (2). While receiving a unit of platelets this morning the nurse reports an episode of a-fib (no rhythm strip available) while he had tremors. Transfusion was stopped and tremors resolved and no further a-fib (per nursing). He is currently sinus tachycardia. He denies any CP or palpitations. He does report SOB. He states he does see a automatic lathe setter at [facility], but is unable to recall the name. He states he had a "mild" CVA in Apr 2019. He reports bilat carotid dz, but no surgery, which is followed by [place] [facility]. He was taking ASA and Plavix. He does not report any CAD. He states he has had a stress test within the last year and ec hocardiogram which he states was normal. Review of Systems-Cardiology Review of Systems Respiratory: As described under HPI Cardiovascular: As described under HPI Other comments Limited ROS d/t Bi-pap, to the extent it was able to be obtained is as per HPI [id number] Hx Patient Social History Employed/Student: retired Alcohol Use: Past History Smoking Status: Former Smoker Immunizations Up To Date Date of Influenza Vaccine: Aug 02, 2019 Past Medical History PMH As described under Assessment. Family Medical History Family Medical History: Does not report fam h/o early CAD or SCD Allergies and Home Medications Allergies Coded Allergies: No Known Drug Allergies (Unverified , 11/15/19) Home Medications Amlodipine Besylate 5 Mg Tablet, 5 MG PO DAILY, (Reported) HOLD FOR BP <100/50 OR PULSE <60 Aspirin 81 Mg Tab.chew, 81 MG PO DAILY, (Reported) Bumetanide 2 Mg Tablet, 2 MG PO BID, (Reported) Cholecalciferol (Vitamin D3) 1,250 Mcg Capsule, 1,250 MCG PO MONDAY, (Reported) Clonidine HCl 0.1 Mg Tab.er.12h, 0.1 MG PO TID, (Reported) HOLD FOR BP <100/50 OR PULSE <60 Clopidogrel Bisulfate 75 Mg Tablet, 75 MG PO DAILY, (Reported) Cyclobenzaprine HCl 10 Mg Tablet, 5 MG PO Q8H PRN for MUSCLE SPASMS, (Reported) TAKES OF A 10MG TAB Hydrocodone/Acetaminophen 1 Each Tablet, 1 EACH PO Q4H PRN for PAIN-MODERATE (5- 7), (Reported) Insulin Aspart 300 Units/3 Ml Solution, 10 UNITS SQ DAILY, (Reported) Insulin Aspart 300 Units/3 Ml Solution, UNITS SQ UD, (Reported) USE PER SLIDING SCALE Insulin Detemir 100 Unit/1 Ml Insuln.pen, 20 UNIT SC HS, (Reported) Latanoprost 2.5 Ml Drops, 1 DROP OU HS, (Reported) Lisinopril 20 Mg Tablet, 20 MG PO DAILY, (Reported) HOLD FOR BP <100/50 OR PULSE <60 Metoprolol Succinate 50 Mg Tab.er.24h, 50 MG PO DAILY, (Reported) HOLD IF BP <100/50 ID PULSE <60 Ondansetron HCl 8 Mg Tablet, 8 MG PO Q8H PRN for NAUSEA/VOMITING-1ST LINE, (Reported) Pantoprazole Sodium 40 Mg Tablet.dr, 40 MG PO BID, (Reported) Potassium Chloride 20 Meq Tablet.er, 40 MEQ PO QID, (Reported) Primidone 50 Mg Tablet, 50 MG PO HS, (Reported) Zolpidem Tartrate 5 Mg Tablet, 5 MG PO HS, (Reported) Patient Home Medication List Home Medication List Reviewed: Yes Physical Exam-Cardiology Physical Exam Vital Signs/I&O Capillary Refill : Less Than 3 Seconds Constitutional: AAO x 3 HEENT: PERRL, hard of hearing Neck: No carotid bruit; carotid pulses are 2 + bilaterally Respiratory: No accessory muscle use, No respiratory distress; chest expansion is symmetric, chest is bilaterally symmetric, other (fair air entry with diminished breath sounds lower lobes) Cardiovascular: regular rate-rhythm, tachycardia Gastrointestinal: No tender; soft, audible bowel sounds Extremities: other (mild to mod bilat LE swelling) Neurologic/Psychiatric: grossly intact (moves extremities) Skin: No rash on exposed areas, No ulcerations on exposed areas Data Review Labs Microbiology 12/22/19 MRSA Screen - Final, Complete MRSA not isolated Radiology NAME: FARNAZ LAYTON [facility] REC#: [id number] PT STATUS: ADM IN : 1950 PHYSICIAN: RAMONA HANNAH DO ADMIT DATE: 12/22/19/ICU Signed Date of Exam:12/25/19 CHEST 1 VIEW, AP/PA ONLY EXAMINATION: Portable erect AP chest at 338h. INDICATION: Lung cancer The heart size is within normal limits and stable when compared to 12/24/2019. The abnormal density obscuring the left mid lung and left lung base noted on the prior study is again evident and not significantly changed. This finding may be secondary to pneumonia, atelectasis, fluid and/or neoplasm. The atelectasis/infiltrate in the right lung base is also stable. The upper lungs remain clear. The mediastinum is not widened. The osseous structures are intact. The central venous catheter on the right seems similar position to the prior exam. IMPRESSION: 1. Stable chest. There has been no adverse change since the prior exam. Dictated by: Dictated on workstation # [id number] Dict: 12/25/19 [id number] Trans: 12/25/19 0810 [facility] [id number] Interpreted by: MAY RICH MD Electronically signed by: MAY RICH MD 12/25/19 0810 A/P-Cardiology Assessment/Admission Diagnosis Sinus tachycardia with questionable transient a-fib (no tele strip available) Pneumonia with sepsis - management per pulmonary services Reported h/o CAD - details unknown - follows with [place] [facility] H/O CVA in Apr 2019 H/O carotid arterial disease - details unknown - followed by CV surgical services at [facility] - previously on Plavix/ASA CKD Pancytopenia - management per oncology/pulmonary/medical services EGD/colo on 12-17-[address] Bales reported to show gastric ulcer without active bleeding (but old blood) Lung cancer with mets to the bone and liver - management per oncology services DM 2 Discussion and Recomendations Complex management with multiple issues as listed above Sinus tachycardia with possible episode of transient a-fib during time of plasma infusion (no tele strip available) - possible transfusion reaction - management per oncology/pulmonary/medical services Profound pancytopenia for which he is receiving multiple transfusions of PRBC and plasma, known h/o GI bleed, he is not a suitable candidate of anticoagulation or antiplatelet tx at this time. Replace electrolytes Echocardiogram Resume BB and adjust as indicated Request records from [facility] Further recs will be based on hospital course We would like to thank pulmonary services for this consult Clinical Quality Measures DVT/VTE Risk/Contraindication: Risk Factor Score Per Nursin RFS Level Per Nursing on Admit: 4+=Very High LUCIANA GARCIA Dec 25, 2019 10:32
[2019-12-25] MEDS ORDERED: meTOprolol SUCCINATE 100 MG (TOPROL XL) TAB PO ONE (11:00)
[2019-12-25] MEDS: TBO-FILGRASTIM 480 MCG/0.8 ML (GRANIX) SQ SCH (11:01)
--- NOTE | 2019-12-25 11:06 | Progress Note - Hospitalist ---
Subjective HPI/CC On Admission Date Seen by Provider: Dec 25, 2019 Time Seen by Provider: 08:20 Pt is a 69yoCM with a H metastatic lung cancer, CAD, IDDMI who presented to an outside ER due to hypoglycemia and altered mental status. He was given increased insulin dose for hyperglycemia at his [facility] last night. In the morning he was found to be altered by the staff at the [facility] and his blood sugar was check and read as Low. Despite oral glucose x2 at the [facility] and D50 by EMS hisblood sugar still read at low at the OSH ER. He was started on continuous D10 and blood sugar was stabilized in the 100s. He was also found to be hypothermic with a temperature of 90.6 but responded to external warming with bairhugger and warmed fluids. His temperature improved as did his mentation. CXR revealed bilateral pneumonia. COVID19 testing was done at OSH. He reports feeling much better now and his mentation is improved but he is drowsy. He is on minimal oxygen now. He was found to be quite anemic and had just received chemo (3rd round) on 12/17. Subjective/Events-last exam He reports feeling better today. He denies any shortness of breath. He denies any cough. He denies any fevers or chills. He denies any abdominal pain, nausea, or vomiting. He denies any chest pain. Focused Exam Lactate Level 12/22/19 15:28: Lactic Acid Level 1.64 Objective Exam Vital Signs Vital Signs Date Time Temp Pulse Resp B/P (MAP) Pulse Ox O2 Delivery O2 Flow Rate FiO2 12/25/19 10:56 NIV Bilevel 40.00 12/25/19 10:51 98 16 100 12/25/19 08:05 36.8 183/76 12/25/19 05:44 30 Capillary Refill : Less Than 3 Seconds General Appearance: No Apparent Distress, Chronically ill, Obese Respiratory: Lungs Clear, Normal Breath Sounds, No Respiratory Distress Cardiovascular: Regular Rate, Rhythm, No Murmur Gastrointestinal: Normal Bowel Sounds, Non Tender, Soft Extremity: Normal Inspection, Non Tender, Pedal Edema Neurologic/Psychiatric: Alert, Normal Mood/Affect Skin: Normal Color, Warm/Dry Results/Procedures Lab Laboratory Tests 12/24/19 12:50 12/25/19 03:25 Patient resulted labs reviewed. Imaging: Reviewed Imaging Report Assessment/Plan Assessment and Plan Assess & Plan/Chief Complaint Sepsis HCAP acute on chronic respiratory failure with hypoxia Continue Zosyn COVID negative Metastatic Lung Cancer Pancytopenia WBC 0.4, hemoglobin 6.2, platelets 27 Transfusions ordered Received chemo on 12/17, third round oncology consulted, appreciate recs Started on Filgastrim Recent bleeding gastric ulcers continue IV PPI Anasarca Lasix CAD troponin 0.1 on admission, trended down significantly from prior admission Cardiology consulted, appreciate assistance CKD stage 3 At baseline Continue fluids T2DM sliding scale insulin DVT prophylaxis: held due to recent major bleeding Hypothermia, resolved Hypoglycemia, resolved Diagnosis/Problems Diagnosis/Problems (1) Sepsis Status: Acute (2) Acute on chronic respiratory failure with hypoxia Status: Acute (3) Metastatic lung cancer (metastasis from lung to other site) Status: Chronic (4) CAP (community acquired pneumonia) Status: Acute (5) T2DM (type 2 diabetes mellitus) Status: Acute Clinical Quality Measures DVT/VTE Risk/Contraindication: Risk Factor Score Per Nursin RFS Level Per Nursing on Admit: 4+=Very High RAMIRO ALEJANDRA MD Dec 25, 2019 11:06
[2019-12-25 11:32] LABS: BASOPHILS % (AUTO) 2 % (0-10); EOSINOPHILS % (AUTO) 2 % (0-10); HEMATOCRIT 23 % (40-54); HEMOGLOBIN 7.5 G/DL (13.3-17.7); LYMPHOCYTES # (AUTO) 0.4 X 10^3 (1.0-4.0); LYMPHOCYTES % (AUTO) 82 % (12-44); MEAN CORPUSCULAR HEMOGLOBIN 30 PG (25-34); MEAN CORPUSCULAR HGB CONC 33 G/DL (32-36); MEAN CORPUSCULAR VOLUME 89 FL (80-99); MEAN PLATELET VOLUME 9.1 FL (7.4-10.4); MONOCYTES % (AUTO) 2 % (0-12); NEUTROPHILS # (AUTO) 0.1 X 10^3 (1.8-7.8); NEUTROPHILS % (AUTO) 12 % (42-75); PLATELET COUNT 58 10^3/uL (130-400); RED CELL DISTRIBUTION WIDTH 15.6 % (10.0-14.5)
[2019-12-25 11:36] LABS: WHITE BLOOD COUNT 0.5 10^3/uL (4.3-11.0)
--- NOTE | 2019-12-25 13:45 | Consultation-Cardiology ---
HPI-Cardiology Cardiology Consultation: Date of Consultation 12/25/19 Time Seen by a Provider: 11:10 Date of Admission Attending Physician Becky Mckinley MD Admitting Physician Fernando Lord DO Consulting Physician SILVANO HURLEY MD, MA, FACP, FACC, MUSCOGEEAI, CCDS HPI: Chief Complaint: Reason for consultation: Tachycardia HPI Mr. Soliman is a 69 year old male with lung cancer with mets to the bone. He was admitted on 12-22-2019 with AMS and anemia. He is COVID (-). He is currently on bi-pap. He has profound pancytopenia for which he has been receiving multiple transfusions of PRBC (5) and platelets (2). While receiving a unit of platelets this morning the nurse reported an episode of a-fib (no rhythm strip available) while he had tremors. Transfusion was stopped and tremors resolved and no further a-fib (per nursing). He is currently sinus tachycardia. He denies any CP or palpitations. He does report SOB. He states he does see a community engagement specialist at [facility], but is unable to recall the name. He states he had a "mild" CVA in Apr 2019. He reports bilat carotid dz, but no surgery, which is followed by [place] [facility]. He was taking ASA and Plavix. He does not report any CAD. He states he has had a stress test within the last year and echocardiogram which he states was normal. Review of Systems-Cardiology Review of Systems Constitutional: malaise, tiredness Eyes: No vision change Ears/Nose/Throat: No recent hearing loss Respiratory: As described under HPI Cardiovascular: As described under HPI Genitourinary: No dysuria, No hematuria Skin: No rash, No ulcerations Psychiatric/Neurological: No focal weakness, No syncope Hematologic: No bleeding abnormalities [id number] Hx Patient Social History Employed/Student: retired Alcohol Use: Past History Smoking Status: Former Smoker Immunizations Up To Date Date of Influenza Vaccine: Aug 02, 2019 Past Medical History PMH As described under Assessment. Family Medical History Family Medical History: Does not report fam h/o early CAD or SCD Allergies and Home Medications Allergies Coded Allergies: No Known Drug Allergies (Unverified , 11/15/19) Home Medications Amlodipine Besylate 5 Mg Tablet, 5 MG PO DAILY, (Reported) HOLD FOR BP <100/50 OR PULSE <60 Aspirin 81 Mg Tab.chew, 81 MG PO DAILY, (Reported) Bumetanide 2 Mg Tablet, 2 MG PO BID, (Reported) Cholecalciferol (Vitamin D3) 1,250 Mcg Capsule, 1,250 MCG PO MONDAY, (Reported) Clonidine HCl 0.1 Mg Tab.er.12h, 0.1 MG PO TID, (Reported) HOLD FOR BP <100/50 OR PULSE <60 Clopidogrel Bisulfate 75 Mg Tablet, 75 MG PO DAILY, (Reported) Cyclobenzaprine HCl 10 Mg Tablet, 5 MG PO Q8H PRN for MUSCLE SPASMS, (Reported) TAKES OF A 10MG TAB Hydrocodone/Acetaminophen 1 Each Tablet, 1 EACH PO Q4H PRN for PAIN-MODERATE (5- 7), (Reported) Insulin Aspart 300 Units/3 Ml Solution, 10 UNITS SQ DAILY, (Reported) Insulin Aspart 300 Units/3 Ml Solution, UNITS SQ UD, (Reported) USE PER SLIDING SCALE Insulin Detemir 100 Unit/1 Ml Insuln.pen, 20 UNIT SC HS, (Reported) Latanoprost 2.5 Ml Drops, 1 DROP OU HS, (Reported) Lisinopril 20 Mg Tablet, 20 MG PO DAILY, (Reported) HOLD FOR BP <100/50 OR PULSE <60 Metoprolol Succinate 50 Mg Tab.er.24h, 50 MG PO DAILY, (Reported) HOLD IF BP <100/50 IA PULSE <60 Ondansetron HCl 8 Mg Tablet, 8 MG PO Q8H PRN for NAUSEA/VOMITING-1ST LINE, (Reported) Pantoprazole Sodium 40 Mg Tablet.dr, 40 MG PO BID, (Reported) Potassium Chloride 20 Meq Tablet.er, 40 MEQ PO QID, (Reported) Primidone 50 Mg Tablet, 50 MG PO HS, (Reported) Zolpidem Tartrate 5 Mg Tablet, 5 MG PO HS, (Reported) Patient Home Medication List Home Medication List Reviewed: Yes Physical Exam-Cardiology Physical Exam Vital Signs/I&O 12/25/19 12/25/19 12/25/19 12/25/19 02:00 03:00 04:00 04:10 Temp 36.9 36.9 36.8 Pulse 80 98 81 Resp 15 21 16 B/P (MAP) 129/65 (86) 148/113 (125) 166/68 (100) Pulse Ox 99 100 100 99 O2 Delivery NIV Bilevel NIV Bilevel NIV Bilevel NIV Bilevel O2 Flow Rate 30.00 30.00 30.00 FiO2 30 12/25/19 12/25/19 12/25/19 12/25/19 04:40 04:40 04:45 05:00 Temp 36.9 36.9 36.9 36.9 Pulse 82 85 92 82 Resp 15 12 12 11 B/P (MAP) 160/69 (99) 160/69 160/69 163/68 (99) Pulse Ox 100 100 100 100 O2 Delivery NIV Bilevel NIV Bilevel NIV Bilevel NIV Bilevel O2 Flow Rate 30.00 30.00 FiO2 30 30 12/25/19 12/25/19 12/25/19 12/25/19 05:00 05:00 05:44 06:00 Temp 36.9 36.9 36.9 36.9 Pulse 83 83 81 84 Resp 14 14 16 15 B/P (MAP) 163/68 163/68 162/83 149/68 (95) Pulse Ox 100 100 100 100 O2 Delivery NIV Bilevel NIV Bilevel NIV Bilevel NIV Bilevel O2 Flow Rate 30.00 FiO2 30 30 30 12/25/19 12/25/19 12/25/19 12/25/19 06:24 06:45 06:52 07:00 Pulse 93 Pulse Ox 99 97 O2 Delivery OxyMask OxyMask Nasal Cannula O2 Flow Rate 6.00 6.00 4.00 12/25/19 12/25/19 12/25/19 12/25/19 07:00 07:00 08:00 08:05 Temp 36.8 Pulse 94 96 96 Resp 15 18 14 B/P (MAP) 148/84 (105) 183/76 (111) 183/76 Pulse Ox 97 95 96 O2 Delivery Nasal Cannula Nasal Cannula Nasal Cannula Nasal Cannula O2 Flow Rate 2.00 4.00 2.00 4.00 12/25/19 12/25/19 12/25/19 12/25/19 09:00 09:24 10:00 10:51 Pulse 117 114 104 98 Resp 32 24 20 16 B/P (MAP) 167/85 (112) 165/65 (98) Pulse Ox 89 99 100 100 O2 Delivery Nasal Cannula NIV Bilevel O2 Flow Rate 2.00 30.00 40.00 50.00 40.00 12/25/19 12/25/19 12/25/19 12/25/19 10:56 11:00 12:00 12:55 Pulse 90 76 78 Resp 21 12 B/P (MAP) 108/61 (77) 136/98 (111) Pulse Ox 100 100 O2 Delivery NIV Bilevel NIV Bilevel NIV Bilevel O2 Flow Rate 40.00 40.00 30.00 12/25/19 13:00 Pulse 74 Resp 14 B/P (MAP) 167/64 (98) Pulse Ox 100 O2 Delivery NIV Bilevel O2 Flow Rate 30.00 12/25/19 00:00 Intake Total 1165 ml Output Total 1125 ml Balance 40 ml Capillary Refill : Less Than 3 Seconds Constitutional: AAO x 3 HEENT: PERRL, hard of hearing Neck: No carotid bruit; carotid pulses are 2 + bilaterally Respiratory: No accessory muscle use, No respiratory distress; chest expansion is symmetric, chest is bilaterally symmetric, other (fair air entry with diminished breath sounds lower lobes) Cardiovascular: regular rate-rhythm, tachycardia, systolic murmur (soft MSM at card base) Gastrointestinal: No tender; soft, audible bowel sounds Extremities: other (mild to mod bilat LE swelling) Neurologic/Psychiatric: oriented x 3, other (moves all limbs equally) Skin: No rash on exposed areas, No ulcerations on exposed areas Data Review Labs Laboratory Tests 12/24/19 16:04: Glucometer 290H 12/24/19 20:25: Glucometer 305H 12/25/19 03:25: White Blood Count 0.4*L, Red Blood Count 2.15L, Hemoglobin 6.2*L, Hematocrit 19*L, Mean Corpuscular Volume 88, Mean Corpuscular Hemoglobin 29, Mean Corpuscular Hemoglobin Concent 33, Red Cell Distribution Width 15.9H, Platelet Count 27*L, Mean Platelet Volume 10.1, Neutrophils (%) (Auto) 7L, Lymphocytes (%) (Auto) 83H, Monocytes (%) (Auto) 5, Eosinophils (%) (Auto) 5, Basophils (%) (Auto) 0, Neutrophils # (Auto) 0.0L, Lymphocytes # (Auto) 0.3L, Monocytes # (Auto) 0.0, Eosinophils # (Auto) 0.0, Basophils # (Auto) 0.0, Sodium Level 147H, Potassium Level 3.5L, Chloride Level 108H, Carbon Dioxide Level 27, Anion Gap 12, Blood Urea Nitrogen 57H, Creatinine 2.34H, Estimat Glomerular Filtration Rate 28, BUN/Creatinine Ratio 24, Glucose Level 222H, Calcium Level 7.7L, Corrected Calcium 9.1, Phosphorus Level 3.7, Magnesium Level 1.9, Total Bilirubin 0.8, Aspartate Amino Transf (AST/SGOT) 69H, Alanine Aminotransferase (ALT/SGPT) 88H, Alkaline Phosphatase 222H, Total Protein 4.5L, Albumin 2.3L 12/25/19 05:42: Glucometer 261H 12/25/19 11:00: Glucometer 210H 12/25/19 11:15: White Blood Count 0.5*L, Red Blood Count 2.54L, Hemoglobin 7.5#L, Hematocrit 23L , Mean Corpuscular Volume 89, Mean Corpuscular Hemoglobin 30, Mean Corpuscular Hemoglobin Concent 33, Red Cell Distribution Width 15.6H, Platelet Count 58L, Mean Platelet Volume 9.1, Neutrophils (%) (Auto) 12L, Lymphocytes (%) (Auto) 82H , Monocytes (%) (Auto) 2, Eosinophils (%) (Auto) 2, Basophils (%) (Auto) 2, Neutrophils # (Auto) 0.1L, Lymphocytes # (Auto) 0.4L, Monocytes # (Auto) 0.0, Eosinophils # (Auto) 0.0, Basophils # (Auto) 0.0 Microbiology 12/22/19 MRSA Screen - Final, Complete MRSA not isolated Laboratory Tests 12/24/19 03:00 12/24/19 12:50 12/25/19 03:25 12/25/19 11:15 A/P-Cardiology Assessment/Admission Diagnosis Sinus tachycardia with questionable transient a-fib (no tele strip available) Pneumonia with sepsis - management per Pulmonary services Pancytopenia, managed by Onc and Med services Reported h/o CAD - details unknown - follows with [place] [facility] Echo on 12/25/19: LVEF 50-55%, grade 1 garcia dysfunction, mild , RVSP 20 mmHg H/O CVA in Apr 2019 H/O carotid arterial disease - details unknown - followed by CV surgical services at [facility] - previously on Plavix/ASA Echo of 12/25/19: LVEF 50-55%, mild AoV stenosis, RVSP 20 mmhg CKD-4 EGD/colo on 12-17-[address] Bales reported to show gastric ulcer with evidence of recent bleeding (old blood reported) Lung cancer with mets to the bone and liver - management per oncology services DM 2 Discussion and Recomendations * Complex management with multiple issues as listed above * Sinus tachycardia. No documentation of A Fib. Continue tle * Given profound pancytopenia for which he is receiving multiple transfusions of PRBC and plasma and known h/o recent GI bleed (December 2019), he is not a suitable candidate of anticoagulation or antiplatelet tx at this time * Replace electrolytes * Resume BB and adjust as indicated * Request records from [facility] * Further recs will be based on hospital course Clinical Quality Measures DVT/VTE Risk/Contraindication: Risk Factor Score Per Nursin RFS Level Per Nursing on Admit: 4+=Very High SILVANO HURLEY MD FACP FACC CCDS Dec 25, 2019 13:45
--- NOTE | 2019-12-25 14:05 | NUR ---
"RD ASSESSMENT PMHx: RI; DM; CAD; CA(metastatic lung) PT INTERACTION: Pt had Bipap on during nutrition assessment. Note all information is from RN or chart review. Note avg PO intake of 33% x2d, per chart review. RN states no recent issues with n/v/c/d at this time, and that pt has not had a BM yet. Note pt not currently on bowel regimen per chart review. Note recent 25# wt gain x1mon, per chart review. Note recent HbA1c of 8.9 taken on 12/01/19, per chart review. Note presence of wound on coccyx, per chart review. ABNORMAL NUTRITION-RELATED LAB VALUES LOW: K 3.5; Pro 4.5; alb 2.3 HIGH: Na 147; Cl 108; BUN 57; cr 2.34; glu 222; AST 69; ALT 88; alkphos 222 Est. kcal needs: 5947-8546 kcal | 15-20 kcal/kg Est. Pro needs: 104-125 g Pro | 1.0-1.2 g Pro/kg PES STATEMENT: Inadequate oral intake (NI-2.1) related to loss of appetite as evidenced by chart review | avg PO intake 33% x2d INTERVENTION: Continue with current diet order of Low Microbial, Clear Liquid diet. Pt may benefit from more aggressive bowel regimen if constipation persists. Will continue to follow and reassess as pt needs, intake, and status change. MONITOR/EVALUATE: PO Intake; Plan of Care; Hydration Status; Weight Status; Lab Values Emy Ellison, MS, RD, LD"
--- NOTE | 2019-12-25 14:49 | Progress Note - Surgery ---
Subjective Time Seen by a Provider: 13:21 Subjective/Events-last exam Pt seen and examined, no changes. Still on CPAP and Hg stable. Review of Systems Pulmonary: Dyspnea, Cough Cardiovascular: No: Chest Pain, Palpitations Gastrointestinal: No: Nausea, Vomiting Focused Exam Lactate Level 12/22/19 15:28: Lactic Acid Level 1.64 Objective Exam Vital Signs Date Time Temp Pulse Resp B/P (MAP) Pulse Ox O2 Delivery O2 Flow Rate FiO2 12/25/19 14:38 96 Nasal Cannula 4.00 12/25/19 13:00 74 14 167/64 (98) 100 NIV Bilevel 30.00 12/25/19 12:55 78 12/25/19 12:00 76 12 136/98 (111) 100 NIV Bilevel 30.00 12/25/19 11:00 90 21 108/61 (77) 100 NIV Bilevel 40.00 12/25/19 10:56 NIV Bilevel 40.00 12/25/19 10:51 98 16 100 50.00 12/25/19 10:00 104 20 165/65 (98) 100 NIV Bilevel 40.00 12/25/19 09:24 114 24 99 30.00 12/25/19 09:00 117 32 167/85 (112) 89 Nasal Cannula 2.00 40.00 12/25/19 08:05 36.8 96 14 183/76 96 Nasal Cannula 4.00 12/25/19 08:00 96 18 183/76 (111) 95 Nasal Cannula 2.00 12/25/19 07:00 Nasal Cannula 4.00 12/25/19 07:00 94 15 148/84 (105) 97 Nasal Cannula 2.00 12/25/19 07:00 93 12/25/19 06:52 97 Nasal Cannula 4.00 12/25/19 06:45 99 OxyMask 6.00 12/25/19 06:24 OxyMask 6.00 12/25/19 06:00 36.9 84 15 149/68 (95) 100 NIV Bilevel 30.00 12/25/19 05:44 36.9 81 16 162/83 100 NIV Bilevel 30 12/25/19 05:00 36.9 83 14 163/68 100 NIV Bilevel 30 12/25/19 05:00 36.9 83 14 163/68 100 NIV Bilevel 30 12/25/19 05:00 36.9 82 11 163/68 (99) 100 NIV Bilevel 30.00 12/25/19 04:45 36.9 92 12 160/69 100 NIV Bilevel 30 12/25/19 04:40 36.9 85 12 160/69 100 NIV Bilevel 30 12/25/19 04:40 36.9 82 15 160/69 (99) 100 NIV Bilevel 30.00 12/25/19 04:10 99 NIV Bilevel 30 12/25/19 04:00 36.8 81 16 166/68 (100) 100 NIV Bilevel 30.00 12/25/19 03:00 36.9 98 21 148/113 (125) 100 NIV Bilevel 30.00 12/25/19 02:00 36.9 80 15 129/65 (86) 99 NIV Bilevel 30.00 12/25/19 01:00 36.9 96 15 133/98 (110) 98 NIV Bilevel 30.00 12/25/19 01:00 95 12/25/19 00:00 37.0 92 15 124/64 (84) 99 NIV Bilevel 30.00 12/24/19 23:30 37.0 121/56 (77) NIV Bilevel 30.00 12/24/19 23:30 96 NIV Bilevel 30 12/24/19 23:00 37.0 85 15 128/110 (116) 96 NIV Bilevel 30.00 12/24/19 22:00 37.1 82 15 119/60 (79) 100 NIV Bilevel 30.00 12/24/19 21:00 37.0 96 21 120/41 (67) 99 NIV Bilevel 30.00 12/24/19 20:00 37.0 88 12 159/75 (103) 100 NIV Bilevel 30.00 12/24/19 19:50 99 NIV Bilevel 30 12/24/19 19:30 36.9 92 16 143/66 (91) 99 NIV Bilevel 30.00 12/24/19 19:00 95 12/24/19 19:00 36.9 95 16 164/71 (102) 100 NIV Bilevel 30.00 12/24/19 18:32 100 NIV Bilevel 30 12/24/19 18:30 98 18 100 30.00 12/24/19 18:00 36.7 106 22 124/56 (78) 100 NIV Bilevel 30.00 12/24/19 17:00 36.8 108 21 164/85 (111) 97 NIV Bilevel 30.00 12/24/19 16:00 36.7 100 19 148/78 (101) 97 NIV Bilevel 30.00 12/24/19 15:48 100 OxyMask 5.00 12/24/19 15:00 36.7 105 26 135/81 (99) 94 NIV Bilevel 30.00 I & O 12/25/19 07:00 Intake Total 3241 ml Output Total 2325 ml Balance 916 ml Capillary Refill : Less Than 3 Seconds General Appearance: Chronically ill, Obese HEENT: PERRL/EOMI; No Scleral Icterus (L), No Scleral Icterus (R) Respiratory: Lungs Clear, No Respiratory Distress, Decreased Breath Sounds Cardiovascular: Regular Rate, Rhythm, No Murmur Gastrointestinal: soft, no organomegaly Extremity: Pedal Edema, Other (severe edema in hands) Neurologic/Psychiatric: Alert, Normal Mood/Affect Results Lab Laboratory Tests 12/24/19 16:04: Glucometer 290H 12/24/19 20:25: Glucometer 305H 12/25/19 03:25: White Blood Count 0.4*L, Red Blood Count 2.15L, Hemoglobin 6.2*L, Hematocrit 19*L, Mean Corpuscular Volume 88, Mean Corpuscular Hemoglobin 29, Mean Corpuscular Hemoglobin Concent 33, Red Cell Distribution Width 15.9H, Platelet Count 27*L, Mean Platelet Volume 10.1, Neutrophils (%) (Auto) 7L, Lymphocytes (%) (Auto) 83H, Monocytes (%) (Auto) 5, Eosinophils (%) (Auto) 5, Basophils (%) (Auto) 0, Neutrophils # (Auto) 0.0L, Lymphocytes # (Auto) 0.3L, Monocytes # (Auto) 0.0, Eosinophils # (Auto) 0.0, Basophils # (Auto) 0.0, Sodium Level 147H, Potassium Level 3.5L, Chloride Level 108H, Carbon Dioxide Level 27, Anion Gap 12, Blood Urea Nitrogen 57H, Creatinine 2.34H, Estimat Glomerular Filtration Rate 28, BUN/Creatinine Ratio 24, Glucose Level 222H, Calcium Level 7.7L, Corrected Calcium 9.1, Phosphorus Level 3.7, Magnesium Level 1.9, Total Bilirubin 0.8, Aspartate Amino Transf (AST/SGOT) 69H, Alanine Aminotransferase (ALT/SGPT) 88H, Alkaline Phosphatase 222H, Total Protein 4.5L, Albumin 2.3L 12/25/19 05:42: Glucometer 261H 12/25/19 11:00: Glucometer 210H 12/25/19 11:15: White Blood Count 0.5*L, Red Blood Count 2.54L, Hemoglobin 7.5#L, Hematocrit 23L , Mean Corpuscular Volume 89, Mean Corpuscular Hemoglobin 30, Mean Corpuscular Hemoglobin Concent 33, Red Cell Distribution Width 15.6H, Platelet Count 58L, Mean Platelet Volume 9.1, Neutrophils (%) (Auto) 12L, Lymphocytes (%) (Auto) 82H , Monocytes (%) (Auto) 2, Eosinophils (%) (Auto) 2, Basophils (%) (Auto) 2, Neut rophils # (Auto) 0.1L, Lymphocytes # (Auto) 0.4L, Monocytes # (Auto) 0.0, Eosinophils # (Auto) 0.0, Basophils # (Auto) 0.0 Microbiology 12/22/19 MRSA Screen - Final, Complete MRSA not isolated Assessment/Plan Assessment/Plan Assessment/Plan Profound Anemia and Pancytopenia - most likely secondary to Chemo Metastatic Lung CA Bilateral pneumonia. Renal insufficiency Pt had multiple gastric ulcers but has not seen any melena recently. Pt has not changed his mind and still does not want any major surgery and only wants to treat the symptoms. If he changes his mind, I'd be happy to do whatever he wants; whether that is EGD or surgery. Continue IV PPI and blood transfusions as needed. Clinical Quality Measures DVT/VTE Risk/Contraindication: Risk Factor Score Per Nursin RFS Level Per Nursing on Admit: 4+=Very High EDUARDA DUDLEY DO Dec 25, 2019 14:49
[2019-12-25 17:16] LABS: BASOPHILS % (AUTO) 0 % (0-10); EOSINOPHILS % (AUTO) 4 % (0-10); HEMATOCRIT 22 % (40-54); HEMOGLOBIN 7.4 G/DL (13.3-17.7); LYMPHOCYTES # (AUTO) 0.4 X 10^3 (1.0-4.0); LYMPHOCYTES % (AUTO) 85 % (12-44); MEAN CORPUSCULAR HEMOGLOBIN 29 PG (25-34); MEAN CORPUSCULAR HGB CONC 33 G/DL (32-36); MEAN CORPUSCULAR VOLUME 89 FL (80-99); MEAN PLATELET VOLUME 9.4 FL (7.4-10.4); MONOCYTES % (AUTO) 4 % (0-12); NEUTROPHILS % (AUTO) 7 % (42-75); PLATELET COUNT 51 10^3/uL (130-400); RED CELL DISTRIBUTION WIDTH 15.7 % (10.0-14.5)
[2019-12-25 17:24] LABS: WHITE BLOOD COUNT 0.5 10^3/uL (4.3-11.0)
--- NOTE | 2019-12-25 17:45 | NUR ---
CALLED LAB RESULTS INTO DR ELLER. ORDERS RECEIVED FOR REDRAW IN THE AM AND CALL RESULTS AT 0700.
[2019-12-25] MEDS ORDERED: hydrOXYzine (VISTARIL/ATARAX) 25 MG capsule/tablet ONE (18:23)
[2019-12-25] MEDS ORDERED: hydrOXYzine (VISTARIL/ATARAX) 25 MG capsule/tablet PO PRN (18:30)
[2019-12-25] MEDS ORDERED: LORazepam INJ 2 MG/ML (ATIVAN) VIAL IVP PRN (18:30)
[2019-12-25 19:43] LABS: ABG BASE EXCESS 4.2 MMOL/L (-2.5-2.5); ABG OXYGEN SATURATION 99 % (94-100); ABG PCO2 45 MMHG (35-45); ABG PH 7.42 (7.37-7.43); ABG PO2 183 MMHG (79-93); ABG TCO2 29.8 MMOL/L (21.0-31.0)
[2019-12-25 19:44] LABS: ALLENS TEST P
[2019-12-25 19:45] LABS: INSPIRED O2 7L; PATIENT TEMP 36.1; VENTILATOR NO
--- NOTE | 2019-12-25 20:25 | NUR ---
ABG results reported to Dr Michaels, order to change status from medical to ICU. No other orders at this time.
--- NOTE | 2019-12-25 21:45 | NUR ---
Patient found with bed exit alarm activated, patient almost out of bed, BiPap mask off and patient monitor pulled off. Patient very anxious and confused at this time. Patient combative with staff when attempting to assist. Patient assisted to bed with staff x 4. Patient placed back on BiPap and Ativan 0.5mg IV administered as per PRN order.
--- NOTE | 2019-12-25 22:03 | NUR ---
Dr Rico E ICU updated on patient current condition, confusion and agitation. Dr Rico to place orders.
[2019-12-25] MEDS ORDERED: MELATONIN 3 MG TABLET PO SCH (22:15)
[2019-12-25] MEDS ORDERED: MELATONIN 3 MG TABLET ONE (22:15)
[2019-12-25] MEDS ORDERED: OLANZapine 5 MG ODT (ZyPREXA ZYDIS) SL ONE (22:15)
[2019-12-25] MEDS ORDERED: OLANZapine 5 MG (ZyPREXA) TAB ONE ×2 (22:15→22:47)
--- NOTE | 2019-12-25 22:51 | NUR ---
This financial underwriter informed Dr Rico that we do not have access to the SL Zyprexa at this time. Order to give PO Zyprexa 5mg x 1 dose at this time.
[2019-12-25] MEDS ORDERED: OLANZapine 5 MG (ZyPREXA) TAB PO ONE (23:00)
--- NOTE | 2019-12-25 23:10 | NUR ---
Alexandr Chance DPOA updated by phone of patient condition at this time.
[2019-12-26] VITALS (14 sets, daily range): BP systolic 99–145; BP diastolic 32–125
[2019-12-26 03:39] LABS: ALBUMIN 2.2 GM/DL (3.2-4.5); POTASSIUM 3.3 MMOL/L (3.6-5.0)
[2019-12-26 03:40] LABS: CALCIUM 7.7 MG/DL (8.5-10.1)
[2019-12-26 03:41] LABS: TOTAL PROTEIN 4.7 GM/DL (6.4-8.2)
[2019-12-26 03:44] LABS: PHOSPHORUS 3.9 MG/DL (2.3-4.7)
[2019-12-26 03:45] LABS: CREATININE SERUM 2.44 MG/DL (0.60-1.30)
[2019-12-26 03:47] LABS: BASOPHILS % (AUTO) 0 % (0-10); EOSINOPHILS % (AUTO) 4 % (0-10); HEMATOCRIT 22 % (40-54); HEMOGLOBIN 7.1 G/DL (13.3-17.7); LYMPHOCYTES # (AUTO) 0.4 X 10^3 (1.0-4.0); LYMPHOCYTES % (AUTO) 85 % (12-44); MEAN CORPUSCULAR HEMOGLOBIN 30 PG (25-34); MEAN CORPUSCULAR HGB CONC 33 G/DL (32-36); MEAN CORPUSCULAR VOLUME 90 FL (80-99); MEAN PLATELET VOLUME 10.4 FL (7.4-10.4); MONOCYTES % (AUTO) 4 % (0-12); NEUTROPHILS % (AUTO) 6 % (42-75); PLATELET COUNT 45 10^3/uL (130-400); RED CELL DISTRIBUTION WIDTH 15.6 % (10.0-14.5)
[2019-12-26 03:48] LABS: MAGNESIUM 1.9 MG/DL (1.6-2.4)
[2019-12-26 03:49] LABS: WHITE BLOOD COUNT 0.5 10^3/uL (4.3-11.0)
[2019-12-26] MEDS ORDERED: DexMEDEtomidine 250 ML DRIP 250 ML IV ONE (03:54)
[2019-12-26] MEDS ORDERED: HALOPERIDOL 5 MG/ML (HALDOL) AMP ONE (03:54)
--- NOTE | 2019-12-26 03:57 | NUR ---
This RN spoke to Dr Michaels by telephone at this time. Updated on patient condition with anxiety, confusion, combativeness. Patient requiring 1:1 sitter. Patient unmanageable at this time. Order for Haldol IV q 6 hrs PRN, Precedex drip.
[2019-12-26] MEDS: HALOPERIDOL 5 MG/ML (HALDOL) AMP IM/IV PRN ×2 (04:13→11:10)
[2019-12-26] MEDS ORDERED: DexMEDEtomidine 250 ML DRIP 250 ML IV SCH (04:15)
[2019-12-26] MEDS ORDERED: OLANZapine 5 MG ODT (ZyPREXA ZYDIS) PO PRN (04:15)
--- NOTE | 2019-12-26 05:36 | Pulmonary Progress Note ---
Subjective Time Seen by a Provider: 05:32 Subjective/Events-last exam Pt is now on precedex secondary to agitation. Sepsis Event Evaluation Height, Weight, BMI Height: '" Weight: lbs. oz. kg; 29.19 BMI Method: Exam Exam Vital Signs Date Time Temp Pulse Resp B/P (MAP) Pulse Ox O2 Delivery O2 Flow Rate FiO2 12/26/19 04:25 37.0 12/26/19 04:14 93 128/71 12/26/19 04:00 94 NIV Bilevel 40 12/26/19 02:00 65 15 128/32 (64) 93 NIV Bilevel 40.00 12/26/19 01:49 NIV Bilevel 40.00 12/26/19 01:49 89 15 96 40.00 12/26/19 01:16 66 15 145/62 (89) 93 NIV Bilevel 50.00 12/26/19 01:00 72 12/26/19 00:00 64 13 99/55 (70) 93 NIV Bilevel 50.00 12/25/19 23:10 94 NIV Bilevel 50 12/25/19 23:10 36.3 NIV Bilevel 50.00 12/25/19 23:00 69 11 135/52 (79) 92 NIV Bilevel 50.00 12/25/19 22:01 89 15 92 50.00 12/25/19 22:00 93 16 133/97 (109) 92 NIV Bilevel 50.00 12/25/19 21:54 NIV Bilevel 50.00 12/25/19 21:00 75 12 146/78 (100) 94 NIV Bilevel 40.00 12/25/19 20:28 NIV Bilevel 40.00 12/25/19 20:20 85 12 118/65 (82) 97 NIV Bilevel 50.00 12/25/19 19:55 100 NIV Bilevel 60 12/25/19 19:40 36.1 NIV Bilevel 50.00 12/25/19 19:05 NIV Bilevel 60.00 12/25/19 19:00 NIV Bilevel 70.00 12/25/19 19:00 85 12/25/19 19:00 85 8 119/35 (63) 100 NIV Bilevel 70.00 12/25/19 18:38 110 26 100 70.00 12/25/19 16:00 85 14 149/73 (98) 92 NIV Bilevel 30.00 12/25/19 16:00 95 Nasal Cannula 4.00 12/25/19 15:00 89 18 168/81 (110) 93 NIV Bilevel 30.00 12/25/19 14:38 96 Nasal Cannula 4.00 12/25/19 14:00 94 19 155/66 (95) 95 NIV Bilevel 30.00 12/25/19 13:00 74 14 167/64 (98) 100 NIV Bilevel 30.00 12/25/19 12:55 78 12/25/19 12:00 99 NIV Bilevel 30 12/25/19 12:00 76 12 136/98 (111) 100 NIV Bilevel 30.00 12/25/19 11:00 90 21 108/61 (77) 100 NIV Bilevel 40.00 12/25/19 10:56 NIV Bilevel 40.00 12/25/19 10:51 98 16 100 50.00 12/25/19 10:00 104 20 165/65 (98) 100 NIV Bilevel 40.00 12/25/19 09:24 114 24 99 30.00 12/25/19 09:00 117 32 167/85 (112) 89 Nasal Cannula 2.00 40.00 12/25/19 08:05 36.8 96 14 183/76 96 Nasal Cannula 4.00 12/25/19 08:00 98 Nasal Cannula 4.00 12/25/19 08:00 96 18 183/76 (111) 95 Nasal Cannula 2.00 12/25/19 07:00 Nasal Cannula 4.00 12/25/19 07:00 94 15 148/84 (105) 97 Nasal Cannula 2.00 12/25/19 07:00 93 12/25/19 06:52 97 Nasal Cannula 4.00 12/25/19 06:45 99 OxyMask 6.00 12/25/19 06:24 OxyMask 6.00 12/25/19 06:00 36.9 84 15 149/68 (95) 100 NIV Bilevel 30.00 12/25/19 05:44 36.9 81 16 162/83 100 NIV Bilevel 30 I & O 12/26/19 07:00 Intake Total 2002 ml Output Total 2975 ml Balance -973 ml Height & Weight Height: '" Weight: lbs. oz. kg; 29.19 BMI Method: General Appearance: Chronically ill, Obese HEENT: PERRL/EOMI; No Scleral Icterus (L), No Scleral Icterus (R) Respiratory: Lungs Clear, No Respiratory Distress, Decreased Breath Sounds Cardiovascular: Regular Rate, Rhythm, No Murmur Capillary Refill: Less Than 3 Seconds Gastrointestinal: soft, no organomegaly Extremity: Pedal Edema, Other (severe edema in hands) Neurologic/Psychiatric: Alert, Normal Mood/Affect Results Lab Laboratory Tests 12/24/19 12:50 12/25/19 03:25 12/25/19 11:15 12/25/19 17:00 12/26/19 03:20 Assessment/Plan Assessment/Plan Acute respiratory failure -CXR is pending -Currently on BiPAP -Obtain PICC line HCAP with sepsis -Dowling cultures pending -Continue Abx Vanc and Zosyn -COVID negative Anemia s/p 3 unit of PRBC with hx of bleeding ulcers -Increase protonix to BID -Check Coags -Transfuse another unit of PRBC -Secondary to active bleeding will transfuse platelets -Consult Dr. Bales agitation -Zyprexa daily -Haldol PRN -Continue precedex gtt for now Pancytopenia Chronic Hypoxic Respiratory Failure Continue on cultures pending Metastatic Lung Cancer -Hemeonc following Acute renal failure -IVF Hyperkalemia -GIve insulin, bicarb, calcium gluconate, -Monitor Neutropenia -Isolation Pancytopenia Last chemo was 12/17, third round RAMONA SORIANO DO Dec 26, 2019 05:36
[2019-12-26] MEDS ORDERED: POTASSIUM CL 10MEQ/50ML IVPB 200 ML IV ONE (05:54)
[2019-12-26] MEDS: PIPERACILLIN/TAZOBACTAM (BULK) 4.5 GM in NS (IVPB) 100 ML IV SCH (05:55)
[2019-12-26] MEDS: inSUlin ASPART (NovoLOG) 1 UNIT/0.01 ML (CHARGE PER UNIT) SC SCH (05:56)
[2019-12-26] MEDS: KCL 20 MEQ TAB (K-DUR) PO SCH (05:56)
[2019-12-26] MEDS: SUCRALFATE 1 GM (CARAFATE) TAB PO SCH (05:57)
[2019-12-26] MEDS: OLANZapine 5 MG ODT (ZyPREXA ZYDIS) PO SCH ×2 (05:57→09:25)
--- NOTE | 2019-12-26 06:03 | Diagnostic Imaging Report ---
Indication: Lung cancer Portable chest 3:43 AM There is atelectasis of the left lower lung. There is a patchy infiltrate in the perihilar region of the right lung that is new since the previous day. IMPRESSION: Left basilar atelectasis/consolidation. Developing right perihilar infiltrate. Dictated by: Dictated on workstation # [id number]
[2019-12-26] MEDS: POTASSIUM CL 10MEQ/50ML IVPB 50 ML IV SCH ×4 (06:04→09:25)
[2019-12-26] MEDS: ADVAIR HFA 115/21 MCG INHALER 8 GM IH SCH (06:56)
[2019-12-26] MEDS: RT-ALBUTEROL HFA (PROAIR HFA) 8.5 GM IH SCH (06:56)
[2019-12-26] MEDS ORDERED: meTOprolol SUCCINATE 100 MG (TOPROL XL) TAB PO SCH (09:00)
[2019-12-26] MEDS: PANTOPRAZOLE 40 MG (PROTONIX) VIAL IV SCH (09:23)
[2019-12-26] MEDS: ALLOPURINOL 100 MG (ZYLOPRIM) TAB PO SCH (09:24)
[2019-12-26] MEDS: TBO-FILGRASTIM 480 MCG/0.8 ML (GRANIX) SQ SCH (09:49)
--- NOTE | 2019-12-26 09:59 | Progress Note - Hospitalist ---
Subjective HPI/CC On Admission Date Seen by Provider: Dec 26, 2019 Time Seen by Provider: 08:20 Pt is a 69yoCM with a PMH metastatic lung cancer, CAD, IDDMI who presented to an outside ER due to hypoglycemia and altered mental status. He was given increased insulin dose for hyperglycemia at his snf last night. In the morning he was found to be altered by the staff at the snf and his blood sugar was check and read as Low. Despite oral glucose x2 at the GA and D50 by EMS hisblood sugar still read at low at the OSH ER. He was started on continuous D10 and blood sugar was stabilized in the 100s. He was also found to be hypothermic with a temperature of 90.6 but responded to external warming with bairhugger and warmed fluids. His temperature improved as did his mentation. CXR revealed bilateral pneumonia. COVID19 testing was done at OSH. He reports feeling much better now and his mentation is improved but he is drowsy. He is on minimal oxygen now. He was found to be quite anemic and had just received chemo (3rd round) on 12/17. Subjective/Events-last exam He is sedated. He opens his eyes but is not following commands. Objective Exam Vital Signs Vital Signs Date Time Temp Pulse Resp B/P (MAP) Pulse Ox O2 Delivery O2 Flow Rate FiO2 12/26/19 09:00 63 14 125/58 (80) 93 NIV Bilevel 40.00 12/26/19 04:25 37.0 12/26/19 04:00 40 Capillary Refill : Less Than 3 Seconds General Appearance: No Apparent Distress, Other (Sedated) Respiratory: Lungs Clear, Other (Wearing BiPAP) Cardiovascular: Regular Rate, Rhythm, No Murmur Gastrointestinal: Normal Bowel Sounds, Soft Extremity: Normal Inspection, Pedal Edema, Swelling Neurologic/Psychiatric: Other (Lethargic, sedated) Skin: Normal Color, Warm/Dry Results/Procedures Lab Laboratory Tests 12/25/19 11:15 12/25/19 17:00 12/26/19 03:20 Patient resulted labs reviewed. Imaging: Reviewed Imaging Report Assessment/Plan Assessment and Plan Assess & Plan/Chief Complaint Sepsis HCAP Acute on chronic respiratory failure with hypoxia Continue Zosyn Continue BiPAP COVID negative Metastatic Lung Cancer Pancytopenia Poor prognosis WBC 0.5, hemoglobin 7.1, platelets 45 Received chemo on 12/17, third round oncology consulted, appreciate recs Consult palliative care Recent bleeding gastric ulcers continue IV PPI CAD HFpEF Cardiology consulted, appreciate assistance CKD stage 3 At baseline Continue fluids T2DM sliding scale insulin DVT prophylaxis: held due to recent major bleeding Hypothermia, resolved Hypoglycemia, resolved Diagnosis/Problems Diagnosis/Problems (1) Sepsis Status: Acute (2) Acute on chronic respiratory failure with hypoxia Status: Acute (3) Metastatic lung cancer (metastasis from lung to other site) Status: Chronic (4) CAP (community acquired pneumonia) Status: Acute (5) T2DM (type 2 diabetes mellitus) Status: Acute (6) Agitation (7) Poor prognosis Clinical Quality Measures DVT/VTE Risk/Contraindication: Risk Factor Score Per Nursin RFS Level Per Nursing on Admit: 4+=Very High RAMIRO ALEJANDRA MD Dec 26, 2019 09:58
[2019-12-26] MEDS ORDERED: LORazepam INJ 2 MG/ML (ATIVAN) VIAL ONE (10:32)
--- NOTE | 2019-12-26 10:39 | NUR ---
PALLIATIVE CARE RN in to see patient at the request of Dr. Tabares. Patient is taking at turn for the worse, with increased agitation needing Precedex and Haldol as well as Ativan. Patient will not leave BIPAP mask on unless he is under sedations, finally allowing for NC to be placed with HF @ 6-[address] Tabares has spoken to [facility] and [facility]
[2019-12-26] MEDS ORDERED: LORazepam INJ 2 MG/ML (ATIVAN) VIAL IVP ONE (10:45)
[2019-12-26] MEDS ORDERED: ONDANSETRON 4 MG/2 ML (SDV) Z0FRAN IVP PRN (10:45)
[2019-12-26] MEDS ORDERED: ARTIFICAL TEARS 0.4 ML UNIT DOSE (REFRESH PLUS) OU PRN (10:45)
[2019-12-26] MEDS ORDERED: BISACODYL 10 MG SUPP (DULCOLAX) PR PRN (10:45)
[2019-12-26] MEDS ORDERED: ACETAMINOPHEN 650 MG SUPP (TYLENOL) PR PRN (10:45)
[2019-12-26] MEDS ORDERED: RT-ALBUTEROL/IPRATROPIUM 3 ML (DUONEB) VIAL INH PRN (10:45)
[2019-12-26] MEDS ORDERED: PROMETHAZINE INJ 25 MG/ML (PHENERGAN) AMP IVP PRN (10:45)
[2019-12-26] MEDS ORDERED: SALIVA STIMULANT MOUTH SPRAY (BIOTENE) 1.5 OZ MM PRN (10:45)
--- NOTE | 2019-12-26 10:45 | NUR ---
Pt was made comfort care. Family notified. Orders received. Interventions completed appropriately. No new complaints. Will continue to monitor.
[2019-12-26] MEDS ORDERED: morphine INJ 4 MG/ML 1 ML (VIAL/SYRINGE) ONE ×2 (10:56→12:00)
[2019-12-26] MEDS ORDERED: morphine IMMEDIATE RELEASE 15 MG TABLET PO PRN (11:15)
[2019-12-26] MEDS: LORazepam INJ 2 MG/ML (ATIVAN) VIAL IVP PRN ×3 (11:56→15:22)
[2019-12-26] MEDS: morphine INJ 4 MG/ML 1 ML (VIAL/SYRINGE) IV PRN ×5 (12:12→22:12)
[2019-12-26] MEDS: GLYCOPYRROLATE 0.2 MG/ML (ROBINUL) 2 ML VIAL IV PRN ×2 (13:20→22:12)
--- NOTE | 2019-12-26 13:21 | Cardiology Progress Note ---
Cardiology SOAP Progress Note Subjective: Patient is moaning Objective: I&O/Vital Signs 12/26/19 12/26/19 12/26/19 12/26/19 01:49 01:49 02:00 03:00 Pulse 89 65 70 Resp 15 15 14 B/P (MAP) 128/32 (64) 133/66 (88) Pulse Ox 96 93 94 O2 Delivery NIV Bilevel NIV Bilevel NIV Bilevel O2 Flow Rate 40.00 40.00 40.00 40.00 12/26/19 12/26/19 12/26/19 12/26/19 04:00 04:00 04:14 04:25 Temp 37.0 Pulse 70 93 Resp 14 B/P (MAP) 133/66 (88) 128/71 Pulse Ox 94 94 O2 Delivery NIV Bilevel NIV Bilevel O2 Flow Rate 40.00 FiO2 40 12/26/19 12/26/19 12/26/19 12/26/19 05:00 06:00 06:45 06:57 Pulse 64 64 72 62 Resp 17 14 16 B/P (MAP) 108/46 (66) 115/53 (73) Pulse Ox 93 94 93 O2 Delivery NIV Bilevel NIV Bilevel O2 Flow Rate 40.00 40.00 40.00 12/26/19 12/26/19 12/26/19 12/26/19 07:00 08:00 08:00 09:00 Pulse 64 64 63 Resp 17 15 14 B/P (MAP) 115/48 (70) 112/45 (67) 125/58 (80) Pulse Ox 93 94 93 93 O2 Delivery NIV Bilevel NIV Bilevel NIV Bilevel NIV Bilevel O2 Flow Rate 40.00 40.00 40.00 FiO2 40 12/26/19 12/26/19 12/26/19 12/26/19 10:00 10:27 11:00 11:04 Temp 36.4 Pulse 61 88 Resp 15 24 B/P (MAP) 125/54 (77) 115/99 (104) Pulse Ox 95 87 95 O2 Delivery NIV Bilevel Nasal Cannula NIV Bilevel O2 Flow Rate 40.00 10.00 40.00 12/26/19 00:00 Intake Total 1390 ml Output Total 1975 ml Balance -585 ml Constitutional: AAO x 3 Respiratory: No accessory muscle use, No respiratory distress; chest expansion is symmetric, chest is bilaterally symmetric, other (fair air entry with diminished breath sounds lower lobes) Cardiovascular: regular rate-rhythm, tachycardia, systolic murmur (soft MSM at card base) Gastrointestional: No tender; soft, audible bowel sounds Extremities: other (mild to mod bilat LE swelling) Neurologic/Psychiatric: oriented x 3, other (moves all limbs equally) Skin: No rash on exposed areas, No ulcerations on exposed areas Results/Procedures: Labs Laboratory Tests 12/25/19 16:46: Glucometer 227H 12/25/19 17:00: White Blood Count 0.5*L, Red Blood Count 2.52L, Hemoglobin 7.4L, Hematocrit 22L, Mean Corpuscular Volume 89, Mean Corpuscular Hemoglobin 29, Mean Corpuscular Hemoglobin Concent 33, Red Cell Distribution Width 15.7H, Platelet Count 51L, Mean Platelet Volume 9.4, Neutrophils (%) (Auto) 7L, Lymphocytes (%) (Auto) 85H, Monocytes (%) (Auto) 4, Eosinophils (%) (Auto) 4, Basophils (%) (Auto) 0, Neutrophils # (Auto) 0.0L, Lymphocytes # (Auto) 0.4L, Monocytes # (Auto) 0.0, Eosinophils # (Auto) 0.0, Basophils # (Auto) 0.0 12/25/19 18:28: Stool Occult Blood Immunoassay POSITIVEH 12/25/19 19:30: Blood Gas Puncture Site RT RADIAL, Blood Gas Patient Temperature 36.1, Arterial Blood pH 7.42, Arterial Blood Partial Pressure CO2 45, Arterial Blood Partial Pressure O2 183H, Arterial Blood HCO3 28H, Arterial Blood Total CO2 29.8, Arterial Blood Oxygen Saturation 99, Arterial Blood Base Excess 4.2H, Martinez Test P, Blood Gas Ventilator Setting NO, Blood Gas Inspired Oxygen 7L 12/25/19 20:59: Glucometer 205H 12/26/19 03:20: White Blood Count 0.5*L, Red Blood Count 2.39L, Hemoglobin 7.1L, Hematocrit 22L, Mean Corpuscular Volume 90, Mean Corpuscular Hemoglobin 30, Mean Corpuscular He moglobin Concent 33, Red Cell Distribution Width 15.6H, Platelet Count 45L, Mean Platelet Volume 10.4, Neutrophils (%) (Auto) 6L, Lymphocytes (%) (Auto) 85H, Monocytes (%) (Auto) 4, Eosinophils (%) (Auto) 4, Basophils (%) (Auto) 0, Neutrophils # (Auto) 0.0L, Lymphocytes # (Auto) 0.4L, Monocytes # (Auto) 0.0, Eosinophils # (Auto) 0.0, Basophils # (Auto) 0.0, Sodium Level 146H, Potassium Level 3.3L, Chloride Level 107, Carbon Dioxide Level 27, Anion Gap 12, Blood Urea Nitrogen 50H, Creatinine 2.44H, Estimat Glomerular Filtration Rate 26, BUN/Creatinine Ratio 20, Glucose Level 175H, Calcium Level 7.7L, Corrected Calcium 9.1, Phosphorus Level 3.9, Magnesium Level 1.9, Total Bilirubin 1.0, Aspartate Amino Transf (AST/SGOT) 50H, Alanine Aminotransferase (ALT/SGPT) 65H, Alkaline Phosphatase 204H, Total Protein 4.7L, Albumin 2.2L Microbiology 12/22/19 MRSA Screen - Final, Complete MRSA not isolated A/P: Assessment/Dx: Patient has been made comfort care only. Sinus tachycardia with questionable transient a-fib (no tele strip available) Pneumonia with sepsis - management per Pulmonary services Pancytopenia, managed by Onc and Med services Reported h/o CAD - details unknown - follows with [facility] Echo on 12/25/19: LVEF 50-55%, grade 1 garcia dysfunction, mild , RVSP 20 mmHg H/O CVA in Apr 2019 H/O carotid arterial disease - details unknown - followed by [facility] surgical services at [facility] - previously on Plavix/ASA Echo of 12/25/19: LVEF 50-55%, mild AoV stenosis, RVSP 20 mmhg CKD-4 EGD/colo on 12-17-[address] Bales reported to show gastric ulcer with evidence of recent bleeding (old blood reported) Lung cancer with mets to the bone and liver - management per oncology services DM 2 Plan: * Patient has been made comfort care only. Cardiology will sign off. Thank you for your consultation. Please call me if you have any questions. David Crandall MD, FACP, FACC, FSCAI, FHRS, CCDS Interventional Cardiology Cardiac Electrophysiology Vascular Medicine and Endovascular Interventions Clinical Quality Measures Type of Care: Type of Care: Comfort Measures Julian CRANDALL MD Dec 26, 2019 13:21
--- NOTE | 2019-12-26 14:37 | NUR ---
PALLIATIVE CARE RN in to see patient. He is on CCMO and is showing signs of decline and nearing the EOL. Although he still has furrowed brows he appears to be less agitated and uncomfortable, aeb not trying to sit up and pull and his lines. Noted he has a drastic change in color with his hands appearing to be purple. His respirations are regular but shallow. No oxygen is on at this time. Anticipated passing within the next [address] Maritza Tabares had given the blessing to transition to 4th floor if the bed is needed in ICU.
--- NOTE | 2019-12-26 15:50 | NUR ---
Pastoral care visit, family at bedside, coping well. provided prayer and support.
[2019-12-27] MEDS: LORazepam INJ 2 MG/ML (ATIVAN) VIAL IVP PRN (02:45)
[2019-12-27] MEDS: morphine INJ 4 MG/ML 1 ML (VIAL/SYRINGE) IV PRN (05:40)
--- NOTE | 2019-12-27 08:30 | NUR ---
Palliative Care RN visit. Patient is resting. Respirations regular btwn 20 - 24 BPM no oxygen on at this time He has a a constant furrow in his brows it seems so not in itself evidence of discomfort. He has no other signs of discomfort e.b. excessive movement and/or the tachypnea. He is getting PRN comfort medications which are helping. Will continue to monitor for decline and increased discomfort. No family present at this time but they are allowed 1 person a bedside during this time.
--- NOTE | 2019-12-27 09:25 | Progress Note - Hospitalist ---
Subjective HPI/CC On Admission Date Seen by Provider: Dec 27, 2019 Time Seen by Provider: 08:10 Pt is a 69yoCM with a PMH metastatic lung cancer, CAD, IDDMI who presented to an outside ER due to hypoglycemia and altered mental status. He was given increased insulin dose for hyperglycemia at his assisted last night. In the morning he was found to be altered by the staff at the assisted and his blood sugar was check and read as Low. Despite oral glucose x2 at the CT and D50 by EMS hisblood sugar still read at low at the OSH ER. He was started on continuous D10 and blood sugar was stabilized in the 100s. He was also found to be hypothermic with a temperature of 90.6 but responded to external warming with bairhugger and warmed fluids. His temperature improved as did his mentation. CXR revealed bilateral pneumonia. COVID19 testing was done at OSH. He reports feeling much better now and his mentation is improved but he is drowsy. He is on minimal oxygen now. He was found to be quite anemic and had just received chemo (3rd round) on 12/17. Subjective/Events-last exam He is resting comfortably in bed. He is in no distress. There is no family at the bedside. Objective Exam Vital Signs Vital Signs Date Time Temp Pulse Resp B/P (MAP) Pulse Ox O2 Delivery O2 Flow Rate FiO2 12/26/19 20:00 Room Air 12/26/19 11:04 36.4 12/26/19 11:00 88 24 115/99 (104) 95 40.00 12/26/19 08:00 40 Capillary Refill : Less Than 3 Seconds General Appearance: No Apparent Distress, Chronically ill, Obese Respiratory: No Accessory Muscle Use, No Respiratory Distress Cardiovascular: Regular Rate, Rhythm, No Murmur Gastrointestinal: Normal Bowel Sounds, Soft Extremity: Normal Inspection, Swelling Neurologic/Psychiatric: Other (Sleeping, resting comfortably) Skin: Normal Color, Warm/Dry Results/Procedures Lab Patient resulted labs reviewed. Imaging: Reviewed Imaging Report Assessment/Plan Assessment and Plan Assess & Plan/Chief Complaint Sepsis HCAP Acute on chronic respiratory failure with hypoxia Metastatic Lung Cancer Pancytopenia Recent bleeding gastric ulcers CAD HFpEF CKD stage 3 T2DM Poor prognosis End-of-life care After discussion with family, transition to comfort measures only Continue comfort care order set Palliative care consulted, assisting with cares Diagnosis/Problems Diagnosis/Problems (1) Sepsis Status: Acute (2) Acute on chronic respiratory failure with hypoxia Status: Acute (3) Metastatic lung cancer (metastasis from lung to other site) Status: Chronic (4) CAP (community acquired pneumonia) Status: Acute (5) T2DM (type 2 diabetes mellitus) Status: Acute (6) Agitation Status: Resolved Resolution Date/Time: 12/27/19 @ 09:27 (7) Poor prognosis Status: Acute (8) End of life care Status: Acute (9) Comfort measures only status Status: Acute Clinical Quality Measures DVT/VTE Risk/Contraindication: Risk Factor Score Per Nursin RFS Level Per Nursing on Admit: 4+=Very High RAMIRO ALEJANDRA MD Dec 27, 2019 09:25
--- NOTE | 2019-12-27 10:29 | NUR ---
PC RN to see patient. he has been repositioned and appears to be comfortable still. Respiratory rate 20.
--- NOTE | 2019-12-27 12:33 | NUR ---
Palliative Care RN learned of patient passing from Dr. Tabares and RN, Davida. Notified Janeth and Ambrose patients family. They indicated that [facility] will be providing cremation services for this patient. Family asks that no one else be notified at this time (significant other). This RN has also notified Dr. Sheehan, Dr. Ovalles and Dr. Michaels.
--- NOTE | 2019-12-27 12:59 | NUR ---
[facility] CALLED. PATIENT IS NOT A CANDIDATE FOR DONATION. COUNTS INCLUDE 234 BEDS AT THE [facility] IN [place] NOTIFIED. PATIENT BELONGINGS WILL BE SENT WITH THE BODY TO THE HOME.
== END 2019-12-27 14:10 | disposition expired | DRG 871 ==
LOC: ICU 13:20 → 4TH 12-26 15:52 → ICU 12-26 16:16
PROVIDERS: ADMIT Family Medicine; ATTEND Family Medicine
DX: A41.9 Sepsis, unspecified organism (principal); J18.9 Pneumonia, unspecified organism; I21.4 Non-ST elevation (NSTEMI) myocardial infarction; J96.21 Acute and chronic respiratory failure with hypoxia; J44.0 Chronic obstructive pulmonary disease with (acute) lower respiratory infection; D61.810 Antineoplastic chemotherapy induced pancytopenia; C34.90 Malignant neoplasm of unspecified part of unspecified bronchus or lung; Z66 Do not resuscitate; Z51.5 Encounter for palliative care; C79.51 Secondary malignant neoplasm of bone; C78.7 Secondary malignant neoplasm of liver and intrahepatic bile duct; N17.9 Acute kidney failure, unspecified; N18.4 Chronic kidney disease, stage 4 (severe); I25.10 Atherosclerotic heart disease of native coronary artery without angina pectoris; I50.30 Unspecified diastolic (congestive) heart failure; R68.0 Hypothermia, not associated with low environmental temperature; E11.649 Type 2 diabetes mellitus with hypoglycemia without coma; T38.3X5A Adverse effect of insulin and oral hypoglycemic [antidiabetic] drugs, initial encounter; K25.9 Gastric ulcer, unspecified as acute or chronic, without hemorrhage or perforation; H40.9 Unspecified glaucoma; N28.9 Disorder of kidney and ureter, unspecified; M19.91 Primary osteoarthritis, unspecified site; R74.0 Nonspecific elevation of levels of transaminase and lactic acid dehydrogenase [LDH]; Z86.73 Personal history of transient ischemic attack (TIA), and cerebral infarction without residual deficits; Z99.81 Dependence on supplemental oxygen; Z87.891 Personal history of nicotine dependence; I48.91 Unspecified atrial fibrillation
CPT/HCPCS: 36415; 36600; 71045; 76937; 80053; 82274; 82805; 82962; 83605; 83735; 84100; 84145; 84484; 85007; 85025; 85027; 85610; 85730; 86850; 86900; 86901; 86920; 87081; 93306; 94640; 94660